=== PATIENT | male | born 1970 | race Caucasian/White ===

== ENCOUNTER 2019-03-06 08:00 | Emergency (ER) | payer SELFPAY ==
[2019-03-06 08:01] VITALS: BP 171/77; PULSE 78; RESP 16; TEMP 36.1; O2SAT 98; BMI 47.1
--- NOTE | 2019-03-06 08:33 | EKG12_ITS ---
Test Reason : SOB Blood Pressure : / mmHG Vent. Rate : 071 BPM Atrial Rate : 071 BPM P-R Int : 156 ms QRS Dur : 094 ms QT Int : 378 ms P-R-T Axes : 074 061 042 degrees QTc Int : 410 ms Normal sinus rhythm Normal ECG Confirmed by EMILY TOLLIVER, JADON ([id number]), deputy editor in chief MIKAYLA HEWITT ([id number]) on 03/07/2019 11:41:43 AM Referred By: KAITLYNN Confirmed By:JADON DIAZ MD
--- NOTE | 2019-03-06 08:33 | RAD_ITS ---
STUDY: X-RAY CHEST REASON FOR EXAM: Male, 48 years old. States that last night he felt like he stopped breathing while trying to fall asleep. TECHNIQUE: PA and lateral views of the chest. COMPARISON: None. FINDINGS: Thickening of the minor fissure. The lungs are clear and expanded. There is no demonstrated pleural abnormality. Normal size heart. Normal mediastinum and tyra. Normal visualized pulmonary arteries. Normal visualized aortic arch and descending thoracic aorta. Normal visualized thoracic spine. Normal visualized ribs, clavicles, and shoulders. There is no demonstrated abnormality of the visualized soft tissue structures of the upper abdomen. RAD/Chest PA and Lateral IMPRESSION: No pulmonary edema, congestive heart failure or confluent pneumonia. Electronically Signed: Arely Moya MD at 9:06 EDT , Service support ,
--- NOTE | 2019-03-06 08:35 | ED.DCSUM_ITS ---
- ER Visit Summary Date of Service: 03/06/19 Chief Complaint: Trouble breathing last night when he was trying to go to sleep. History of Present Illness: The patient is a 48 M no significant past medical or surgical history. No cardiac or pulmonary history. Patient states last night when he was going to sleep he would doze off and felt like he was having trouble breathing. Like the air was being sucked out of him. He denies any chest pain. No fever or cough. No hemoptysis. No history of DVT or PE or any risk factors. Patient has never been diagnosed or worked up for sleep apnea but believes he has it. He is not short of breath at this time. Physical Examination: Middle-aged male. Vital signs stable and afebrile. His pulse ox is 98%. H EENT exam unremarkable. Neck nontender no JVD. No lymphadenopathy. Lungs clear to auscultation bilaterally. Heart regular rhythm no murmur. Rate about 80. Chest were nontender. Abdomen soft nontender. Extremities moves all 4. Calves are nontender without edema or cords. Equal symmetrical radial pulses. Back nontender. Neurologically he is awake and alert with no focal motor deficits. Test Results: EKG shows normal sinus rhythm rate of 71 with no signs of ischemia nor abnormal rhythm. Chest x-ray 2 views AP and lateral read by myself shows no acute abnormality. Normal cardiac silhouette. Normal mediastinum. No fluid nor infiltrate. Emergency Department Course and Treatment: Patient's exam is completely normal. His body habitus would suggest that he most likely has obstructive sleep apnea. He understands I cannot diagnose that to the emergency department. He will need outpatient follow-up. Repeat exam doing well at 9:10 AM discharge for outpatient follow-up Treatment Plan: Referred to primary care physician. Consider having a sleep study done. Disposition: Discharge Impression: Obstructive sleep apnea This note was generated with [employer] dictation software. It may contain incorrect words, spelling, and punctuation that were not noted in review of the chart prior to signing ED Disposition - Plan for ED Patient: Referrals: NOT,DEFINED [NON-STAFF] -
--- NOTE | 2019-03-06 09:10 | ED.DEP ---
ED Disposition - Plan for ED Patient: Disposition: Home or Assisted Living Instructions: ED Dyspnea, SLEEP APNEA, Obstructive (Adult) Referrals: Lance Santiago MD [STAFF PHYSICIAN] - As soon as possible Additional Instructions: Follow-up with a local primary care physician. You may need to be set up for a sleep study. Your chest x-ray and EKG today were normal. Follow-up to the ER if you are feeling
[2019-03-06 10:08] VITALS: BP 169/83; PULSE 87; RESP 16; O2SAT 97
== END 2019-03-06 10:09 | disposition home or self-care (01) ==
PROVIDERS: Emergency Provider Emergency Medicine
DX: G47.33 Obstructive sleep apnea (adult) (pediatric) (principal); Z72.0 Tobacco use
CPT/HCPCS: 71046; 93005; 99282

== ENCOUNTER 2019-05-08 14:58 | Emergency (ER) | payer SELFPAY ==
[2019-05-08 14:59] VITALS: BP 126/79; PULSE 71; PULSE 74; RESP 18; TEMP 36.7; O2SAT 100; BMI 47.9
--- NOTE | 2019-05-08 15:29 | RAD_ITS ---
STUDY: X-RAY - RIGHT KNEE REASON FOR EXAM: Male, 48 years old. Pain status post fall off ladder. TECHNIQUE: 3 view(s) of the knee. COMPARISON: None. FINDINGS: Moderate lipohemarthrosis. Visualized femur and patella are intact. Acute comminuted fracture of the proximal tibia involving the lateral tibial plateau and lateral aspect of the medial tibial plateau. There is approximately 9 mm depression of the lateral tibial plateau. There is lateral displacement of a dominant lateral tibial plateau fragment. There is narrowing of the lateral compartment due to trauma. There is widening of the medial compartment due to trauma. Medial tibial fragment extends into the proximal tibial shaft and is displaced approximately 1.5 cm dorsomedially. There is a comminuted fracture of the fibular head and neck. RAD/Knee 3 Views IMPRESSION: 1. Comminuted fracture of the proximal tibia including depression of the lateral tibial plateau. 2. Comminuted fracture of the fibular head and neck. 3. Lipohemarthrosis of the knee. Electronically Signed: Cindy Pollock MD at 16:41 EST Tel , Service support ,
--- NOTE | 2019-05-08 15:29 | RAD_ITS ---
STUDY: X-RAY - RIGHT TIBIA AND FIBULA REASON FOR EXAM: Male, 48 years old. Pain status post fall. TECHNIQUE: 3 view(s) of the tibia and fibula were obtained. COMPARISON: None. FINDINGS: Acute comminuted fracture of the proximal tibia is prominent displaced lateral tibial fragment. Acute comminuted fracture of the fibular head and neck. Mid to distal shafts of the tibia and fibula are intact. RAD/Tibia & Fibula 2 Views IMPRESSION: 1. Acute fractures of the proximal tibia and fibula. Please refer to the x-ray knee report. Electronically Signed: Cindy Pollock MD at 16:44 EST Tel , Service support ,
--- NOTE | 2019-05-08 15:53 | ED.VISSUMM ---
- ER Visit Summary Date of Service: 05/08/19 Chief Complaint: Fall History of Present Illness: The patient is a 48 M who presents after a fall today. Patient states he fell off of a ladder approximately 4 to 5 feet. Patient states his pain is mainly in his right knee and leg. Patient states the pain is worse with any movement. Patient denies any head injury or loss of consciousness. Patient denies any paresthesias or weakness. Patient denies any neck or back pain. Patient describes his pain as dull. Patient denies any other injuries. Physical Examination: Vital signs are stable. Patient is afebrile. Patient is in no acute distress. Musculoskeletal exam reveals tenderness over the anteromedial aspect of the right knee and proximal tibia. There is a hematoma noted. There is no obvious deformity noted. Range of motion was limited in all motions of the right knee and leg secondary to pain. Sensation was intact to light touch in all dermatomes. Pedal pulses are equal bilaterally. There is no tenderness over the hip or pelvis. Test Results: X-rays of the right knee and tib-fib were obtained. There are fractures of the medial and lateral tibial plateaus as well as the proximal fibula. These were interpreted by the radiologist and reviewed by myself. Emergency Department Course and Treatment: Patient was given morphine here. Patient had some improvement with this. Patient was given a dose of Dilaudid. Case was discussed with Dr. Buckner. He recommended transferring the patient to [facility]. Case was discussed with [facility] transfer line. Patient will be transferred there. Patient was given a knee immobilizer for transfer. Patient understood and was agreeable with the plan. All questions were answered. Disposition: Transfer to [facility] Impression: 1. Tibial plateau fracture right knee 2. Proximal fibula fracture right leg This note was generated with [employer] dictation software. It may contain incorrect words, spelling, and punctuation that were not noted in review of the chart prior to signing ED Disposition - Plan for ED Patient: Disposition: [facility] Diagnosis: Tibial plateau fracture, right, Fracture, fibula, proximal Referrals: Care Physician,No Primary [Primary Care Provider] -
[2019-05-08] MEDS: Morphine 4 MG/ML Syringe IV (16:36)
[2019-05-08] MEDS: HYDROmorphone 1 MG/ML Syringe IV ×2 (17:54→19:27)
[2019-05-08 19:32] VITALS: BP 157/86; PULSE 78; RESP 19; O2SAT 97
[2019-05-08 21:23] VITALS: RESP 16
== END 2019-05-08 20:00 | disposition short-term general hospital (02) ==
LOC: ED 15:25
PROVIDERS: Emergency Provider Emergency Medicine
DX: S82.141A Displaced bicondylar fracture of right tibia, initial encounter for closed fracture (principal); S82.491A Other fracture of shaft of right fibula, initial encounter for closed fracture; W11.XXXA Fall on and from ladder, initial encounter; Y93.9 Activity, unspecified; Y92.9 Unspecified place or not applicable; Z72.0 Tobacco use
CPT/HCPCS: 73562; 73590; 96374; 96375; 96376; 99285; J7030

== ENCOUNTER 2019-06-29 11:43 | Emergency (ER) | payer SELFPAY ==
[2019-06-29 11:44] VITALS: BP 113/74; PULSE 97; RESP 16; TEMP 37.3; BMI 47.1
--- NOTE | 2019-06-29 11:56 | RAD_ITS ---
STUDY: X-RAY - RIGHT KNEE REASON FOR EXAM: Male, 48 years old. RIGHT LEG/KNEE PAIN. RECENT FX 05/2019 WITH SURGERY TECHNIQUE: 4 view(s) of the knee. COMPARISON: None. FINDINGS: Normal visualized distal femur. Comminuted fracture of the lateral tibial plateau is noted there is internal fixation was hardware in good position. There is a healing fracture of the proximal metaphysis of the fibula. There is mild degenerative arthrosis of the patellofemoral articulation. The soft tissue structures are unremarkable. RAD/Knee 4 or More Views IMPRESSION: Healing fractures of the lateral tibial plateau at the proximal metaphysis of the fibula. Electronically Signed: Lucero Majano, at 13:04 EST Tel , Service support ,
[2019-06-29] MEDS: HYDROcodone Bitartrate/Apap 5/325 Tablet PO (12:04)
[2019-06-29] MEDS: Naproxen 500 MG Tablet PO (12:04)
--- NOTE | 2019-06-29 13:35 | ED.VIS.GEN ---
History of Present Illness Chief Complaint: Lower Extremity Injury Informant: Patient Onset: Days Context: Gradual Onset Timing: Waxes and wanes Quality: Increased pain with spasm and goose egg right knee Location: Medial right knee and proximal leg Current Severity: Mild Maximum Severity: Severe Worsened by: Nothing Relieved by: Nothing Associated Symptoms: Spasms Narrative: Patient is a 48-year-old male who had a comminuted lateral tibial plateau fracture and fracture of the fibular head who underwent repair at [facility] by Dr. Reese. He presents because of increased pain that is wax and wane in nature. He also states there is goose egg that he can feel. He denies paresthesia, anesthesia motors. He states he is in physical therapy. He is doing only what he was instructed to do. Prior similar symptoms: Yes Recent Illness/Hospitalization: Yes Past Medical History - Allergies and Home Meds Allergies/Adverse Reactions: Allergies No Known Allergies Allergy (Verified 06/29/19 11:48) Primary Care Physician: Care Physician,No Primary [Primary Care Provider] - Surgical History: - - And reduction internal fixation comminuted lateral tibial plateau fracture with transverse fracture fibular head. Lives: With Family Smoking Status: Former smoker Alcohol: None Drugs: None Review of Systems General: Denies: Chills, Fever, Malaise, Sweats Cardiovascular: Denies: Chest pain, Palpitations Respiratory: Denies: Dyspnea, Cough, Dyspnea on exertion Gastrointestinal: Denies: Abdominal pain, Nausea, Vomiting Musculoskeletal: Reports: Swelling, Extremity Pain. Denies: Myalgias, Arthralgias, Neck pain, Back pain, -, - Skin: Denies: Rash, Wounds Neurological: Denies: Headache, Weakness, Parasthesia, Numbness Hematologic: Denies: Easy bruising, Easy bleeding Allergy: Denies: Uticaria, Swelling of the mouth Physical Exam Vital Signs/Narrative: Vital Signs Temp Pulse Resp BP 06/29/19 11:44 99.1 F 97 16 113/74 Inital Vital Signs reviewed: Yes General: Well nourished, Well developed, Obese, No Acute Distress Head: Normocephalic, Atraumatic Eyes: Perrl, EOMI. Negative for: Pale conjunctiva, Scleral icterus ENT: Moist mucous membranes, No rhinorrhea Neck: Supple, Nontender Cardiovascular: Regular rate, Regular rhythm, No murmurs, Normal S1, Normal S2 Respiratory: No distress, CTA bilaterally, Chest nontender Extremities: No edema, - - There is pain over the medial proximal incision. There is no erythema, warmth, fluctuance or lymphangitis. There is no palpable mass. Patella is not ballotable. There is a slight effusion. He is able to extend 270 degrees and hold against gravity. He is able to flex to 90 degrees. DP and PT pulses are palpable.. Negative for: Nontender Skin: Normal color, No rash Neurological: Alert, Oriented x3, Cranial nerves II-XII grossly intact, Normal Sensation. Negative for: Normal Strength, Normal Gait Psychological: Depressed Diagnostic/Tx/Re-eval Chest X-Ray - ED: Read by ED Physician, Read by Radiologist, - - 4 view x-ray of the knee was obtained. There is hardware noted. He has a healing tibial plateau fracture and fracture of the proximal fibula. This was compared to postop films that patient had for my review. There is interval improvement. Impressions Knee X-Ray 06/29/19 11:56 IMPRESSION: Healing fractures of the lateral tibial plateau at the proximal metaphysis of the fibula. Electronically Signed: Lucero Majano, at 13:04 EST Tel , Service support , 06/29/19 11:56 Knee 4 or More Views [RAD] Stat - Medical Decision Making Since patient is complaining of pain with weightbearing and has not had recent x-rays x-rays were obtained to determine if any new injury or nonhealing fracture. He was medicated with hydrocodone. He reports marked improvement. ED Disposition - Plan for ED Patient: Diagnosis: Comminuted lateral tibial plateau fractu Instructions: FRACTURE, Lower Extremity Prescriptions: Hydrocodone Bitart/Apap 5-325 [Nancy 5MG-325MG] 1 tab PO Q6H PRN PRN 3 Days #10 tab PRN Reason: Pain Prescription Printed Referrals: Care Physician,No Primary [Primary Care Provider] - Doctor,Your [STAFF PHYSICIAN] - 3-5 Days if not improving
[2019-06-29 13:47] VITALS: BP 127/63; PULSE 58; RESP 16; O2SAT 97
== END 2019-06-29 13:48 | disposition home or self-care (01) ==
PROVIDERS: Emergency Provider Emergency Medicine
DX: S82.144D Nondisplaced bicondylar fracture of right tibia, subsequent encounter for closed fracture with routine healing (principal); Z87.891 Personal history of nicotine dependence; E66.9 Obesity, unspecified; X58.XXXD Exposure to other specified factors, subsequent encounter
CPT/HCPCS: 73564; 99283

== ENCOUNTER → 2020-03-13 11:49 | Outpatient (CLI) | payer MEDICAID, SELFPAY ==
[2020-03-13 15:20] LABS: Absolute Lymphocyte Count 2.31 X10^3/uL (0.83-4.51); Absolute Neutrophil Count 3.1 X10^3/uL (2.0-7.7); Basophil# 0.03 X10^3/uL; Basophil% 0.5 % (0-1); Eosinophil# 0.14 X10^3/uL; Eosinophils% 2.2 % (0-5); Hematocrit 44.3 % (40-54); Lymphocyte # 2.31 X10^3/ul (4.0); Lymphocyte % 36.4 % (19-41); Mean Corp Hgb Conc 31.6 g/dL (32-36); Mean Corpuscular Hgb 28.8 pg (27.0-32.0); Mean Corpuscular Volume 91.2 fL (80-94); Mean Platelet Vol. 10.3 fl (6.2-12.0); Monocyte# 0.74 X10^3/uL; Monocyte% 11.7 % (0-10); NRBC Flagged by Analyzer 0 % (0-5); Neutrophil % 48.9 % (47-70); Platelet Count 222 K/mm3 (150-450); RBC Distribution Width CV 14.1 % (11.6-14.6); RBC Distribution Width SD 47.6 fl (35.1-43.9); Red Blood Count 4.86 M/mm3 (4.6-6.2); White Blood Count 6.3 K/mm3 (4.4-11.0)
[2020-03-13 15:38] LABS: Vitamin B12 269 pg/mL (211-911); Vitamin D,25 Hydroxy 30.2 ng/mL
[2020-03-13 15:47] LABS: ALB/GLOB Ratio 1.1 RATIO (0.9-2.4); AST(SGOT) 19 U/L (15-37); Alanine Aminotransfer ALT/SGPT 24 U/L (16-61); Albumin, Serum 3.5 g/dL (3.2-5.0); Alkaline Phosphatase 84 U/L (45-117); Anion Gap 6 (5-15); BUN 12 mg/dL (7-18); BUN/Creat Ratio 13.3 RATIO (10-20); Calcium,Total 8.4 mg/dL (8.5-10.1); Chloride 109 mmol/L (98-107); Cholesterol 108 mg/dL (200); EST Glomerular Filtration Rate 96 mL/min (>60); Est Glom Filt Rate - Afr Amer 116 mL/min (>60); Globulin 3.2 g/dL (2.2-4.2); Glucose 91 mg/dL (74-106); High Density Lipoprotein 35 mg/dL; Potassium 3.7 mmol/L (3.5-5.1); Protein, Total 6.7 g/dL (6.4-8.2); Sodium Level 141 mmol/L (136-145); Thyroid Stim Hormone (TSH) 1.91 uIU/mL (0.358-3.74); Triglycerides 114 mg/dL; Very Low Density Lipoprotein 23 mg/dL (5-40)
== END ==
PROVIDERS: PCP Family Medicine; Referring Provider Family Medicine; Visit Provider Family Medicine
DX: R53.83 Other fatigue (principal); Z13.220 Encounter for screening for lipoid disorders
CPT/HCPCS: 36415; 80053; 80061; 82306; 82607; 84443; 85025

== ENCOUNTER → 2020-03-14 16:49 | Outpatient (CLI) | payer MEDICAID, SELFPAY ==
--- NOTE | 2020-03-14 16:51 | RAD_ITS ---
STUDY: X-RAY - RIGHT KNEE REASON FOR EXAM: Male, 49 years old. 10 month postop. Patient feels screws breaking and loosening. TECHNIQUE: 4 view(s) of the knee. COMPARISON: Right tibia-fibula, 03/14/2020. Right knee, 06/23/2019. FINDINGS: Normal visualized distal femur. There is a healed tibial plateau fracture. This is nonunion of the anterior fragment which appears unchanged from the previous examination. The metallic plate and screws are intact and unchanged in this position from the previous examination. Healed fracture of the proximal fibula.. Normal proximal tibiofibular articulation. There is no demonstrated destructive osseous lesion. There is mild degenerative arthrosis of the medial femorotibial compartment. There is mild degenerative arthrosis of the lateral femorotibial compartment. Normal patellofemoral articulation. The soft tissue structures are unremarkable. RAD/Knee 4 or More Views IMPRESSION: 1. Stable hardware. There is no evidence of fracture or loosening. 2. Healed fracture of the proximal tibia. 3. Single small nonfused fragment in the anterior tibial plateau seen best on the lateral view. 4. Healed fracture of the proximal fibula. Electronically Signed: Mode Oden DO at 23:07 EDT Tel [phone], Service support ,
--- NOTE | 2020-03-14 16:52 | RAD_ITS ---
STUDY: X-RAY - RIGHT TIBIA AND FIBULA REASON FOR EXAM: Male, 49 years old. 10 postop. Patient feels as if screws are loosening and breaking. Continued knee pain. TECHNIQUE: 2 view(s) of the tibia and fibula were obtained. COMPARISON: Right knee, 03/14/2020. Right tibia and fibula, 05/08/2019. Right knee, 06/29/2019 FINDINGS: There is a now healed tibial plateau fracture. There is slight loosening of the lateral plate inferiorly with fractures of the screws. There is also slight displacement of the screw in the medial portion of the plate on the lateral view the upper portion of the plate is intact without fracture or loosening. Medial plate and screws appear unchanged. There is a single nonfused fragment along the anterior aspect of the tibial plateau which is thought to lie centrally. The distal shaft appears intact. The ankle is unremarkable. There is a healed fracture of the superior fibular shaft. The soft tissue structures are unremarkable. RAD/Tibia & Fibula 2 Views IMPRESSION: Healed fracture of the tibial plateau. There is slight displacement of the lower aspect of the lateral plate with screw fractures. The upper hardware is intact. Electronically Signed: Mode Oden DO at 23:12 EDT Tel [phone], Service support ,
== END ==
PROVIDERS: PCP Family Medicine; Referring Provider Family Medicine; Visit Provider Family Medicine
DX: R52 Pain, unspecified (principal)
CPT/HCPCS: 73564; 73590

== ENCOUNTER 2020-05-09 07:11 | Day surgery (SDC) | payer MEDICAID, SELFPAY ==
[2020-04-25 14:05] VITALS: BMI 49.4
[2020-05-09] VITALS (7 sets, daily range): BP systolic 109–140; BP diastolic 72–79; PULSE 76–88; RESP 16–18; TEMP 36.1–36.4; O2SAT 95–100; BMI 48.4
--- NOTE | 2020-05-09 05:48 | HP_ITS ---
Intake Vital Signs 04/25/20 Height 5 ft 8 in 04/25/20 Weight: 325 lb 6 oz 04/25/20 BMI 49.4 04/25/20 BP 115/80 04/25/20 Blood Pressure Location Rt brachial 04/25/20 Position Sitting 04/25/20 Respiration 22 H 04/25/20 Pulse 90 04/25/20 Pulse Source NIBP 04/25/20 Temp 98.0 F 04/25/20 Temp Source Temporal 04/25/20 Pulse Oximetry (%) 96 04/25/20 Oxygen Delivery Method room air Intake Visit Reasons: CSCOPE Chief Complaint: colonoscopy Fitness Assistant Required: No Is patient in pain?: No Allergies ketamine Adverse Reaction (Severe, Verified 04/25/20 14:06) mental status change--aggession Medications amitriptyline 25 mg tablet ea PO 04/25/20 [History Confirmed 04/25/20] PFSH Medical History (Updated 04/25/20 @ 14:08 by Rosaura Lofton) IBS (irritable bowel syndrome) (Acute) right leg fracture (Acute) Anxiety and depression (Acute) Psoriasis (Acute) SUSIE (obstructive sleep apnea) (Suspected) Surgical History (Updated 04/25/20 @ 14:08 by Rosaura Lofton) s/p right leg surgery (Resolved) Family History Father CVA (cerebral vascular accident) Congestive heart failure Social History (Updated 04/25/20 @ 14:[address] Remy Blair MD) Smoking Status: Heavy Smoker (>10/day) alcohol intake: never substance use type: does not use HPI HPI HPI: AVE ERIC, is a 49 M who presents to the office today for HPI HPI Surgical H&P: Yes HPI: AVE ERIC, is a 49 M who presents to the office today for colonoscopy. The patient reports that for years he has had intermittent bright red bleeding per rectum. He is not having any abdominal pain usually but occasionally does have some cramping. He is not having any nausea or vomiting and denies any epigastric pain. Patient has never had a colonoscopy in the past and denies any family history of colon cancer. ROS General General: Yes fatigue; no weight change, appetite, colon cancer, breast cancer or weakness HEENT HEENT: No difficulty swallowing, eye injury, eye surgery, swollen glands or hoarseness Endo Endocrine: No thyroid disease, diabetes mellitus, thyroid cancer, Hair loss, heat intolerance or cold intolerance Skin Skin: Yes rash; no changing moles Additional Details: psoriasis Cardio Cardiovascular: No murmur, pacemaker, heart disease, atrial fibrillation, high blood pressure, heart attack, heart stent, palpitations, shortness of breat with exertion or chest pain Psych Psychiatric: Yes depression and anxiety; no hearing voices Resp Respiratory: No shortness of breath, Yes sleep apnea, No cough, No COPD, No asthma, No emphysema, No wheezing Gastro Gastrointestinal: Yes abdominal pain, No nausea or vomiting, Yes diarrhea, No constipation, Yes blood in stool, No acid reflux, No hemorrhoids, No ulcers, No gallbladder problem, No black,tarry stools Rivear Hematologic: No blood thinners, No blood disorders, No bleeding, No anemia, No blood clots Neuro Neurologic: No weakness Exam Const General: cooperative Orientation: alert, oriented x3 Resp Effort & Inspection: normal respiratory effort Auscultation: clear to auscultation bilaterally Cardio Rate: regular rate Rhythm: regular rhythm Heart Sounds: no murmurs GI Inspection: non-distended Palpation: soft, nontender Assessment & Plan Problems 1. Rectal bleed K62.5 Plan Patient is having intermittent rectal bleeding. He reports is a painless and bright red. He says is been going on for years. He has never had a colonoscopy. He denies any family history of colon cancer. Plan for colonoscopy. I did offer the patient EGD but he deferred. I explained endoscopy in detail to the patient. I explained the risks including but not limited to stroke or heart attack with anesthesia, perforation of the GI tract, bleeding, infection. I explained that any of these could necessitate further emergency surgery. The patient understands and all questions were answered sufficiently. The patient wishes to proceed with procedure. Remy Blair MD Pager: [facility] [address] [place] [address], [address] [place] [address] Office: Orders Orders: Colonoscopy Today K62.5 Coding Level of Care Code Off vis,new,level 3 Diagnoses Rectal bleed K62.5 I have re-examined the patient. There are no clinical changes since date of exam.
[2020-05-09] MEDS: Lactated Ringers 1,000 ML 100 ML IV (07:31)
--- NOTE | 2020-05-09 08:55 | OP.CCLET_ITS ---
05/09/2020 Jorje Palmer Md Re : Colonoscopy procedure for Guillermo Siddiqi Dear [place] This procedure was performed on May. My impressions and recommendations are as follows: Impressions : - The entire examined colon is normal on direct and retroflexion views. - No specimens collected. Recommendations : - Discharge patient to home. - Resume previous diet. - Continue present medications. - Repeat colonoscopy in 10 years for screening purposes. My findings are described in the full procedure note, which is enclosed. If I can be of further assistance, please feel free to contact me at Doctor phone number(s): , Work: . Sincerely, Remy Blair MD 05/09/2020 8:54:22 AM This report has been signed electronically.
--- NOTE | 2020-05-09 08:55 | OP.COLON_ITS ---
Patient Name: Guillermo Siddiqi Procedure Date: 05/09/2020 8:30 AM Date of : 1970 Age: 49 Procedure: Colonoscopy Indications: Anal bleeding Providers: Remy Blair MD Referring MD: Jorje Palmer Md Medicines: Monitored Anesthesia Care Patient Profile: This is a 49 year old male. Refer to note in patient chart for documentation of history and physical. Last Colonoscopy: none. The patient's first colonoscopy is today. Complications: No immediate complications. Procedure: Pre-Anesthesia Assessment: - Prior to the procedure, a History and Physical was performed, and patient medications and allergies were reviewed. The patient's tolerance of previous anesthesia was also reviewed. The risks and benefits of the procedure and the sedation options and risks were discussed with the patient. All questions were answered, and informed consent was obtained. Prior Anticoagulants: The patient has taken no previous anticoagulant or antiplatelet agents. After reviewing the risks and benefits, the patient was deemed in satisfactory condition to undergo the procedure. After I obtained informed consent, the scope was passed under direct vision. Throughout the procedure, the patient's blood pressure, pulse, and oxygen saturations were monitored continuously. The colonoscope was introduced through the anus and advanced to the cecum, identified by appendiceal orifice and ileocecal valve. The colonoscopy was performed without difficulty. The patient tolerated the procedure well. The quality of the bowel preparation was good. Scope In: 8:40:07 AM Scope Withdrawal Time 0 hours 6 minutes 20 seconds Scope Out: 8:50:15 AM Total Procedure Duration Time 0 hours 10 minutes 8 seconds Findings: The entire examined colon appeared normal on direct and retroflexion views. Impression: - The entire examined colon is normal on direct and retroflexion views. - No specimens collected. Recommendation: - Discharge patient to home. - Resume previous diet. - Continue present medications. - Repeat colonoscopy in 10 years for screening purposes. Procedure Code(s): --- Professional --- 56479, Colonoscopy, flexible; diagnostic, including collection of specimen(s) by brushing or washing, when performed (separate procedure) Diagnosis Code(s): --- Professional --- K62.5, Hemorrhage of anus and rectum CPT copyright 2017 [employer]. All rights reserved. The codes documented in this report are preliminary and upon [employer] support review may be revised to meet current compliance requirements. Remy Blair MD 05/09/2020 8:54:22 AM This report has been signed electronically. Number of Addenda: 0 Note Initiated On: 05/09/2020 8:30 AM
== END 2020-05-09 10:11 | disposition home or self-care (01) ==
LOC: EN 07:11 → AC 07:11
PROVIDERS: Anesthesiology; PCP Family Medicine; Referring Provider Family Medicine; Visit Provider Surgery
PROC: 0DJD8ZZ Inspection of Lower Intestinal Tract, Via Natural or Artificial Opening Endoscopic (ICD-10-PCS; CPT 45378; principal; 2020-05-09 08:25)
DX: K62.5 Hemorrhage of anus and rectum (principal); Z20.828 Contact with and (suspected) exposure to other viral communicable diseases; G47.33 Obstructive sleep apnea (adult) (pediatric); K58.9 Irritable bowel syndrome, unspecified; L40.9 Psoriasis, unspecified; F17.200 Nicotine dependence, unspecified, uncomplicated; Z79.899 Other long term (current) drug therapy; F41.9 Anxiety disorder, unspecified; F32.9 Major depressive disorder, single episode, unspecified
CPT/HCPCS: 45378; 87635; C9803; J7120; U0003

== ENCOUNTER 2020-05-31 15:34 | Emergency (ER) | payer MEDICAID, SELFPAY ==
[2020-05-09 07:26] VITALS: BMI 48.4
[2020-05-31 15:35] VITALS: BP 119/74; PULSE 109; RESP 18; TEMP 37.2; O2SAT 99; BMI 49.1
--- NOTE | 2020-05-31 15:50 | VDLE_ITS ---
Reason For Study: pain RIGHT LEFT GSV is normal. GSV is normal. CFV is compressible, spontaneous, phasic, CFV is compressible, spontaneous, phasic, competent and demonstrates normal competent, and demonstrates normal augmentation. augmentation. FV is compressible, spontaneous, phasic, FV is compressible, spontaneous, phasic, competent and demonstrates normal competent and demonstrates normal augmentation. augmentation. POP V is compressible, spontaneous, phasic, POP V is compressible, spontaneous, phasic, competent and demonstrates normal competent and demonstrates normal augmentation. augmentation. T/P Trunk is compressible. T/P Trunk is compressible. PTV is compressible. PTV is compressible. RT PerV is compressible. LT PerV is compressible. Procedure This is a venous duplex using B-mode, color flow and spectral Doppler. Exam performed portable in ED. The exam was diagnostic. A preliminary report was called and/or faxed to Dr. Barrera. Interpretation Summary No evidence for acute deep venous thrombosis bilateral lower extremities with patent and compressible bilateral great saphenous veins. Ordering Physician: Bony Barrera Performed By: Angel Coronado RVHamilton
--- NOTE | 2020-05-31 15:58 | ED.VISSUMM ---
- ER Visit Summary Date of Service: 05/31/20 Chief Complaint: Right leg pain History of Present Illness: The patient is a [address] Palmer. He reports that he broke his right leg a year ago and required surgery. States that he has had pain ever since that time. However, pain increased yesterday. He denies any trauma. No fall, MVA, or change in activity. He describes the pain as an aching pain is 8 out of 10 at worst and 3-10 currently. It is worsened by walking. It is partially relieved by Advil and Aleve. Patient reports that he has left foot pain that began last night. Says sharp pain is 5-10 at worst and is pain-free currently. He denies any chest pain or shortness of breath. He denies personal family history of DVT. No recent travel. He has chronic ankle swelling that is unchanged. Physical Examination: Vitals: Stable. Afebrile. General: Well-nourished and well-developed. Head: Normocephalic atraumatic. Neck: Supple, no lymphadenopathy. No JVD. Nontender. Cardiovascular: Regular rate and rhythm. No murmurs. Respiratory: No respiratory distress. Clear to auscultation bilaterally. Abdominal: Soft, nontender, nondistended, normal bowel sounds. No guarding, rebound, or peritoneal signs. Back: Nontender. Extremities: Mild tenderness palpation over his right calf. He has no edema. He has a 2+ dorsalis pedis pulse bilaterally. His left foot is nontender. There is no erythema, warmth, or evidence of infection on either leg. Skin: Normal color, no rash. Neurologic: Alert and oriented ?3. Cranial nerves II through XII are intact. Normal strength and sensation. Psych: Normal affect. Test Results: Bilateral lower extremity Dopplers are negative. Emergency Department Course and Treatment: Patient is resting comfortably. He refused pain medications. Treatment Plan: Patient be discharged with prescription for 10 Stark for severe pain. Follow-up his primary care physician in 3 to 5 days if not improving. Return to the emergency department for any worsening symptoms. Disposition: To home in improved and stable condition. Impression: 1. Right leg pain, acute on chronic. 2. Left foot pain, resolved. This note was generated with Immediatelyation software. It may contain incorrect words, spelling, and punctuation that were not noted in review of the chart prior to signing ED Disposition - Plan for ED Patient: Instructions: ED Muscle Pain Leg Cramps Prescriptions: Hydrocodone Bitart/Apap 5-325 [Stark 5MG-325MG] 1 tab PO Q4H PRN PRN 2 Days #10 tab PRN Reason: Pain Referrals: Jorje Palmer MD [Primary Care Provider] - 3-5 Days if not improving
== END 2020-05-31 16:21 | disposition home or self-care (01) ==
LOC: ED 15:53
PROVIDERS: Emergency Provider Emergency Medicine; PCP Family Medicine
DX: M79.604 Pain in right leg (principal); F17.200 Nicotine dependence, unspecified, uncomplicated
CPT/HCPCS: 93970; 99282

== ENCOUNTER → 2020-06-03 10:32 | Outpatient (CLI) | payer MEDICAID, SELFPAY ==
[2020-05-31 15:35] VITALS: BMI 49.1
--- NOTE | 2020-06-03 10:36 | RAD_ITS ---
STUDY: X-RAY - RIGHT KNEE REASON FOR EXAM: Right knee pain, ORIF one year ago. TECHNIQUE: 4 view(s) of the knee. COMPARISON: Radiographs 03/14/2020. FINDINGS: Normal visualized distal femur. There is chronic fracture deformity of the proximal tibia with a broken screw at the distal aspect of the lateral plate unchanged since the prior study. There is healed fracture deformity of the fibular neck. Normal proximal tibiofibular articulation. Normal medial femorotibial compartment. There is mild joint space narrowing of the lateral femorotibial compartment. Normal patellofemoral articulation. There is soft tissue swelling. RAD/Knee 4 or More Views IMPRESSION: No interval change of chronic fracture deformity of the proximal tibia with a broken distal screw as on the prior study. Healed fracture deformity of the fibular neck. Mild arthrosis of the lateral femorotibial compartment. Soft tissue swelling. Electronically Signed: Sridhar Sauer MD at 13:36 EST Tel , Service support ,
== END ==
PROVIDERS: PCP Family Medicine; Referring Provider Family Medicine; Visit Provider Family Medicine
DX: S89.91XA Unspecified injury of right lower leg, initial encounter (principal)
CPT/HCPCS: 73564

== ENCOUNTER → 2020-06-10 09:30 | Outpatient (CLI) | payer MEDICAID, SELFPAY ==
[2020-06-10 10:42] LABS: Erythrocyte Sedimentation Rate 64 mm/hr (0-15)
[2020-06-10 10:44] LABS: Absolute Lymphocyte Count 3.17 X10^3/uL (0.83-4.51); Absolute Neutrophil Count 9.2 X10^3/uL (2.0-7.7); Basophil# 0.04 X10^3/uL; Basophil% 0.3 % (0-1); Eosinophil# 0.06 X10^3/uL; Eosinophils% 0.4 % (0-5); Hematocrit 46.3 % (40-54); Hemoglobin 14.9 g/dL (13.0-16.5); Lymphocyte # 3.17 X10^3/ul (4.0); Lymphocyte % 22.5 % (19-41); Mean Corp Hgb Conc 32.2 g/dL (32-36); Mean Corpuscular Hgb 28.9 pg (27.0-32.0); Mean Corpuscular Volume 89.9 fL (80-94); Mean Platelet Vol. 9.5 fl (6.2-12.0); Monocyte# 1.46 X10^3/uL; Monocyte% 10.3 % (0-10); NRBC Flagged by Analyzer 0 % (0-5); Neutrophil # 9.24 X10^3/uL (2.7-7.7); Neutrophil % 65.5 % (47-70); Platelet Count 383 K/mm3 (150-450); RBC Distribution Width CV 13.9 % (11.6-14.6); RBC Distribution Width SD 45.7 fl (35.1-43.9); Red Blood Count 5.15 M/mm3 (4.6-6.2); White Blood Count 14.1 K/mm3 (4.4-11.0)
[2020-06-10 10:51] LABS: Lactic Acid 1.3 mmol/L (0.4-1.9)
[2020-06-10 11:49] LABS: Pathologist Comment/Body Fluid May follow
[2020-06-10 12:41] LABS: Body Fluid Mononuclear WBC # 7.296 10^3/uL; Body Fluid Mononuclear WBC % 4.3 %; Body Fluid Polynuclear WBC % 95.7 %; Red Cell Count/Body Fluid 0.151 10^6/ul
[2020-06-10 12:53] LABS: Auto B Fluid Analyzer BKGD Ct COUNTS W/IN LIMITS (W/IN LIMITS)
[2020-06-10 12:54] LABS: Appearance/Body Fluid TURBID; Color/Body Fluid RED; Source- Body Fluid OTHER
[2020-06-10 14:10] LABS: Lymphocytes 4 %; Monocytes 4 %; Neutrophil (Segs) 92 %; Source- Body Fluid SYNOVIAL
[2020-06-10 14:11] LABS: Body Fluid QC Type(s) BF1Q,BF2Q
[2020-06-11 12:15] LABS: Pathologist Review Reviewed
[2020-06-11 13:12] LABS: GLUCOSE, SYNOVIAL FLUID < 2 mg/dL (.)
[2020-06-11 13:16] LABS: PROTEIN, SYNOVIAL FLUID 4.6 g/dL (.)
== END ==
PROVIDERS: PCP Family Medicine; Referring Provider Orthopaedic Surgery; Visit Provider Orthopaedic Surgery
DX: M25.561 Pain in right knee (principal); M25.461 Effusion, right knee; M25.562 Pain in left knee; M25.462 Effusion, left knee
CPT/HCPCS: 36415; 82945; 83605; 84157; 85025; 85652; 86140; 87070; 87075; 87077; 87186; 87205; 89050; 89060

== ENCOUNTER → 2020-06-24 17:46 | Outpatient (CLI) | payer MEDICAID, SELFPAY ==
[2020-06-24 17:53] LABS: Absolute Lymphocyte Count 2.17 X10^3/uL (0.83-4.51); Absolute Neutrophil Count 3.1 X10^3/uL (2.0-7.7); Basophil# 0.02 X10^3/uL; Basophil% 0.3 % (0-1); Eosinophil# 0.11 X10^3/uL; Eosinophils% 1.8 % (0-5); Hematocrit 34.1 % (40-54); Hemoglobin 10.8 g/dL (13.0-16.5); Lymphocyte # 2.17 X10^3/ul (4.0); Lymphocyte % 35.9 % (19-41); Mean Corp Hgb Conc 31.7 g/dL (32-36); Mean Corpuscular Hgb 28.6 pg (27.0-32.0); Mean Corpuscular Volume 90.5 fL (80-94); Mean Platelet Vol. 9.2 fl (6.2-12.0); Monocyte# 0.64 X10^3/uL; Monocyte% 10.6 % (0-10); NRBC Flagged by Analyzer 0 % (0-5); Neutrophil % 51.2 % (47-70); Platelet Count 247 K/mm3 (150-450); RBC Distribution Width CV 13.9 % (11.6-14.6); RBC Distribution Width SD 45.9 fl (35.1-43.9); Red Blood Count 3.77 M/mm3 (4.6-6.2); White Blood Count 6.1 K/mm3 (4.4-11.0)
[2020-06-24 18:03] LABS: Erythrocyte Sedimentation Rate 39 mm/hr (0-15)
[2020-06-24 18:34] LABS: ALB/GLOB Ratio 0.8 RATIO (0.9-2.4); AST(SGOT) 17 U/L (15-37); Alanine Aminotransfer ALT/SGPT 32 U/L (16-61); Albumin, Serum 2.7 g/dL (3.2-5.0); Alkaline Phosphatase 78 U/L (45-117); Anion Gap 5 (5-15); BUN 11 mg/dL (7-18); BUN/Creat Ratio 10.9 RATIO (10-20); CRP 7.05 mg/L (0.0-3.0); Calcium,Total 8.3 mg/dL (8.5-10.1); Chloride 110 mmol/L (98-107); Creatinine, Serum 1.01 mg/dL (0.70-1.30); EST Glomerular Filtration Rate 84 mL/min (>60); Est Glom Filt Rate - Afr Amer 101 mL/min (>60); Globulin 3.2 g/dL (2.2-4.2); Glucose 88 mg/dL (74-106); Protein, Total 5.9 g/dL (6.4-8.2); Sodium Level 144 mmol/L (136-145)
== END ==
PROVIDERS: PCP Family Medicine
DX: T84.622A Infection and inflammatory reaction due to internal fixation device of right tibia, initial encounter (principal); T84.116D Breakdown (mechanical) of internal fixation device of bone of right lower leg, subsequent encounter
CPT/HCPCS: 80053; 85025; 85652; 86140

== ENCOUNTER → 2020-07-22 17:34 | Outpatient (CLI) | payer MEDICAID, SELFPAY ==
[2020-07-22 18:09] LABS: ALB/GLOB Ratio 1.1 RATIO (0.9-2.4); AST(SGOT) 25 U/L (15-37); Alanine Aminotransfer ALT/SGPT 43 U/L (16-61); Albumin, Serum 3.2 g/dL (3.2-5.0); Alkaline Phosphatase 84 U/L (45-117); Anion Gap 5 (5-15); BUN 9 mg/dL (7-18); BUN/Creat Ratio 9.7 RATIO (10-20); CRP 4.95 mg/L (0.0-3.0); Calcium,Total 8.5 mg/dL (8.5-10.1); Chloride 110 mmol/L (98-107); Creatinine, Serum 0.93 mg/dL (0.70-1.30); EST Glomerular Filtration Rate 92 mL/min (>60); Est Glom Filt Rate - Afr Amer 112 mL/min (>60); Glucose 82 mg/dL (74-106); Protein, Total 6.2 g/dL (6.4-8.2); Sodium Level 143 mmol/L (136-145)
[2020-07-22 18:10] LABS: Absolute Lymphocyte Count 2.35 X10^3/uL (0.83-4.51); Absolute Neutrophil Count 4.2 X10^3/uL (2.0-7.7); Basophil# 0.02 X10^3/uL; Basophil% 0.3 % (0-1); Eosinophil# 0.14 X10^3/uL; Eosinophils% 1.9 % (0-5); Hematocrit 35.7 % (40-54); Hemoglobin 11.5 g/dL (13.0-16.5); Lymphocyte # 2.35 X10^3/ul (4.0); Lymphocyte % 31.2 % (19-41); Mean Corp Hgb Conc 32.2 g/dL (32-36); Mean Corpuscular Hgb 28.1 pg (27.0-32.0); Mean Corpuscular Volume 87.3 fL (80-94); Mean Platelet Vol. 9.8 fl (6.2-12.0); Monocyte# 0.84 X10^3/uL; Monocyte% 11.1 % (0-10); NRBC Flagged by Analyzer 0 % (0-5); Neutrophil # 4.16 X10^3/uL (2.7-7.7); Neutrophil % 55.1 % (47-70); Platelet Count 242 K/mm3 (150-450); RBC Distribution Width CV 13.8 % (11.6-14.6); RBC Distribution Width SD 43.8 fl (35.1-43.9); Red Blood Count 4.09 M/mm3 (4.6-6.2); White Blood Count 7.5 K/mm3 (4.4-11.0)
[2020-07-22 18:28] LABS: Erythrocyte Sedimentation Rate 16 mm/hr (0-20)
== END ==
PROVIDERS: PCP Family Medicine
DX: T84.622A Infection and inflammatory reaction due to internal fixation device of right tibia, initial encounter (principal); T84.116D Breakdown (mechanical) of internal fixation device of bone of right lower leg, subsequent encounter
CPT/HCPCS: 80053; 85025; 85652; 86140

== ENCOUNTER → 2020-07-25 10:01 | Outpatient (CLI) | payer MEDICAID, SELFPAY ==
--- NOTE | 2020-07-25 10:05 | RAD_ITS ---
STUDY: X-RAY - RIGHT KNEE REASON FOR EXAM: Male, 50 years old. RIGHT KNEE PAIN AFTER RECENT FALL. HARDWARE REMOVAL IN JUNE. TECHNIQUE: 3 view(s) of the knee. COMPARISON: Comparison is made with prior examination dated 06/03/2020. FINDINGS: Normal visualized distal femur. The previously seen metallic hardware has been removed. There is evidence of a dense sclerosis of the tibial metaphysis as well as the proximal tibial diaphysis. There is marked heterogeneity of the proximal tibia suggestive of a healing fracture and possible chronic osteomyelitis. Healed fracture of the proximal fibula. Normal proximal tibiofibular articulation. Normal medial femorotibial compartment. Normal lateral femorotibial compartment. Normal patellofemoral articulation. The soft tissue structures are unremarkable. RAD/Knee 3 Views IMPRESSION: Sclerosis of the proximal tibia suggestive of a healed old fracture with possible chronic osteomyelitis. Electronically Signed: Reid Stewart MD at 12:45 EST , Service support ,
== END ==
PROVIDERS: PCP Family Medicine; Referring Provider Family Medicine; Visit Provider Family Medicine
DX: S89.91XA Unspecified injury of right lower leg, initial encounter (principal)
CPT/HCPCS: 73562

== ENCOUNTER 2020-09-21 17:04 | Inpatient (IN) | payer MEDICAID, SELFPAY ==
[2020-09-21 17:06] VITALS: BP 142/96; PULSE 108; RESP 24; TEMP 36.5; O2SAT 97; BMI 52.2
--- NOTE | 2020-09-21 17:30 | ED.VISSUMM ---
- ER Visit Summary Date of Service: 09/21/20 Chief Complaint: Right lower extremity redness History of Present Illness: The patient is a 50 M presenting with right lower extremity redness. Patient states this started today. He has pain and redness to the right lower extremity. Patient had a fall May 2019 and fractured his tibia and fibula. He underwent surgical repair at that time. In late 2019 this became infected and the hardware was removed. He has been doing well and noticed redness of his leg again today. No history of DVT. He denies chest pain or shortness of breath. Denies fever. Denies other complaints. Physical Examination: Vitals are stable. Patient is afebrile. Alert no acute distress. HEENT exam is unremarkable. Neck is supple. Lungs are clear and equal bilaterally. Heart is regular rate and rhythm. Abdomen is soft nontender nondistended. Extremities right below knee erythema and warmth. Normal distal pulses. Active full range of motion of knee. Skin is warm and dry. Remainder of exam is unremarkable. Emergency Department Course and Treatment: Patient given morphine, Zofran IV. CBC, chemistries unremarkable. Lactic acid is normal. ESR 19, CRP 26.8. Blood cultures were sent. Patient was given vancomycin IV. Right tib-fib x-ray shows heterogeneous sclerosis and lysis of the proximal mid tibia suspicious for osteomyelitis. Interval removal of surgical hardware. Diffuse soft tissue swelling/edema. Chronic osteomyelitis seen on knee x-ray July 2020. Discussed with the hospitalist for admission. Disposition: Admission Impression: Right lower extremity cellulitis This note was generated with KarmaKey dictation software. It may contain incorrect words, spelling, and punctuation that were not noted in review of the chart prior to signing ED Disposition - Plan for ED Patient: Referrals: Jorje Palmer MD [Primary Care Provider] -
--- NOTE | 2020-09-21 17:34 | RAD_ITS ---
STUDY: X-RAY - RIGHT TIBIA AND FIBULA REASON FOR EXAM: Male, 50 years old. redness TECHNIQUE: 2 view(s) of the tibia and fibula were obtained. COMPARISON: 03/14/2020 FINDINGS: Heterogeneous sclerosis of the proximal and mid tibia with localized lucencies of the proximal anterior tibia just below the level of the tibial plateau, likely lateral. There is periosteal thickening of the lateral and medial tibia metadiaphysis. Normal visualized fibula. There is non-specific soft tissue swelling. RAD/Tibia & Fibula 2 Views IMPRESSION: 1. Heterogeneous sclerosis and lysis of the proximal mid tibia suspicious for osteomyelitis. 2. Interval removal of surgical hardware. 3. Diffuse soft tissue swelling/edema. Electronically Signed: Stephen Lewis MD (Brooks) at 18:03 EDT , Service support ,
[2020-09-21 17:47] LABS: Absolute Lymphocyte Count 2.22 X10^3/uL (0.83-4.51); Absolute Neutrophil Count 7.2 X10^3/uL (2.0-7.7); Basophil# 0.02 X10^3/uL; Basophil% 0.2 % (0-1); Eosinophil# 0.09 X10^3/uL; Eosinophils% 0.9 % (0-5); Hematocrit 42.3 % (40-54); Hemoglobin 13.6 g/dL (13.0-16.5); Lymphocyte # 2.22 X10^3/ul (4.0); Mean Corp Hgb Conc 32.2 g/dL (32-36); Mean Corpuscular Hgb 28.2 pg (27.0-32.0); Mean Corpuscular Volume 87.8 fL (80-94); Mean Platelet Vol. 9.4 fl (6.2-12.0); Monocyte# 0.99 X10^3/uL; Monocyte% 9.4 % (0-10); NRBC Flagged by Analyzer 0 % (0-5); Neutrophil # 7.21 X10^3/uL (2.7-7.7); Neutrophil % 68.1 % (47-70); Platelet Count 243 K/mm3 (150-450); RBC Distribution Width CV 13.8 % (11.6-14.6); Red Blood Count 4.82 M/mm3 (4.6-6.2); White Blood Count 10.6 K/mm3 (4.4-11.0)
[2020-09-21] MEDS: Morphine 4 MG/ML Syringe IV (17:51)
[2020-09-21] MEDS: Ondansetron 4 MG/2 ML Vial IV (17:52)
[2020-09-21 17:57] LABS: Erythrocyte Sedimentation Rate 19 mm/hr (0-20)
[2020-09-21 18:13] LABS: Lactic Acid 1.9 mmol/L (0.4-1.9)
[2020-09-21 18:18] LABS: Anion Gap 5 (5-15); BUN 13 mg/dL (7-18); BUN/Creat Ratio 11.2 RATIO (10-20); Calcium,Total 8.8 mg/dL (8.5-10.1); Chloride 107 mmol/L (98-107); Creatinine, Serum 1.16 mg/dL (0.70-1.30); EST Glomerular Filtration Rate 71 mL/min (>60); Est Glom Filt Rate - Afr Amer 86 mL/min (>60); Estimated Creatinine Clearance 75.34 ml/min; Glucose 115 mg/dL (74-106); Sodium Level 139 mmol/L (136-145)
[2020-09-21 18:58] VITALS: BP 129/90; PULSE 85; RESP 16; O2SAT 100
--- NOTE | 2020-09-21 19:26 | PCM.HP.STD ---
Problem List (1) Osteomyelitis Status: Acute (2) IBS (irritable bowel syndrome) Status: Chronic (3) right leg fracture Status: Chronic (4) s/p right leg surgery Status: Chronic Comment: due to fracture (5) Anxiety and depression Status: Chronic (6) Psoriasis Status: Chronic (7) SUSIE (obstructive sleep apnea) Status: Chronic (8) Cellulitis Status: Acute History of Present Illness Date of Admission: 09/21/20 Chief Complaint: Swelling of right leg The patient is a 50 year old M with a significant for anxiety and depression; a right leg fracture status post hardware replacement and removal of hardware; and obstructive sleep apnea who presents to the emergency department with increased swelling of his right leg that started on the same day of presentation. Patient's right leg broke on May 08 2019 and subsequently had hardware placed in his right leg. The hardware subsequently got removed because of infection. Reportedly he has had a right leg surgically cleaned 2 times. He follows up with Dr. Jayjay Reese, orthopedic surgeon at [facility]. Reportedly he was on home IV antibiotics for extended period of time. On the day of this presentation ( 09/21/2020) although his right leg is usually swollen at baseline he noticed about a 10% increase in the swelling. Associated with his symptoms is redness and pain of the right leg. Typically he has pain in his right leg but on the day of presentation the pain was excruciating leading him to a point where he was about to cry. Past Medical History Past Medical History (Chronic Problems): Chronic Problems (Last Reviewed 09/21/20 @ 19:[address] Onofre Bustamante MD) IBS (irritable bowel syndrome) (Chronic) right leg fracture (Chronic) s/p right leg surgery (Chronic) due to fracture Anxiety and depression (Chronic) Psoriasis (Chronic) SUSIE (obstructive sleep apnea) (Chronic) Medical History: Medical History (Last Reviewed 09/22/20 @ 01:[address] Onofre Bustamante MD) IBS (irritable bowel syndrome) (Chronic) K58.9 right leg fracture (Chronic) Anxiety and depression (Chronic) F41.9, F32.9 Psoriasis (Chronic) L40.9 SUSIE (obstructive sleep apnea) (Chronic) G47.33 Allergies ketamine Adverse Reaction (Severe, Verified 09/21/20 17:08) mental status change--aggession Home Medications: Ambulatory Orders Medication Instructions Recorded Gabapentin [Neurontin] 100 mg PO QHS 09/21/20 Surgical History: Surgical History (Last Reviewed 09/22/20 @ 01:[address] Onofre Bustamante MD) s/p right leg surgery (Chronic) due to fracture Surgical History: - - Open reduction and internal fixation comminuted lateral tibial plateau fracture with transverse fracture fibular head. Removal of surgical hardware Smoking Status: Current every day smoker Tobacco Use: Cigarettes - *Family History Maternal Family History: Family History (Last Reviewed 09/22/20 @ 01:[address] Onofre Bustamante MD) Father CVA (cerebral vascular accident) Congestive heart failure Review of Systems Constitutional: Denies: Chills, Fever, Weight Change HEENT: Denies: Head Aches, Sinus Congestion, Sinus Drainage Cardiovascular: Denies: Chest Pain, Palpitations Respiratory: Denies: Cough, Shortness of breath at rest, Sputum production Gastrointestinal: Denies: Abdominal Pain, Nausea, Vomiting Genitourinary: Denies: Dysuria Musculoskeletal: Reports: Leg Pain. Denies: Back Pain Skin: Reports: Skin Changes. Denies: Rash, Wounds Neurological: Denies: Numbness, Tingling, Focal weakness Psychiatric: Denies: Anxiety, Depression, Homicidal Ideations, Suicidal Ideations Hematologic/ Lymphatic: Denies: Easy Bruising, Easy Bleeding VTE Information - Inpt Only VTE Present on Admission: No VTE Pharm Prophylaxis ordered?: Yes Patient Problems: Active and Suspected Problems (Last Reviewed 09/21/20 @ 19:[address] Onofre Bustamante MD) Osteomyelitis (Acute) Cellulitis (Acute) - Physical Exam Vitals/I&O's: Vital Signs Temp Pulse Resp BP Pulse Ox 97.7 F L 85 16 129/90 H 100 09/21/20 17:06 09/21/20 18:58 09/21/20 18:58 09/21/20 18:58 09/21/20 18:58 Oxygen Delivery Method Room Air Weight: 156 kg Body Mass Index (BMI) 52.2 General: Alert, Oriented x3, Cooperative HEENT: Atraumatic, PERRLA, EOMI, Normocephalic Neck: Supple, No JVD, Negative Carotid Bruits Lungs: Clear to auscultation, Normal air movement Cardiovascular: Regular rate, No murmurs Abdomen: Bowel Sounds Present, Soft, Non Tender Extremities: Capillary Refill Less than 3 Seconds, Edema - Right leg, Tenderness - Right leg Skin: - - Erythema of right leg Musculoskeletal: Tenderness - Right leg Neurological: Cranial nerves II-XII grossly intact Psych/Mental Status: Normal Affect, Appropriate Laboratory Results 09/21/20 16:32: WBC 10.6, RBC 4.82, Hgb 13.6, Hct 42.3, MCV 87.8, MCH 28.2, MCHC 32.2, RDW Std Deviation 44.0 H, RDW Coeff of Ayse 13.8, Plt Count 243, MPV 9.4, Immature Gran % (Auto) 0.400, Neut % (Auto) 68.1, Lymph % (Auto) 21.0, [place] % (Auto) 9.4, Eos % (Auto) 0.9, Baso % (Auto) 0.2, Absolute Neuts (auto) 7.2, Absolute Lymphs (auto) 2.22, Nucleated RBC % 0, ESR 19 09/21/20 16:32: Sodium 139, Potassium 4.0, Chloride 107, Carbon Dioxide 27.0, Anion Gap 5, BUN 13, Creatinine 1.16, Estim Creat Clear Calc 75.34, Est GFR (MDRD) Af Amer 86, Est GFR (MDRD) Non-Af 71, BUN/Creatinine Ratio 11.2, Glucose 115 H, Calcium 8.8, C-React Prot Ext Range 26.80 H 09/21/20 16:32: Lactic Acid 1.9 Current Medications Vancomycin HCl 2,000 mg/ (Sodium Chloride) 540 mls @ 250 mls/hr IV X1 ONE Stop: 09/21/20 21:39 Assessment/Plan All Active Problems (Last Reviewed 09/21/20 @ 19:[address] Onofre Bustamante MD) Osteomyelitis (Acute) Cellulitis (Acute) The patient is a 50 year old M with a significant for anxiety and depression; a right leg fracture status post hardware replacement and removal of hardware; and obstructive sleep apnea who presents emergency department with increased in of his right leg; and pain and erythema of the right leg; and who meets SIRS criteria; with elevated CRP; and with radiographic impression of heterogenous sclerosis and lysis of proximal mid tibia suspicious for osteomyelitis; interval removal of surgical hardness and diffuse soft tissue swelling/edema. Sepsis secondary to acute osteomyelitis with cellulitis. Patient meets SIRS criteria with heart rate of more than 90; respiratory rate of more than 20. Impression of tibia/fibula x-ray by radiologist: Heterogeneous sclerosis and lysis of the proximal mid tibia suspicious for osteomyelitis. Interval removal of surgical hardware. Diffuse soft tissue swelling/edema. Current tibia/fibula x-ray and previous tibia/fibula x-ray was independently interpreted. I agree with radiologist interpretation. Lactic acid is normal. CRP elevated at 26.8. Blood culture x2 was obtained at emergency department; follow. Vancomycin was ordered at emergency department. Will order vancomycin and Zosyn inpatient. We will get MRI and ultrasound of right leg. Oxycodone as needed ordered. Bowel protocol and IV antiemetics ordered. Tobacco abuse Counseled Nicotine patch prescribed Morbid Obesity BMI: 52.3. Complicates care. Lifestyle modification recommended. DVT Prophylaxis Subcutaneous Lovenox Inpatient E&M: 60549 Init Hosp L3
[2020-09-21 19:40] VITALS: BP 119/95; PULSE 81; RESP 16; TEMP 36.9; O2SAT 98
[2020-09-21 20:15] VITALS: BP 127/52; PULSE 93; RESP 18; TEMP 36.5; O2SAT 100; BMI 50.1
[2020-09-21 20:21] VITALS: BMI 50.1
--- NOTE | 2020-09-21 20:42 | VDLE_ITS ---
Reason For Study: Pain RIGHT GSV is normal. CFV is compressible, spontaneous, phasic, competent and demonstrates normal augmentation. FV is compressible, spontaneous, phasic, competent and demonstrates normal augmentation. POP V is compressible, spontaneous, phasic, competent and demonstrates normal augmentation. T/P Trunk is compressible. PTV is compressible. RT PerV is compressible. Procedure This is a venous duplex using B-mode, color flow and spectral Doppler. Exam performed portable in patient room. A preliminary report was called and/or faxed to [facility]. Interpretation Summary There is no evidence of right lower extremity deep vein thrombosis. Right great saphenous vein appears patent and compressible segmentally. Ordering Physician: Onofre Bustamante Referring Physician: Jorje Palmer Performed By: Cecille Bhakta RVT
--- NOTE | 2020-09-21 21:45 | PCM.RX.CS ---
Consult Pharmacy has been consulted to manage selected antiobiotic: Vancomycin Type of Consult: New start Suspected Infection: Osteomyelitis Prior Doses of Antibiotics Received/Current Regimen: Medications Vancomycin HCl 1,750 mg/ (Sodium Chloride) 535 mls @ 250 mls/hr IV Q12H ALEJANDRA Discontinued Medications Vancomycin HCl 2,000 mg/ (Sodium Chloride) 540 mls @ 250 mls/hr IV X1 ONE Stop: 09/21/20 21:39 Last Admin: 09/21/20 19:46 Dose: 250 mls/hr Labs: Sodium 139 mmol/L (136-145) 09/21/20 16:32 Potassium 4.0 mmol/L (3.5-5.1) 09/21/20 16:32 Chloride 107 mmol/L (98-107) 09/21/20 16:32 Carbon Dioxide 27.0 mmol/L (21.0-32.0) 09/21/20 16:32 Anion Gap 5 (5-15) 09/21/20 16:32 BUN 13 mg/dL (7-18) 09/21/20 16:32 Creatinine 1.16 mg/dL (0.70-1.30) 09/21/20 16:32 Est GFR (MDRD) Af Amer 86 mL/min (>60) 09/21/20 16:32 Est GFR (MDRD) Non-Af 71 mL/min (>60) 09/21/20 16:32 BUN/Creatinine Ratio 11.2 RATIO (10-20) 09/21/20 16:32 Glucose 115 mg/dL (74-106) H 09/21/20 16:32 Weight used for dosin.6 kg Estimated Creatinine Clearance: 75 Goal Trough: 15-20 mcg/mL Pharmacy Plan for Drug Dosing: Pharmacy Service will continue to monitor and adjust dosing as required. Follow-Up Labs: Trough Vancomycin Labs to be done on [date and time ordered]: 09/23/20 @[id number]
[2020-09-21] MEDS: Gabapentin 100 MG Capsule PO (21:54)
[2020-09-22] VITALS (7 sets, daily range): BP systolic 99–126; BP diastolic 47–86; PULSE 82–95; RESP 18–20; TEMP 36.6–37.5; O2SAT 95–100
[2020-09-22] MEDS: Acetaminophen 325 MG Tablet 650 MG PO (02:02)
[2020-09-22] MEDS: oxyCODONE 5 MG Tablet 10 MG PO ×2 (02:03→23:19)
[2020-09-22 05:14] LABS: Absolute Lymphocyte Count 2.03 X10^3/uL (0.83-4.51); Absolute Neutrophil Count 4.8 X10^3/uL (2.0-7.7); Basophil# 0.01 X10^3/uL; Basophil% 0.1 % (0-1); Eosinophil# 0.18 X10^3/uL; Eosinophils% 2.3 % (0-5); Hematocrit 39.4 % (40-54); Hemoglobin 12.5 g/dL (13.0-16.5); Lymphocyte # 2.03 X10^3/ul (4.0); Lymphocyte % 25.5 % (19-41); Mean Corp Hgb Conc 31.7 g/dL (32-36); Mean Corpuscular Hgb 27.5 pg (27.0-32.0); Mean Corpuscular Volume 86.8 fL (80-94); Mean Platelet Vol. 9.6 fl (6.2-12.0); Monocyte# 0.95 X10^3/uL; Monocyte% 11.9 % (0-10); NRBC Flagged by Analyzer 0 % (0-5); Neutrophil # 4.77 X10^3/uL (2.7-7.7); Neutrophil % 59.9 % (47-70); Platelet Count 221 K/mm3 (150-450); RBC Distribution Width SD 44.7 fl (35.1-43.9); Red Blood Count 4.54 M/mm3 (4.6-6.2)
[2020-09-22] MEDS: DiphenhydrAMINE 25 MG Capsule PO (05:41)
[2020-09-22 06:23] LABS: Anion Gap 6 (5-15); BUN 9 mg/dL (7-18); BUN/Creat Ratio 9.1 RATIO (10-20); Calcium,Total 8.1 mg/dL (8.5-10.1); Chloride 108 mmol/L (98-107); Creatinine, Serum 0.99 mg/dL (0.70-1.30); EST Glomerular Filtration Rate 86 mL/min (>60); Est Glom Filt Rate - Afr Amer 104 mL/min (>60); Estimated Creatinine Clearance 88.28 ml/min; Glucose 104 mg/dL (74-106); Potassium 3.6 mmol/L (3.5-5.1); Sodium Level 139 mmol/L (136-145)
--- NOTE | 2020-09-22 09:44 | PN_ITS ---
<Jorje Muñiz - Last Filed: 09/22/20 10:34> Patient Problems: Active and Suspected Problems (Last Reviewed 09/22/20 @ 01:[address] Onofre Bustamante MD) Osteomyelitis (Acute) Cellulitis (Acute) Subjective: Patient is an obese 50-year-old male who is resting comfortably in bed, alert and oriented x3. Patient reports a decrease in swelling and pain of the right leg, but still feels like her right leg is considerably swollen. Denies fever, chills, N/V/D, chest pain, shortness of breath, palpitations. Objective: Clinical Impression(s) from Imaging Studies Tibia/Fibula X-Ray 09/21/20 17:34 IMPRESSION: 1. Heterogeneous sclerosis and lysis of the proximal mid tibia suspicious for osteomyelitis. 2. Interval removal of surgical hardware. 3. Diffuse soft tissue swelling/edema. Electronically Signed: Stephen Lewis MD (Brooks) at 18:03 EDT , Service support , Vitals/I&O's: Vital Signs Temp Pulse Resp BP Pulse Ox 98 F 87 20 H 99/60 95 09/22/20 07:58 09/22/20 07:58 09/22/20 07:58 09/22/20 07:58 09/22/20 07:58 Oxygen Delivery Method Room Air Weight: 329 lb 12.984 oz Body Mass Index (BMI) 50.1 Intake and Output for Last 24 Hours 09/20/20 09/21/20 09/22/20 23:59 23:59 23:59 Intake Total 540 / 540 141.25 / 141.25 Balance 540 / 540 141.25 / 141.25 General: Alert, Oriented x3, Cooperative HEENT: Atraumatic, PERRLA, EOMI, Normocephalic Neck: Supple, No JVD, Negative Carotid Bruits Lungs: Clear to auscultation, Normal air movement Cardiovascular: Regular rate, No murmurs Abdomen: Bowel Sounds Present, Obese Extremities: - - Right leg considerably larger than the left. Right leg also warmer than the left decreased redness observed. Scar from surgery also apparent around right leg. Skin: No rashes, No breakdown Musculoskeletal: No Tenderness to Palpation of Joints or Extremities Neurological: Cranial nerves II-XII grossly intact Psych/Mental Status: Normal Affect, Appropriate Laboratory Results 09/21/20 16:32: WBC 10.6, RBC 4.82, Hgb 13.6, Hct 42.3, MCV 87.8, MCH 28.2, MCHC 32.2, RDW Std Deviation 44.0 H, RDW Coeff of Ayse 13.8, Plt Count 243, MPV 9.4, Immature Gran % (Auto) 0.400, Neut % (Auto) 68.1, Lymph % (Auto) 21.0, Edmonson % (Auto) 9.4, Eos % (Auto) 0.9, Baso % (Auto) 0.2, Absolute Neuts (auto) 7.2, Absolute Lymphs (auto) 2.22, Nucleated RBC % 0, ESR 19 09/21/20 16:32: Sodium 139, Potassium 4.0, Chloride 107, Carbon Dioxide 27.0, Anion Gap 5, BUN 13, Creatinine 1.16, Estim Creat Clear Calc 75.34, Est GFR (MDRD) Af Amer 86, Est GFR (MDRD) Non-Af 71, BUN/Creatinine Ratio 11.2, Glucose 115 H, Calcium 8.8, C-React Prot Ext Range 26.80 H 09/21/20 16:32: Lactic Acid 1.9 09/22/20 04:25: WBC 8.0, RBC 4.54 L, Hgb 12.5 L, Hct 39.4 L, MCV 86.8, MCH 27.5, MCHC 31.7 L, RDW Std Deviation 44.7 H, RDW Coeff of Ayse 14.0, Plt Count 221, MPV 9.6, Immature Gran % (Auto) 0.300, Neut % (Auto) 59.9, Lymph % (Auto) 25.5, Edmonson % (Auto) 11.9 H, Eos % (Auto) 2.3, Baso % (Auto) 0.1, Absolute Neuts (auto) 4.8, Absolute Lymphs (auto) 2.03, Nucleated RBC % 0 09/22/20 04:25: Sodium 139, Potassium 3.6, Chloride 108 H, Carbon Dioxide 25.0, Anion Gap 6, BUN 9, Creatinine 0.99, Estim Creat Clear Calc 88.28, Est GFR (MDRD) Af Amer 104, Est GFR (MDRD) Non-Af 86, BUN/Creatinine Ratio 9.1 L, Glucose 104, Calcium 8.1 L Current Medications Acetaminophen (Acetaminophen 325 Mg Tablet) 650 mg PO Q6H PRN PRN PRN Reason: Pain Score 1-10/Temp > 100.7 F Last Admin: 09/22/20 02:02 Dose: 650 mg Documented by: Diphenhydramine HCl (Diphenhydramine 25 Mg Capsule) 25 mg PO Q6H PRN PRN PRN Reason: ITCHING Last Admin: 09/22/20 05:41 Dose: 25 mg Documented by: Enoxaparin Sodium (Enoxaparin 40 Mg/0.4 Ml Syringe) 40 mg SC DAILY [facility] Gabapentin (Gabapentin 100 Mg Capsule) 100 mg PO DAILY@2200 [facility] Last Admin: 09/21/20 21:54 Dose: 100 mg Documented by: Sodium Chloride () 250 mls @ 15 mls/hr IV .[id number] PRN PRN Reason: Saline Flush Last Infusion: 09/22/20 05:10 Dose: 0 mls/hr Documented by: Sodium Chloride () 250 mls @ 15 mls/hr IV .[id number] PRN PRN Reason: Additional IVPB Infusion Vancomycin IV Pharmacy to Dose (1 ea/ Sodium Chloride) 500 mls @ 250 mls/hr IV PRN PRN; Protocol PRN Reason: Rx to Dose Piperacillin Sod/Tazobactam (Sod 3.375 gm/ Sodium Chloride) 50 mls @ 12.5 mls/hr IV Q8 [facility] Last Infusion: 09/22/20 09:15 Dose: Infused Documented by: Vancomycin HCl 1,750 mg/ (Sodium Chloride) 535 mls @ 250 mls/hr IV Q12H [facility] Last Admin: 09/22/20 09:36 Dose: 250 mls/hr Documented by: Nicotine (Nicotine 21 Mg Patch) 21 mg TD DAILY [facility] Last Admin: 09/21/20 21:53 Dose: 21 mg Documented by: Ondansetron HCl (Ondansetron 4 Mg/2 Ml Vial) 4 mg IV Q8H PRN PRN PRN Reason: NAUSEA/VOMITING Oxycodone HCl (Oxycodone 5 Mg Tablet) 5 mg PO Q4H PRN PRN PRN Reason: Pain Score 4-5 Oxycodone HCl (Oxycodone 5 Mg Tablet) 10 mg PO Q4H PRN PRN PRN Reason: pain 6-10/10 Last Admin: 09/22/20 02:03 Dose: 10 mg Documented by: Sodium Chloride (0.9% Saline Lock 10 Ml Syringe) 10 - 40 ml IV UD PRN PRN Reason: SALINE FLUSH STROKE Vital Signs/Narrative: Vital Signs Temp Pulse Resp BP Pulse Ox 09/22/20 07:58 98 F 87 20 H 99/60 95 Medical Necessity - Tobacco Use Smoking Status: Current every day smoker Tobacco Use: Cigarettes Assessment/Plan All Active Problems (Last Reviewed 09/22/20 @ 01:[address] Onofre Bustamante MD) Osteomyelitis (Acute) Cellulitis (Acute) Patient is a 50-year-old male who presented to the emergency department on 09/21/2020 with a chief complaint of right leg swelling and pain. On admission patient met SIRS criteria with a heart rate of greater than 98 and respiratory rate greater than 20. Patient's right leg pain was intractable and was rated at a 10 at admission. Of note patient's CRP was elevated and x-rays were suspicious for osteomyelitis. On my exam today patient was resting comfortably in bed, patient feels that his swelling has decreased and admits to only mild pain now in the right leg. Denies fever, chills, N/V/D, chest pain, shortness of breath, palpitations. Physical exam demonstrated only mild redness of the right leg, right leg is still considerably larger than the left. Patient is being treated empirically on Vancomycin and Zosyn, blood cultures are pending, MRI and Doppler ultrasound ordered. Past medical history significant for irritable bowel syndrome, right leg fracture, status post right leg surgery, anxiety and depression, psoriasis, obstructive sleep apnea. Patient denies medical history of diabetes. Patient claims that his primary care provider checks him regularly and his last appointment 2 weeks ago his lab work was not suspicious for diabetes. POC glucose today 104. Sepsis secondary to acute osteomyelitis with cellulitis Assessment - CRP 26 at admission - X-ray of the right leg suspicious for osteomyelitis - HR 87 - RR 20 - Right leg swollen and warm, mild redness observed - Left leg unremarkable - Low suspicion for diabetes considering outpatient follow-up and current POC glucose - No leukocytosis on CBC - BMP unremarkable Plan - MRI and Doppler ultrasound ordered - Blood cultures pending - Continue empiric management Obesity Assessment - BMI 52.3 - Low suspicion for concomitant diabetes considering outpatient follow-up and current POC glucose Plan - Lifestyle modifications were recommended DVT prophylaxis-SC Lovenox Patient seen by Jorje Muñiz PA-C, under the supervision of Dr. Cuellar <Tom Cuellar E - Last Filed: 09/22/20 11:03> Vitals/I&O's: Vital Signs Temp Pulse Resp BP Pulse Ox 98 F 87 20 H 99/60 95 09/22/20 07:58 09/22/20 09:00 09/22/20 09:00 09/22/20 07:58 09/22/20 09:00 Oxygen Delivery Method Room Air Weight: 329 lb 12.984 oz Body Mass Index (BMI) 50.1 Intake and Output for Last 24 Hours 09/20/20 09/21/20 09/22/20 23:59 23:59 23:59 Intake Total 540 / 540 141.25 / 141.25 Balance 540 / 540 141.25 / 141.25 Laboratory Results 09/21/20 16:32: WBC 10.6, RBC 4.82, Hgb 13.6, Hct 42.3, MCV 87.8, MCH 28.2, MCHC 32.2, RDW Std Deviation 44.0 H, RDW Coeff of Ayse 13.8, Plt Count 243, MPV 9.4, Immature Gran % (Auto) 0.400, Neut % (Auto) 68.1, Lymph % (Auto) 21.0, Edmonson % (Auto) 9.4, Eos % (Auto) 0.9, Baso % (Auto) 0.2, Absolute Neuts (auto) 7.2, Absolute Lymphs (auto) 2.22, Nucleated RBC % 0, ESR 19 09/21/20 16:32: Sodium 139, Potassium 4.0, Chloride 107, Carbon Dioxide 27.0, Anion Gap 5, BUN 13, Creatinine 1.16, Estim Creat Clear Calc 75.34, Est GFR (MDRD) Af Amer 86, Est GFR (MDRD) Non-Af 71, BUN/Creatinine Ratio 11.2, Glucose 115 H, Calcium 8.8, C-React Prot Ext Range 26.80 H 09/21/20 16:32: Lactic Acid 1.9 09/22/20 04:25: WBC 8.0, RBC 4.54 L, Hgb 12.5 L, Hct 39.4 L, MCV 86.8, MCH 27.5, MCHC 31.7 L, RDW Std Deviation 44.7 H, RDW Coeff of Ayse 14.0, Plt Count 221, MPV 9.6, Immature Gran % (Auto) 0.300, Neut % (Auto) 59.9, Lymph % (Auto) 25.5, Edmonson % (Auto) 11.9 H, Eos % (Auto) 2.3, Baso % (Auto) 0.1, Absolute Neuts (auto) 4.8, Absolute Lymphs (auto) 2.03, Nucleated RBC % 0 09/22/20 04:25: Sodium 139, Potassium 3.6, Chloride 108 H, Carbon Dioxide 25.0, Anion Gap 6, BUN 9, Creatinine 0.99, Estim Creat Clear Calc 88.28, Est GFR (MDRD) Af Amer 104, Est GFR (MDRD) Non-Af 86, BUN/Creatinine Ratio 9.1 L, Glucose 104, Calcium 8.1 L Current Medications Acetaminophen (Acetaminophen 325 Mg Tablet) 650 mg PO Q6H PRN PRN PRN Reason: Pain Score 1-10/Temp > 100.7 F Last Admin: 09/22/20 02:02 Dose: 650 mg Documented by: Diphenhydramine HCl (Diphenhydramine 25 Mg Capsule) 25 mg PO Q6H PRN PRN PRN Reason: ITCHING Last Admin: 09/22/20 05:41 Dose: 25 mg Documented by: Enoxaparin Sodium (Enoxaparin 40 Mg/0.4 Ml Syringe) 40 mg SC DAILY [facility] Last Admin: 09/22/20 10:09 Dose: 40 mg Documented by: Gabapentin (Gabapentin 100 Mg Capsule) 100 mg PO DAILY@2200 [facility] Last Admin: 09/21/20 21:54 Dose: 100 mg Documented by: Sodium Chloride () 250 mls @ 15 mls/hr IV .[id number] PRN PRN Reason: Saline Flush Last Infusion: 09/22/20 05:10 Dose: 0 mls/hr Documented by: Sodium Chloride () 250 mls @ 15 mls/hr IV .[id number] PRN PRN Reason: Additional IVPB Infusion Vancomycin IV Pharmacy to Dose (1 ea/ Sodium Chloride) 500 mls @ 250 mls/hr IV PRN PRN; Protocol PRN Reason: Rx to Dose Piperacillin Sod/Tazobactam (Sod 3.375 gm/ Sodium Chloride) 50 mls @ 12.5 mls/hr IV Q8 [facility] [place] Last Infusion: 09/22/20 09:15 Dose: Infused Documented by: Vancomycin HCl 1,750 mg/ (Sodium Chloride) 535 mls @ 250 mls/hr IV Q12H [facility] [place] Last Admin: 09/22/20 09:36 Dose: 250 mls/hr Documented by: Nicotine (Nicotine 21 Mg Patch) 21 mg TD DAILY [facility] [place] Last Admin: 09/22/20 10:09 Dose: 21 mg Documented by: Ondansetron HCl (Ondansetron 4 Mg/2 Ml Vial) 4 mg IV Q8H PRN PRN PRN Reason: NAUSEA/VOMITING Oxycodone HCl (Oxycodone 5 Mg Tablet) 5 mg PO Q4H PRN PRN PRN Reason: Pain Score 4-5 Oxycodone HCl (Oxycodone 5 Mg Tablet) 10 mg PO Q4H PRN PRN PRN Reason: pain 6-10/10 Last Admin: 09/22/20 02:03 Dose: 10 mg Documented by: Sodium Chloride (0.9% Saline Lock 10 Ml Syringe) 10 - 40 ml IV UD PRN PRN Reason: SALINE FLUSH STROKE Vital Signs/Narrative: Vital Signs Temp Pulse Resp BP Pulse Ox 09/22/20 09:00 87 20 H 95 09/22/20 07:58 98 F 87 20 H 99/60 95 Assessment/Plan Hospitalist note: I am seeing this patient in conjunction with Jorje Muñiz. I independently seen and examined the patient. Progress note above, laboratory data and imaging studies reviewed and I concur with the above treatment plan and additions are below. Patient still complaining of right leg swelling, pain is getting better. Denies fever or chills. He had left tibia and fibular fracture back in 2019, went under surgical repair which was complicated by infection. Hardware of the right leg was removed and patient was on IV antibiotics until July 25, 2020. He was on IV antibiotics for 1 month. He was informed that the fracture was healed but he had a bad infection. His vital signs are stable, afebrile. - Physical Exam General: Alert, Oriented x3, Cooperative, No apparent distress. HEENT: Atraumatic, PERRLA, EOMI. Neck: Supple, No JVD, Negative Carotid Bruits, Trachea Midline, Thyroid Normal. Lungs: Clear to auscultation, Normal air movement, No rhonchi, No wheeze, No rales. Cardiovascular: Regular rate, Regular Rhythm, Normal S1, Normal S2, PMI Normal. Abdomen: Bowel Sounds Present, Soft, Non Tender, Non-Distended, No Hepato- splenomegaly. Extremities: No clubbing, No cyanosis. No edema on the left leg. Right leg: Swollen, nonpitting edema, minimal erythema, getting better, multiple surgical scars. Skin: He does have skin rash because of psoriasis, No breakdown. Neurological: Cranial nerves are intact. Neuro grossly intact Vital Signs stable. Assessment and plan: #1 acute right leg cellulitis with suspected osteomyelitis: In the setting of right tibia and tibia fracture status post internal fixation, complicated by infection and osteomyelitis, status post removal of infected hardware, completed IV antibiotics on July 25, 2020. Patient is on IV vancomycin and Zosyn. Today, he is afebrile, no leukocytosis, not tachycardic, blood pressure stable. Lactic acid was normal. ESR was normal, CRP was elevated. X-ray of the right tibia and fibula revealed heterogenous sclerosis and lysis of the proximal mid tibia suspicious for osteomyelitis. MRI right leg ordered. Blood cultures pending. Plan to continue same treatment, MRI of right leg as ordered. Also, venous Doppler of the right leg ordered to rule out DVT. Plan to continue same treatment. #2 DVT prophylaxis: Subcu Lovenox. This note was generated with [employer] dictation software. It may contain incorrect words, spelling, and punctuation that were not noted in checking the note before signing. Inpatient E&M: 02182 Subs Hosp L2
[2020-09-22] MEDS: Enoxaparin 40 MG/0.4 ML Syringe SC (10:09)
[2020-09-22] MEDS: Lactulose 20 GM/30 ML UDC 10 GM PO (16:26)
[2020-09-22] MEDS: oxyCODONE 5 MG Tablet PO (18:29)
[2020-09-22] MEDS: Gabapentin 100 MG Capsule PO (22:14)
[2020-09-23 03:59] VITALS: BP 104/66; PULSE 87; RESP 18; TEMP 36.6; O2SAT 97
[2020-09-23 07:20] VITALS: O2SAT 97
[2020-09-23 07:49] LABS: Vancomycin, Trough Level 15.4 ug/mL (5.0-15.0)
--- NOTE | 2020-09-23 08:00 | MRI_ITS ---
STUDY: MRI LOWER EXTREMITY RIGHT TIBIA AND FIBULA WITHOUT CONTRAST REASON FOR EXAM: Male, 50 years old. Increased swelling and redness. Prior infection. Hardware removal, osteomyelitis TECHNIQUE: Standardized fat and water weighted pulse sequences were obtained in all 3 orthogonal planes. COMPARISON: X-ray September 21, 2020 FINDINGS: There postoperative changes in the anterior proximal soft tissues. There are tracts from prior intervention in the medial and lateral aspect. There is 5.8 x 2.5 cm fluid signal intensity region at the medial aspect. Normal visualized muscles and fascia. Normal visualized neurovascular bundles. There is incompletely united fracture of the lateral tibial plateau and proximal shaft of the tibia with T2 signal hyperintensity, series 6 images through . There are tracks from prior hardware that has been removed from the proximal tibia. Normal fibula. There is moderate joint effusion at the knee. MRI/Lower Ext/No Jt/w/o IMPRESSION: Nonunited fracture of the proximal tibia with edema suspicious for osteomyelitis. Joint effusion at the knee with possible septic joint. Postoperative changes in the soft tissues. Fluid collection in the medial aspect with abscess versus hematoma. Electronically Signed: Reece Dukes MD at 11:45 EDT , Service support ,
--- NOTE | 2020-09-23 08:56 | PCM.RX.CS ---
Consult Pharmacy has been consulted to manage selected antiobiotic: Vancomycin Type of Consult: Follow-up Suspected Infection: Osteomyelitis Prior Doses of Antibiotics Received/Current Regimen: Currently on 1750mg iv q12h. Labs: Sodium 139 mmol/L (136-145) 09/22/20 04:25 Potassium 3.6 mmol/L (3.5-5.1) 09/22/20 04:25 Chloride 108 mmol/L (98-107) H 09/22/20 04:25 Carbon Dioxide 25.0 mmol/L (21.0-32.0) 09/22/20 04:25 Anion Gap 6 (5-15) 09/22/20 04:25 BUN 9 mg/dL (7-18) 09/22/20 04:25 Creatinine 0.99 mg/dL (0.70-1.30) 09/22/20 04:25 Est GFR (MDRD) Af Amer 104 mL/min (>60) 09/22/20 04:25 Est GFR (MDRD) Non-Af 86 mL/min (>60) 09/22/20 04:25 BUN/Creatinine Ratio 9.1 RATIO (10-20) L 09/22/20 04:25 Glucose 104 mg/dL (74-106) 09/22/20 04:25 Vancomycin Trough 15.4 ug/mL (5.0-15.0) H 09/23/20 06:56 Weight used for dosin kg Estimated Creatinine Clearance: 88 ml/min Goal Trough: 15-20 mcg/mL Pharmacy Plan for Drug Dosing: Trough today reported as 15.4 and was ~11 hrs post last dose. Renal reviewed. Trough goal is 15-20 mcg/ml. Will continue same dose and get another trough before 4th dose on 09.24.20. Pharmacy Service will continue to monitor and adjust dosing as required. Follow-Up Labs: Trough Vancomycin - 09.24.20 @1930 before 2000 dose
--- NOTE | 2020-09-23 10:41 | NURSING ---
Pt went down to MRI Approximately 0955 this morning. Zosyn was done infusing but did not want to start Vancomycin with pt going to MRI. Waiting for pt to come back from MRI.
[2020-09-23 11:30] VITALS: BP 122/66; PULSE 88; RESP 20; TEMP 36.7; O2SAT 99
[2020-09-23] MEDS: Enoxaparin 40 MG/0.4 ML Syringe SC (11:30)
[2020-09-23] MEDS: 0.9% Saline Lock 10 ML Syringe IV ×2 (11:31→20:25)
[2020-09-23] MEDS: oxyCODONE 5 MG Tablet 10 MG PO (11:43)
--- NOTE | 2020-09-23 11:55 | CASEMGMT ---
MARY LOU BRADY Assessment: Face to Face with patient for initial transition planning/care coordination assessment. RN JOSE ANTONIO introduced self and role at [facility], pt voices understanding and consents to assessment. Pt is lying in bed in no distress. Pt is A/Ox4 and answers all questions appropriately at this time. Care providers, pharmacy, and demographics verified/updated. Admitting Dx: sepsis secondary to acute osteomyelitis PCP: Specialists: Denies seeing any specialists. Preferred [facility]acy: [facility] Insurance: [facility] Prescription Benefit:yes Living Will/DPOA: Pt denies having a LW and DPOA and denies AD info at this time. LNOK: father, Jaison Siddiqi Living Arrangements: Pt lives with his father in a one story house. Denies any concerns at home. Pt is I in ADL's. Transportation: Pt drives self. States no concerns regarding transportation. DME/HHC/SNF: Pt does not have DME in the home. Denies need for any DME. Pt states he previously has had [facility] HHC in the past. He has not had any SNF stays. Pt states no concerns with going home at time of dc. 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 Pt states no further concerns/needs. CM to follow for any dc planning/needs. Advised pt to ask for CM if any further questions/concerns/needs arise, voices understanding. Pt goal: Home Plan: Home with family support.
--- NOTE | 2020-09-23 14:03 | PN_ITS ---
<Jorje Muñiz - Last Filed: 09/23/20 14:03> Patient Problems: Active and Suspected Problems (Last Reviewed 09/22/20 @ 01:[address] Onofre Bustamante MD) Osteomyelitis (Acute) Cellulitis (Acute) Subjective: Patient is a 50-year-old male who is comfortably resting in bed, alert and oriented x3. Patient reports further improvement from symptoms at admission to include decreased leg swelling, decreased leg redness, decreased leg pain. Patient denies fevers, chills, N/V/D, chest pain, shortness of breath, palpi tations. Objective: Clinical Impression(s) from Imaging Studies Tibia/Fibula X-Ray 09/21/20 17:34 IMPRESSION: 1. Heterogeneous sclerosis and lysis of the proximal mid tibia suspicious for osteomyelitis. 2. Interval removal of surgical hardware. 3. Diffuse soft tissue swelling/edema. Electronically Signed: Stephen Lewis MD (Brooks) at 18:03 EDT , Service support , Lower Extremity MRI 09/23/20 08:00 IMPRESSION: Nonunited fracture of the proximal tibia with edema suspicious for osteomyelitis. Joint effusion at the knee with possible septic joint. Postoperative changes in the soft tissues. Fluid collection in the medial aspect with abscess versus hematoma. Electronically Signed: Reece Dukes MD at 11:45 EDT , Service support , Vitals/I&O's: Vital Signs Temp Pulse Resp BP Pulse Ox 98.1 F 88 20 H 122/66 H 99 09/23/20 11:30 09/23/20 11:30 09/23/20 11:30 09/23/20 11:30 09/23/20 11:30 Oxygen Delivery Method Room Air Weight: 329 lb 12.984 oz Body Mass Index (BMI) 50.1 Intake and Output for Last 24 Hours 09/21/20 09/22/20 09/23/20 23:59 23:59 23:59 Intake Total 540 / 540 2874.25 / 2874.25 408.75 / 408.75 Balance 540 / 540 2874.25 / 2874.25 408.75 / 408.75 General: Alert, Oriented x3, Cooperative HEENT: Atraumatic, PERRLA, EOMI, Normocephalic Neck: Supple Lungs: Clear to auscultation, Normal air movement Cardiovascular: Regular rate, No murmurs Abdomen: Bowel Sounds Present, Soft, Non Tender Extremities: No edema, Capillary Refill Less than 3 Seconds, - - Decreased leg swelling from yesterday about the right leg. No redness observed. Skin: No rashes, No breakdown Musculoskeletal: No Tenderness to Palpation of Joints or Extremities Neurological: Cranial nerves II-XII grossly intact Psych/Mental Status: Normal Affect, Appropriate Laboratory Results 09/23/20 06:56: Vancomycin Trough 15.4 H Current Medications Acetaminophen (Acetaminophen 325 Mg Tablet) 650 mg PO Q6H PRN PRN PRN Reason: Pain Score 1-10/Temp > 100.7 F Last Admin: 09/22/20 02:02 Dose: 650 mg Documented by: Diphenhydramine HCl (Diphenhydramine 25 Mg Capsule) 25 mg PO Q6H PRN PRN PRN Reason: ITCHING Last Admin: 09/22/20 05:41 Dose: 25 mg Documented by: Enoxaparin Sodium (Enoxaparin 40 Mg/0.4 Ml Syringe) 40 mg SC DAILY [facility] Last Admin: 09/23/20 11:30 Dose: 40 mg Documented by: Gabapentin (Gabapentin 100 Mg Capsule) 100 mg PO DAILY@2200 [facility] Last Admin: 09/22/20 22:14 Dose: 100 mg Documented by: Sodium Chloride () 250 mls @ 15 mls/hr IV .[id number] PRN PRN Reason: Saline Flush Last Infusion: 09/23/20 05:06 Dose: 0 mls/hr Documented by: Sodium Chloride () 250 mls @ 15 mls/hr IV .[id number] PRN PRN Reason: Additional IVPB Infusion Vancomycin IV Pharmacy to Dose (1 ea/ Sodium Chloride) 500 mls @ 250 mls/hr IV PRN PRN; Protocol PRN Reason: Rx to Dose Piperacillin Sod/Tazobactam (Sod 3.375 gm/ Sodium Chloride) 50 mls @ 12.5 mls/hr IV Q8 [facility] Last Infusion: 09/23/20 09:55 Dose: Infused Documented by: Vancomycin HCl 1,750 mg/ (Sodium Chloride) 535 mls @ 250 mls/hr IV Q12H [facility] Last Admin: 09/23/20 11:26 Dose: 250 mls/hr Documented by: Nicotine (Nicotine 21 Mg Patch) 21 mg TD DAILY [facility] Last Admin: 09/23/20 11:30 Dose: 21 mg Documented by: Ondansetron HCl (Ondansetron 4 Mg/2 Ml Vial) 4 mg IV Q8H PRN PRN PRN Reason: NAUSEA/VOMITING Oxycodone HCl (Oxycodone 5 Mg Tablet) 5 mg PO Q4H PRN PRN PRN Reason: Pain Score 4-5 Last Admin: 09/22/20 18:29 Dose: 5 mg Documented by: Oxycodone HCl (Oxycodone 5 Mg Tablet) 10 mg PO Q4H PRN PRN PRN Reason: pain 6-10/10 Last Admin: 09/23/20 11:43 Dose: 10 mg Documented by: Sodium Chloride (0.9% Saline Lock 10 Ml Syringe) 10 - 40 ml IV UD PRN PRN Reason: SALINE FLUSH Last Admin: 09/23/20 11:31 Dose: 10 ml Documented by: STROKE Vital Signs/Narrative: Vital Signs Temp Pulse Resp BP Pulse Ox 09/23/20 11:30 98.1 F 88 20 H 122/66 H 99 Medical Necessity - Tobacco Use Smoking Status: Current every day smoker Tobacco Use: Cigarettes Assessment/Plan All Active Problems (Last Reviewed 09/22/20 @ 01:[address] Onofre Bustamante MD) Osteomyelitis (Acute) Cellulitis (Acute) Patient is a 50-year-old male who presented to the emergency department on 09/21/2020 with a chief complaint of right leg swelling and pain. On my exam today patient was resting comfortably in bed, patient feels that his swelling has decreased further and now admits to no pain about the right leg. Denies fever, chills, N/V/D, chest pain, shortness of breath, palpitations. Physical exam demonstrated further decrease swelling from my exam yesterday, right leg is only slightly larger than the left now. Patient is being treated empirically on Vancomycin and Zosyn. Venous duplex ultrasound of the right leg demonstrated no DVT, great saphenous vein appeared patent. MRI demonstrated nonunion fracture of the proximal tibia with edema suspicious for osteomyelitis as well as joint effusion about the knee suspicious for a septic joint. Blood culture still pending. Past medical history significant for irritable bowel syndrome, right leg fracture, status post right leg surgery, anxiety and depression, psoriasis, obstructive sleep apnea. Sepsis secondary to possible acute osteomyelitis with cellulitis Assessment - No DVT per venous duplex ultrasound - MRI significant for joint effusion and possible osteomyelitis about the right knee - Further decrease in swelling from my exam yesterday, no redness observed - No leukocytosis on CBC - BMP unremarkable Plan - Remain admitted - Blood cultures still pending - Continue empiric management Obesity Assessment - BMI 52.3 - Low suspicion for concomitant diabetes considering outpatient follow-up and current POC glucose Plan - Lifestyle modifications were recommended DVT prophylaxis[place] Patient seen by Jorje Muñiz PA-C, under the supervision of Dr. Kaba <Julianna Kaba - Last Filed: 09/23/20 14:34> Subjective: I agree with above and the following is representation of my independent history and physical examination. There are patient reports that his right leg is feeling much better states that the redness has improved. He expresses frustration with the initial surgery and lack of intervention with repeated infections. He is hoping that the MRI shows no bone infection or abscess. States he is tired of all the surgical int ervention he has had to endure since his fracture. Vitals/I&O's: Vital Signs Temp Pulse Resp BP Pulse Ox 98.1 F 88 20 H 122/66 H 99 09/23/20 11:30 09/23/20 11:30 09/23/20 11:30 09/23/20 11:30 09/23/20 11:30 Oxygen Delivery Method Room Air Weight: 149.6 kg Body Mass Index (BMI) 50.1 Intake and Output for Last 24 Hours 09/21/20 09/22/20 09/23/20 23:59 23:59 23:59 Intake Total 540 / 540 2874.25 / 2874.25 408.75 / 408.75 Balance 540 / 540 2874.25 / 2874.25 408.75 / 408.75 General: Alert, Oriented x3, Cooperative, No apparent distress, Well developed, Well nourished, - - Obese white male lying in bed, appears comfortable HEENT: Atraumatic, PERRLA, EOMI, Normocephalic, EAC Clear Oral: Moist Mucosa, No Gingival or Mucosal Lesions/ Ulcerations, - - Mallampati 3-4 Neck: No JVD, Trachea Midline, Thyroid Normal Size and Texture Lungs: Clear to auscultation, Normal air movement, No rhonchi, No wheeze, No rales, - - Distant secondary to body habitus Cardiovascular: Regular rate, Regular Rhythm, Normal S1, Normal S2, No murmurs, No Ectopic Activity, No rub noted, No Gallop Abdomen: Bowel Sounds Present, Soft, Non Tender, Non-Distended, Obese, No hernias noted Extremities: No clubbing, No cyanosis, Capillary Refill Less than 3 Seconds, Edema - Right lower extremity edema, Peripheral Pulses Normal, - Skin: No rashes, No breakdown, - - Mild discoloration/erythema within outlined area of right lower extremity Musculoskeletal: No Muscle Wasting Lymphatic: No Cervical, Supraclavicular, or Inguinal Adenopathy Neurological: Cranial nerves II-XII grossly intact, Deep Tendon Reflexes 2+/4 and Symmetrical, Neuro grossly intact, Motor Exam 5/5 strength throughout - Right lower extremity not examined, Muscle tone normal, Sensory exam intact to light touch and pain, Coordination normal Psych/Mental Status: Normal Affect, Appropriate, - - Very polite but expresses frustration Laboratory Results 09/23/20 06:56: Vancomycin Trough 15.4 H Current Medications Acetaminophen (Acetaminophen 325 Mg Tablet) 650 mg PO Q6H PRN PRN PRN Reason: Pain Score 1-10/Temp > 100.7 F Last Admin: 09/22/20 02:02 Dose: 650 mg Documented by: Diphenhydramine HCl (Diphenhydramine 25 Mg Capsule) 25 mg PO Q6H PRN PRN PRN Reason: ITCHING Last Admin: 09/22/20 05:41 Dose: 25 mg Documented by: Enoxaparin Sodium (Enoxaparin 40 Mg/0.4 Ml Syringe) 40 mg SC DAILY [facility] Last Admin: 09/23/20 11:30 Dose: 40 mg Documented by: Gabapentin (Gabapentin 100 Mg Capsule) 100 mg PO DAILY@2200 [facility] Last Admin: 09/22/20 22:14 Dose: 100 mg Documented by: Sodium Chloride () 250 mls @ 15 mls/hr IV .[id number] PRN PRN Reason: Saline Flush Last Infusion: 09/23/20 05:06 Dose: 0 mls/hr Documented by: Sodium Chloride () 250 mls @ 15 mls/hr IV .[id number] PRN PRN Reason: Additional IVPB Infusion Vancomycin IV Pharmacy to Dose (1 ea/ Sodium Chloride) 500 mls @ 250 mls/hr IV PRN PRN; Protocol PRN Reason: Rx to Dose Piperacillin Sod/Tazobactam (Sod 3.375 gm/ Sodium Chloride) 50 mls @ 12.5 mls /hr IV Q8 [facility] Last Infusion: 09/23/20 09:55 Dose: Infused Documented by: Vancomycin HCl 1,750 mg/ (Sodium Chloride) 535 mls @ 250 mls/hr IV Q12H [facility] Last Admin: 09/23/20 11:26 Dose: 250 mls/hr Documented by: Nicotine (Nicotine 21 Mg Patch) 21 mg TD DAILY [facility] Last Admin: 09/23/20 11:30 Dose: 21 mg Documented by: Ondansetron HCl (Ondansetron 4 Mg/2 Ml Vial) 4 mg IV Q8H PRN PRN PRN Reason: NAUSEA/VOMITING Oxycodone HCl (Oxycodone 5 Mg Tablet) 5 mg PO Q4H PRN PRN PRN Reason: Pain Score 4-5 Last Admin: 09/22/20 18:29 Dose: 5 mg Documented by: Oxycodone HCl (Oxycodone 5 Mg Tablet) 10 mg PO Q4H PRN PRN PRN Reason: pain 6-10/10 Last Admin: 09/23/20 11:43 Dose: 10 mg Documented by: Sodium Chloride (0.9% Saline Lock 10 Ml Syringe) 10 - 40 ml IV UD PRN PRN Reason: SALINE FLUSH Last Admin: 09/23/20 11:31 Dose: 10 ml Documented by: STROKE Vital Signs/Narrative: Vital Signs Temp Pulse Resp BP Pulse Ox 09/23/20 11:30 98.1 F 88 20 H 122/66 H 99 Assessment/Plan ASSESSMENT Sepsis secondary to right lower extremity cellulitis/OM/possible abscess/right knee septic joint History of right leg fracture status post fall History of psoriasis Right leg neuropathic pain Obesity-BMI 50.1 PLAN -MRI was done today of right lower extremity and showed nonunion fracture of the proximal tibia with edema that is suspicious for osteomyelitis and right knee effusion that is questionable for septic joint, there was also a fluid collection in the medial aspect that was concerning for abscess versus hematoma -Consult Dr. Bhagat for evaluation of abscess in the need of I&D -Consult orthopedics for right knee joint aspiration (she has seen Dr. Conner in the past) -This joint was aspirated in June 2020 and there was staph epi growth at that time that was oxacillin resistant -Consult infectious disease -Continue Vanco and Zosyn -Blood cultures are pending -Continue pain medication -Recommend weight loss -Patient is not on any medications currently for his psoriasis -Benefit from outpatient follow-up with dermatology to address this further as I suspect these are nidus is for his infections -Discussed plan with patient Inpatient E&M: [id number] Subs Hosp L3
--- NOTE | 2020-09-23 15:04 | PCM.HP.ID ---
Problem List (1) Osteomyelitis Status: Acute Reason for Consult: osteo Consulted by: Dr. Kaba History of Present Illness: The patient is a 50 year old M with complicated RLE fracture 05/2019 after falling off of a ladder. Had ORIF, complicated by infection. Followed with Dr. Reese with ortho at [facility]. In fall 2019, progressive pain, swelling, redness. Aspiration done here 06/2020, (+) for PRIYA. Admitted to [facility], taken to OR for hardware removal, seen by ID, discharged on iv abx for one month course. Picc removed 07/25/20. No abx since then, reports several weeks now of progressive R lower leg pain, redness, swelling. No fever or chills, no drainage. Came to ED, admitted on vanc/zosyn. Leg much improved today. Full ROS performed and neg except as noted above. - Medical History Past Medical History (Chronic Problems): Chronic Problems (Last Reviewed 09/22/20 @ 01:[address] Onofre Bustamante MD) IBS (irritable bowel syndrome) (Chronic) right leg fracture (Chronic) s/p right leg surgery (Chronic) due to fracture Anxiety and depression (Chronic) Psoriasis (Chronic) SUSIE (obstructive sleep apnea) (Chronic) Allergies/Adverse Reactions: Allergies ketamine Adverse Reaction (Severe, Verified 09/21/20 17:08) mental status change--aggession Home Medications: Ambulatory Orders Medication Instructions Recorded Gabapentin [Neurontin] 100 mg PO QHS 09/21/20 - Social History SMOKING STATUS:: Current every day smoker Vital Signs Temp Pulse Resp BP Pulse Ox 98.1 F 88 20 H 122/66 H 99 09/23/20 11:30 09/23/20 11:30 09/23/20 11:30 09/23/20 11:30 09/23/20 11:30 Oxygen Delivery Method Room Air Weight: 149.6 kg Body Mass Index (BMI) 50.1 Laboratory Tests Past 24 Hrs 09/23/20 06:56 Vancomycin Trough 15.4 H - Other Studies Radiology: [] reviewed Other Studies: [] Route of nutrition/ use of supplements: [] Nutritional Intake: [] IV Site: [] Connell Catheter: [] - Physical Exam General: Alert, Oriented x3, Cooperative, No apparent distress HEENT: Atraumatic, PERRLA, EOMI Neck: Supple, No Nodes Lungs: Clear to auscultation, Normal air movement Cardiovascular: Regular rate, Regular Rhythm Abdomen: Soft, Non Tender, Non-Distended Extremities: Edema Skin: Rash Present - fading redness on RLE, Incision - well healed IV Site: Peripheral, without redness Musculoskeletal: No Tenderness to Palpation of Joints or Extremities Neurological: Cranial nerves II-XII grossly intact - Assessment/Plan Antibiotics: [] Assessment/Plan: [] Active and Suspected Problems (Last Reviewed 09/22/20 @ 01:[address] Onofre Bustamante MD) Osteomyelitis (Acute) Cellulitis (Acute) Recurrent RLE osteo now s/p hardware removal by Dr. Reese at [facility] 06/2020. Knee aspiration here at that time (+) for MRSE. Sx much improved on vanc/zosyn. MRI showed osteo, no abscess. Will request records from [facility] for most recent discharge summary, micro, op note, and ID notes. May be candidate for long course of po abx. Pt interested in leaving hospital tomorrow AM so he can get to work by 2pm. No fever, normal wbc, normal ESR. Will follow, thank you
[2020-09-23 15:11] VITALS: BP 125/63; PULSE 88; RESP 20; TEMP 36.9; O2SAT 100
--- NOTE | 2020-09-23 18:22 | NURSING ---
this nurse called Dr. Blevins to inform him of consult. Dr. Blevins states that he does not think he is appropriate for patient. Not sure why he is consulted. Explained reasoning. Dr. Blevins said he would be happy to talk to Dr. Kaba if she has quesitons. This nurse Cortexted Dr. Enedina Kaba to inform her that Dr. Blevins does not think he is an appropriate consult. Dr. Kaba said lets see what Ortho says. This nurse is waiting for Dr. Reese who is information services consultant to call back.
[2020-09-23 19:59] VITALS: BP 131/72; PULSE 85; RESP 18; TEMP 36.8; O2SAT 99
--- NOTE | 2020-09-23 20:04 | NURSING ---
This nurse tried to consult Dr. Shields. Per [employer] Loan Collections Supervisor, Dr. Scales, is portable irrigation operator seng Shields. This nurse called Dr. Scales to inform him of consult. Yordy was unsure if Alyson wanted to be consulted so he did not accept the consult. Dr. Kaba aware. Dr. Kaba said to try to consult Dr. Shields in the morning.
[2020-09-23] MEDS: Gabapentin 100 MG Capsule PO (21:37)
[2020-09-24 01:54] VITALS: BP 109/62; PULSE 85; RESP 18; TEMP 36.9; O2SAT 94
[2020-09-24] MEDS: oxyCODONE 5 MG Tablet PO ×2 (02:01→08:03)
[2020-09-24 06:34] LABS: Absolute Lymphocyte Count 2.27 X10^3/uL (0.83-4.51); Absolute Neutrophil Count 3.9 X10^3/uL (2.0-7.7); Basophil# 0.02 X10^3/uL; Basophil% 0.3 % (0-1); Eosinophil# 0.19 X10^3/uL; Eosinophils% 2.7 % (0-5); Hematocrit 42.8 % (40-54); Hemoglobin 13.3 g/dL (13.0-16.5); Lymphocyte # 2.27 X10^3/ul (4.0); Lymphocyte % 31.7 % (19-41); Mean Corp Hgb Conc 31.1 g/dL (32-36); Mean Corpuscular Hgb 27.3 pg (27.0-32.0); Mean Corpuscular Volume 87.9 fL (80-94); Mean Platelet Vol. 9.7 fl (6.2-12.0); Monocyte# 0.75 X10^3/uL; Monocyte% 10.5 % (0-10); NRBC Flagged by Analyzer 0 % (0-5); Neutrophil % 54.5 % (47-70); Platelet Count 251 K/mm3 (150-450); RBC Distribution Width CV 13.7 % (11.6-14.6); RBC Distribution Width SD 44.1 fl (35.1-43.9); Red Blood Count 4.87 M/mm3 (4.6-6.2); White Blood Count 7.2 K/mm3 (4.4-11.0)
[2020-09-24 06:54] LABS: Anion Gap 6 (5-15); BUN 8 mg/dL (7-18); BUN/Creat Ratio 8.1 RATIO (10-20); Calcium,Total 8.5 mg/dL (8.5-10.1); Chloride 108 mmol/L (98-107); Creatinine, Serum 0.99 mg/dL (0.70-1.30); EST Glomerular Filtration Rate 86 mL/min (>60); Est Glom Filt Rate - Afr Amer 104 mL/min (>60); Estimated Creatinine Clearance 88.28 ml/min; Glucose 93 mg/dL (74-106); Potassium 4.1 mmol/L (3.5-5.1); Sodium Level 140 mmol/L (136-145)
[2020-09-24 07:32] VITALS: O2SAT 95
--- NOTE | 2020-09-24 07:40 | NURSING ---
Dr. Conner notified of consult. He states consult needs to go to Dr. Soto or the ED ortho nutrition helper
[2020-09-24 08:00] VITALS: BP 119/66; PULSE 78; PULSE 80; RESP 18; TEMP 36.6; O2SAT 97
[2020-09-24] MEDS: Enoxaparin 40 MG/0.4 ML Syringe SC (09:40)
--- NOTE | 2020-09-24 09:54 | PCM.PN.ID ---
Patient Problems: Active and Suspected Problems (Last Reviewed 09/22/20 @ 01:[address] Onofre Bustamante MD) Osteomyelitis (Acute) Cellulitis (Acute) Subjective: Feeling better, no knee pain, no fever, leg less swollen, no n/v/d. - Physical Exam Vitals/I&O's: Vital Signs Temp Pulse Resp BP Pulse Ox 97.8 F 78 18 119/66 97 09/24/20 08:00 09/24/20 08:00 09/24/20 08:00 09/24/20 08:00 09/24/20 08:00 Oxygen Delivery Method Room Air Weight: 149.6 kg Body Mass Index (BMI) 50.1 Intake and Output for Last 24 Hours 09/22/20 09/23/20 09/24/20 23:59 23:59 23:59 Intake Total 2874.25 / 2874.25 2655.50 / 2655.50 447.00 / 447.00 Balance 2874.25 / 2874.25 2655.50 / 2655.50 447.00 / 447.00 General: Alert, Cooperative, No apparent distress Lungs: Clear to auscultation, Normal air movement Cardiovascular: Regular rate, Regular Rhythm Abdomen: Soft, Non Tender, Non-Distended Extremities: Edema Skin: No rashes Musculoskeletal: No Tenderness to Palpation of Joints or Extremities Microbiology Past 72 Hours 09/21/20 17:55 Blood Culture (Wb) - Right Forearm Blood Culture - Preliminary No growth in 48 hours. 09/21/20 16:32 Blood Culture (Wb) - Anticubital Right Blood Culture - Preliminary No growth in 48 hours. Laboratory Results 09/24/20 05:53: WBC 7.2, RBC 4.87, Hgb 13.3, Hct 42.8, MCV 87.9, MCH 27.3, MCHC 31.1 L, RDW Std Deviation 44.1 H, RDW Coeff of Ayse 13.7, Plt Count 251, MPV 9.7, Immature Gran % (Auto) 0.300, Neut % (Auto) 54.5, Lymph % (Auto) 31.7, Wilkes % (Auto) 10.5 H, Eos % (Auto) 2.7, Baso % (Auto) 0.3, Absolute Neuts (auto) 3.9, Absolute Lymphs (auto) 2.27, Nucleated RBC % 0 09/24/20 05:53: Sodium 140, Potassium 4.1, Chloride 108 H, Carbon Dioxide 26.0, Anion Gap 6, BUN 8, Creatinine 0.99, Estim Creat Clear Calc 88.28, Est GFR (MDRD) Af Amer 104, Est GFR (MDRD) Non-Af 86, BUN/Creatinine Ratio 8.1 L, Glucose 93, Calcium 8.5 Current Medications Acetaminophen (Acetaminophen 325 Mg Tablet) 650 mg PO Q6H PRN PRN PRN Reason: Pain Score 1-10/Temp > 100.7 F Last Admin: 09/22/20 02:02 Dose: 650 mg Documented by: Diphenhydramine HCl (Diphenhydramine 25 Mg Capsule) 25 mg PO Q6H PRN PRN PRN Reason: ITCHING Last Admin: 09/22/20 05:41 Dose: 25 mg Documented by: Enoxaparin Sodium (Enoxaparin 40 Mg/0.4 Ml Syringe) 40 mg SC DAILY [facility] Last Admin: 09/24/20 09:40 Dose: 40 mg Documented by: Gabapentin (Gabapentin 100 Mg Capsule) 100 mg PO DAILY@2200 [facility] Last Admin: 09/23/20 21:37 Dose: 100 mg Documented by: Sodium Chloride () 250 mls @ 15 mls/hr IV .[id number] PRN PRN Reason: Saline Flush Last Infusion: 09/24/20 09:39 Dose: 0 mls/hr Documented by: Sodium Chloride () 250 mls @ 15 mls/hr IV .[id number] PRN PRN Reason: Additional IVPB Infusion Vancomycin IV Pharmacy to Dose (1 ea/ Sodium Chloride) 500 mls @ 250 mls/hr IV PRN PRN; Protocol PRN Reason: Rx to Dose Piperacillin Sod/Tazobactam (Sod 3.375 gm/ Sodium Chloride) 50 mls @ 100 mls/hr IV Q8 [facility] Last Infusion: 09/24/20 09:09 Dose: Infused Documented by: Vancomycin HCl 1,750 mg/ (Sodium Chloride) 535 mls @ 250 mls/hr IV Q12H [facility] Last Admin: 09/24/20 09:39 Dose: 250 mls/hr Documented by: Nicotine (Nicotine 21 Mg Patch) 21 mg TD DAILY [facility] Last Admin: 09/24/20 09:40 Dose: 21 mg Documented by: Ondansetron HCl (Ondansetron 4 Mg/2 Ml Vial) 4 mg IV Q8H PRN PRN PRN Reason: NAUSEA/VOMITING Oxycodone HCl (Oxycodone 5 Mg Tablet) 5 mg PO Q4H PRN PRN PRN Reason: Pain Score 4-5 Last Admin: 09/24/20 08:03 Dose: 5 mg Documented by: Oxycodone HCl (Oxycodone 5 Mg Tablet) 10 mg PO Q4H PRN PRN PRN Reason: pain 6-10/10 Last Admin: 09/23/20 11:43 Dose: 10 mg Documented by: Sodium Chloride (0.9% Saline Lock 10 Ml Syringe) 10 - 40 ml IV UD PRN PRN Reason: SALINE FLUSH Last Admin: 09/23/20 20:25 Dose: 10 ml Documented by: Medical Necessity - Tobacco Use Smoking Status: Current every day smoker Tobacco Use: Cigarettes Route of nutrition/ use of supplements: [] Nutritional Intake: [] IV Site: [] Connell Catheter: [] - Assessment/Plan Antibiotics: [] Assessment/Plan: [] Active and Suspected Problems (Last Reviewed 09/22/20 @ 01:[address] Onofre Bustamante MD) Osteomyelitis (Acute) Cellulitis (Acute) Recurrent RLE osteo now s/p hardware removal by Dr. Reese at [facility] 06/2020. Knee aspiration here at that time (+) for pooja rare MRSE. Sx much improved on vanc/zosyn. MRI showed osteo, joint effusion, small fluid collection. Spoke with [facility] micro lab, wound cx 06/11 and abscess culture 06/12 were both neg. Unable to see any surgeon here, IR is unable to aspirate. Given clinical stability, I think best option would be discharge on 6 weeks po doxy and omnicef, outpt referral to [facility] as pt does not want to go back to Dr. Reese. ID followup with me in 2 weeks. Will follow,d/w Dr. Kaba
--- NOTE | 2020-09-24 10:47 | DCINST_ITS ---
- Discharge Diagnoses Current Active Problems: Current Active and Chronic Problems (Last Reviewed 09/22/20 @ 01:[address] Onofre Bustamante MD) Osteomyelitis (Acute) Cellulitis (Acute) IBS (irritable bowel syndrome) (Chronic) right leg fracture (Chronic) s/p right leg surgery (Chronic) due to fracture Anxiety and depression (Chronic) Psoriasis (Chronic) SUSIE (obstructive sleep apnea) (Chronic) You will use the following diet at home:: No restrictions Your food should be the consistency of: Regular Your liquids should be the consistency of: Regular/Thin Discharge Activity: Return to Normal Activity Weight Bearing Status: Weight bearing as tolerated Allergies/Adverse Reactions: Allergies ketamine Adverse Reaction (Severe, Verified 09/21/20 17:08) mental status change--aggession Medications to take at Discharge Gabapentin [Neurontin] 100 mg PO QHS 09/21/20 Cefdinir [Omnicef [equiv]] 300 mg PO Q12H #80 capsule 09/24/20 Doxycycline 100 mg PO BID #80 capsule 09/24/20 The following prescriptions were given: Doxycycline 100 mg PO BID #80 capsule Transmission Status: Received by [facility] Cefdinir [Omnicef [equiv]] 300 mg PO Q12H #80 capsule Transmission Status: Received by [facility] Primary Care Physician: Jorje Palmer MD [Primary Care Provider] - Please follow up with your Primary Care Physician in: Within the next two weeks Test Results: Test results from this visit will be discussed in further detail at your follow- up appointment, if applicable. Please Follow Up With: [facility]opa[facility] - [phone] When: Within the next two weeks Proposed Discharge Date: 09/24/20
--- NOTE | 2020-09-24 12:45 | PCM.DC.SUM ---
<Jorje Muñiz - Last Filed: 09/24/20 12:45> Discharge Date and Diagnosis - Problem List Patient Problems: Active and Suspected Problems (Last Reviewed 09/22/20 @ 01:[address] Onofre Bustamante MD) Osteomyelitis (Acute) Cellulitis (Acute) Date of Admission: 09/21/20 Date of Discharge: 09/24/20 - Primary Discharge Diagnosis Acute Problems: Active Problems (Last Reviewed 09/22/20 @ 01:[address] Onofre Bustamante MD) Osteomyelitis (Acute) Cellulitis (Acute) - Secondary Discharge Diagnosis Chronic Problems: Chronic Problems (Last Reviewed 09/22/20 @ 01:[address] Onofre Bustamante MD) IBS (irritable bowel syndrome) (Chronic) right leg fracture (Chronic) s/p right leg surgery (Chronic) due to fracture Anxiety and depression (Chronic) Psoriasis (Chronic) SUSEI (obstructive sleep apnea) (Chronic) Hospital Course and Treatment Imaging Results: Clinical Impression(s) from Imaging Studies Tibia/Fibula X-Ray 09/21/20 17:34 IMPRESSION: 1. Heterogeneous sclerosis and lysis of the proximal mid tibia suspicious for osteomyelitis. 2. Interval removal of surgical hardware. 3. Diffuse soft tissue swelling/edema. Electronically Signed: Stephen Lewis MD (Brooks) at 18:03 EDT , Service support , Lower Extremity MRI 09/23/20 08:00 IMPRESSION: Nonunited fracture of the proximal tibia with edema suspicious for osteomyelitis. Joint effusion at the knee with possible septic joint. Postoperative changes in the soft tissues. Fluid collection in the medial aspect with abscess versus hematoma. Electronically Signed: Reece Dukes MD at 11:45 EDT , Service support , Microbiology 09/21/20 17:55 Blood Culture (Wb) - Right Forearm Blood Culture - Preliminary No growth in 48 hours. 09/21/20 16:32 Blood Culture (Wb) - Anticubital Right Blood Culture - Preliminary No growth in 48 hours. Operations: None Procedures: None Summary of Care Provided: Patient is a 50-year-old male who presented to the emergency department on 09/21/2020 with a chief complaint of right leg swelling and pain. MRI demonstrated nonunion fracture of the proximal tibia with edema suspicious for osteomyelitis as well as joint effusion about the knee suspicious for a septic joint. On my exam today patient was resting comfortably in bed, patient feels that his swelling has decreased further and now admits to no pain about the right leg. Denies fever, chills, N/V/D, chest pain, shortness of breath, palpitations. Physical exam demonstrated further decrease swelling from my exam yesterday, right leg is only slightly larger than the left now. Hospital medicine, Orthopedics and ID are all in agreement that the patient is stable for outpatient management. Contacted interventional radiology to drain effusion about the right knee, IR denied. Orthopaedic esther agreed to see patient on an outpatient basis. ID contacted and recommended outpatient ABX management on Cefdinir and Doxycycline both x 6 weeks. Blood culture still pending upon discharge. Sepsis secondary to possible acute osteomyelitis with cellulitis Assessment - Not a candidate for drainage of effusion about right knee per IR - MRI significant for joint effusion and possible osteomyelitis about the right knee - Further decrease in swelling from my exam yesterday, no redness observed - No leukocytosis on CBC - BMP unremarkable Plan - Initiated Doxycycline 100mg PO BID x 6 weeks at discharge per ID - Initiated Defdinir 300mg PO BID x 6 weeks at discharge per ID - Follow up with [facility] in [place], [place]. Obesity Assessment - BMI 52.3 - Low suspicion for concomitant diabetes considering outpatient follow-up and current POC glucose Plan - Lifestyle modifications were recommended DVT prophylaxis-SC Lovenox Patient seen by Jorje Muñiz PA-C, under the supervision of Dr. Kaba Patient Problems: Active and Suspected Problems (Last Reviewed 09/22/20 @ 01:[address] Onofre Bustamante MD) Osteomyelitis (Acute) Cellulitis (Acute) Subjective: Patient is a 50-year-old male who is comfortably resting in bed, alert and oriented x3. Patient reports further improvement from symptoms at admission to include decreased leg swelling, decreased leg redness, decreased leg pain. Patient denies fevers, chills, N/V/D, chest pain, shortness of breath, palpitations. Objective: Clinical Impression(s) from Imaging Studies Tibia/Fibula X-Ray 09/21/20 17:34 IMPRESSION: 1. Heterogeneous sclerosis and lysis of the proximal mid tibia suspicious for osteomyelitis. 2. Interval removal of surgical hardware. 3. Diffuse soft tissue swelling/edema. Electronically Signed: Stephen Lewis MD (Brooks) at 18:03 EDT , Service support , Lower Extremity MRI 09/23/20 08:00 IMPRESSION: Nonunited fracture of the proximal tibia with edema suspicious for osteomyelitis. Joint effusion at the knee with possible septic joint. Postoperative changes in the soft tissues. Fluid collection in the medial aspect with abscess versus hematoma. Electronically Signed: Reece Dukes MD at 11:45 EDT , Service support , Microbiology 09/21/20 17:55 Blood Culture (Wb) - Right Forearm Blood Culture - Preliminary No growth in 48 hours. 09/21/20 16:32 Blood Culture (Wb) - Anticubital Right Blood Culture - Preliminary No growth in 48 hours. - Physical Exam Vitals/I&O's: Vital Signs Temp Pulse Resp BP Pulse Ox 97.8 F 80 18 119/66 97 09/24/20 08:00 09/24/20 08:00 09/24/20 08:00 09/24/20 08:00 09/24/20 08:00 Oxygen Delivery Method Room Air Weight: 329 lb 12.984 oz Body Mass Index (BMI) 50.1 Intake and Output for Last 24 Hours 09/22/20 09/23/20 09/24/20 23:59 23:59 23:59 Intake Total 2874.25 / 2874.25 2655.50 / 2655.50 982.00 / 982.00 Balance 2874.25 / 2874.25 2655.50 / 2655.50 982.00 / 982.00 General: Alert, Oriented x3, Cooperative HEENT: Atraumatic, PERRLA, EOMI, Normocephalic Neck: Supple, No JVD, Negative Carotid Bruits Lungs: Clear to auscultation, Normal air movement Cardiovascular: Regular rate, No murmurs Abdomen: Bowel Sounds Present, Soft, Non Tender Extremities: - - Minor swelling about the right LE. Not erythematous, tender, or indurated to palpation. Skin: No rashes, No breakdown Musculoskeletal: No Tenderness to Palpation of Joints or Extremities Neurological: Cranial nerves II-XII grossly intact Psych/Mental Status: Normal Affect, Appropriate Microbiology Past 72 Hours 09/21/20 17:55 Blood Culture (Wb) - Right Forearm Blood Culture - Preliminary No growth in 48 hours. 09/21/20 16:32 Blood Culture (Wb) - Anticubital Right Blood Culture - Preliminary No growth in 48 hours. Laboratory Results 09/24/20 05:53: WBC 7.2, RBC 4.87, Hgb 13.3, Hct 42.8, MCV 87.9, MCH 27.3, MCHC 31.1 L, RDW Std Deviation 44.1 H, RDW Coeff of Ayse 13.7, Plt Count 251, MPV 9.7, Immature Gran % (Auto) 0.300, Neut % (Auto) 54.5, Lymph % (Auto) 31.7, Colbert % (Auto) 10.5 H, Eos % (Auto) 2.7, Baso % (Auto) 0.3, Absolute Neuts (auto) 3.9, Absolute Lymphs (auto) 2.27, Nucleated RBC % 0 09/24/20 05:53: Sodium 140, Potassium 4.1, Chloride 108 H, Carbon Dioxide 26.0, Anion Gap 6, BUN 8, Creatinine 0.99, Estim Creat Clear Calc 88.28, Est GFR (MDRD) Af Amer 104, Est GFR (MDRD) Non-Af 86, BUN/Creatinine Ratio 8.1 L, Glucose 93, Calcium 8.5 Current Medications Acetaminophen (Acetaminophen 325 Mg Tablet) 650 mg PO Q6H PRN PRN PRN Reason: Pain Score 1-10/Temp > 100.7 F Last Admin: 09/22/20 02:02 Dose: 650 mg Documented by: Diphenhydramine HCl (Diphenhydramine 25 Mg Capsule) 25 mg PO Q6H PRN PRN PRN Reason: ITCHING Last Admin: 09/22/20 05:41 Dose: 25 mg Documented by: Enoxaparin Sodium (Enoxaparin 40 Mg/0.4 Ml Syringe) 40 mg SC DAILY [facility] Last Admin: 09/24/20 09:40 Dose: 40 mg Documented by: Gabapentin (Gabapentin 100 Mg Capsule) 100 mg PO DAILY@2200 [facility] Last Admin: 09/23/20 21:37 Dose: 100 mg Documented by: Sodium Chloride () 250 mls @ 15 mls/hr IV .[id number] PRN PRN Reason: Saline Flush Last Infusion: 09/24/20 11:48 Dose: 15 mls/hr Documented by: Sodium Chloride () 250 mls @ 15 mls/hr IV .[id number] PRN PRN Reason: Additional IVPB Infusion Vancomycin IV Pharmacy to Dose (1 ea/ Sodium Chloride) 500 mls @ 250 mls/hr IV PRN PRN; Protocol PRN Reason: Rx to Dose Piperacillin Sod/Tazobactam (Sod 3.375 gm/ Sodium Chloride) 50 mls @ 100 mls/hr IV Q8 [facility] Last Infusion: 09/24/20 09:09 Dose: Infused Documented by: Vancomycin HCl 1,750 mg/ (Sodium Chloride) 535 mls @ 250 mls/hr IV Q12H [facility] Last Infusion: 09/24/20 11:48 Dose: Infused Documented by: Nicotine (Nicotine 21 Mg Patch) 21 mg TD DAILY [facility] Last Admin: 09/24/20 09:40 Dose: 21 mg Documented by: Ondansetron HCl (Ondansetron 4 Mg/2 Ml Vial) 4 mg IV Q8H PRN PRN PRN Reason: NAUSEA/VOMITING Oxycodone HCl (Oxycodone 5 Mg Tablet) 5 mg PO Q4H PRN PRN PRN Reason: Pain Score 4-5 Last Admin: 09/24/20 08:03 Dose: 5 mg Documented by: Oxycodone HCl (Oxycodone 5 Mg Tablet) 10 mg PO Q4H PRN PRN PRN Reason: pain 6-10/10 Last Admin: 09/23/20 11:43 Dose: 10 mg Documented by: Sodium Chloride (0.9% Saline Lock 10 Ml Syringe) 10 - 40 ml IV UD PRN PRN Reason: SALINE FLUSH Last Admin: 09/23/20 20:25 Dose: 10 ml Documented by: Discharge Activity: Return to Normal Activity Weight Bearing Status: Weight bearing as tolerated Home Medications: Medications to take at Discharge Gabapentin [Neurontin] 100 mg PO QHS 09/21/20 Cefdinir [Omnicef [equiv]] 300 mg PO Q12H #80 capsule 09/24/20 Doxycycline 100 mg PO BID #80 capsule 09/24/20 Following Prescriptions Were Given to Patient: Doxycycline 100 mg PO BID #80 capsule Transmission Status: Received by [facility] Cefdinir [Omnicef [equiv]] 300 mg PO Q12H #80 capsule Transmission Status: Received by [facility] Primary Care Physician: Jorje Palmer MD [Primary Care Provider] - Please follow up with your Primary Care Physician in: Within the next two weeks Please Follow Up With: [facility] - [phone] When: Within the next two weeks Disposition: Home Minutes spent on discharge:: 35 Patient Condition:: Stable Medical Necessity - Tobacco Use Smoking Status: Current every day smoker Tobacco Use: Cigarettes Meaningful Use Info Meaningful Use Diagnoses (Choose all that apply): None applicable <SesarJulianna - Last Filed: 09/24/20 16:02> Discharge Date and Diagnosis - Primary Discharge Diagnosis Acute Problems: Active Problems (Last Reviewed 09/22/20 @ 01:[address] Onofre Bustamante MD) Osteomyelitis (Acute) Cellulitis (Acute) - Secondary Discharge Diagnosis Chronic Problems: Chronic Problems (Last Reviewed 09/22/20 @ 01:[address] Onofre Bustamante MD) IBS (irritable bowel syndrome) (Chronic) right leg fracture (Chronic) s/p right leg surgery (Chronic) due to fracture Anxiety and depression (Chronic) Psoriasis (Chronic) SUSIE (obstructive sleep apnea) (Chronic) Hospital Course and Treatment Summary of Care Provided: I agree with the above and the following is representation of my independent history and physical examination Mr. Siddiqi is a 50 year old WM who scented to [facility] on 09/21/2020 complaining of right lower extremity pain and erythema. Unfortunately he suffered from a tibia and fibula fracture in May 2019 that required surgical repair at that time. This later became infected in 2019 and the hardware was required to be removed. Upon admission he reported intermittent infections and on the day of admission he noted right lower extremity redness that had progressively been getting worse. In the emergency department a right tib-fib x-ray was performed and showed heterogeneous process and lysis of the proximal mid tibia that was suspicious for osteomyelitis and diffuse soft tissue swelling and edema. He was started on IV antibiotics and admitted to the medical floor. An MRI was performed on 09/23/2020 and showed a nonunion fracture of the proximal tibia with edema that was suspicious for osteomyelitis, a joint effusion that was concerning for septic joint and a fluid collection at the medial aspect of the lateral tibial plateau that was 5.8 x 2.5 cm and was concerning for either abscess or hematoma. Consults were placed to general surgery and to orthopedic surgery for joint aspiration and I&D of the abscess respectively. Both consultations felt that the patient should be transferred and did not evaluate the patient. I discussed the case with Dr. Ramos who was following the patient from infectious disease and he felt that we have 3 options. 1) transfer the patient to a tertiary center, 2) refer the patient to interventional radiology for aspiration of the potential abscess and follow the knee given he had no knee pain with palpation or range of motion and 3) treat him for the osteomyelitis with antibiotics and follow him closely clinically with imaging as follow-up. The 3 options were laid out to the patient and he wanted to try and see if radiology could aspirate the potential abscess. An order was placed for this but interventional radiology felt that it was too close to the joint orthopedics should address this issue. The options were again discussed with the patient and he opted for outpatient follow-up with long-term oral antibiotics and repeat imaging. At the time of discharge he was aware that there would be potential need for follow-up with orthopedics and indicated he did not want to go back to see his primary orthopedic surgeon who took care of his initial fracture and would follow-up at [facility]. A referral was made at the time of discharge for outpatient orthopedic follow-up. He was discharged on doxycycline 100 mg p.o. twice daily for 6 weeks and cefdinir 300 mg p.o. twice daily for 6 weeks with instructions to follow-up with infectious disease in 2 weeks. He is aware that he may need further intervention in that right leg and states he accepts the risks he is taking by trying outpatient therapy at this time. I also recommend he follow-up with dermatology for his psoriasis given that open sores may be a nidus for infection. Discharge diagnoses Osteomyelitis right tibia Possible septic right knee Possible right leg abscess Traumatic fracture right tibia and fibula Recurrent right lower extremity infections Morbid obesity Psoriasis Anxiety Depression SUSIE Discharge time greater than 35 minutes - Physical Exam Vitals/I&O's: Vital Signs Temp Pulse Resp BP Pulse Ox 97.5 F L 94 18 144/90 H 98 09/24/20 12:54 09/24/20 12:54 09/24/20 12:54 09/24/20 12:54 09/24/20 12:54 Oxygen Delivery Method Room Air Weight: 149.6 kg Body Mass Index (BMI) 50.1 Intake and Output for Last 24 Hours 09/22/20 09/23/20 09/24/20 23:59 23:59 23:59 Intake Total 2874.25 / 2874.25 2655.50 / 2655.50 997.50 / 997.50 Balance 2874.25 / 2874.25 2655.50 / 2655.50 997.50 / 997.50 General: Alert, Oriented x3, Cooperative, No apparent distress, Well developed, Well nourished, - - Obese white male lying in bed, appears comfortable HEENT: Atraumatic, PERRLA, EOMI, Normocephalic, EAC Clear Oral: Moist Mucosa, No Gingival or Mucosal Lesions/ Ulcerations, - - Mallampati 4 Neck: Supple, No JVD, Trachea Midline, Thyroid Normal Size and Texture Lungs: Clear to auscultation, Normal air movement, No rhonchi, No wheeze, No rales, - - Distant breath sounds secondary to body habitus Cardiovascular: Regular rate, Regular Rhythm, Normal S1, Normal S2, No murmurs, No Ectopic Activity, No rub noted, No Gallop, - - Heart tones secondary to body habitus Abdomen: Bowel Sounds Present, Soft, Non Tender, Non-Distended, Obese, No hernias noted Extremities: No clubbing, No cyanosis, Capillary Refill Less than 3 Seconds, Edema - Mild right lower extremity, Tenderness - Mild right lower extremity tenderness, - - Minor swelling about the right LE. Not erythematous, tender, or indurated to palpation. Definitely improved erythema, no induration with palpation, no tenderness at right knee with palpation or range of motion Skin: No breakdown, Rash Present - Psoriatic rash Musculoskeletal: No Tenderness to Palpation of Joints or Extremities Lymphatic: No Cervical, Supraclavicular, or Inguinal Adenopathy Neurological: Cranial nerves II-XII grossly intact, Neuro grossly intact, Muscle tone normal, Coordination normal Psych/Mental Status: Normal Affect, Appropriate Microbiology Past 72 Hours 09/21/20 17:55 Blood Culture (Wb) - Right Forearm Blood Culture - Preliminary No growth in 48 hours. 09/21/20 16:32 Blood Culture (Wb) - Anticubital Right Blood Culture - Preliminary No growth in 48 hours. Laboratory Results 09/24/20 05:53: WBC 7.2, RBC 4.87, Hgb 13.3, Hct 42.8, MCV 87.9, MCH 27.3, MCHC 31.1 L, RDW Std Deviation 44.1 H, RDW Coeff of Ayse 13.7, Plt Count 251, MPV 9.7, Immature Gran % (Auto) 0.300, Neut % (Auto) 54.5, Lymph % (Auto) 31.7, Colbert % (Auto) 10.5 H, Eos % (Auto) 2.7, Baso % (Auto) 0.3, Absolute Neuts (auto) 3.9, Absolute Lymphs (auto) 2.27, Nucleated RBC % 0 09/24/20 05:53: Sodium 140, Potassium 4.1, Chloride 108 H, Carbon Dioxide 26.0, Anion Gap 6, BUN 8, Creatinine 0.99, Estim Creat Clear Calc 88.28, Est GFR (MDRD) Af Amer 104, Est GFR (MDRD) Non-Af 86, BUN/Creatinine Ratio 8.1 L, Glucose 93, Calcium 8.5 Inpatient E&M: [id number] Disch Hosp
[2020-09-24 12:54] VITALS: BP 144/90; PULSE 94; RESP 18; TEMP 36.4; O2SAT 98
--- NOTE | 2020-09-24 14:33 | PHA.DC.MR ---
Pharmacy Service has performed discharge medication reconciliation for this patient. The patient's discharge medication list was reviewed for discrepancies and discrepancies were resolved. Home Medications Gabapentin [Neurontin] 100 mg PO QHS 09/21/20 Cefdinir [Omnicef [equiv]] 300 mg PO Q12H #80 capsule 09/24/20 Doxycycline 100 mg PO BID #80 capsule 09/24/20
== END 2020-09-24 13:30 | disposition home or self-care (01) | DRG 344 ==
LOC: ED 18:31 → MS3 19:40
PROVIDERS: Admitting Provider Hospitalist; Emergency Provider Emergency Medicine; PCP Family Medicine; Visit Provider Internal Medicine
DX: M86.161 Other acute osteomyelitis, right tibia and fibula (principal); L03.115 Cellulitis of right lower limb; S82.101K Unspecified fracture of upper end of right tibia, subsequent encounter for closed fracture with nonunion; W11.XXXD Fall on and from ladder, subsequent encounter; L40.9 Psoriasis, unspecified; G47.33 Obstructive sleep apnea (adult) (pediatric); K58.9 Irritable bowel syndrome, unspecified; Z68.43 Body mass index [BMI] 50.0-59.9, adult; E66.01 Morbid (severe) obesity due to excess calories; F17.210 Nicotine dependence, cigarettes, uncomplicated; Z79.899 Other long term (current) drug therapy
CPT/HCPCS: 36415; 73590; 73718; 80048; 80202; 83605; 85025; 85652; 86140; 87040; 93971; 97802; 99284; J7040; J7050; A4216; J2405

== ENCOUNTER → 2020-10-16 20:19 | Outpatient (CLI) | payer MEDICAID, SELFPAY ==
[2020-09-26 10:06] VITALS: BMI 50.6
[2020-10-16] MEDS: Zolpidem Tartrate 5 MG Tablet PO (21:30)
== END ==
PROVIDERS: PCP Family Medicine; Referring Provider Family Medicine; Visit Provider Family Medicine
DX: G47.33 Obstructive sleep apnea (adult) (pediatric) (principal)
CPT/HCPCS: 95811

== ENCOUNTER → 2020-10-17 05:49 | Outpatient (CLI) | payer MEDICAID, SELFPAY ==
[2020-09-26 10:06] VITALS: BMI 50.6
--- NOTE | 2020-10-17 06:51 | NM_ITS ---
CLINICAL: 50-year-old male with suspected right proximal tibia osteomyelitis. LIMITED 99m Tc HMPAO LABELED LEUKOCYTE EXAMINATION COMPARISON: MRI of the right tibia and fibula report 09/23/2020 FINDINGS: Following the intravenous administration of 19.7 mCi of 99m Tc HMPAO labeled leukocytes, image acquisitions of the knee articulations at approximately 2.0 hours post radiopharmaceutical administration reveal: 1. There is relatively symmetric radiopharmaceutical concentration identified in the visualized bilateral distal femoral and proximal tibial metaphyses. 2. No other increase in tracer concentration is readily apparent. NM/Inflammatory Process Limited IMPRESSION: 1. The increase in tracer concentration observed in the right proximal tibial metaphysis may represent the presence of reactive marrow correlating with the similar uptake defined in the left proximal tibia. Correlation with Tc sulfur colloid imaging is recommended if infection remains a diagnostic consideration. Electronically Signed: Pito Foss DO at 21:47 EDT Tel , Service support ,
== END ==
PROVIDERS: PCP Family Medicine
DX: R41.82 Altered mental status, unspecified (principal)
CPT/HCPCS: 78801; A9521

== ENCOUNTER → 2020-10-22 14:57 | Outpatient (CLI) | payer MEDICAID, SELFPAY ==
[2020-09-26 10:06] VITALS: BMI 50.6
[2020-10-22 18:11] LABS: Absolute Lymphocyte Count 2.26 X10^3/uL (0.83-4.51); Absolute Neutrophil Count 5.9 X10^3/uL (2.0-7.7); Basophil# 0.02 X10^3/uL; Basophil% 0.2 % (0-1); Eosinophil# 0.08 X10^3/uL; Eosinophils% 0.9 % (0-5); Hematocrit 45.5 % (40-54); Hemoglobin 14.4 g/dL (13.0-16.5); Lymphocyte # 2.26 X10^3/ul (0.83-4.51); Lymphocyte % 24.9 % (19-41); Mean Corp Hgb Conc 31.6 g/dL (32-36); Mean Corpuscular Hgb 27.3 pg (27.0-32.0); Mean Corpuscular Volume 86.3 fL (80-94); Mean Platelet Vol. 10.3 fl (6.2-12.0); Monocyte# 0.77 X10^3/uL; Monocyte% 8.5 % (0-10); NRBC Flagged by Analyzer 0 % (0-5); Neutrophil # 5.91 X10^3/uL (2.7-7.7); Neutrophil % 65.3 % (47-70); Platelet Count 229 K/mm3 (150-450); RBC Distribution Width CV 14.6 % (11.6-14.6); RBC Distribution Width SD 46.1 fl (35.1-43.9); Red Blood Count 5.27 M/mm3 (4.6-6.2); White Blood Count 9.1 K/mm3 (4.4-11.0)
[2020-10-22 18:50] LABS: AST(SGOT) 18 U/L (15-37); Alanine Aminotransfer ALT/SGPT 33 U/L (16-61); Albumin, Serum 3.7 g/dL (3.2-5.0); Alkaline Phosphatase 84 U/L (45-117); Anion Gap 8 (5-15); BUN 15 mg/dL (7-18); BUN/Creat Ratio 12.4 RATIO (10-20); Chloride 107 mmol/L (98-107); Creatinine, Serum 1.21 mg/dL (0.70-1.30); EST Glomerular Filtration Rate 68 mL/min (>60); Est Glom Filt Rate - Afr Amer 82 mL/min (>60); Globulin 3.8 g/dL (2.2-4.2); Glucose 110 mg/dL (74-106); Potassium 3.7 mmol/L (3.5-5.1); Protein, Total 7.5 g/dL (6.4-8.2); Sodium Level 139 mmol/L (136-145)
[2020-10-29 05:07] LABS: HEPATITIS B SURFACE AG Negative (Negative); Hepatitis A AB, Total Negative (Negative); Hepatitis A IgM Antibody Negative (Negative); Hepatitis B Core AB IgM Negative (Negative); Hepatitis B Core Ab Total Negative (Negative); Hepatitis C Ab <0.1 s/co ratio (0.0-0.9); QNTFERON TB Mitogen Value > 10.00 IU/mL (.); QNTFERON TB Nil Value 0.04 IU/mL (.); QNTFERON TB1+ Ag Value 0 IU/mL (.); QNTFERON TB2+ Ag Value 0.01 IU/mL (.)
[2020-10-29 11:52] LABS: Hep B Surface Antibodies Non Reactive (.); QNTIFERON TB Positive Criteria Negative (Negative)
== END ==
PROVIDERS: PCP Family Medicine; Referring Provider Physician Assistant Medical; Visit Provider Physician Assistant Medical
DX: L40.0 Psoriasis vulgaris (principal); L71.8 Other rosacea; Z79.899 Other long term (current) drug therapy
CPT/HCPCS: 36415; 80053; 85025; 86480; 86704; 86705; 86706; 86708; 86709; 86803; 87340

== ENCOUNTER 2020-11-25 09:30 | Emergency (ER) | payer MEDICAID, SELFPAY ==
[2020-09-26 10:06] VITALS: BMI 50.6
[2020-11-25 09:31] VITALS: BP 133/83; PULSE 108; RESP 20; TEMP 37.7; O2SAT 98; BMI 49.4
[2020-11-25 09:33] VITALS: BP 133/83; PULSE 108; RESP 20; TEMP 37.7; O2SAT 98
--- NOTE | 2020-11-25 09:56 | VDLE_ITS ---
Reason For Study: Pain RIGHT GSV is normal. CFV is compressible, spontaneous, phasic, competent and demonstrates normal augmentation. FV is compressible, spontaneous, phasic, competent and demonstrates normal augmentation. POP V is compressible, spontaneous, phasic, competent and demonstrates normal augmentation. T/P Trunk is compressible. PTV is compressible. RT PerV is compressible. Procedure This is a venous duplex using B-mode, color flow and spectral Doppler. Exam performed portable in ED. A preliminary report was called and/or faxed to ED. VL/Venous Duplex US, Unilateral Interpretation Summary There is no evidence of right lower extremity deep vein thrombosis. Right great saphenous vein appears patent and compressible segmentally. Ordering Physician: Jayjay Wong Referring Physician: Jorje Palmer Performed By: Cecille Bhakta RVT
[2020-11-25 10:41] LABS: Absolute Lymphocyte Count 1.97 X10^3/uL (0.83-4.51); Absolute Neutrophil Count 7.1 X10^3/uL (2.0-7.7); Basophil# 0.02 X10^3/uL; Basophil% 0.2 % (0-1); Eosinophil# 0.08 X10^3/uL; Eosinophils% 0.8 % (0-5); Hematocrit 43.5 % (40-54); Hemoglobin 14.1 g/dL (13.0-16.5); Lymphocyte # 1.97 X10^3/ul (0.83-4.51); Lymphocyte % 19.2 % (19-41); Mean Corp Hgb Conc 32.4 g/dL (32-36); Mean Corpuscular Hgb 27.9 pg (27.0-32.0); Mean Platelet Vol. 9.5 fl (6.2-12.0); Monocyte# 1.07 X10^3/uL; Monocyte% 10.4 % (0-10); NRBC Flagged by Analyzer 0 % (0-5); Neutrophil # 7.07 X10^3/uL (2.7-7.7); Neutrophil % 69.1 % (47-70); Platelet Count 231 K/mm3 (150-450); RBC Distribution Width CV 14.9 % (11.6-14.6); RBC Distribution Width SD 47.1 fl (35.1-43.9); Red Blood Count 5.06 M/mm3 (4.6-6.2); White Blood Count 10.2 K/mm3 (4.4-11.0)
[2020-11-25] MEDS: Cefazolin 1 GM/50 ML BAG IV (10:52)
[2020-11-25 10:56] LABS: Partial Thromboplast Time 30.4 Seconds (24.1-36.2)
[2020-11-25 10:58] LABS: AST(SGOT) 11 U/L (15-37); Alanine Aminotransfer ALT/SGPT 26 U/L (16-61); Albumin, Serum 3.5 g/dL (3.2-5.0); Alkaline Phosphatase 78 U/L (45-117); Anion Gap 7 (5-15); BUN 11 mg/dL (7-18); BUN/Creat Ratio 9.4 RATIO (10-20); Calcium,Total 8.9 mg/dL (8.5-10.1); Chloride 106 mmol/L (98-107); Creatinine, Serum 1.17 mg/dL (0.70-1.30); EST Glomerular Filtration Rate 71 mL/min (>60); Est Glom Filt Rate - Afr Amer 85 mL/min (>60); Globulin 3.5 g/dL (2.2-4.2); Glucose 126 mg/dL (74-106); Potassium 3.6 mmol/L (3.5-5.1); Sodium Level 139 mmol/L (136-145)
[2020-11-25 11:08] LABS: Lactic Acid 1.6 mmol/L (0.4-1.9)
--- NOTE | 2020-11-25 11:11 | EX.ED.DYSGE1 ---
HPI History of Present Illness Chief Complaint: Cellulitis Informant: patient Onset/Context/Timing Onset: Weeks (2) Context: Gradual Onset Timing: Waxes and wanes Quality: Sharp and aching Location: Right lower leg Worsened by: Ambulation and weightbearing Relieved by: Nothing Narrative Narrative: Patient presents with pain and swelling to his right lower leg that has been waxing and waning for the past 2 weeks. Patient denies any trauma or injury. Patient states he has had a history of chronic infections in his right lower leg. Patient states he is scheduled for surgery to have an intramedullary estelle placed in his right tibia that is coated with antibiotics to help with his chronic infection. Patient denies any fevers or chills. Patient noted increased redness to his right lower leg recently. Patient states he finished a course of antibiotics recently. [facility] Medical History (Updated 11/25/20 @ 14:[address] Jayjay Wong DO) Anxiety and depression IBS (irritable bowel syndrome) SUSIE (obstructive sleep apnea) Psoriasis right leg fracture Home Medications gabapentin 100 mg PO QHS 09/21/20 [History Last Taken Unknown] cephalexin 500 mg PO Q6 #40 capsule 11/25/20 [Rx Last Taken Unknown] hydrocodone-acetaminophen 1 tab PO Q6H PRN PRN 3 Days #10 tablet 11/25/20 [Rx Last Taken Unknown] meloxicam 7.5 mg PO DAILY 11/25/20 [History Last Taken Unknown] sulfamethoxazole-trimethoprim 1 tab PO BID #20 tablet 11/25/20 [Rx Last Taken Unknown] Allergy/AdvReac Type Severity Reaction Status Date / Time ketamine AdvReac Severe mental Verified 11/25/20 09:34 status change--aggession Family History (Reviewed 09/26/20 @ 10:13 by Charla Zepeda BILINGUAL STUDENT TUTOR, BILINGUAL STUDENT TUTOR-C) Father CVA (cerebral vascular accident) Congestive heart failure Surgical History s/p right leg surgery Social History Smoking Status: Current every day smoker alcohol intake: never substance use type: does not use ROS ROS ED Constitutional Constitutional ED: Denies chills or fever(s) Eyes Eyes: Denies blurry vision or change in vision ENT ENT ED: Denies rhinorrhea or sore throat Cardiovascular Cardiovascular: Denies chest pain or palpitations Respiratory/Chest Respiratory/Chest: Denies cough or dyspnea Gastrointestinal Gastrointestinal: Denies nausea or vomiting Genitourinary Genitourinary ED: Denies dysuria or hematuria Musculoskeletal Musculoskeletal: Reports neck pain; Denies back pain Integumentary Reports rash; Denies abscess Neurologic Neurologic: Denies headache(s) or weakness Allergic/Immunologic Allergic/Immunologic ED: Denies mouth swelling or urticaria EXAM Physical Exam Const Vital Signs: 11/25/20 09:31 11/25/20 09:33 11/25/20 12:00 Temperature 99.8 F H 99.8 F H 99.1 F Temperature Source Temporal Temporal Oral Pulse Rate 108 H 108 H 91 Respiratory Rate 20 H 20 H 18 Blood Pressure 133/83 H 133/83 H 119/74 Blood Pressure Mean 99 99 89 Pulse Ox 98 98 98 Oxygen Delivery Method Room Air Room Air Room Air Positive well nourished, well developed and obese General Appearance ED: well developed Nutritional Appearance: obese HEENT Reports moist mucous membranes Neck supple and no JVD Resp normal respiratory effort and clear to auscultation bilaterally Cardio regular rate and regular rhythm GI normal to inspection, nondistended, normoactive bowel sounds and non-tender Palpation: soft Extremity General Extremety ED: Yes tenderness Neuro oriented x3, CN's II-XII intact bilaterally and no sensory deficits noted Sensorium / Orientation: alert Motor Exam: strength 5/5 throughout Psych mental status grossly normal Skin Skin Narrative: There is erythema and warmth over the right lower leg. There is also some tenderness over the right calf. There is no discharge or drainage. There is no evidence of any abscess. MDM MDM MDM Narrative Medical decision making narrative: Patient was given a dose of Ancef here. CBC was within normal limits. PT with INR and PTT were normal. Comprehensive metabolic profile was within normal limits. Lactate was normal. Venous duplex of the right lower extremity was obtained. There is no evidence of DVT. Patient was given prescriptions for Bactrim and Keflex. Patient was given a prescription for a short course of [place]. Patient was instructed to keep the leg elevated. Patient was instructed to follow-up with his primary care physician and orthopedic surgeon in 5 to 7 days. Patient understood and was agreeable with the plan. All questions were answered. Lab Data Attestation: I reviewed the patient's lab results. Labs: Laboratory Results - last 24 hr 11/25/20 11/25/20 11/25/20 10:28 10:28 10:28 WBC 10.2 RBC 5.06 Hgb 14.1 Hct 43.5 MCV 86.0 MCH 27.9 MCHC 32.4 RDW Std Deviation 47.1 H RDW Coeff of Ayse 14.9 H Plt Count 231 MPV 9.5 Immature Gran % (Auto) 0.300 Neut % (Auto) 69.1 Lymph % (Auto) 19.2 [place] % (Auto) 10.4 H Eos % (Auto) 0.8 Baso % (Auto) 0.2 Absolute Neuts (auto) 7.1 Absolute Lymphs (auto) 1.97 Nucleated RBC % 0 PT 13.0 INR 1.0 APTT 30.4 Sodium 139 Potassium 3.6 Chloride 106 Carbon Dioxide 26.0 Anion Gap 7 BUN 11 Creatinine 1.17 Estim Creat Clear Calc 74.70 Est GFR (MDRD) Af Amer 85 Est GFR (MDRD) Non-Af 71 BUN/Creatinine Ratio 9.4 L Glucose 126 H Lactic Acid Calcium 8.9 Total Bilirubin 0.50 AST 11 L ALT 26 Alkaline Phosphatase 78 Total Protein 7.0 Albumin 3.5 Globulin 3.5 Albumin/Globulin Ratio 1.0 11/25/20 10:28 WBC RBC Hgb Hct MCV MCH MCHC RDW Std Deviation RDW Coeff of Ayse Plt Count MPV Immature Gran % (Auto) Neut % (Auto) Lymph % (Auto) [place] % (Auto) Eos % (Auto) Baso % (Auto) Absolute Neuts (auto) Absolute Lymphs (auto) Nucleated RBC % PT INR APTT Sodium Potassium Chloride Carbon Dioxide Anion Gap BUN Creatinine Estim Creat Clear Calc Est GFR (MDRD) Af Amer Est GFR (MDRD) Non-Af BUN/Creatinine Ratio Glucose Lactic Acid 1.6 Calcium Total Bilirubin AST ALT Alkaline Phosphatase Total Protein Albumin Globulin Albumin/Globulin Ratio Discharge Plan Triage Chief Complaint: Cellulitis ED Provider: Jayjay Wong Dx/Rx/DC Orders Clinical Impression: Cellulitis of right lower leg Instructions: ED Cellulitis Prescriptions: New hydrocodone-acetaminophen [hydrocodone-acetaminophen] 1 TABLET tablet 1 tab PO Q6H PRN PRN (Reason: Pain) 3 Days Qty: 10 RF: 0 cephalexin [cephalexin] 500 MG capsule 500 mg PO Q6 Qty: 40 RF: 0 sulfamethoxazole-trimethoprim [sulfamethoxazole-trimethoprim] 1 TABLET tablet 1 tab PO BID Qty: 20 RF: 0 No Action gabapentin 100 MG capsule 100 mg PO QHS RF: 0 meloxicam 7.5 mg tablet 7.5 mg PO DAILY RF: 0 Primary Care Provider: Jorje Palmer Referrals: Jorje Palmer MD [Primary Care Provider] - 5-7 Days Disposition Disposition: Home, self care
[2020-11-25 12:00] VITALS: BP 119/74; PULSE 91; RESP 18; TEMP 37.3; O2SAT 98
[2020-11-25 14:53] VITALS: BP 122/78; PULSE 87; RESP 18; TEMP 37.1; O2SAT 97
== END 2020-11-25 14:54 | disposition home or self-care (01) ==
PROVIDERS: Emergency Provider Emergency Medicine; PCP Family Medicine
DX: L03.115 Cellulitis of right lower limb (principal); E66.9 Obesity, unspecified; F17.200 Nicotine dependence, unspecified, uncomplicated; Z79.899 Other long term (current) drug therapy
CPT/HCPCS: 80053; 83605; 85025; 85610; 85730; 87040; 93971; 96365; 99284; J7050; A4216

== ENCOUNTER 2021-01-21 13:33 | Outpatient (RCR) | payer MEDICAID, SELFPAY ==
[2021-01-16 16:29] VITALS: BMI 50.6
== END 2021-02-01 23:59 ==
LOC: NS 13:33
PROVIDERS: PCP Family Medicine; Visit Provider Orthopaedic Surgery Adult Reconstructive Orthopaedic Surgery
DX: E66.01 Morbid (severe) obesity due to excess calories (principal); Z68.43 Body mass index [BMI] 50.0-59.9, adult
CPT/HCPCS: 97802

== ENCOUNTER 2021-01-24 08:34 | Emergency (ER) | payer MEDICAID, SELFPAY ==
[2021-01-16 16:29] VITALS: BMI 50.6
[2021-01-24 08:34] VITALS: BP 136/96; PULSE 94; RESP 18; TEMP 36.3; O2SAT 99; BMI 50.3
--- NOTE | 2021-01-24 09:01 | RAD_ITS ---
STUDY: X-RAY CHEST REASON FOR EXAM: Male, 50 years old. Worsening shortness of breath. TECHNIQUE: Single AP portable view of the chest. COMPARISON: Comparison is made with prior study dated 03/06/2019. FINDINGS: Elevation of the right hemidiaphragm. Increased linear densities at the right lung base suggestive of a right basilar atelectasis. There is no demonstrated pleural abnormality. Normal size heart. Normal mediastinum and tyra. Normal visualized pulmonary arteries. Normal visualized aortic arch and descending thoracic aorta. Normal visualized thoracic spine. Normal visualized ribs, clavicles, and shoulders. There is no demonstrated abnormality of the visualized soft tissue structures of the upper abdomen. RAD/Chest 1 View (Portable) IMPRESSION: Elevation of the right hemidiaphragm with increased linear markings at the right lung base suggestive of right linear basilar atelectasis. Electronically Signed: Reid Stewart MD at 9:26 EDT , Service support ,
--- NOTE | 2021-01-24 09:26 | ED.VIS.DYS ---
HPI History of Present Illness Chief Complaint: Shortness of Breath Narrative Narrative: Patient presents for problems sleeping mainly. He states he has been diagnosed with sleep apnea, and has been prescribed CPAP, and just started using it this week for the past 3 nights. He states he is used to waking up apneic and taking a big gasping breath afterwards, but with the CPAP it was happening more frequently and he was not able to sleep. He states 2 nights ago he slept for 4 or 5 hours, but last night he was not able to sleep at all. Last night he tried to sleep without his CPAP, and he continued to wake up with periods of apnea whenever he would try to doze off and he thinks he got no sleep. He states he feels a little dyspneic. He states it is noticeable with conversation and with lying down. With further questioning, he states he has pretty much felt like this his entire life now that he thinks about it, and does not think it is necessarily worse now. He is obese and has been working with a dietitian to try to lose weight, and has lost around 20 or 25 pounds so far. He first saw pulmonary here about his sleep apnea back in April this past year, and then again in September, but just started CPAP 3 days ago because he had recurrent surgeries on his right knee due to orthopedic issues. His last surgery was about a month ago, he denies any changes in his breathing since his surgery. No history of blood clots, no swelling in his legs recently. [facility] Medical History (Updated 01/24/21 @ 09:[address] Reece Chavez MD) Anxiety and depression IBS (irritable bowel syndrome) SUSIE (obstructive sleep apnea) Psoriasis right leg fracture Home Medications tizanidine 2 mg PO QHS 01/24/21 [History Last Taken Unknown] Allergy/AdvReac Type Severity Reaction Status Date / Time ketamine AdvReac Severe mental Verified 01/24/21 08:36 status change--aggession Family History (Reviewed 09/26/20 @ 10:13 by Charla Zepeda ORTHOPHOTOGRAPHY TECHNICIAN, ORTHOPHOTOGRAPHY TECHNICIAN-C) Father CVA (cerebral vascular accident) Congestive heart failure Surgical History s/p right leg surgery Social History Smoking Status: Current every day smoker tobacco type: cigarettes alcohol intake: never substance use type: does not use ROS ROS ED Constitutional Constitutional ED: Denies chills or fever(s) Eyes Eyes: Denies change in vision or diplopia ENT ENT ED: Denies rhinorrhea or sore throat Cardiovascular Cardiovascular: Denies chest pain or palpitations Respiratory/Chest Respiratory/Chest: Denies cough or dyspnea Gastrointestinal Gastrointestinal: Denies abdominal pain, diarrhea, nausea or vomiting Genitourinary Genitourinary ED: Denies dysuria or hematuria Musculoskeletal Musculoskeletal: Denies back pain or neck pain Integumentary Denies abscess or rash Neurologic Neurologic: Denies headache(s), paresthesias or weakness Psychiatric Psychiatric: Denies anxiety or suicidal thoughts EXAM Physical Exam Const Vital Signs: 01/24/21 08:34 01/24/21 09:32 Temperature 97.4 F L Temperature Source Temporal Pulse Rate 94 Respiratory Rate 18 Respiratory Effort Normal Non-Labored Respiratory Depth Normal Respiratory Pattern Normal Blood Pressure 136/96 H Blood Pressure Mean 109 Pulse Ox 99 Oxygen Delivery Method Room Air Room Air Positive well nourished, well developed and obese Constitutional Narrative: Conversive in full sentences. Not objectively dyspneic. General Appearance ED: well developed and NAD Nutritional Appearance: obese HEENT Reports moist mucous membranes normocephalic and atraumatic Eyes PERRL and EOMs intact bilaterally Neck full ROM, supple and no JVD Resp normal respiratory effort and clear to auscultation bilaterally Cardio regular rate, regular rhythm and no murmurs GI non-tender and non-distended Auscultation: normoactive bowel sounds Palpation: soft Back/Spine no CVA tenderness General Back: other FROM Extremity normal to inspection and full ROM Extremity Narrative: Well-healed several surgical wounds right knee area General Extremety ED: Negative for edema, pulses abnormal or tenderness General Extremity: Negative for edema or pulses abnormal Neuro oriented x3, CN's II-XII intact bilaterally, no sensory deficits noted and gait normal Sensorium / Orientation: awake and alert Motor Exam: strength 5/5 throughout Skin no rashes or lesions noted and no wounds MDM MDM MDM Narrative Medical decision making narrative: Patient's vital signs are normal with an O2 sat of 99% on room air. He is having no retractions or objective trouble breathing, I obtained a chest x-ray that is normal, and although he states he is a little short of breath he admits that this is baseline for him and my suspicion is that it is related to his significant abdominal obesity. As I discussed with him I do not think he has any emergency, however I would like to help him get to sleep. He did already try to sleep without his CPAP last night, and he hinted that the pulmonary nurse practitioner that he saw in September was going to try to get him on BiPAP at some point, he does not have an appointment with pulmonary until 2 or 3 months from now. Given his symptoms, exam, and vital signs I do not think he is in heart failure or has pulmonary embolus or needs further emergent work-up at this time. Discussed with Dr. [place] with pulmonology. He states that the patient will probably need BiPAP and since he is not tolerating CPAP, he can discontinue it, and he is advised to call the office to have an appointment with Charla sooner than April so that they can set this up. Radiography Chest X-Ray - ED: 1 View, Read by ED Physician and No Acute Disease Diagnostic Testing: Radiology Impression Chest X-Ray 01/24/21 09:01 IMPRESSION: Elevation of the right hemidiaphragm with increased linear markings at the right lung base suggestive of right linear basilar atelectasis. Electronically Signed: Reid Stewart MD at 9:26 EDT , Service support , Discharge Plan Triage Chief Complaint: Shortness of Breath ED Provider: Reece Chavez Dx/Rx/DC Orders Clinical Impression: SUSIE (obstructive sleep apnea), Insomnia Instructions: ED Insomnia, ED Sleep Apnea, Obstructive Prescriptions: No Action tizanidine 2 mg tablet 2 mg PO QHS RF: 0 Primary Care Provider: Jorje Palmer Referrals: Peter Conte DO [STAFF PHYSICIAN] - 1 Week if not improving Jorje Palmer MD [Primary Care Provider] - Disposition Disposition: Home, Self Care
== END 2021-01-24 11:15 | disposition home or self-care (01) ==
PROVIDERS: Emergency Provider Emergency Medicine; PCP Family Medicine
DX: G47.33 Obstructive sleep apnea (adult) (pediatric) (principal); G47.00 Insomnia, unspecified; F17.210 Nicotine dependence, cigarettes, uncomplicated; E66.9 Obesity, unspecified; Z79.899 Other long term (current) drug therapy
CPT/HCPCS: 71045; 99282

== ENCOUNTER → 2021-02-10 11:48 | Outpatient (CLI) | payer MEDICAID, SELFPAY ==
[2021-02-04 12:46] VITALS: BMI 50.1
[2021-02-10 15:44] LABS: Erythrocyte Sedimentation Rate 19 mm/hr (0-20)
[2021-02-10 15:56] LABS: CRP 5.71 mg/L (0.0-3.0); Rheumatoid Factor < 10.0 IU/mL (<15)
[2021-02-13 07:49] LABS: CCP IgG Antibodies 8 units (0-19)
[2021-02-13 13:36] LABS: ANTINUCLEAR ANTIBODIES DIRECT Negative (Negative)
== END ==
PROVIDERS: PCP Family Medicine; Referring Provider Family Medicine; Visit Provider Family Medicine
DX: M13.0 Polyarthritis, unspecified (principal)
CPT/HCPCS: 36415; 85652; 86038; 86140; 86200; 86431

== ENCOUNTER 2021-03-06 13:30 | Outpatient (RCR) | payer MEDICAID, SELFPAY ==
[2021-01-16 16:29] VITALS: BMI 50.6
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
--- NOTE | 2021-03-06 14:20 | HP.PTDCSUM_ITS ---
It has been my pleasure to treat AVE ERIC referred by Dr. Jorje Palmer MD, with the diagnosis of R KNEE OA for a total of 9 visit(s). Discharge Date: Please see the following information for a summary of their discharge status. Subjective: PATIENT REPORTS HIS KNEE IS GETTING BETTER. STATES HE IS HAVING A LOT LESS DIFFICULTY GETTING AROUND BECAUSE HIS KNEE IS A LOT LESS STIFF. 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 STATES HIS IMPROVEMENT IS STARTING TO PLATEAU. PATIENT REPORTS HE SAW DR. RAMOS YESTERDAY AND INJECTIONS ARE RECOMMENDED AND AWAITING INSURANCE APPROVAL AND ORTHO ORDER. PATIENT IS HOPING THAT INJECTIONS WILL HELP HIM BE ABLE TO PROGRESS WITH EX. RLE Pain Intensity (Out of 10): 3 LLE Pain Intensity (Out of 10): 1 % Improvement: 60 Objective/Function: PATIENT WAS SEEN TODAY FOR RE-ASSESSMENT OF PROGRESS TOWARD THE SET PT GOALS AND THE NEED FOR FURTHER PHYSICAL THERAPY VS READINESS FOR DISCHARGE. 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 HE HAS OTHER PROCEEDURES WITH PAIN MGMT PENDING. UPON EXAM TODAY: GAIT: THIS PATIENT AMBULATES INDEP'LY INTO PT TODAY WITHOUT ANY ASSISTVE DEVICES LIMPING ON THE RIGHT LE. DECREASED CADANCE. AMBULATED AT LEAST 2X300 FEET IN CLINIC TODAY. PATIENT C/O RIGHT KNEE PAIN AMBULATING IN. NO LOB. CAN LE EXTERNAL ROTATION WITH GAIT BUT MUCH MORE EXTEME ON THE RIGHt. TU.43 SEC. Girth R Patella 53 cm. Girth 6 inch suprapatella 63 cm. R knee flexion AROM: 126 degress. R knee ext AROM: -14. R knee flex MMT; 5/5. R knee ext MMT 3-/5. R hip MMT 4/5. L MMT: hip flex 5/5, knee flex 5/5, knee ext 5/5. CORE STRENGTH: POOR. Sensory deficit: R LE LIGHT TOUCH SENSATION APPEARS DECREASED COMPARED TO LEFT WITH PATIENT REPORTING TINGLING AND SLIGHT NUMBNESS. Palpation: R LE INCISIONS LOOK GOOD WITHOUT ANY SIGNS OF INFECTION PATIENT IS STILL HYPERSENSATIVE WITH PALPATION OF THE RIGHT LE ESPECIALLY THE RIGHT LATERAL LOWER LEG. Goal 1:: INDEP AND SAFE GAIT ON LEVEL SURFACES AND UP AND DOWN STEPS WITH DECREASED DEVIATION AND PAIN. Goal Progress: Progressing Goal 2:: IMPROVE FUNCTIONAL ROM OF RIGHT LE TO EASE ADLs Goal Progress: Goal Met Goal 3:: IMPROVE FUNCTIONAL STRENGTH OF RIGHT LE TO EASE ADLS. Goal Progress: Goal Met Goal 4:: PATIENT WILL BE INDEP WITH POOL AND/OR LAND EX PROGRAMS FOR CONTINUED IMPROVEMENT ONCE FORMAL PHYSICAL THERAPY CONCLUDES. Goal Progress: Progressing Plan: D/C TO INDEP POOL PROGRAM. PATIENT AGREEABLE. If there are questions or concerns regarding this patient's physical therapy, please feel free to call me at [phone]. Thank you for the referral of this patient. Sincerely, Maddy Carmona, PT, Cert MDT Balance/Gait/Functional tests - Balance/Special Test Scores Lower Extremity Functional Score: 47
== END 2021-03-06 19:00 | disposition home or self-care (01) ==
LOC: PT 13:30
PROVIDERS: PCP Family Medicine; Referring Provider Family Medicine; Visit Provider Family Medicine
DX: M17.11 Unilateral primary osteoarthritis, right knee (principal)
CPT/HCPCS: 97113; 97162; 97164

== ENCOUNTER 2021-03-19 14:37 | Emergency (ER) | payer MEDICAID, SELFPAY ==
[2021-03-19 14:38] VITALS: BP 116/84; PULSE 92; RESP 15; TEMP 36.2; O2SAT 97; BMI 48.6
== END 2021-03-19 14:55 | disposition left against medical advice (07) ==
LOC: ED 15:05
PROVIDERS: PCP Family Medicine
DX: Z53.21 Procedure and treatment not carried out due to patient leaving prior to being seen by health care provider (principal)

== ENCOUNTER → 2021-03-20 13:50 | Outpatient (CLI) | payer MEDICAID, SELFPAY ==
[2021-03-20 15:12] LABS: Absolute Lymphocyte Count 2.21 X10^3/uL (0.83-4.51); Absolute Neutrophil Count 3.5 X10^3/uL (2.0-7.7); Basophil# 0.02 X10^3/uL; Basophil% 0.3 % (0-1); Eosinophil# 0.13 X10^3/uL; Hematocrit 45.5 % (40-54); Hemoglobin 14.7 g/dL (13.0-16.5); Lymphocyte # 2.21 X10^3/ul (0.83-4.51); Lymphocyte % 34.2 % (19-41); Mean Corp Hgb Conc 32.3 g/dL (32-36); Mean Corpuscular Hgb 28.3 pg (27.0-32.0); Mean Corpuscular Volume 87.7 fL (80-94); Mean Platelet Vol. 9.9 fl (6.2-12.0); Monocyte# 0.63 X10^3/uL; Monocyte% 9.8 % (0-10); NRBC Flagged by Analyzer 0 % (0-5); Neutrophil # 3.46 X10^3/uL (2.7-7.7); Neutrophil % 53.5 % (47-70); Platelet Count 203 K/mm3 (150-450); RBC Distribution Width CV 14.6 % (11.6-14.6); RBC Distribution Width SD 47.4 fl (35.1-43.9); Red Blood Count 5.19 M/mm3 (4.6-6.2); White Blood Count 6.5 K/mm3 (4.4-11.0)
[2021-03-20 15:23] LABS: Erythrocyte Sedimentation Rate 12 mm/hr (0-20)
[2021-03-20 15:42] LABS: CRP 4.97 mg/L (0.0-3.0)
== END ==
PROVIDERS: PCP Family Medicine; Referring Provider Family Medicine; Visit Provider Family Medicine
DX: M25.561 Pain in right knee (principal)
CPT/HCPCS: 36415; 85025; 85652; 86140

== ENCOUNTER → 2021-04-14 16:04 | Outpatient (CLI) | payer MEDICAID, SELFPAY ==
--- NOTE | 2021-04-14 16:06 | VDLE_ITS ---
Reason For Study: Infection of prosthetic joint RIGHT GSV is normal. CFV is compressible, spontaneous, phasic, competent and demonstrates normal augmentation. FV is compressible, spontaneous, phasic, competent and demonstrates normal augmentation. POP V is compressible, spontaneous, phasic, competent and demonstrates normal augmentation. T/P Trunk is compressible. PTV is compressible. RT PerV is compressible. Procedure This is a venous duplex using B-mode, color flow and spectral Doppler. Exam performed in department. A preliminary report was called and/or faxed to Lisa. VL/Venous Duplex US, Unilateral Interpretation Summary Deep veins of the right lower extremity are patent and compressible segmentally . There is no evidence of right lower extremity deep vein thrombosis. Valvular competence parmjit ears intact within the proximal deep venous system on the right . The right great saphenous vein a ppears patent and compressible segmentally. Ordering Physician: ENZO MELENDEZ Referring Physician: Jorje Palmer Performed By: Cecille Bhakta RVT
--- NOTE | 2021-04-14 16:35 | RAD_ITS ---
STUDY: X-RAY - RIGHT KNEE REASON FOR EXAM: Male, 50 years old. Pain since fracture in the leg 2 years ago after falling off her. Portable infections. TECHNIQUE: 4 view(s) of the knee. COMPARISON: 07/25/2020. FINDINGS: Normal visualized distal femur. There is sclerosis and irregularity of the proximal tibia unchanged from prior study. There is no new fracture or destructive osseous pathology. Normal proximal fibula. Normal proximal tibiofibular articulation. Normal medial femorotibial compartment. Normal lateral femorotibial compartment. Normal patellofemoral articulation. The soft tissue structures are unremarkable. RAD/Knee 4 or More Views IMPRESSION: No major interval change when compared to prior study. The possibility of chronic osteomyelitis cannot be ruled out and plain film. Electronically Signed: Mode Oden DO at 23:20 EDT Tel [phone], Service support ,
[2021-04-14 17:27] LABS: Absolute Lymphocyte Count 2.19 X10^3/uL (0.83-4.51); Absolute Neutrophil Count 4.7 X10^3/uL (2.0-7.7); Basophil# 0.03 X10^3/uL; Basophil% 0.4 % (0-1); Eosinophil# 0.12 X10^3/uL; Eosinophils% 1.6 % (0-5); Hematocrit 46.3 % (40-54); Lymphocyte # 2.19 X10^3/ul (0.83-4.51); Lymphocyte % 28.5 % (19-41); Mean Corp Hgb Conc 32.4 g/dL (32-36); Mean Corpuscular Hgb 28.2 pg (27.0-32.0); Mean Platelet Vol. 10.1 fl (6.2-12.0); Monocyte# 0.67 X10^3/uL; Monocyte% 8.7 % (0-10); NRBC Flagged by Analyzer 0 % (0-5); Neutrophil # 4.65 X10^3/uL (2.7-7.7); Neutrophil % 60.5 % (47-70); Platelet Count 205 K/mm3 (150-450); RBC Distribution Width CV 14.6 % (11.6-14.6); RBC Distribution Width SD 46.3 fl (35.1-43.9); Red Blood Count 5.32 M/mm3 (4.6-6.2); White Blood Count 7.7 K/mm3 (4.4-11.0)
[2021-04-14 17:44] LABS: D-Dimer Quantitative (DVT/PE) 0.31 FEU/ug/m (0.27-0.49)
[2021-04-14 17:54] LABS: Erythrocyte Sedimentation Rate 16 mm/hr (0-20)
[2021-04-14 18:12] LABS: CRP 7.11 mg/L (0.0-3.0)
== END ==
PROVIDERS: PCP Family Medicine
DX: T84.50XD Infection and inflammatory reaction due to unspecified internal joint prosthesis, subsequent encounter (principal)
CPT/HCPCS: 73564; 85025; 85379; 85652; 86140; 93971

== ENCOUNTER 2021-08-08 13:42 | Outpatient (CLI) | payer MEDICAID, SELFPAY ==
--- NOTE | 2021-08-08 13:46 | ECHOD_ITS ---
Reason For Study: PRE-OP Procedure This was a 2D Doppler, Color Flow transthoracic echocardiogram. Exam performed in department. Left Ventricle Normal LV size. Left ventricular systolic function is normal. The estimated ejection fraction is 56 %. Normal diastology for age. No regional wall motion abnormalities noted. Right Ventricle Normal RV size. Normal systolic function. Atria Normal left atrium. Normal right atrium. Mitral Valve Normal mitral valve. Trivial mitral valve insufficiency. Tricuspid Valve Normal tricuspid valve. Mild (1+) tricuspid valve insufficiency. Pulmonary artery systolic pressure is 32 mmHg. Aortic Valve Normal aortic valve. Pulmonic Valve Normal pulmonic valve. Great Vessels Normal aortic root. The pulmonary artery is normal size. Normal inferior vena cava. Pericardium/Pleural No pericardial effusion. MMode/2D Measurements & Calculations LVIDd: 4.8 cm IVSd: 0.94 cm Ao root diam: 3.6 cm LVIDs: 3.4 cm LVPWd: 0.94 cm RVDd: 3.6 cm FS: 30.0 % LAV(MOD-bp): 44.6 ml LA A4 area: 19.2 cm2 LA dimension(2D): 3.8 cm LAV(MOD-bp) Indexed: 18.7 ml/m2 LAV(MOD-sp2): 45.9 ml LAV(MOD-sp4): 43.6 ml RA A4 area: 14.7 cm2 Doppler Measurements & Calculations MV E max francesco: 78.6 cm/sec Med Peak E' Francesco: 6.6 cm/sec Ao V2 max: 154.6 cm/sec MV A max francesco: 66.1 cm/sec E/E' med: 11.9 Ao max P.6 mmHg MV E/A: 1.2 LV V1 max: 86.5 cm/sec PA V2 max: 95.2 cm/sec TR max francesco: 259.8 cm/sec LV V1 max P.8 mmHg TR max P.0 mmHg ECHO/Echo Complete Interpretation Summary Normal LV size. Left ventricular systolic function is normal. The estimated ejection fraction is 56 %. Normal diastology for age. Pulmonary artery systolic pressure is 32 mmHg. Ordering Physician: Osmar Ge Referring Physician: DONALDO FRIEND Performed By: Julieta Dixon, RDCS, RVT
== END 2021-08-08 23:59 | disposition short-term general hospital (02) ==
LOC: CVS 13:44
PROVIDERS: PCP Family Medicine; Referring Provider Internal Medicine Cardiovascular Disease; Visit Provider Internal Medicine Cardiovascular Disease
DX: Z01.810 Encounter for preprocedural cardiovascular examination (principal); E66.01 Morbid (severe) obesity due to excess calories
CPT/HCPCS: 93306

== ENCOUNTER 2021-08-11 11:47 | Outpatient (CLI) | payer MEDICAID, SELFPAY ==
--- NOTE | 2021-08-11 17:47 | STRESSREP ---
Stress Test Report Pharmacologic myocardial perfusion stress test. 51-year-old male with a history of coronary artery risk factors for preoperative evaluation. Resting EKG demonstrates normal sinus rhythm with a rate of 66 bpm normal intervals are noted resting blood pressure is 122/80 mmHg. 0.4 mg of regadenoson was infused, per usual protocol. Continuous EKG monitoring was performed. The maximum heart rate attained was 93 bpm which was 54% of max impact at heart rate the maximum workload was 1 metabolic equivalent. At rest there were no ST or T wave changes noted to suggest abnormal flow reserve and at peak infusion nonspecific ST changes were noted. No clinical angina was noted. Myocardial perfusion protocol. 14.8 mCi of technetium 99m sestamibi was injected at rest. 0.4 mg of regadenoson was infused per usual protocol. At peak infusion 45.0 mCi of technetium 99m sestamibi was injected stress images were obtained stress and rest images were reconstructed and compared in the short axis vertical long and horizontal long axis. Gated images were also obtained. Perfusion SPECT analysis: Review of the stress images demonstrate normal cardiac silhouette size. There is uniform perfusion noted in all areas of the myocardium except for the distal apex with mildly reduced perfusion on the stress images. A similar finding is on the resting images. The above is likely suggestive of anterior breast wall attenuation but no obvious ischemia is noted. Gated SPECT analysis: The gated ejection fraction is 54%. Conclusion: Normal pharmacologic myocardial perfusion stress test. Anterior breast wall attenuation artifact present. Preserved ejection fraction.
== END 2021-08-11 23:59 | disposition home or self-care (01) ==
PROVIDERS: PCP Family Medicine; Referring Provider Internal Medicine Cardiovascular Disease; Visit Provider Internal Medicine Cardiovascular Disease
DX: Z01.810 Encounter for preprocedural cardiovascular examination (principal); E66.01 Morbid (severe) obesity due to excess calories; R06.00 Dyspnea, unspecified; R06.02 Shortness of breath; R60.9 Edema, unspecified
CPT/HCPCS: 78452; 93017; A9500; A4216; J2785

== ENCOUNTER → 2021-11-21 | Outpatient (CLI) | payer MEDICAID, SELFPAY ==
--- NOTE | 2021-11-21 10:30 | VDLE_ITS ---
RIGHT LEFT GSV is normal. CFV is compressible, spontaneous, phasic, CFV is compressible, spontaneous, phasic, competent, and demonstrates normal competent and demonstrates normal augmentation. augmentation. FV is compressible, spontaneous, phasic, competent and demonstrates normal augmentation. POP V is compressible, spontaneous, phasic, competent and demonstrates normal augmentation. T/P Trunk is compressible. PTV is compressible. RT PerV is compressible. Procedure Exam performed in department. The exam was diagnostic. A preliminary report was called and/or faxed to Selene Thorne. VL/Venous Duplex US, Unilateral Interpretation Summary Deep veins of the right lower extremity are patent and compressible segmentally . There is no evidence of right lower extremity deep vein thrombosis. Valvular competence parmjit ears intact within the proximal deep venous system on the right . The right great saphenous vein a ppears patent and compressible segmentally. Ordering Physician: SELENE THORNE Referring Physician: SELENE THORNE Performed By:
--- NOTE | 2021-11-21 10:34 | RAD_ITS ---
STUDY: XR Knees Bilateral 1 or 2 Views Ea - [id number] 11/21/2021 4:41 PM REASON FOR EXAM: Male, 51 years old. REVISION TOTAL KNEE TECHNIQUE: XR Knees Bilateral 1 or 2 Views Ea - [id number] BILATERAL COMPARISON: None FINDINGS: Right: Total right knee arthroplasty. Bone glue of the visualized proximal tibia. Normal proximal tibiofibular articulation. Left: Normal visualized distal femur. Normal visualized proximal tibia and fibula. Normal proximal tibiofibular articulation. Normal medial femorotibial compartment. Normal lateral femorotibial compartment. Normal patellofemoral articulation. The soft tissue structures are unremarkable. RAD/Knees Standing AP Bilateral IMPRESSION: There are no acute findings. Electronically Signed: Atif Gaitan MD at 16:43 EDT ,
--- NOTE | 2021-11-21 11:05 | RAD_ITS ---
STUDY: XR Knee Complete 4 Views or More 11/21/2021 4:40 PM REASON FOR EXAM: Male, 51 years old. S/P KNEE REVISION TECHNIQUE: XR Knee Complete 4 Views or More RIGHT COMPARISON: None FINDINGS: Total right knee arthroplasty. Bone glue of the visualized proximal tibia. Normal proximal tibiofibular articulation. Normal medial femorotibial compartment. Normal lateral femorotibial compartment. Normal patellofemoral articulation. There is a soft tissue prominence in the suprapatellar region suggesting a small volume joint effusion. The soft tissue structures are unremarkable. RAD/Knee 4 or More Views IMPRESSION: Effusion, as described above. Electronically Signed: Atif Gaitan MD at 16:42 EDT ,
== END | disposition home or self-care (01) ==
LOC: CVS 10:28
PROVIDERS: PCP Family Medicine
DX: R60.0 Localized edema (principal)
CPT/HCPCS: 73564; 73565; 93971

== ENCOUNTER 2021-12-04 15:00 | Outpatient (RCR) | payer MEDICAID, SELFPAY ==
--- NOTE | 2021-10-28 15:39 | HP.PTEVAL_ITS ---
Patient's Visit Information AVE ERIC is a 51 year old M referred to Physical Therapy by Dr. Cristian Phillips, with a diagnosis of RIGHT TKA. Date of Evaluation: 10/28/21 Physical Therapist: Rolly Oropeza, PT, Cert MDT, OCS - Visit Plan Frequency: 2x /Week Duration: 8WEEKS Plan: PT INTERVETIONS ROM ( focus on extension) ,FLEXABLITY HAMSTRINGS/CALF ,PROGRESS WITH STRENGTHENING QUADS/HAMS/HIP,GAIT TRAINING,FUNCTIONAL STRENGTHNEING ,VASO FOR EDEMA,CP AND NUSTEP/BIKE - Subjective This 51 y/o male presents to physical therapy with right TKA on 10/22/21 at [facility] by Dr Phillips. Patient d/c next day with fww WBAT . Patient has h/o trauma fracture fell off roof lower leg multiple fracture with s/p ORIF . Developed infection thus had to remove hardware and had debridement for infection then had antibiotic spacer in knee for 8 weeks . Eventually had to loose 65# ,at 284#. Plan to RTD November 05. .MEDS oxycodone. Patient lives in [address] home no steps. Walking in shower does have shower chair. Denies paresthesia/tingling. Patient is I with ADLS dressing ,bathing with assist with cleaning and cooking. Patient knee replacement affect ADL's and functional activities and return to prior level of function. SOCIAL: single. VOCATION: unemployed - Pain Right Knee Pain Intensity (Out of 10): 5 Pain Intensity Range: 10 - Objective POSTURE: mild forward posture. NEURO: denies paresthesia/tingling. SKIN: incision well approximate ,sliverdone dressing intact ,bruising upper thigh. TENDER: QUADS,I TBAND. GAIT: ambulates with fww with WBAT with knee flexed decrease stance time,. BALANCE: FAIR+. AROM: supine knee flexion 38 degrees extension 100 degrees supine flexion. MMT ( peak force) : quads 47.5,hamstrings 25.4.hip flexion 20.2. STAIRS: one step at time - Balance/Special Test Scores Lower Extremity Functional Score: 22 TUG Test Time Seconds: 15.6 WOMAC Total Score: 62 WOMAC Percentatge: 35.4200 - Goals Goal 1:: I with HEP for TKR Goal Time Frame: 4-6 Weeks Goal 2:: Patient to normalize gait pattern with improved TUG by 7 seconds Goal Time Frame: 4-6 Weeks Goal 3:: Patient to demonstrate 75% improvement with improve function and decrease pain Goal Time Frame: 4-6 Weeks Goal 4:: Patient to improve supine knee flexion 10-120 degrees supine flexion to improve stairs Goal Time Frame: 4-6 Weeks Goal 5:: Patient to improve MMT peak force by 10 to improve function and gait. Goal Time Frame: 4-6 Weeks Goal 6:: Patient to improve LFES score by 15 points to improve QOL and function Goal Time Frame: 4-6 Weeks - Rehabilitation Potential Physical Therapy Diagnosis: This patient underwent s/p right TKA with decrease ROM ,strength ,gait stairs ,pain and edema thus will benefit from skilled PT to address these impiarments Rehabilitation Potential: Good - Anticipated Interventions Patient/Client Instruction: Educate patient on: Condition, Plan of Care For the Purpose of:: To decrease pain, To increase ROM, To improve muscle performance and motor function, To improve ability to perform ADL's, To increase tolerance to activity/condition/position, To improve performance and independence with ADL's, To decrease level of supervision to perform tasks, To improve ability of physical actions for home/community/work/leisure, To improve health of tissue, To decrease soft tissue restriction, To increase flexibility/ROM, To improve endurance, To improve balance Therapeutic Exercise to Include: Strength training, Endurance training, Balance training, Passive ROM, Active ROM Comment: QUADS/HAMS/HIP For the Purpose of:: To decrease pain, To increase ROM, To improve muscle performance and motor function, To improve ability to perform ADL's, To increase tolerance to activity/condition/position, To improve ability of physical actions for home/community/work/leisure, To improve gait and locomotor functions, To improve health of tissue, To decrease soft tissue restriction, To increase flexibility/ROM, To improve endurance, To improve balance Cryotherapy (ice pack, ice massage): Yes Vasopneumatic device: Yes For the Purpose of:: To decrease pain, To decrease swelling/inflammation, To increase ROM Thank you for the opportunity to evaluate your patient. For Medicare and Medicare HMO plans, please review the plan of care and approve it. It will need to be FAXED BACK to us at [phone] for Medicare purposes. For Medicare only, by signing this I certify the plan of care. Please let me know if there are questions or concerns regarding this plan of care. Physician Signature: Date:
--- NOTE | 2022-04-08 09:25 | HP.PTDCSUM ---
It has been my pleasure to treat AVE ERIC referred by Dr. Cristian Phillips DO, with the diagnosis of RIGHT TKA for a total of 8 visit(s). Discharge Date: 12/04/21 Please see the following information for a summary of their discharge status. Subjective: Seen happy with progress ,did x-rays looked good. Taking a new muscle relaxers. Otherwise doing well Right Knee Pain Intensity (Out of 10): 4 % Improvement: 80 Objective/Function: AROM 10 -120 DEGREES SUPINE FLEXION. GAIT: ambulated with reciprocal pattern mild decrease stance. MMT: 58 ,44.8 PEAK FORCE Goal 1:: I with HEP for TKR Goal Progress: Goal Met Goal 2:: Patient to normalize gait pattern with improved TUG by 7 seconds Goal Progress: Goal Met Goal 3:: Patient to demonstrate 75% improvement with improve function and decrease pain Goal Progress: Goal Met Goal 4:: Patient to improve supine knee flexion 10-120 degrees supine flexion to improve stairs Goal Progress: Goal Met Goal 5:: Patient to improve MMT peak force by 10 to improve function and gait. Goal Progress: Goal Met Goal 6:: Patient to improve LFES score by 15 points to improve QOL and function Goal Progress: Goal Met Plan: D/C TO [facility] Discharge Comments: [facility] If there are questions or concerns regarding this patient's physical therapy, please feel free to call me at [phone]. Thank you for the referral of this patient. Sincerely, Rolly Oropeza, PT, Cert MDT, OCS Balance/Gait/Functional tests - Balance/Special Test Scores Lower Extremity Functional Score: 61 TUG Test Time Seconds: 6.5 Tug Test: <10 sec.=free mobile WOMAC Total Score: 62 WOMAC Percentage: 35.4200
== END 2021-12-04 19:00 | disposition home or self-care (01) ==
LOC: PT 15:00
PROVIDERS: PCP Family Medicine; Referring Provider Orthopaedic Surgery Adult Reconstructive Orthopaedic Surgery; Visit Provider Orthopaedic Surgery Adult Reconstructive Orthopaedic Surgery
DX: Z96.651 Presence of right artificial knee joint (principal)
CPT/HCPCS: 97016; 97110; 97162

== ENCOUNTER → 2022-01-09 | Outpatient (CLI) | payer MEDICAID, SELFPAY ==
[2022-01-09 17:32] LABS: Absolute Lymphocyte Count 2.23 X10^3/uL (0.83-4.51); Basophil# 0.02 X10^3/uL; Basophil% 0.3 % (0-1); Eosinophils% 1.4 % (0-5); Hematocrit 43.4 % (40-54); Hemoglobin 14.3 g/dL (13.0-16.5); Lymphocyte # 2.23 X10^3/ul (0.83-4.51); Lymphocyte % 31.9 % (19-41); Mean Corp Hgb Conc 32.9 g/dL (32-36); Mean Corpuscular Hgb 29.2 pg (27.0-32.0); Mean Corpuscular Volume 88.8 fL (80-94); Mean Platelet Vol. 10.1 fl (6.2-12.0); Monocyte# 0.59 X10^3/uL; Monocyte% 8.4 % (0-10); NRBC Flagged by Analyzer 0 % (0-5); Neutrophil # 4.04 X10^3/uL (2.7-7.7); Neutrophil % 57.9 % (47-70); Platelet Count 214 K/mm3 (150-450); RBC Distribution Width CV 13.2 % (11.6-14.6); RBC Distribution Width SD 43.3 fl (35.1-43.9); Red Blood Count 4.89 M/mm3 (4.6-6.2)
[2022-01-09 17:51] LABS: AST(SGOT) 19 U/L (15-37); Alanine Aminotransfer ALT/SGPT 23 U/L (16-61); Albumin, Serum 3.6 g/dL (3.2-5.0); Alkaline Phosphatase 83 U/L (45-117); Anion Gap 4 (5-15); BUN 17 mg/dL (7-18); BUN/Creat Ratio 16.3 RATIO (10-20); Bilirubin, Direct 0.09 mg/dL (0.00-0.30); Calcium,Total 8.9 mg/dL (8.5-10.1); Chloride 109 mmol/L (98-107); Creatinine, Serum 1.04 mg/dL (0.70-1.30); EST Glomerular Filtration Rate 81 mL/min (>60); Est Glom Filt Rate - Afr Amer 97 mL/min (>60); Globulin 3.2 g/dL (2.2-4.2); Glucose 91 mg/dL (74-106); Potassium 3.9 mmol/L (3.5-5.1); Protein, Total 6.8 g/dL (6.4-8.2); Sodium Level 143 mmol/L (136-145)
[2022-01-10 09:39] LABS: Hepatitis B Surface Antibody Non-Reactive; Hepatitis B Surface Antigen Non-Reactive (Nonreactive); Hepatitis C Antibody Non-Reactive (Nonreactive)
[2022-01-13 13:08] LABS: QNTFERON TB Mitogen Value > 10.00 IU/mL (.); QNTFERON TB Nil Value 0.11 IU/mL (.); QNTFERON TB1+ Ag Value 0.11 IU/mL (.)
[2022-01-13 16:30] LABS: Hepatitis B Core Ab Total Negative (Negative); QNTIFERON TB Positive Criteria Negative (Negative)
== END | disposition home or self-care (01) ==
LOC: MTLAB 14:36
PROVIDERS: PCP Family Medicine; Referring Provider Physician Assistant Medical; Visit Provider Physician Assistant Medical
DX: L40.0 Psoriasis vulgaris (principal); Z79.899 Other long term (current) drug therapy
CPT/HCPCS: 36415; 80048; 80076; 85025; 86480; 86704; 86706; 86803; 87340

== ENCOUNTER → 2022-04-06 | Outpatient (CLI) | payer MEDICAID, SELFPAY ==
[2022-04-06 18:15] LABS: Absolute Lymphocyte Count 2.98 X10^3/uL (0.83-4.51); Absolute Neutrophil Count 4.1 X10^3/uL (2.0-7.7); Basophil# 0.03 X10^3/uL; Basophil% 0.4 % (0-1); Eosinophil# 0.12 X10^3/uL; Eosinophils% 1.5 % (0-5); Hematocrit 46.3 % (40-54); Hemoglobin 14.8 g/dL (13.0-16.5); Lymphocyte # 2.98 X10^3/ul (0.83-4.51); Lymphocyte % 37.1 % (19-41); Mean Corpuscular Hgb 28.7 pg (27.0-32.0); Mean Corpuscular Volume 89.9 fL (80-94); Mean Platelet Vol. 10.2 fl (6.2-12.0); Monocyte# 0.82 X10^3/uL; Monocyte% 10.2 % (0-10); NRBC Flagged by Analyzer 0 % (0-5); Neutrophil # 4.07 X10^3/uL (2.7-7.7); Neutrophil % 50.7 % (47-70); Platelet Count 205 K/mm3 (150-450); RBC Distribution Width CV 13.7 % (11.6-14.6); RBC Distribution Width SD 45.5 fl (35.1-43.9); Red Blood Count 5.15 M/mm3 (4.6-6.2)
[2022-04-06 18:32] LABS: AST(SGOT) 22 U/L (15-37); Alanine Aminotransfer ALT/SGPT 26 U/L (16-61); Albumin, Serum 3.6 g/dL (3.2-5.0); Alkaline Phosphatase 79 U/L (45-117); Anion Gap 8 (5-15); BUN 15 mg/dL (7-18); BUN/Creat Ratio 15.3 RATIO (10-20); Calcium,Total 8.9 mg/dL (8.5-10.1); Chloride 108 mmol/L (98-107); Creatinine, Serum 0.98 mg/dL (0.70-1.30); EST Glomerular Filtration Rate 86 mL/min (>60); Est Glom Filt Rate - Afr Amer 104 mL/min (>60); Globulin 3.6 g/dL (2.2-4.2); Glucose 79 mg/dL (74-106); Protein, Total 7.2 g/dL (6.4-8.2); Sodium Level 139 mmol/L (136-145); Thyroid Stim Hormone (TSH) 2.16 uIU/mL (0.358-3.74)
== END | disposition home or self-care (01) ==
PROVIDERS: PCP Family Medicine; Referring Provider Family Medicine; Visit Provider Family Medicine
DX: R63.2 Polyphagia (principal)
CPT/HCPCS: 36415; 80053; 84443; 85025

== ENCOUNTER 2023-03-22 16:47 | Emergency (ER) | payer MEDICAID, SELFPAY ==
[2023-03-22 16:48] VITALS: BP 137/84; PULSE 86; RESP 18; TEMP 35.8; O2SAT 97; BMI 45.4
--- NOTE | 2023-03-22 17:25 | RAD_ITS ---
INDICATION: SOB EXAMINATION/TECHNIQUE: X-RAY - XR Chest 2 Views COMPARISON: None. FINDINGS: The lungs are clear. The cardiomediastinal silhouette is unremarkable. No pleural effusion or pneumothorax. Degenerative changes of the thoracic spine. RAD/Chest PA and Lateral IMPRESSION: No acute radiographic abnormalities. Electronically Signed: Sukhi Theodore MD at 18:01 EDT ,
[2023-03-22] MEDS: dexAMETHasone 4 MG Tablet PO (17:34)
--- NOTE | 2023-03-22 18:15 | ED.VIS.DYS ---
HPI <MARIN Pro - Last Filed: 03/22/23 19:04> History of Present Illness Chief Complaint: Shortness of Breath Narrative Narrative: Patient presenting today with a sore throat, headache, body aches, and mild shortness of breath on exertion after testing positive for COVID 2 days ago. He reports that his symptoms started 3 days ago. He reports that he does have a history of sleep apnea but does not use a CPAP because he does not tolerate it well but because of his sore throat he has periodic feelings like his throat is closed, this resolves within seconds. His PCP prescribed him Paxlovid which she is starting today. He has been trying [id number] remedies for sore throat such as cough drops, throat spray, and cold and flu medications without any relief. He is able to eat and drink. He denies any fever, chills, chest pain, abdominal pain, nausea, vomiting. PFSH <MARIN Pro - Last Filed: 03/22/23 19:04> PFS Medical History Anxiety and depression Cellulitis of right lower leg IBS (irritable bowel syndrome) Insomnia Leg fracture, right Marijuana use Nasal septal deviation SUSIE (obstructive sleep apnea) Osteomyelitis Psoriasis Tobacco abuse Home Medications medical marijuana PO QHS PRN 07/28/21 [History Last Taken Unknown] codeine 10 mg-guaifenesin 100 mg/5 mL oral liquid (Guaifenesin AC) 5 ml PO Q6H PRN cough #120 mL 03/22/23 [Rx Last Taken Unknown] Allergy/AdvReac Type Severity Reaction Status Date / Time ketamine AdvReac Severe mental Verified 03/22/23 16:50 status change--aggession Family History Father CVA (cerebral vascular accident) Congestive heart failure Surgical History History of colonoscopy History of open reduction and internal fixation (ORIF) procedure (2019) Social History Smoking Status: Former smoker quit date: 09/02/21 how long ago did patient quit smoking: yr and half ago. second hand exposure: No alcohol intake: current alcohol intake frequency: a few times a month substance use type: marijuana ROS <MARIN Pro - Last Filed: 03/22/23 19:04> ROS ED Constitutional Constitutional ED: Denies chills or fever(s) ENT ENT ED: Reports sore throat Cardiovascular Cardiovascular: Denies chest pain or palpitations Respiratory/Chest Respiratory/Chest: Reports dyspnea on exertion; Denies cough Gastrointestinal Gastrointestinal: Denies abdominal pain, nausea or vomiting Musculoskeletal Musculoskeletal: Reports myalgias; Denies arthralgias Integumentary Denies rash Neurologic Neurologic: Denies paresthesias or weakness EXAM <MARIN Pro - Last Filed: 03/22/23 19:04> Physical Exam Const Vital Signs: 03/22/23 16:48 03/22/23 19:25 Temperature 96.5 F L Temperature Source Temporal Pulse Rate 86 Respiratory Rate 18 Respiratory Effort Short of Breath Respiratory Depth Normal Respiratory Pattern Normal Blood Pressure 137/84 H Blood Pressure Mean 101 Pulse Ox 97 Oxygen Delivery Method Room Air Positive well nourished, well developed and no apparent distress General Appearance ED: well developed HEENT Reports normocephalic and head/scalp atraumatic HEENT Narrative: Uvula midline, erythema to the posterior pharynx, no tonsillar exudate, no trismus, no stridor, tolerating secretions Mouth ED: Yes moist mucous membranes normal Eyes PERRL and EOMs intact bilaterally Neck full ROM and supple Chest Wall inspection of chest normal Resp normal respiratory effort and clear to auscultation bilaterally Cardio regular rate and regular rhythm GI soft to palpation, non-tender, non-distended and no masses Back/Spine normal ROM and normal to inspection Extremity normal to inspection and full ROM Neuro oriented x3, CN's II-XII intact bilaterally, moves all extremities, no focal motor deficits and no sensory deficits noted Sensorium / Orientation: awake and alert Psych mental status grossly normal and thought process normal Skin no rashes or lesions noted and no wounds <Dr. Rubina Lucas DO - Last Filed: 03/25/23 15:12> Physical Exam Const Vital Signs: 03/22/23 16:48 03/22/23 19:25 Temperature 96.5 F L Temperature Source Temporal Pulse Rate 86 Respiratory Rate 18 Respiratory Effort Short of Breath Respiratory Depth Normal Respiratory Pattern Normal Blood Pressure 137/84 H Blood Pressure Mean 101 Pulse Ox 97 Oxygen Delivery Method Room Air [facility] <MARIN Pro - Last Filed: 03/22/23 19:04> [facility] Narrative Medical decision making narrative: Patient presenting today with COVID after becoming symptomatic 3 days ago. He reports headache, sore throat, muscle aches, and mild shortness of breath on exertion. He reports that his worst symptom is his sore throat. He has a history of sleep apnea and at times has a sensation that his throat is closing due to it being so sore. He was given Decadron here for his pain and on reexamination reports some improvement of his symptoms. He has Paxlovid from his PCP that he is starting today. He is well-appearing and in no acute distress, vitals are unremarkable, he is 97% on room air. He was ambulated to make sure that he did not become hypoxic and he remained above 94% and did not become symptomatic. Chest x-ray was obtained to rule out filtrate and is negative for any acute findings. He will be given a prescription for Robitussin with codeine and will be discharged home in stable condition. He is comfortable with plan and has been given return instructions. Radiography X-Ray: Read by ED Physician and Read by Radiologist Diagnostic Testing: Clinical Impression(s) from Imaging Studies Chest X-Ray 03/22/23 17:25 IMPRESSION: No acute radiographic abnormalities. Electronically Signed: Sukhi Theodore MD at 18:01 EDT Reading Location ID and State: [facility] / [place] Tel , Service support , <Dr. Rubina Lucas, - Last Filed: 03/25/23 15:12> [facility] Narrative Medical decision making narrative: Patient presenting today with COVID after becoming symptomatic 3 days ago. He reports headache, sore throat, muscle aches, and mild shortness of breath on exertion. He reports that his worst symptom is his sore throat. He has a history of sleep apnea and at times has a sensation that his throat is closing due to it being so sore. He was given Decadron here for his pain and on reexamination reports some improvement of his symptoms. He has Paxlovid from his PCP that he is starting today. He is well-appearing and in no acute distress, vitals are unremarkable, he is 97% on room air. He was ambulated to make sure that he did not become hypoxic and he remained above 94% and did not become symptomatic. Chest x-ray was obtained to rule out filtrate and is negative for any acute findings. He will be given a prescription for Robitussin with codeine and will be discharged home in stable condition. He is comfortable with plan and has been given return instructions. I have personally performed a face to face assessment of the patient and have reviewed the NAEL Note. I performed a substantive portion of the visit including all aspects of the following. My salmon findings include: History is patient is a 52-year-old male presenting with COVID symptoms after diagnosis of COVID. He started having symptoms 3 days ago. He was previously prescribed Paxlovid and started that today. He complained of some mild chest tightness and shortness of breath with exertion, headache, sore throat and muscle aches. He also complained of generalized malaise. Patient appears nontoxic. His breath sounds are clear. He is 97% on room air. He is not hypoxic or tachycardic with ambulation. Given he is only had symptoms for 3 days have a low suspicion for secondary pulmonary emboli. Chest x-ray does not show any acute infiltrate. Patient look-alike he does not feel good he has stable vital signs and is nontoxic-appearing. At this time I do not think he requires further lab work. Will be given a prescription for Robitussin-AC for further symptom control. Is given a dose of Decadron for his sore throat. Do not think he requires a longer course of Decadron for his respiratory symptoms as he does not have any hypoxia. Patient encouraged to continue to follow-up with his primary care doctor. Given return precautions to the emergency room. Discharged home in stable condition. Other additions or changes: [None] Radiography Diagnostic Testing: Clinical Impression(s) from Imaging Studies Chest X-Ray 03/22/23 17:25 IMPRESSION: No acute radiographic abnormalities. Electronically Signed: Sukhi Theodore MD at 18:01 EDT , Discharge Plan Triage Chief Complaint: Shortness of Breath ED Midlevel Provider: Vivienne Hurt ED Provider: Rubina Lucas Dx/Rx/DC Orders Clinical Impression: COVID-19, SOB (shortness of breath) on exertion, Acute sore throat Instructions: Coronavirus Disease 2019 (COVID-19): Caring for Yourself or Others, Self-Care for Sore Throats Prescriptions: New codeine-guaifenesin [Guaifenesin AC] 10-100 mg/5 mL liquid 5 ml PO Q6H PRN (Reason: cough) Qty: 120 0RF No Action medical marijuana PO QHS PRN Primary Care Provider: Marissa Camacho Referrals: NOT,DEFINED [Non-Staff] - Activity Restrictions/Additional Instructions: Follow-up with your PCP and return for any worsening of your symptoms. Disposition Disposition: Home, Self Care Discharge Date/Time: 03/22/23 19:25
[2023-03-22 18:22] VITALS: O2SAT 95
[2023-03-22] MEDS: dexAMETHasone 4 MG Tablet 6 MG PO (18:56)
== END 2023-03-22 19:25 | disposition home or self-care (01) ==
LOC: ED 18:50
PROVIDERS: Emergency Provider Emergency Medicine; PCP Family Medicine; Visit Provider Emergency Medicine
DX: U07.1 COVID-19 (principal); R06.02 Shortness of breath; J02.9 Acute pharyngitis, unspecified; F12.90 Cannabis use, unspecified, uncomplicated; G47.33 Obstructive sleep apnea (adult) (pediatric); Z87.891 Personal history of nicotine dependence
CPT/HCPCS: 71046; 99282

== ENCOUNTER 2023-04-08 15:26 | Outpatient (CLI) | payer MEDICAID, SELFPAY ==
--- NOTE | 2023-04-08 15:28 | RAD_ITS ---
INDICATION: Right knee pain EXAMINATION/TECHNIQUE: X-RAY - RIGHT XR Knee Complete 4 Views or More 4 VIEWS COMPARISON: Nov 21 2021, April 14, 2021 FINDINGS: SOFT TISSUES: No soft tissue swelling or gas. No radiopaque foreign body. BONES/JOINTS: Total knee arthroplasty with patellar resurfacing. No joint effusion. No new perihardware lucency or evidence of hardware failure. Chronic unchanged sclerosis and osseous remodeling of the proximal tibia and fibular head neck junction. No acute fracture RAD/Knee 4 or More Views IMPRESSION: Total knee arthroplasty without significant change from November 21, 2021. Electronically Signed: Darrin Rojas MD at 9:38 EDT ,
--- NOTE | 2023-04-08 15:28 | RAD_ITS ---
INDICATION: right shoulder pain EXAMINATION/TECHNIQUE: X-RAY - RIGHT XR Shoulder Min 2 Views 4 VIEWS COMPARISON: Chest radiograph March 22, 2023 FINDINGS: SOFT TISSUES: No soft tissue swelling or gas. No radiopaque foreign body. BONES/JOINTS: No acute fracture. No Hill-Sachs or Bankart lesion... Normal glenohumeral and acromioclavicular alignment. Preservation of the joint space with mild predominantly superior acromioclavicular osteophyte formation and minimal inferior glenohumeral osteophyte formation.. No sclerotic or destructive changes observed. RAD/Shoulder min 2 Views IMPRESSION: No acute osseous finding. 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 Electronically Signed: Darrin Rojas MD at 9:33 EDT ,
--- NOTE | 2023-04-08 15:30 | RAD_ITS ---
INDICATION: left shoulder pain EXAMINATION/TECHNIQUE: X-RAY - LEFT XR Shoulder Min 2 Views 4 VIEWS COMPARISON: Right shoulder radiograph on same day. Chest radiograph March 22, 2023 FINDINGS: SOFT TISSUES: No soft tissue swelling or gas. No radiopaque foreign body. BONES/JOINTS: No acute fracture. No Hill-Sachs or Bankart lesion.. Normal glenohumeral and acromioclavicular alignment. Preservation of the joint space with mild superior acromioclavicular osteophyte formation.. No sclerotic or destructive changes observed. RAD/Shoulder min 2 Views IMPRESSION: No acute osseous finding. Mild acromioclavicular osteoarthritic change.. Electronically Signed: Darrin Rojas MD at 9:34 EDT ,
== END 2023-04-08 23:59 | disposition home or self-care (01) ==
LOC: MTRAD 15:26
PROVIDERS: PCP Family Medicine; Referring Provider Family Medicine; Visit Provider Family Medicine
DX: M25.561 Pain in right knee (principal); S00-T88 Injury, poisoning and certain other consequences of external causes
CPT/HCPCS: 73030; 73564

== ENCOUNTER 2023-04-14 12:43 | Outpatient (RCR) | payer MEDICAID, SELFPAY ==
--- NOTE | 2023-04-14 14:24 | HP.PTEVAL ---
Patient's Visit Information Visit Information Visit Information: AVE ERIC is a 52 year old M referred to Physical Therapy by Emelyn Mercer MD with a diagnosis of LEFT SHOULDER PAIN. Date of Evaluation: 04/14/23 Physical Therapist: Rolly Oropeza PT, Cert MDT, OCS Visit Plan Frequency: 2x /Week Duration: 4 Weeks Plan: PT INTERVETIONS POSTURAL EX'S ,RTC /SCAPULAR STRENGTHENING ,AND MODALITIES Subjective Subjective: This 52 y/o male presents to shoulder pain for left shoulder pain. Patient developed shoulder pain for ~ 1 month. Patient pain increased ~ 2weeks . Patient bench press and loss balance with weight and attempting to load in back on clips felt strain. Pain persisted global in shoulder thus seen Dr recommended PT and did x-rays showed OA. Patient tried muscle relaxers . Aggravating factors lifting ,pushing things such as cart. Alleviating factors rest. Patient sleeping okay night . Patient has difficulty sleeping. Patient pain affects QOL and function housework/housework . Patient goal is to decrease pain. SOCIAL: single VOCATION: unemployed Pain Left Shoulder: Pain Intensity (Out of 10): 6 Pain Intensity Range: 10 Objective Objective: POSTURE: mild forward posture ,rounded shoulders NEURO: denies paresthesia/tingling PALPATION: tender long head bicep AROM: shoulder flexion 160 degrees ,abduction 150 degrees ,IR L1 ,ER 90 degrees MMT:( peak force) infraspinatus 18.1 ,subscapularis 24.3 ,supraspinatus 20.2 deltoid 21.2 Special Tests L Shoulder Lift Off Test - Subscapular Tear: Negative L Shoulder Empty Can - SS: Positive L Shoulder Belly Press - SupScap: Negative L Shoulder Neer - Impingement: Positive L Shoulder Parker Cristian - Impingement: Positive L Shoulder Biceps Load Test - Labrum: Negative L Shoulder Apprehension Test - Anterior Instability: Negative L Shoulder Speeds Test - Labrum/Biceps: Negative L Shoulder O'Briens - SLAP/A-C: Positive L Shoulder Shrug Sign - OA/Adhesive Capsulitis: Negative Balance/Special Test Scores Quick DASH Score: 45.0000 Goals Goal 1:: Patient to be Mod I with HEP Goal Time Frame: 4-6 Weeks Goal 2:: Patient to demonstrate 50% improvement with less pain and improve ADLS and housework tasks Goal 3:: Patient to increase strength RTC and deltoid by 5-10# PEAK FORCE to improve function Goal Time Frame: 4-6 Weeks Goal 4:: Patient to improve quick dash by 5 points to improve function and QOL. Goal Time Frame: 4-6 Weeks Goal 5:: Patient to improve ability to return to workout and housework tasks Goal Time Frame: 4-6 Weeks Rehabilitation Potential Physical Therapy Diagnosis: This patient strain shoulder RTC and long head biceps tender with weakness RTC and pain with OH activities affects ADLS and housework thus benefit from skilled PT Rehabilitation Potential: Good Anticipated Interventions Patient/Client Instruction: Educate patient on: Condition and Plan of Care For the Purpose of:: To decrease pain, To increase ROM, To improve muscle performance and motor function, To improve ability to perform ADL's, To increase tolerance to activity/condition/position, To improve ability of physical actions for home/community/work/leisure, To improve health of tissue, To decrease soft tissue restriction, To increase flexibility/ROM and To prevent re-injury Therapeutic Exercise to Include: Strength training, Postural training, Flexibilty training, Active ROM and Dynamic Lumbar Stabilization Comment: RTC For the Purpose of:: To decrease pain, To increase ROM, To improve muscle performance and motor function, To improve ability to perform ADL's, To improve health of tissue, To decrease soft tissue restriction and To increase flexibility/ROM TENS: Yes IF ES: Yes Cryotherapy (ice pack, ice massage): Yes Thermo therapy (hot pack): Yes For the Purpose of:: To decrease pain, To decrease swelling/inflammation, To improve nutrient delivery to tissue, To increase oxygenation perfusion, To decrease soft tissue restriction and To increase flexibility/ROM Text: Thank you for the opportunity to evaluate your patient. For Medicare and Medicare HMO plans, please review the plan of care and approve it. It will need to be FAXED BACK to us at [phone] for Medicare purposes. For Medicare only, by signing this I certify the plan of care. Please let me know if there are questions or concerns regarding this plan of care. Physician Signature: Date:
--- NOTE | 2023-10-15 12:19 | HP.PT.NRP ---
Patient Information Patient Information: AVE ERIC was seen in my office for initial evaluation on 04/14/23. The following Plan of Care was established for this patient: POC Established Initial Frequency: 2x /Week Initial Duration: 4 Weeks Anticipated Interventions Patient/Client Instruction: Educate patient on: Condition and Plan of Care For the Purpose of:: To decrease pain, To increase ROM, To improve muscle performance and motor function, To improve ability to perform ADL's, To increase tolerance to activity/condition/position, To improve ability of physical actions for home/community/work/leisure, To improve health of tissue, To decrease soft tissue restriction, To increase flexibility/ROM and To prevent re-injury Therapeutic Exercise to Include: Strength training, Postural training, Flexibilty training, Active ROM and Dynamic Lumbar Stabilization For the Purpose of:: To decrease pain, To increase ROM, To improve muscle performance and motor function, To improve ability to perform ADL's, To improve health of tissue, To decrease soft tissue restriction and To increase flexibility/ROM TENS: Yes IF ES: Yes Cryotherapy (ice pack, ice massage): Yes Thermo therapy (hot pack): Yes For the Purpose of:: To decrease pain, To decrease swelling/inflammation, To improve nutrient delivery to tissue, To increase oxygenation perfusion, To decrease soft tissue restriction and To increase flexibility/ROM Last Seen Last Seen: This patient was last seen in our office . Pertinent comments regarding their Physical therapy will appear below: Patient was seen for PT for Evaluation for shoulder pain and HEP At this point I will be discontinuing this patient from physical therapy. I would be happy to see this patient again in the future if found appropriate by the physician. Thank you! Rolly Oropeza, PT, Cert MDT, OCS Balance/Gait/Functional tests Balance/Special Test Scores Quick DASH Score: 45.0000
== END 2023-04-14 19:00 | disposition home or self-care (01) ==
LOC: PT 12:43
PROVIDERS: PCP Family Medicine; Referring Provider Family Medicine; Visit Provider Family Medicine
DX: S49.92XD Unspecified injury of left shoulder and upper arm, subsequent encounter (principal)
CPT/HCPCS: 97162

== ENCOUNTER 2023-05-25 05:20 | Emergency (ER) | payer MEDICAID, SELFPAY ==
[2023-05-25 05:22] VITALS: BP 109/89; PULSE 81; RESP 18; TEMP 36.6; O2SAT 96; BMI 45.5
--- NOTE | 2023-05-25 05:39 | RAD_ITS ---
INDICATION: dyspnea EXAMINATION/TECHNIQUE: X-RAY - XR Chest 2 Views COMPARISON: Two-view chest x-ray from 03/22/2023 FINDINGS: LINES/DEVICES: None. LUNGS: No pulmonary edema or focal airspace consolidation. No sizable pleural effusion. No pneumothorax detected. Stable mildly elevated right hemidiaphragm. MEDIASTINUM AND CARDIOVASCULAR STRUCTURES: Heart size within normal limits. Mediastinal contours unremarkable. BONES AND SOFT TISSUES: No acute findings. RAD/Chest PA and Lateral IMPRESSION: No radiographic evidence of acute cardiopulmonary disease. Electronically Signed: Jovon Em MD at 6:23 EST ,
--- NOTE | 2023-05-25 05:39 | RAD_ITS ---
INDICATION: dyspnea, sleep apnea symptoms EXAMINATION/TECHNIQUE: X-RAY - XR Neck Soft Tissue: Frontal and lateral views COMPARISON: Concurrent chest x-ray FINDINGS: SOFT TISSUES: No significant soft tissue thickening. Benign posterior neck soft tissue calcification. EPIGLOTTIS: No pathologic thickening or enlargement. PROXIMAL AIRWAY: Grossly patent. OSSEOUS STRUCTURES; Intact and adequately aligned. RAD/Neck for Soft Tissue IMPRESSION: Negative neck radiographs. Electronically Signed: Jovon Em MD at 6:26 EST ,
--- NOTE | 2023-05-25 05:48 | EDS_ITS ---
HPI History of Present Illness Chief Complaint: Shortness of Breath Informant: patient Narrative Narrative: Patient is a 52-year-old male with past medical history of obstructive sleep apnea psoriasis and morbid obesity. He states that he has been evaluated for h is SUSIE and has tried different BiPAP and CPAP machines without any success. He states has been under a great deal of stress recently and tonight when he tries to fall asleep he states that as soon as he starts to fall asleep he feels like he cannot breathe. He states this wakes him up and then he feels normal. He reports has been wearing a smart watch and it is not alerted him to any type of abnormal heart rate or rhythm and states each time he checks his oxygen level it is normal. However with the symptoms occurring he had concerned this could be secondary to lung pathology and therefore comes in for evaluation [facility] Medical History Anxiety and depression Cellulitis of right lower leg IBS (irritable bowel syndrome) Insomnia Leg fracture, right Marijuana use Nasal septal deviation SUSIE (obstructive sleep apnea) Osteomyelitis Psoriasis Tobacco abuse Home Medications medical marijuana PO QHS PRN pain 07/28/21 [History Last Taken Unknown] meloxicam 15 mg tablet 15 mg PO DAILY 05/25/23 [History Last Taken Unknown] tizanidine 4 mg tablet 4 mg PO QHS PRN MUSCLE RELAXER 05/25/23 [History Last Taken Unknown] trazodone 100 mg tablet 100 mg PO QHS PRN insomnia #14 tabs 05/25/23 [Rx Last Taken Unknown] Allergy/AdvReac Type Severity Reaction Status Date / Time ketamine AdvReac Severe mental Verified 05/25/23 05:26 status change--aggession Family History Father CVA (cerebral vascular accident) Congestive heart failure Surgical History History of colonoscopy History of open reduction and internal fixation (ORIF) procedure (2019) Social History Smoking Status: Former smoker quit date: 09/02/21 how long ago did patient quit smoking: yr and half ago. second hand exposure: No alcohol intake: current alcohol intake frequency: a few times a month substance use type: marijuana ROS ROS ED Constitutional Constitutional ED: Denies chills or fever(s) Eyes Eyes: Denies change in vision ENT ENT ED: Denies rhinorrhea or sore throat Cardiovascular Cardiovascular: Reports paroxysmal nocturnal dyspnea; Denies chest pain Respiratory/Chest Respiratory/Chest: Reports dyspnea and paroxysmal nocturnal dyspnea; Denies cough or sputum Gastrointestinal Gastrointestinal: Denies abdominal pain, diarrhea, nausea or vomiting Genitourinary Genitourinary ED: Denies dysuria Musculoskeletal Musculoskeletal: Denies myalgias Integumentary Reports rash and other Details: Patient states his rash is chronic in nature secondary to his history of psoriasis Neurologic Neurologic: Denies headache(s) Psychiatric Psychiatric: Reports anxiety Hematologic/Lymphatic Hematologic/Lymphatic: Denies easy bleeding or easy bruising EXAM Physical Exam Const Vital Signs: 05/25/23 05:22 05/25/23 05:24 Temperature 97.9 F Temperature Source Temporal Pulse Rate 81 Respiratory Rate 18 Respiratory Effort Normal Blood Pressure 109/89 H Blood Pressure Mean 95 Pulse Ox 96 Oxygen Delivery Method Room Air Room Air Positive well nourished, well developed and obese General Appearance ED: well developed Nutritional Appearance: obese HEENT Reports moist mucous membranes HEENT Narrative: No tongue or lip swelling No oral lesions; no airway edema or compromise No signs of infection in the posterior pharynx Eyes PERRL and EOMs intact bilaterally General Eye ED: Negative for pale conjunctiva or scleral icterus Neck supple and no JVD Neck Narrative: No crepitance palpated Chest Wall palpation of chest normal Resp normal respiratory effort and clear to auscultation bilaterally Resp Narrative: No nasal flaring retractions tachypnea or accessory muscle use Cardio regular rate and regular rhythm Rate: other Other Details: Radial and carotid pulses are equal and symmetric Extremity normal to inspection Extremity Narrative: No asymmetric edema no pitting edema negative Homans' sign bilaterally Neuro oriented x3, CN's II-XII intact bilaterally and no sensory deficits noted Sensorium / Orientation: alert Motor Exam: strength 5/5 throughout Psych mental status grossly normal Skin Skin Narrative: Patient has systemic rash consistent with psoriasis without secondary changes to suggest infection MDM MDM MDM Narrative Medical decision making narrative: Patient presented to the ER and in no signs of acute distress. He reported that as he started to fall asleep/drift off he would suddenly feel like he could not breathe and that his throat was closed and this would wake him up. Differential diagnosis is for obstructive sleep apnea/pickwickian syndrome versus mucous plugging versus congestive heart failure versus pneumonia versus pneumothorax/pneumomediastinum versus anxiety. At this time he does not have any abnormal vital signs and exam is benign and therefore do not feel there is need for lab work. A chest x-ray will be obtained to look for lung pathology such as pneumonia or pneumomediastinum or pleural effusion and a soft tissue neck x-ray will be added as well to check for free air or potential epiglottis inflammation/swelling. The patient's x-rays revealed no acute findings and on reevaluation he is resting comfortably. Therefore this time I feel he needs to be evaluated by ENT or a sleep physician to further assess the cause of his symptoms but as this could be related to anxiety we will do a short trial of Ativan to see if this helps with his symptoms otherwise as he is not in any acute distress or having signs of infection or potential cardiac event he is safe for discharge. History & Record Review Discussion w/independent historian: Patient Radiography Diagnostic Testing: Clinical Impression(s) from Imaging Studies Chest X-Ray 05/25/23 05:39 IMPRESSION: No radiographic evidence of acute cardiopulmonary disease. Electronically Signed: Jovon Em MD at 6:23 EST , Soft Tissue Neck X-Ray 05/25/23 05:39 IMPRESSION: Negative neck radiographs. Electronically Signed: Jovon Em MD at 6:26 EST , 2 view chest x-rays interpreted by the emergency medicine physician reveals no acute infiltrate pneumothorax pleural effusion or widening of the mediastinum Soft tissue neck x-ray as interpreted by the emergency medicine physician reveals a normal epiglottis without free air. Discharge Plan Triage Chief Complaint: Shortness of Breath ED Provider: Rudy Malik Dx/Rx/DC Orders Clinical Impression: Insomnia, SUSIE (obstructive sleep apnea), Shortness of breath Instructions: ED Insomnia Prescriptions: New trazodone 100 mg tablet 100 mg PO QHS PRN (Reason: insomnia) Qty: 14 0RF No Action medical marijuana PO QHS PRN (Reason: pain) meloxicam 15 mg tablet 15 mg PO DAILY tizanidine 4 mg tablet 4 mg PO QHS PRN Primary Care Provider: Marissa Camacho Referrals: Marissa Camacho, DO [Primary Care Provider] - Activity Restrictions/Additional Instructions: Please try taking the trazodone for insomnia and if symptoms persist you may need to follow-up with the sleep physician or ENT to discuss further testing as a cause of your symptoms. If you have any further concerns please return for repeat evaluation Disposition Disposition: Home, Self Care
[2023-05-25 06:54] VITALS: PULSE 75; RESP 18; O2SAT 98
== END 2023-05-25 06:55 | disposition home or self-care (01) ==
PROVIDERS: Emergency Provider Emergency Medicine; PCP Family Medicine; Visit Provider Emergency Medicine
DX: G47.00 Insomnia, unspecified (principal); E66.01 Morbid (severe) obesity due to excess calories; G47.33 Obstructive sleep apnea (adult) (pediatric); R06.02 Shortness of breath; F12.90 Cannabis use, unspecified, uncomplicated; Z87.891 Personal history of nicotine dependence
CPT/HCPCS: 70360; 71046; 99282

== ENCOUNTER → 2023-06-08 | Outpatient (CLI) | payer MEDICAID, SELFPAY ==
[2023-06-08 11:39] LABS: Hemoglobin A1c 5.4 % (3.8-5.6)
[2023-06-14 12:08] LABS: Testosterone, % Free 2.54 % (1.50-4.20); Testosterone, Free 5.92 ng/dL (5.00-21.00); Testosterone, Total 233 ng/dL (264-916)
== END | disposition home or self-care (01) ==
LOC: MTLAB 08:49
PROVIDERS: PCP Family Medicine; Referring Provider Family Medicine; Visit Provider Family Medicine
DX: N52.9 Male erectile dysfunction, unspecified (principal); G57.91 Unspecified mononeuropathy of right lower limb
CPT/HCPCS: 36415; 83036; 84402; 84403

== ENCOUNTER → 2023-06-18 | Outpatient (CLI) | payer MEDICAID, SELFPAY ==
[2023-06-18 12:30] LABS: Absolute Lymphocyte Count 3.03 X10^3/uL (0.83-4.51); Absolute Neutrophil Count 4.4 X10^3/uL (2.0-7.7); Basophil# 0.03 X10^3/uL; Basophil% 0.4 % (0-1); Eosinophil# 0.13 X10^3/uL; Eosinophils% 1.5 % (0-5); Hematocrit 46.6 % (40-54); Hemoglobin 15.3 g/dL (13.0-16.5); Lymphocyte # 3.03 X10^3/ul (0.83-4.51); Lymphocyte % 36.1 % (19-41); Mean Corp Hgb Conc 32.8 g/dL (32-36); Mean Corpuscular Hgb 30.1 pg (27.0-32.0); Mean Corpuscular Volume 91.7 fL (80-94); Mean Platelet Vol. 9.8 fl (6.2-12.0); Monocyte% 9.5 % (0-10); NRBC Flagged by Analyzer 0 % (0-5); Neutrophil # 4.39 X10^3/uL (2.7-7.7); Neutrophil % 52.4 % (47-70); Platelet Count 208 K/mm3 (150-450); RBC Distribution Width SD 44.1 fl (35.1-43.9); Red Blood Count 5.08 M/mm3 (4.6-6.2); White Blood Count 8.4 K/mm3 (4.4-11.0)
[2023-06-18 12:33] LABS: PSA,Total - Annual Screen 0.97 ng/mL (0.00-4.00)
== END | disposition home or self-care (01) ==
LOC: MFPLAB 10:12
PROVIDERS: PCP Family Medicine; Visit Provider Family Medicine
DX: R79.89 Other specified abnormal findings of blood chemistry (principal)
CPT/HCPCS: 84153; 36415; 84403; 85025; G0103

== ENCOUNTER → 2023-07-01 | Outpatient (CLI) | payer MEDICAID, SELFPAY ==
--- OUTSIDE RECORDS SUMMARY | 2023-07-01 15:19 | XMS RPT_ITS | CCD ---
Author Name Unknown Address [address] [place] [address] Organization [facility] Care Team Providers Care Retail And 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 Name Role Phone Unavailable Primary Care Provider Unavailabl e Cecilio Palmer MD Primary Care Provider Unavailable Primary Care Provider Unavailabl e Unavailable Primary Care Provider Unavailabl e Unavailable Primary Care Provider Unavailabl e ELIANA, FRANKIE Attending Unavailable JAIME PICKERINGITRI Referring Unavailable FRANKIE PICKERING Attending Unavailable BRITTNY SO Attending Unavailable BRITTNY SO Referring Unavailable SELF, SELF Referring Unavailable BRITTNY SO Attending Unavailable CHARLA IVERSON Attending Unavailable CHARLA IVERSON Referring Unavailable KISHORCHARLA Referring Unavailable GRISSOM, LOLIS E Attending Unavailable GRISSOM, LOLIS E Referring Unavailable GRISSOM, LOLIS E Attending Unavailable GRISSOM, LOLIS E Referring Unavailable GRISSOM, LOLIS E Attending Unavailable GRISSOM, LOLIS E Attending Unavailable GRISSOM, LOLIS E Referring Unavailable GRISSOM, LOLIS E Attending Unavailable GRISSOM, LOLIS E Referring Unavailable GRISSOM, LOLIS E Attending Unavailable GRISSOM, LOLIS E Referring Unavailable CECILLE CUEVAS Attending Unavailable SELF, SELF Referring Unavailable ESDRAS MELENDEZ Attending Unavailable SELF, SELF Referring Unavailable SELF, SELF Referring Unavailable BRITTNY SO Attending Unavailable CHARLA IVERSON Attending Unavailable BRITTNY SO Referring Unavailable Unavailable Primary Care Provider Unavailabl NIRMALA Tilley III Attending UnavailAlejandro Cherry Unavailable [phone] RAMPRASAD, AIDEN Referring Unavailable LILI STEWARD Attending Unavailable RAMPRASAD, AIDEN Attending Unavailable VICKEY CARBAJAL Attending Unavailable Allergies Allergy Classification Reported Allergen(s) Allergy Type Date of Onset Reaction(s) Facility (20 sources) Ketamine; Translations: [KETAMINE] Drug Allergy 04-25-2020 Hallucination, Mental Status Change [facility] [place] [place] [place] Medications Current Medications Medication Drug Class(es) Dates Sig (Normalized) Sig (Original) acetaminophen 325 mg / oxyCODONE hydrochloride 5 mg oral tablet (1 source) Opioid Agonist Start: 05-16-2019 End: 05-26-2019 take 1 tablet by mouth every six hours as needed for pain oxyCODONE-acetamin ophen (PERCOCET) 5-325 MG per tablet Indications: Tibia/fibula fracture, shaft, right, closed, initial encounter Take 1 tablet by mouth every 6 hours as needed for Pain for up to 10 days. 20 tablet 0 05/16/2019 05/26/2019 Active ALPRAZolam 1 mg oral tablet (1 source) Benzodiazepine Start: 10-25-2022 ALPRAZolam 1 MG tablet Indications: Chronic pain of right knee Take 1 tablet by mouth As directed for 1 day. Take 60 minutes prior to procedure. Please have charter coach driver on day of procedure. Thanks 1 tablet 0 10/25/2022 Active baclofen 10 mg oral tablet (2 sources) gamma-Aminobutyric Acid-ergic Agonist Start: 04-02-2021 baclofen (LIORESAL) 10 MG tablet Take 10 mg by mouth as needed 0 04/02/2021 Active bisacodyl 5 mg delayed release oral tablet (1 source) Stimulant Laxative Start: 06-11-2020 bisacodyl (DULCOLAX) EC tablet 5 mg ertapenem (INVANZ) 1 g IVPB minibag (1 source) Start: 06-14-2020 ertapenem (INVANZ) 1 g IVPB minibag 3 ml heparin sodium, porcine 100 unt/ml prefilled syringe (4 sources) Unfractionated Heparin, Anti-coagulant Start: 06-14-2020 heparin flush 100 UNIT/ML injection 250 Units HYDROmorphone (DILAUDID) injection 0.25 mg (1 source) Start: 06-11-2020 HYDROmorphone (DILAUDID) injection 0.25 mg ibuprofen 600 mg oral tablet (1 source) Nonsteroidal Anti-inflammatory Drug Start: 06-14-2020 End: 07-14-2020 take 1 tablet by mouth three times daily as needed for pain ibuprofen (ADVIL;MOTRIN) 600 MG tablet Take 1 tablet by mouth 3 times daily as needed for Pain 90 tablet 0 06/14/2020 07/14/2020 Active 1 ml ixekizumab 80 mg/ml auto-injector (7 sources) Interleukin-17A Antagonist Start: 03-05-2022 Taltz 80 MG/ML Solution Auto-injector lidocaine 0.04 mg/mg medicated patch (1 source) Antiarrhythmic, Amide Local Anesthetic Start: 06-11-2020 lidocaine 4 % external patch 2 patch medical marijuana (2 sources) medical marijuan a Take by mouth daily. More in late evening 0 Active medicinal cannabis (MEDICINAL MARIJUANA) (12 sources) melatonin 3 mg oral tablet (1 source) Start: 06-12-2020 melatonin tablet 3 mg meloxicam 15 mg oral tablet (16 sources) Nonsteroidal Anti-inflammatory Drug Start: 11-24-2021 End: 01-29-2022 take 1 tablet by mouth once daily meloxicam 15 MG tablet Take 1 tablet by mouth daily. 30 tablet 3 01/29/2022 Active Completed/Discontinued Medications Medication Drug Class(es) Dates Sig (Normalized) Sig (Original) acetaminophen 325 mg oral tablet (3 sources) Start: 10-23-2021 End: 12-03-2021 take 2 tablets by mouth every six hours as needed acetaminophen 325 MG tablet Take 2 tablets by mouth every 6 hours as needed for Mild Pain. 0 10/23/2021 12/03/2021 Discontinued Problems Active Problems Problem Classification Problem Date Documented Date Episodic/Chronic Anxiety disorders (1 source) Anxiety neurosis ; Translations: [Generalized anxiety disorder] 05-04-2023 Chronic Coma; stupor; and brain damage (2 sources) Daytime somnolence; Translations: [Somnolence] 05-21-2021 Episodic Fracture of lower limb (6 sources) Closed fracture of tibia and fibula, shaft; Translations: [Unspecified fracture of shaft of right tibia, initial encounter for closed fracture] Onset: 05-08-2019 05-08-2019 Episodic Infective arthritis and osteomyelitis (except that caused by tuberculosis or sexually transmitted disease) (12 sources) Osteomyelitis; Translations: [Osteomyelitis, unspecified] Onset: 12-20-2020 12-20-2020 Chronic Infective arthritis and osteomyelitis (except that caused by tuberculosis or sexually transmitted disease) (4 sources) Knee pyogenic arthritis; Translations: [Pyogenic arthritis, unspecified] 06-14-2020 Episodic Joint disorders and dislocations; trauma-related (2 sources) Acute tear of lateral meniscus of right knee; Translations: [Other tear of lateral meniscus, current injury, right knee, initial encounter] 05-12-2019 Episodic Osteoarthritis (13 sources) Osteoarthritis of right knee joint; Translations: [Unilateral primary osteoarthritis, right knee] Onset: 08-28-2021 Chronic Other connective tissue disease (1 source) History of revision of right total knee arthroplasty; Translations: [Presence of right artificial knee joint] Chronic Other connective tissue disease (6 sources) History of total knee arthroplasty; Translations: [Presence of right artificial knee joint] Chronic Other connective tissue disease (3 sources) Presence of right artificial knee joint; Translations: [Presence of right artificial knee joint] Onset: 12-24-2022 Chronic Other connective tissue disease (1 source) History of right total knee replacement; Translations: [Presence of right artificial knee joint] 01-18-2023 Chronic Other connective tissue disease (4 sources) Peripheral neuropathic pain; Translations: [Neuralgia and neuritis, unspecified] Episodic Other connective tissue disease (2 sources) Neuralgia and neuritis, unspecified; Translations: [Neuralgia and neuritis, unspecified] Onset: 10-01-2022 Episodic Other nervous system disorders (3 sources) Other chronic pain; Translations: [Other chronic pain] Onset: 05-22-2022 Chronic Other nervous system disorders (1 source) Postoperative pain ; Translations: [Other acute postprocedural pain] Episodic Other non-traumatic joint disorders (2 sources) Pain in right knee; Translations: [Pain in joint, lower leg] Onset: 01-18-2023 01-18-2023 Episodic Other nutritional; endocrine; and metabolic disorders (14 sources) Morbid obesity; Translations: [Morbid (severe) obesity due to excess calories] Onset: 10-30-2020 05-19-2021 Chronic Other nutritional; endocrine; and metabolic disorders (1 source) Severe obesity; Translations: [Morbid (severe) obesity due to excess calories] 05-04-2023 Chronic Residual codes; unclassified (1 source) Obstructive sleep apnea syndrome; Translations: [Obstructive sleep apnea (adult) (pediatric)] 05-04-2023 Chronic Residual codes; unclassified (1 source) Obstructive sleep apnea (adult) (pediatric); Translations: [SUSIE (obstructive sleep apnea)] Onset: 05-04-2023 Chronic Skin and subcutaneous tissue infections (4 sources) Cutaneous abscess of right lower limb; Translations: [Abscess of right thigh] 06-14-2020 Episodic Unclassified (2 sources) Closed bicondylar fracture of plateau of right tibia; Translations: [Closed bicondylar fracture of right tibial plateau] 05-12-2019 Unclassified (2 sources) Acute tear of lateral meniscus of right knee; Translations: [Acute lateral meniscus tear of right knee] 05-12-2019 Past or Other Problems Problem Classification Problem Date Documented Date Episodic/Chronic Complication of device; implant or graft (20 sources) Bone fixation device infection; Translations: [Infection and inflammatory reaction due to other internal orthopedic prosthetic devices, implants and grafts, initial encounter] Onset: 06-11-2020 06-11-2020 Episodic Other connective tissue disease (2 sources) Pain in right leg; Translations: [Pain in right leg] Onset: 07-06-2022 Episodic Other nervous system disorders (2 sources) Other acute postprocedural pain; Translations: [Other acute postprocedural pain] Onset: 01-08-2022 Episodic Other non-traumatic joint disorders (4 sources) Pain in unspecified knee; Translations: [Pain in joint, lower leg] Onset: 05-22-2022 05-21-2021 Episodic Residual codes; unclassified (11 sources) Patient encounter status; Translations: [Encounter for procedure for purposes other than remedying health state, unspecified] Onset: 10-22-2021 10-22-2021 Episodic Residual codes; unclassified (2 sources) Other specified postprocedural states; Translations: [Other specified postprocedural states] Onset: 05-07-2022 Episodic Results Test Name Value Interpretation Reference Range Facil ity Vital Signs Date Time Vital Sign Value Performing Clinician Facility 01-18-2023 14:10-0400 Body height 172.7 cm Nirmala Monterroso III, MD Work Phone: [facility] 01-18-2023 14:10-0400 Body weight 136.99 kg Nirmala Monterroso III, MD Work Phone: [facility] 01-18-2023 14:10-0400 Diastolic blood pressure 76 mm[Hg] Nirmala Monterroso III, MD Work Phone: [facility] 01-18-2023 14:10-0400 Heart rate 83 /min Nirmala Monterroso III, MD Work Phone: [facility] 01-18-2023 14:10-0400 Respiratory rate 18 /min Nirmala Monterroso III, MD Work Phone: [facility] 01-18-2023 14:10-0400 Systolic blood pressure 127 mm[Hg] Nirmala Monterroso III, MD Work Phone: [facility] 10-01-2022 15:01-0400 Diastolic blood pressure 79 mm[Hg] Lolis Grissom MD Work Phone: [facility] 10-01-2022 15:01-0400 Heart rate 90 /min Lolis Grissom MD Work Phone: [facility] 10-01-2022 15:01-0400 Systolic blood pressure 191 mm[Hg] Lolis Grissom MD Work Phone: [facility] 10-01-2022 14:45-0400 Body height 172.7 cm Lolis Grissom MD Work Phone: [facility] 10-01-2022 14:45-0400 Body mass index (BMI) [Ratio] 43.49 kg/m2 Lolis Grissom MD Work Phone: [facility] 10-01-2022 14:45-0400 Body temperature 97.2 [degF] Lolis Grissom MD Work Phone: [facility] 10-01-2022 14:45-0400 Body weight 129.73 kg Lolis Grissom MD Work Phone: [facility] 07-23-2022 14:19-0500 Diastolic blood pressure 96 mm[Hg] Lolis Grissom MD Work Phone: [facility] 07-23-2022 14:19-0500 Heart rate 90 /min Lolis Grissom MD Work Phone: [facility] 07-23-2022 14:19-0500 Systolic blood pressure 121 mm[Hg] Lolis Grissom MD Work Phone: [facility] 07-23-2022 14:08-0500 Body height 172.7 cm Lolis Grissom MD Work Phone: [facility] 07-23-2022 14:08-0500 Body mass index (BMI) [Ratio] 43.49 kg/m2 Lolis Grissom MD Work Phone: [facility] 07-23-2022 14:08-0500 Body temperature 97 [degF] Loils Grissom MD Work Phone: [facility] 07-23-2022 14:08-0500 Body weight 129.73 kg Lolis Grissom MD Work Phone: [facility] 04-08-2022 13:28-0400 Body height 172.7 cm Charla Iverson CUPOLA LINER-MACHINE PROGRAMMER Work Phone: [facility] 04-08-2022 13:28-0400 Body mass index (BMI) [Ratio] 43.49 kg/m2 Charla Iverson CUPOLA LINER-MACHINE PROGRAMMER Work Phone: [facility] 04-08-2022 13:28-0400 Body temperature 97.11 [degF] Charla Iverson CUPOLA LINER-MACHINE PROGRAMMER Work Phone: [facility] 04-08-2022 13:28-0400 Body weight 129.73 kg Charla Iverson CUPOLA LINER-MACHINE PROGRAMMER Work Phone: [facility] 04-08-2022 13:28-0400 Heart rate 74 /min Charla Iverson CUPOLA LINER-MACHINE PROGRAMMER Work Phone: [facility] 04-08-2022 13:28-0400 SaO2% (BldA) [Mass fraction] 98 % Charla Iverson APRN-MACHINE PROGRAMMER Work Phone: [facility] 10-16-2021 13:56-0400 Body height 174 cm Esdras Melendez PA-C Work Phone: [facility] 10-16-2021 13:56-0400 Body mass index (BMI) [Ratio] 42.25 kg/m2 Esdras Melendez PA-C Work Phone: [facility] 10-16-2021 13:56-0400 Body weight 127.91 kg Esdras Melendez PA-C Work Phone: [facility] 06-18-2020 04:17-0500 Body Temperature 98.8 [degF] [facility] [place] 06-18-[place] 04:17-0500 BP Diastolic 62 mm[Hg] [facility] [place] [place] 06-18-2020 04:17-0500 BP Systolic 102 mm[Hg] [facility] [place] 06-18-2020 04:17-0500 Pulse (Heart Rate) 85 /min [facility] [place] 06-18-2020 04:17-0500 Pulse Oximetry 93 % [place], [place] 06-18-2020 04:17-0500 Respiratory Rate 14 /min [facility] [place] 06-11-2020 12:52-0500 BMI (Body Mass Index) 49.42 kg/m2 [facility] [place] 06-11-2020 12:52-0500 Body weight 147.42 kg [facility] [place] 06-11-2020 12:52-0500 Height 172.7 cm [facility] [place] Encounters Encounter Date Encounter Type Care Provider Facility Start: 05-05-2023 ambulatory Lili Steward APRN.MACHINE PROGRAMMER Work Phone: Neurology Procedures Date Procedure Procedure Detail Performing Clinician Start: 10-01-2022 Injection aa&/strd genicular nrv branches w/img Lolis Grissom MD Work Phone: Start: 07-23-2022 Injection aa&/strd genicular nrv branches w/img Lolis Grissom MD Work Phone: Start: 05-07-2022 Radiologic exam knee complete 4/more views Brittny So DO Work Phone: Start: 12-03-2021 Radiologic exam knee complete 4/more views Cecille Knight Mason LOTT Work Phone: Start: 06-17-2020 Basic metabolic pane l calcium total Sav Shanthi Work Phone: Start: 06-17-2020 Blood count complete automated Sav Shanthi Work Phone: Start: 06-16-2020 Basic metabolic pane l calcium total Sav Shanthi Work Phone: Start: 06-16-2020 Blood count complete automated Sav Shanthi Work Phone: Start: 06-15-2020 Basic metabolic pane l calcium total Sav Shanthi Work Phone: Start: 06-15-2020 Blood count complete automated Asv Shanthi Work Phone: Start: 06-14-2020 Radiologic exam ches t single view Juana Cha Work Phone: Start: 06-14-2020 OPERATIVE REPORT 3m Sca nning Start: 06-14-2020 Basic metabolic pane l calcium total Sav Shanthi Work Phone: Start: 06-14-2020 Blood count complete automated Sav Shanthi Work Phone: Start: 06-13-2020 Basic metabolic pane l calcium total Sav Shanthi Work Phone: Start: 06-13-2020 Blood count complete automated Sav Shanthi Work Phone: Start: 06-12-2020 ADD ON LAB TEST Gin Neri Work Phone: Start: 06-12-2020 Cul prsmptv pthgnc o rganism scrn w/colony estimj Sathish Pisano Work Phone: Start: 06-12-2020 ADD ON LAB TEST Gin Neri Work Phone: Start: 06-12-2020 Antibody hiv-1&hiv-2 single result Alf Stein Work Phone: Start: 06-12-2020 Basic metabolic pane l calcium total Sav Shanthi Work Phone: Start: 06-12-2020 Blood count complete automated Sav Shanthi Work Phone: Start: 06-12-2020 Hemoglobin glycosylated a1c Alf Stein Work Phone: Start: 06-12-2020 Lipid panel Alf Stein Work Phone: Start: 06-12-2020 Culture bacterial bl ood aerobic w/id isolates Marcelina Jorge Work Phone: Start: 06-12-2020 CULTURE, BLOOD 1 Boris Jorge Work Phone: Start: 06-11-2020 Ct lower extremity w /o contrast material Marcelina Jorge Work Phone: Start: 06-11-2020 Radiologic examinati on knee 1/2 views Marcelina Jorge Work Phone: Start: 06-11-2020 Cul prsmptv pthgnc o rganism scrn w/colony estimj Diogo Gaines Work Phone: Start: 06-11-2020 DIFFERENTIAL, BODY FLUID Diogo Gaines Work Phone: Start: 06-11-2020 Smr prim src gram/gi emsa stain bct fungi/cell Diogo Gaines Work Phone: Start: 06-11-2020 Cell count misc body fluids w/differential count Diogo Gaines Work Phone: Start: 06-11-2020 Crystal id light sasha roscopy wiley tiss/any fluid Diogo Gaines Work Phone: Start: 06-11-2020 Chest x-ray 1 view frontal Tadeo Bean Work Phone: Start: 06-11-2020 Blood typing serologic abo Tadeo Bean Work Phone: Start: 06-11-2020 Prothrombin time Tadeo Bean Work Phone: Start: 06-11-2020 Ecg routine ecg w/le ast 12 lds w/i&r Tadeo Bean Work Phone: Start: 06-11-2020 Basic metabolic pane l calcium total Lance Garcia Work Phone: Start: 06-11-2020 Blood count complete auto&auto difrntl wbc Lance Garcia Work Phone: Start: 06-11-2020 C-reactive protein Aust in Sofya Garcia Work Phone: Start: 06-11-2020 Sedimentation rate r bc automated Lance Garcia Work Phone: Start: 06-11-2020 Radiologic examinati on knee 1/2 views Lance Garcia Work Phone: Start: 05-25-2019 Dup-scan xtr veins unilateral/limited study Sav Maki Work Phone: History of operative procedure on knee S/P knee surgery Brittny So DO Work Phone: Plan of Treatment Date Care Activity Detail Author Start: 05-09-2030 Screening for malign ant neoplasm of colon Colon cancer screen colonoscopy [facility] Start: 06-12-2025 [facility] Start: 07-16-2023 DIABETES SCREEN DIABETES SCREEN [facility] Start: 07-16-2023 Diabetes Screening Diabetes Screenin g [facility] Start: 03-05-2023 Covid-19 Vaccine () Covid-19 Vaccine () [facility] Start: 03-05-2023 Influenza vaccination [facility] Start: 10-01-2022 End: 10-01-2023 [facility] Immunizations Immunization Date Immunization Notes Care Provider Daija du 03-20-2022 influenza virus vaccine, unspecified formulation Lili Steward APRN.CNP Work Phone: [facility] 05-07-2021 influenza virus vaccine, unspecified formulation Cecille Cuevas PA-C Work Phone: [facility] 06-13-2020 influenza, injectabl e, quadrivalent, preservative free [facility] 06-12-2020 influenza quadrivale nt split vaccine (FLUZONE;FLUARIX;FLULAV AL;AFLURIA) injection 0.5 mL [place], [place] Payers Date Payer Category Payer Medicaid [id number] 2022 Medicaid [id number] 2020 Unknown [id number] 2020 Unknown [employer] AGE [employer]AGE [id number] 2020-Present [address] [place] [address] [id number] 2020 Unknown [employer]ATH[employer] [id number] 2020-Present [phone] [address] [place] [address] [id number] 1972 Unknown [id number] 1972 Unknown [id number] 1972 Unknown [id number] 1972 Unknown [id number] 1972 Unknown [id number] 1972 Unknown [id number] 1972 Unknown [id number] 1972 Unknown [id number] 1972 Unknown [id number] 1972 Unknown [id number] 1972 Unknown [id number] 1972 Unknown [id number] 1972 Unknown [id number] Social History Date Type Detail Facility Start: 07-05-2005 End: 06-15-2020 Tobacco smoking status ORIS Current every day smoker [facility] Start: 07-05-2005 End: 12-12-2020 History of tobacco use Cigarette Smoker [place], [place] Start: 06-15-2020 End: 01-11-2023 Cigarettes smoked current (pack per day) - Reported [facility] Start: 06-15-2020 End: 10-08-2021 Tobacco use and exposure Never used [place], [place] Start: 06-15-2020 End: 10-01-2022 Alcohol intake Current drinker of alcohol (finding) [place], [place] Start: 05-09-2019 Alcohol Comment every couple weeks [place], [place] Start: 1970 [facility] Start: 09-28-2021 End: 07-23-2022 Exposure to SARS-CoV-2 (event) Not sure [place] Start: 10-08-2021 End: 01-18-2023 Tobacco smoking status NHIS Ex-smoker [facility] Start: 12-09-2020 History SDOH Alcohol Comment sparingly [facility] End: 12-12-2020 History of tobacco use Current smoker [facility] Start: 10-01-2022 End: 01-11-2023 Tobacco use panel [facility] Start: 01-19-2021 Gender identity Identifies as male gender (finding) [facility] Start: 01-19-2021 Sexual orientation Bisexual (finding ) [facility] Start: 12-13-2022 End: 12-23-2022 Exposure to SARS-CoV-2 (event) Unable to assess [facility] History of tobacco use Passive smoker [facility] Start: 01-18-2023 Alcohol intake Lifetime non-d alejandro (finding) [facility] National Score (1-10 0), lower number is lower risk 60 [facility] Medical Equipment Procedure Code Equipment Code Equipment Origin al Text Equipment Identifier Dates Filler Bone Void 10cc 20cc Calcium Sulfate Stimulan Rapid - [id number] Start: 12-20-2020 Stem Extension 4 0mm 24mm Vanguard 360 Knee Revision Spline - [id number] Start: 10-22-2021 Clinical Notes 06-18-2020 to 05-05-2023 Telephone Encounter - Sherlyn Sherwood RN - 05/05/2023 12:17 PM EDTPatient Lili Machado APRN.CNP - 05/04/2023 1:00 PM Nirmala Wells III, MD - 01/18/2023 2:05 PM EDT Note Date & Type Note Facility 05-05-2023 Miscellaneous Notes MyChart message sent documented in this encounter [facility] 05-04-2023 Note HNO ID: [id number] Author: Lili Steward APRN.TOMÁS Service: ? Author Type: Nurse Practitioner Type: Progress Notes Filed: 05/04/2023 1:42 PM Note Text: [facility] New Patient Evaluation PATIENT NAME: Guillermo Siddiqi DATE OF SERVICE: May 04, 2023 I have communicated my name and active licensure. The patient's identity and physical location were verified at the time of this visit. Either the patient or their legal bank representative has been informed of the risks and benefits of -- and alternatives to -- treatment through a remote evaluation and consents to proceed with the evaluation remotely. CONSULTING PROVIDER: Aiden Schmitz [facility] [address] REASON FOR CONSULT: Aiden Schmitz sends the patient for an opinion about SUSIE. My findings and recommendations will be transmitted electronically via shared medical record to the consulting provider. HPI: Guillermo Siddiqi is a 52 year old male. Sleep-related history: SUSIE diagnosed approx 2-3 years and tried PAP therapy for a few months. He could not tolerate PAP therapy due to claustrophobia. He also was transitioned to BiPAP and still could not tolerate. SLEEP-WAKE SCHEDULE Bedtime: 12-1 AM. He does not have a hard time falling asleep. Wake time: 7 AM, without an alarm clock. After falling asleep: he wakes up 1-2 time(s) per night, and does not know the reason for waking up. On weekends, he maintains the same sleep schedule. Average total sleep time (in a 24 hour period): ~5-6 hours. SLEEP-RELATED DETAILS Preferred sleep position: side Breathing disturbances and other behaviors during sleep: unknown . GERD or aspiration: No Waking up with heart pounding or racing: No Anxiety or rumination: Yes He does not report having an urge to move the legs in the evening (when resting) that is accompanied or caused by uncomfortable and/or unpleasant sensations in the legs. He has not been told that he has leg kicking during sleep. He denies any history of parasomnias. Excessive daytime sleepiness / fatigue is a problem. Excessive Daytime sleepiness/fatigue has been a problem for 3-4 years. There is no history of a viral illness or significant head injury prior to the start of daytime sleepiness. He does not report sleep paralysis or sleep-related hallucinations or cataplexy . WAKE-RELATED DETAILS He does not work. He does not have difficulty with memory or concentration. He denies falling asleep or dozing off when driving. He does not take naps, however he does note dozing off during day. He does not drink caffeinated beverages. He has lost 50 pounds since last sleep study. Patient Questionnaires Sleep Scores Sleep Questions 05/04/2023 Reason for visit: Sleep apnea, Difficulty falling or staying asleep or poor sleep quality Average hours slept in 24 hours: 5 Accidents or near accidents due to drowsy drivin Rector Sleepiness Scale 05/04/2023 Score 14 (present daytime sleepiness) PROMIS CAT Sleep Disturbance 05/04/2023 PROMIS Sleep Disturbance T-Score 58 (mild) PROMIS Sleep Disturbance Percentile 21 % Insomnia Severity Index 05/04/2023 Score 15 PHQ-9 05/04/2023 Score 17 PROMIS Global Health - (T-Scores - the mean of general population = 50. Five points is a clinically meaningful difference.) 05/04/2023 Physical T-Score 34.9 Mental T-Score 25.1 PAST TREATMENTS: CPAP, BiPAP PRIOR SLEEP STUDIES: Does not have access to prior sleep study OTHER RELEVANT LABS AND STUDIES: No past medical history on file. No past surgical history on file. There is no problem list on file for this patient. Allergies As of Date: 05/04/2023 Allergen Noted Reaction KETAMINE 01/18/2023 Mental Status Change Fully Assessed 03/31/2023 CURRENT MEDICATIONS: No prescriptions on file. Review of Systems Constitutional: Positive for fatigue. Respiratory: Negative. Cardiovascular: Negative. Musculoskeletal: Negative for uncomfortable leg sensations. Psychiatric: Positive for depressed mood. SOCIAL HISTORY: Social History Tobacco Use Smoking status: Former Types: Cigarettes Quit date: 12/12/2020 Years since quittin.3 Passive exposure: Past Substance Use Topics Alcohol use: Never Drug use: Yes Frequency: 4.0 times per week Types: Marijuana FAMILY HISTORY: No family history on file. There is no family history of sleep disorders. PHYSICAL EXAMINATION: Neurological exam: Patient approapriately answering questions. Language function normal. Memory normal. Speech fluent. IMPRESSION/PLAN: G47.33 SUSIE (obstructive sleep apnea) (primary encounter diagnosis) F41.1 Anxiety neurosis E66.01, Z68.42 Class 3 severe obesity without serious comorbidity with body mass index (BMI) of 45.0 to 49.9 in adult, unspecified obesity type (HCC) This is a pleasant 52-year-old male with a past medical history of SUSIE previously intolerant to PA (more content not included)... [facility] 05-04-2023 Instructions Lili Steward APRN.TOMÁS - 05/04/2023 1:27 PM EDT Your most recent body mass index (BMI) that we have on record is 45.92 kg/m2. Obstructive sleep apnea (SUSIE) worsens with an increase in weight; reduction in weight may improve or resolve your SUSIE. If you are not already seeking treatment, there are resources available at the [facility] such as a nutrition consultation or referral to weight management programs at our [facility] [place]. Please let us know if we can assist with a referral. - Polysomnogram (PSG) to evaluate for obstructive sleep apnea. - Discussed with the patient the possible diagnosis, causes, and conditions associated with obstructive sleep apnea. - Avoid driving when drowsy. Recommend that if you are dozing off while driving, that you do not drive until your sleepiness is appropriately treated. -Encouraged healthy lifestyle with adequate sleep ( 7-9 hours per night), diet and exercise. - Results are usually available within 7-10 business days. - Follow up visit 2-3 weeks after your sleep study. The patient was given the telephone number [phone] Extension #[phone] in order to reach me or my nurse with any questions that may arise. The patient was also given the option to message us thru the mPATH system. Finally, the patient was given the telephone number [phone] to call in order to schedule a follow up appointment with me virtually or in person. documented in this encounter [facility] 05-04-2023 History of Presen t illness Narrative Images from the original note were not included. [facility] New Patient Evaluation PATIENT NAME: Guillermo Siddiqi DATE OF SERVICE: May 04, 2023 I have communicated my name and active licensure. The patient's identity and physical location were verified at the time of this visit. Either the patient or their legal bank representative has been informed of the risks and benefits of -- and alternatives to -- treatment through a remote evaluation and consents to proceed with the evaluation remotely. CONSULTING PROVIDER: Aiden Schmitz [address] [facility] [address] REASON FOR CONSULT: Aiden Schmitz sends the patient for an opinion about SUSIE. My findings and recommendations will be transmitted electronically via shared medical record to the consulting provider. HPI: Guillermo Siddiqi is a 52 year old male. Sleep-related history: SUSIE diagnosed approx 2-3 years and tried PAP therapy for a few months. He could not tolerate PAP therapy due to claustrophobia. He also was transitioned to BiPAP and still could not tolerate. SLEEP-WAKE SCHEDULE Bedtime: 12-1 AM. He does not have a hard time falling asleep. Wake time: 7 AM, without an alarm clock. After falling asleep: he wakes up 1-2 time(s) per night, and does not know the reason for waking up. On weekends, he maintains the same sleep schedule. Average total sleep time (in a 24 hour period): ~5-6 hours. SLEEP-RELATED DETAILS Preferred sleep position: side Breathing disturbances and other behaviors during sleep: unknown . GERD or aspiration: No Waking up with heart pounding or racing: No Anxiety or rumination: Yes He does not report having an urge to move the legs in the evening (when resting) that is accompanied or caused by uncomfortable and/or unpleasant sensations in the legs. He has not been told that he has leg kicking during sleep. He denies any history of parasomnias. Excessive daytime sleepiness / fatigue is a problem. Excessive Daytime sleepiness/fatigue has been a problem for 3-4 years. There is no history of a viral illness or significant head injury prior to the start of daytime sleepiness. He does not report sleep paralysis or sleep-related hallucinations or cataplexy . WAKE-RELATED DETAILS He does not work. He does not have difficulty with memory or concentration. He denies falling asleep or dozing off when driving. He does not take naps, however he does note dozing off during day. He does not drink caffeinated beverages. He has lost 50 pounds since last sleep study. Patient Questionnaires Sleep Scores Sleep Questions 05/04/2023 Reason for visit: Sleep apnea, Difficulty falling or staying asleep or poor sleep quality Average hours slept in 24 hours: 5 Accidents or near accidents due to drowsy drivin Rector Sleepiness Scale 05/04/2023 Score 14 (present daytime sleepiness) PROMIS CAT Sleep Disturbance 05/04/2023 PROMIS Sleep Disturbance T-Score 58 (mild) PROMIS Sleep Disturbance Percentile 21 % Insomnia Severity Index 05/04/2023 Score 15 PHQ-9 05/04/2023 Score 17 PROMIS Global Health - (T-Scores - the mean of general population = 50. Five points is a clinically meaningful difference.) 05/04/2023 Physical T-Score 34.9 Mental T-Score 25.1 PAST TREATMENTS: CPAP, BiPAP PRIOR SLEEP STUDIES: Does not have access to prior sleep study OTHER RELEVANT LABS AND STUDIES: No past medical history on file. No past surgical history on file. There is no problem list on file for this patient. Allergies As of Date: 05/04/2023 Allergen Noted Reaction KETAMINE 01/18/2023 Mental Status Change Fully Assessed 03/31/2023 CURRENT MEDICATIONS: No prescriptions on file. Review of Systems Constitutional: Positive for fatigue. Respiratory: Negative. Cardiovascular: Negative. Musculoskeletal: Negative for uncomfortable leg sensations. Psychiatric: Positive for depressed mood. SOCIAL HISTORY: Social History Tobacco Use Smoking status: Former Types: Cigarettes Quit date: 12/12/2020 Years since quittin.3 Passive exposure: Past Substance Use Topics Alcohol use: Never Drug use: Yes Frequency: 4.0 times per week Types: Marijuana FAMILY HISTORY: No family history on file. There is no family history of sleep disorders. PHYSICAL EXAMINATION: Neurological exam: Patient approapriately answering questions. Language function normal. Memory normal. Speech fluent. IMPRESSION/PLAN: G47.33 SUSIE (obstructive sleep apnea) (primary encounter diagnosis) F41.1 Anxiety neurosis E66.01, Z68.42 Class 3 severe obesity without serious comorbidity with body mass index (BMI) of 45.0 to 49.9 in adult, unspecified obesity type (HCC) This is a pleasant 52-year-old male with a past medical history of SUSIE previously intolerant to PAP therapy, anxiety, and obesity who presents via virtual visit to establish care with a sleep medicine center. He reports he was previously diagnosed with SUSIE approximately 2 to 3 years ago and was started on PAP therapy. After trying several masks and remaining unable to tolerate, he was transitioned to BiPAP and still could not tolerate. Since that time he has lost approximately 50 pounds, and also notes that part of the difficulty tolerating PAP therapy the time was due to being uncomfortable with a fractured leg. Pathophysiology, risks, and complications of untreated sleep apnea were discussed, including the potential long-term metabolic, neurocognitive, and cardiovascular implications. Treatment options discussed. As his prior sleep study is unavailable and several years old, and additionally has lost a significant amount of weight we will repeat a sleep study. I would prefer to do a split night with titration study. all questions were answered. - Polysomnogram (PSG) to evaluate for obstructive sleep apnea. - Discussed with the patient the possible diagnosis, causes, and conditions associated with obstructive sleep apnea. - Avoid driving when drowsy. Recommend that if you are dozing off while driving, that you do not drive until your sleepiness is appropriately treated. -Encouraged healthy lifestyle with adequate sleep ( 7-9 hours per night), diet and exercise. - Results are usually available within 7-10 business days. - Follow up visit 2-3 weeks after your sleep study. Lili Steward APRN.TOMÁS I spent a total of 35 minutes on the date of the service which included preparing to see the patient, [id number] patient care, completing clinical documentation, counseling and educating the patient/family/caregiver, and ordering medications, tests, or procedures. documented in this encounter [facility] 03-31-2023 Note HNO ID: [id number] Author: Aiden Schmitz MD Service: ? Author Type: Physician Type: Progress Notes Filed: 03/31/2023 5:32 PM Note Text: Otolaryngology - Head and Neck Surgery [facility] [place] NOTE Chief Complaint: Patient presents with: Sleep Apnea: SUSIE ASSESSMENT/PLAN: 1. SUSIE (obstructive sleep apnea) - ICD9: 327.23, ICD10: G47.33 (primary diagnosis) 2. BMI 45.0-49.9, adult (HCC) - ICD9: V85.42, ICD10: Z68.42 -Long-standing history of moderate-severe SUSIE with CPAP intolerance due to claustrophobia and psoriasis. He is very interested in PAP alternatives, particularly surgery. I discussed with him the indications for surgery. Specifically, we discussed the poor surgical outcomes associated with BMI >35. He is currently not a candidate for neurostimulation. I do not think he would significantly benefit from surgery at this time. -We also discussed mandibular advancement device, unfortunately he is edentulous and would not be an appropriate candidate. -I counseled him on the importance of weight loss in managing SUSIE. -He is interested in re-initiating PAP therapy. He would potentially need a repeat sleep study as he reports significant weight loss over the last year. I will refer him to my sleep medicine colleagues as he will likely require close follow up and have DME needs that I may not be able to fulfil within the limitations of ENT clinic. -I asked him to reach out with any questions/concerns. He can follow up in my clinic as needed. Aiden Schmitz MD [facility] [place] HPI: Guillermo Siddiqi is a 52 year old male who presents for evaluation of obstructive sleep apnea (Moderate-Severe SUSIE AHI 18.1 on sleep study from 10/16/20). He underwent sleep testing on 10/16/2020 - split night study. He has trialed CPAP for a few months with different mask interfaces but unable to tolerate due to pressure and claustrophobia. He also has history of psoriasis and this would exacerbate psoriasis with use. Has not tried any further intervention. He has history of choking/gasping arousal but not sure if he snores or has witnessed apneas as he sleeps alone. Has lost up to 40-50 lbs last 2-3 years. Snoring Unsure - but likely Witnessed Apnea Unsure - but likely Choking/gasping arousal Y Nasal breathing: Y Sleep Habits - Bedtime: Midnight or 1-2 AM - takes minutes lately Wake time: 6 AM Does it vary on weekends? N Take naps? N Wake up in the middle of the night? Y Sleeping positions: Side preferred Feel refreshed in the AM? Variable Do you wake in the morning with: - Headaches? yes - dry mouth? no - sweating? no - nasal blockage? yes - alternating - chest pain? no - heartburn? no Other sleep comorbidities RLS symptoms? no Cataplexy? no Sleep paralysis? no Vivid dreams? no Insomnia? yes Family history of sleep disorders? no CPAP history at home: N Tried an oral appliance? N ALLERGIES ALLERGIES Allergen Reactions Ketamine Mental Status Change MEDICATIONS No current outpatient medications on file. No current facility-administered medications for this visit. Past Medical History No past medical history on file. SURGICAL HISTORY No past surgical history on file. SOCIAL HISTORY Social History Tobacco Use Smoking status: Former Types: Cigarettes Quit date: 12/12/2020 Years since quittin.2 Passive exposure: Past Substance Use Topics Alcohol use: Never Drug use: Yes Frequency: 4.0 times per week Types: Marijuana FAMILY HISTORY No family history on file. PHYSICAL EXAM: There were no vitals taken for this visit. GENERAL: no acute distress, alert VOICE: clear, no stridor/stertor HEAD AND FACE: Physical examination of the head, neck, external nose, external ears, mouth and face fails to demonstrate any significant abnormality or asymmetry to critical face to face observation. Skin and scalp are normal. EYES: PERRL, gross vision intact, EOMI EARS: AD: Normal external ear. Normal EAC. Intact TM with well aerated middle ear space. : Normal external ear. Normal EAC. Intact TM with well aerated middle ear space. NOSE: Examination of the nasal cavity revealed a septum which is Midline. The mucosa is pink, and the visible turbinates are non-hypertrophied on anterior rhinoscopy. External nose is unremarkable ORAL CAVITY AND OROPHARYNX: The oral mucosa, hard and soft palates, tongue, tonsil area, and posterior pharyngeal wall are without lesions. Edentulous. Mallampati 2. Tonsil 1+, endophytic. NECK: The neck appears symmetric without scars. On palpation, there are no masses or lymphadenopathy. The thyroid is not palpable and was free of masses. No salivary gland masses or hypertrophy is noted. REVIEW OF RADIOLOGICAL FILMS AND RECORDS: REVIEW OF LABS/TESTING/AUDIOLOGY RECORDS Date 10/16/20 Type Split TST 122.5 diag SE 78.7 diag SL 7.9 diag (more content not included)... [facility] 01-18-2023 Note HNO ID: [id number] Author: Nirmala Monterroso III, MD Service: ? Author Type: Physician Type: Progress Notes Filed: 01/18/2023 2:49 PM Note Text: [facility] Pain Management Department Consultation Date: January 18, 2023 - 2:05 PM Referring physician: No referring provider defined for this encounter. Guillermo Siddiqi is self referred. Chief Complaint: Patient presents with: Pain: Right Knee pain The patient is accompanied by self. SUBJECTIVE: Guillermo Siddiqi, is a 52 year old with a history of right TKA (10/2021) as well as right knee infection, who presents with focal right knee pain. The patient reports that his pain has been present for approximately 15 months. He describes focal right knee pain. He states that his pain is sharp, aching, and deep. The pain intensity is rated 2/10. The pain is exacerbated by sitting, standing, positional and relieved by Medication (Medical Marijuana). Symptoms interfere with physical activity and walking. Prior pain treatment has included: Lolis Grissom MD 10/01/2022 right knee genicular nerve blocks. 07/23/2022 right knee genicular nerve blocks. ALLERGIES Not on File Current Medications: No prescriptions on file. No past medical history on file. No past surgical history on file. No family history on file. Social History: Alcohol Use: Not on file Tobacco Use: Not on file Drug Use: Not on file Employer And Job Title: None on file Years Of Education Completed: Not specified Marital Status: Unknown Review of Systems Constitutional: Negative. HENT: Negative. Eyes: Negative. Respiratory: Positive for apnea. Cardiovascular: Negative. Gastrointestinal: Negative. Endocrine: Negative. Genitourinary: Negative. Musculoskeletal: Negative. Skin: Negative for rash. Allergic/Immunologic: Negative. Neurological: Negative for numbness. Hematological: Negative. Psychiatric/Behavioral: The patient is nervous/anxious. OBJECTIVE: PHYSICAL EXAMINATION: BP 127/76 Pulse 83 Resp 18 Ht 5' 8 (1.73m) Wt 302 lb (137.0kg) BMI 45.93 kg/(m2). Of note, I was accompanied by the NAIF [place] for the entirety of today's visit and exam. GENERAL DESCRIPTORS: The patient is an overweight individual, sitting comfortably on room entry. Hips are square in chair. No apparent distress. MENTAL STATUS: Oriented to person, place, and time. HEENT: Head is normocephalic, atraumatic. Extraocular muscles are intact. Hearing is grossly intact. GAIT/GROSS MOTOR STATIONS: Prior to today's exam, I observed the patient walking down the l[place]. His gait was symmetric and did not appear to be antalgic. No overt antalgia when getting out of the chair in the examination room.. LUNGS: Normal respiratory effort. CARDIOVASCULAR: Regular rate and rhythm. PERIPHERAL VASCULAR: Lower extremity pulses are intact and symmetric. No overt temperature changes over the affected knee. INTEGUMENT: Well-healed surgical scars. Appearance of exposed skin is there was unremarkable. NEUROLOGIC: Sensation is intact in lower extremity distributions to light touch in a symmetric fashion. Negative for allodynia or hyperesthesia. MUSCULOSKELETAL: Lower extremity strength is normal, full, and symmetric in all major muscle groups. There are no focal areas of atrophy or tone abnormality noted. No pain with palpation over the affected knee. Medical record and diagnostic tests reviewed for today's visit: The [facility] EMR was reviewed during the visit Imaging reviewed: [facility] images and results are documented in the electronic medical record and were reviewed and Outside imaging was reviewed OARRS: PDMP website checked and validated and is consistent with medication report. ASSESSMENT: The primary encounter diagnosis was Chronic pain of right knee. A diagnosis of History of total right knee replacement (TKR) was also pertinent to this visit. RECOMMENDATIONS: The patient is a 52-year-old who reports experiencing chronic pain in his right knee subsequent to a knee replacement surgery and infection in October of 2021. He underwent 2 genicular nerve blocks performed by Dr. Grissom earlier this year. He was scheduled on 12/24/2022 for a right knee genicular RFA. Prior to the procedure there was an apparent conflict (please see note from 12/24/2022 by Wen Rush). Documentation in the EMR reports the patient having stated if I flinch one time and get injured, I hope you own your own homes . I asked if the patient was threatening us. Pt stated it is my right if something happens...Pt stated he threatened litigation because that is his right and he was upset. . Please see EMR/Care Everywhere for full details. At this time, it does not appear the patient has followed with orthopedics since May 2022. Given the significant prior infection I have recommended that he follow with orthopedics to make sure that there are no ongoing concerns of infection. S (more content not included)... [facility] 01-18-2023 History of Presen t illness Narrative [facility] Pain Management Department Consultation Date: January 18, 2023 - 2:05 PM Referring physician: No referring provider defined for this encounter. Guillermo Siddiqi is self referred. Chief Complaint: Patient presents with: Pain: Right Knee pain The patient is accompanied by self. SUBJECTIVE: Guillermo Siddiqi, is a 52 year old with a history of right TKA (10/2021) as well as right knee infection, who presents with focal right knee pain. The patient reports that his pain has been present for approximately 15 months. He describes focal right knee pain. He states that his pain is sharp, aching, and deep. The pain intensity is rated 2/10. The pain is exacerbated by sitting, standing, positional and relieved by Medication (Medical Marijuana). Symptoms interfere with physical activity and walking. Prior pain treatment has included: Lolis Grissom MD 10/01/2022 right knee genicular nerve blocks. 07/23/2022 right knee genicular nerve blocks. ALLERGIES Not on File Current Medications: No prescriptions on file. No past medical history on file. No past surgical history on file. No family history on file. Social History: Alcohol Use: Not on file Tobacco Use: Not on file Drug Use: Not on file Employer And Job Title: None on file Years Of Education Completed: Not specified Marital Status: Unknown Review of Systems Constitutional: Negative. HENT: Negative. Eyes: Negative. Respiratory: Positive for apnea. Cardiovascular: Negative. Gastrointestinal: Negative. Endocrine: Negative. Genitourinary: Negative. Musculoskeletal: Negative. Skin: Negative for rash. Allergic/Immunologic: Negative. Neurological: Negative for numbness. Hematological: Negative. Psychiatric/Behavioral: The patient is nervous/anxious. OBJECTIVE: PHYSICAL EXAMINATION: BP 127/76 Pulse 83 Resp 18 Ht 5' 8 (1.73m) Wt 302 lb (137.0kg) BMI 45.93 kg/(m^2). Of note, I was accompanied by the NAIF [place] for the entirety of today's visit and exam. GENERAL DESCRIPTORS: The patient is an overweight individual, sitting comfortably on room entry. Hips are square in chair. No apparent distress. MENTAL STATUS: Oriented to person, place, and time. HEENT: Head is normocephalic, atraumatic. Extraocular muscles are intact. Hearing is grossly intact. GAIT/GROSS MOTOR STATIONS: Prior to today's exam, I observed the patient walking down the [place]. His gait was symmetric and did not appear to be antalgic. No overt antalgia when getting out of the chair in the examination room.. LUNGS: Normal respiratory effort. CARDIOVASCULAR: Regular rate and rhythm. PERIPHERAL VASCULAR: Lower extremity pulses are intact and symmetric. No overt temperature changes over the affected knee. INTEGUMENT: Well-healed surgical scars. Appearance of exposed skin is there was unremarkable. NEUROLOGIC: Sensation is intact in lower extremity distributions to light touch in a symmetric fashion. Negative for allodynia or hyperesthesia. MUSCULOSKELETAL: Lower extremity strength is normal, full, and symmetric in all major muscle groups. There are no focal areas of atrophy or tone abnormality noted. No pain with palpation over the affected knee. Medical record and diagnostic tests reviewed for today's visit: The [facility] EMR was reviewed during the visit Imaging reviewed: [facility] images and results are documented in the electronic medical record and were reviewed and Outside imaging was reviewed OARRS: PDMP website checked and validated and is consistent with medication report. ASSESSMENT: The primary encounter diagnosis was Chronic pain of right knee. A diagnosis of History of total right knee replacement (TKR) was also pertinent to this visit. RECOMMENDATIONS: The patient is a 52-year-old who reports experiencing chronic pain in his right knee subsequent to a knee replacement surgery and infection in October of 2021. He underwent 2 genicular nerve blocks performed by Dr. Grissom earlier this year. He was scheduled on 12/24/2022 for a right knee genicular RFA. Prior to the procedure there was an apparent conflict (please see note from 12/24/2022 by Wen Rush). Documentation in the EMR reports the patient having stated if I flinch one time and get injured, I hope you own your own homes . I asked if the patient was threatening us. Pt stated it is my right if something happens...Pt stated he threatened litigation because that is his right and he was upset. . Please see EMR/Care Everywhere for full details. At this time, it does not appear the patient has followed with orthopedics since May 2022. Given the significant prior infection I have recommended that he follow with orthopedics to make sure that there are no ongoing concerns of infection. Subsequent to this, I would recommend physical therapy (the patient reports that he has had no formal therapy since his surgery) as well as possible strain chronic pain rehabilitation. The patient was not happy with these recommendations and stood up and indicated that he wanted me to open the door for him. I did so and he left the office. Nirmala Monterroso III, MD Electronic signature CC No primary care provider on file. through [employer] documented in this encounter [facility] 12-24-2022 Note Attempted to contact patient, phone line was silent. Upon returned call please advise patient that; yes, our providers do perform this procedure in a outpatient hospital setting. Pt will need a referral before scheduling as a new patient. [facility] 12-24-2022 History and physical note Procedure not completed today. [facility] 12-24-2022 History and physical note Procedure not completed today. documented in this encounter [facility] 12-24-2022 Instructions Ana Best RN - 12/24/2022 9:30 AM EDT documented in this encounter [facility] 10-01-2022 History and physical note Associated Order(s): RIGHT KNEE GENICULAR NERVES BLOCKS Subjective: Patient presents for RIGHT Knee geniculate nerves blocks ROS: ROS (relevant): Constitutional: no fevers, night sweats, unintentional wt loss Cardiovascular: noedema, noSOB, noChest pain GI: no bowel dysfunction : no bladder dysfunction MSK: +knee pain Neuro: no weakness, no saddle anesthesia Objective: Smoking Status Former GEN: NAD, AOX3, Cooperative CV: RRR, non-cyonotic RESP: normal resp effort, no wheezing LABS: Lab Results Component Value Date CREATSERUM 1.07 10/23/2021 BUN 18 10/23/2021 SODIUM 135 10/23/2021 POTASSIUM 4.8 10/23/2021 CHLORIDE 105 10/23/2021 CO2 20 (L) 10/23/2021 No results found for: ALT, TRANSFERASEA, AST, GGT, GAMMAGT, ALKPHOS, BILITOTAL, BILIDIRECT Lab Results Component Value Date WBC 7.97 01/08/2022 HGB 15.4 01/08/2022 HCT 47.6 01/08/2022 PLATELET 243 01/08/2022 MCV 90.8 01/08/2022 Lab Results Component Value Date INR 1.0 10/08/2021 INR 1.0 12/16/2020 PT 13.2 10/08/2021 PT 12.9 12/16/2020 Lab Results Component Value Date SEDRATE 13 01/08/2022 C-reactive protein Assessment: ICD-10-CM 1. S/P total knee arthroplasty, right Z96.651 2. Intractable neuropathic pain of right knee M79.2 [facility] Plan: RIGHT knee geniculate nerves blocks Date/Time: 10/01/2022 2:15 PM Performed by: Lolis Grissmo MD Authorized by: Lolis Grissom MD RIGHT KNEE GENICULAR NERVES BLOCKS Indications: diagnostic evaluation and pain Guidance: fluoroscopy Anteroposterior and lateral views were utilized to confirm final needle placement. Images were saved electronically. Needle size: 25 G Needle Length: 3.5 inch Approach: ventral Body area: lower extremity Nerve: genicular Laterality: right A solution of medications described below was divided equally among the genicular nerve branches: 1. The needle was advanced to a bony endpoint on the superiolateral portion of the femoral condyle (for the lateral superior genicular branch from sciatic nerve nerve). 2. A needle was then placed over the inferiomedial portion of the tibial condyle until a bony endpoint was met (for the medial inferior genicular branch from tibial nerve). 3. A needle was advanced to a bony endpoint on the superiomedial portion of the femoral condyle (for the medial superior genicular branch from the femoral nerve). Lower Extremity Region Injected: knee Patient position: supine Medication Verification: I have personally verified and performed the final check of the medication(s) used in this procedure prior to administration. The following items were included during the verification process for medication(s) administered: drug name, strength, volume, expiration, physical integrity and appearance of the medication(s). Local Anesthetic: lidocaine 1% Total Local Anesthetic: 2 mLs Medications administered: 3 mL bupivacaine (PF) 0.5 % Patient tolerance: Patient tolerated the procedure well with no immediate complications Pre-Procedure Details The attending physician was present for the entire procedure. Consent: Consent was obtained prior to the procedure after discussion of the risks, benefits and alternatives, and expected outcomes were discussed with the patient. The possibilities of reaction to medication, bleeding, infection, the need for additional procedures, failure to diagnosis a condition, nerve injury, and creating a complication requiring operation were discussed with the patient. The patient concurred with the proposed plan, giving consent. Preparation: Patient was prepped in the usual sterile fashion. The patient was prepped with Chloraprep. [facility] 10-01-2022 History and physical note Associated Order(s): RIGHT KNEE GENICULAR NERVES BLOCKS Subjective: Patient presents for RIGHT Knee geniculate nerves blocks ROS: ROS (relevant): Constitutional: no fevers, night sweats, unintentional wt loss Cardiovascular: noedema, noSOB, noChest pain GI: no bowel dysfunction : no bladder dysfunction MSK: +knee pain Neuro: no weakness, no saddle anesthesia Objective: Smoking Status Former GEN: NAD, AOX3, Cooperative CV: RRR, non-cyonotic RESP: normal resp effort, no wheezing LABS: Lab Results Component Value Date CREATSERUM 1.07 10/23/2021 BUN 18 10/23/2021 SODIUM 135 10/23/2021 POTASSIUM 4.8 10/23/2021 CHLORIDE 105 10/23/2021 CO2 20 (L) 10/23/2021 No results found for: ALT, TRANSFERASEA, AST, GGT, GAMMAGT, ALKPHOS, BILITOTAL, BILIDIRECT Lab Results Component Value Date WBC 7.97 01/08/2022 HGB 15.4 01/08/2022 HCT 47.6 01/08/2022 PLATELET 243 01/08/2022 MCV 90.8 01/08/2022 Lab Results Component Value Date INR 1.0 10/08/2021 INR 1.0 12/16/2020 PT 13.2 10/08/2021 PT 12.9 12/16/2020 Lab Results Component Value Date SEDRATE 13 01/08/2022 C-reactive protein Assessment: ICD-10-CM 1. S/P total knee arthroplasty, right Z96.651 2. Intractable neuropathic pain of right knee M79.2 [facility] Plan: RIGHT knee geniculate nerves blocks Date/Time: 10/01/2022 2:15 PM Performed by: Lolis Grissom MD Authorized by: Lolis Grissom MD RIGHT KNEE GENICULAR NERVES BLOCKS Indications: diagnostic evaluation and pain Guidance: fluoroscopy Anteroposterior and lateral views were utilized to confirm final needle placement. Images were saved electronically. Needle size: 25 G Needle Length: 3.5 inch Approach: ventral Body area: lower extremity Nerve: genicular Laterality: right A solution of medications described below was divided equally among the genicular nerve branches: 1. The needle was advanced to a bony endpoint on the superiolateral portion of the femoral condyle (for the lateral superior genicular branch from sciatic nerve nerve). 2. A needle was then placed over the inferiomedial portion of the tibial condyle until a bony endpoint was met (for the medial inferior genicular branch from tibial nerve). 3. A needle was advanced to a bony endpoint on the superiomedial portion of the femoral condyle (for the medial superior genicular branch from the femoral nerve). Lower Extremity Region Injected: knee Patient position: supine Medication Verification: I have personally verified and performed the final check of the medication(s) used in this procedure prior to administration. The following items were included during the verification process for medication(s) administered: drug name, strength, volume, expiration, physical integrity and appearance of the medication(s). Local Anesthetic: lidocaine 1% Total Local Anesthetic: 2 mLs Medications administered: 3 mL bupivacaine (PF) 0.5 % Patient tolerance: Patient tolerated the procedure well with no immediate complications Pre-Procedure Details The attending physician was present for the entire procedure. Consent: Consent was obtained prior to the procedure after discussion of the risks, benefits and alternatives, and expected outcomes were discussed with the patient. The possibilities of reaction to medication, bleeding, infection, the need for additional procedures, failure to diagnosis a condition, nerve injury, and creating a complication requiring operation were discussed with the patient. The patient concurred with the proposed plan, giving consent. Preparation: Patient was prepped in the usual sterile fashion. The patient was prepped with Chloraprep. documented in this encounter [facility] 10-01-2022 Instructions Janene Foy RN - 10/01/2022 2:15 PM EDT Images from the original note were not included. HOME CARE INSTRUCTIONS These instructions will help you care for yourself, or be cared for when you return home today. MEDICINES: You may take any NON-ASPRIN over the counter medicine for pain as it is directed. You may take all your usual medicines, including pain medicines. Re-Start your blood thinners tomorrow, and hold them as you were instructed before by your Physician. SITE CARE: Remove any band-aid from the injection site after six (6) hours. For Comfort you may apply ice packs to the site for the FIRST forty eight (48) hours, but for only ten (10) to fifteen (15) minutes at a time. After forty eight (48) hours, use a warm heating pad to the site, for only ten (10) to fifteen (15) minutes at a time. Be sure to NEVER place an Ice Pack or Heating Pad directly on the skin. Always wrap them in a light towel or cloth to protect the skin from freezing or burning ACTIVITY: Rest, and limit your activity for the remainder of the day. Tomorrow, you may return to work or school. If you have weakness or numbness anywhere caused by the injection, limit your activity until sensation returns to normal. You may Shower after 24 hours of your injection. Do Not soak in a bath tub, Hot tub, or go swimming for 5 days. DIET: Drink at least six (6) to eight (8) cups of Fluid and eat your normal diet today. WHAT TO EXPECT AFTER THE INJECTION: Some soreness and bruising at the injection sites. CALL THE [facility] AT [phone] FOR: Any severe headache that develops in the next forty eight (48) hours. Any unusual increase in your level of pain. Any unexpected swelling, weakness, skin rash, itching or fever. If it is after hours or on a weekend, call your family doctor or visit the nearest emergency room. FOLLOW UP At your next appointment, be sure to be ready to tell the doctor: When you felt relief from the pain. The level of relief you felt. If your pain got worse, and if so, how much worse. If you have any problems, or questions. Please call the [facility] nurse at [phone]. Talk to your doctor or others on your health care team, if you have questions. You may request more written information from the [employer] [facility] Information at or e-mail: [email or web address] Bupivacaine/Lidocaine (Injection) Bupivacaine (xti-OBK-a-glass), Lidocaine (MIP-ocm-hafp) Causes numbness! Brand Name(s): There may be other brand names for this medicine. When This Medicine Should Not Be Used: You should not receive this medicine if you have had an allergic reaction to bupivacaine, lidocaine, or certain other types of local anesthetic (numbing medicine). You should not receive this medicine if you have certain heart rhythm problems such as Aunqj-Cimlnexmm-Ojqrj syndrome, Santos-Barrientos syndrome, or severe heart block, unless you have a pacemaker. How to Use This Medicine: Drugs and Foods to Avoid: Ask your doctor or pharmacist before using any other medicine, including tfbu-ntp-yewlgfc medicines, vitamins, and herbal products. Make sure your doctor knows if you are taking heart or blood pressure medicine such as digoxin (Lanoxin ), atenolol (Tenormin ), propranolol (Inderal ), or metoprolol (Lopressor ). Make sure your doctor knows about any other medicine you have used recently. Warnings While Using This Medicine: Make sure your doctor knows if you are or breast feeding. You may need to stop breast feeding for a short time after receiving this medicine. Make sure your doctor knows if you have high blood pressure, low blood pressure, or other circulation problems. Tell your doctor if you have heart problems, such as congestive heart failure or heart rhythm problems. Make sure your doctor knows if you have liver disease, or any other health problems or drug allergies. Possible Side Effects While Using This Medicine: Call your doctor right away if you notice any of these side effects: Allergic reaction: Itching or hives, swelling in your face or hands, swelling or tingling in your mouth or throat, chest tightness, trouble breathing Dizziness, drowsiness, confusion (trouble thinking), seizures (convulsions), or fainting. Nausea or vomiting. Loss of feeling or movement to your eye that lasts longer than your doctor told you to expect. Loss of feeling or movement that happens somewhere else in your body other than the area that was numbed for treatment. Restlessness, anxiety. Ringing in the ears. Sudden or severe headache, or problems with vision, speech, or walking. Tremors, shaking, or chills. Trouble urinating, or new problems controlling when you urinate or have a bowel movement. Uneven, pounding, fast, or slow heartbeats. If you notice other side effects that you think are caused by this medicine, tell your doctor. Call your doctor for medical advice about side effects. You may report side effects to FDA at [phone] [facility] [address] [place] [address], [address] [place] [address] Patient:Guillermo Siddiqi Procedure: Medial Branch Nerve Blocks Provider: Lolis Grissom MD PAIN DIARY of right knee Please note your pain score (0-10) every HOUR for the next 6-8 hours. Bring this to your next appointment to review with your provider. TIME: Pain Score Pre: Post: 4pm / 5pm /10 6pm /10 7pm /10 8pm /10 9pm / / Common Questions about Radiofrequency Ablation Radiofrequency ablation (or RFA) is a procedure used to reduce pain. An electrical current produced by a radio wave is used to heat up a small area of nerve tissue, thereby decreasing pain signals from that specific area. Which Conditions Are Treated With Radiofrequency Ablation? RFA can be used to help patients with chronic (long-lasting) low-back and neck pain and pain related to the degeneration of joints from arthritis. How Long Does Pain Relief from Radiofrequency Ablation Last? The degree of pain relief varies, depending on the cause and location of the pain. Pain relief from RFA can last from six to 12 months and in some cases, relief can last for years. More than 70% of patients treated with RFA experience pain relief. Is Radiofrequency Ablation Safe? RFA has proven to be a safe and effective way to treat some forms of pain. It also is generally well-tolerated, with very few associated complications. There is a slight risk of infection and bleeding at the insertion site. Your doctor can advise you about your particular risk. Will the radiofrequency ablation hurt? Layers of muscle and soft tissues protect nerves. The procedure involves inserting an introducer needle or needles through skin and those layers of muscle and soft tissues, so there is some pain involved. However, we numb the skin and deeper tissues with a local anesthetic using a very thin needle before inserting the introducer needle or needles. Will I be put out for a radiofrequency ablation? No. This procedure is done under local anesthesia. How long will the effects of the radiofrequency ablation last? If successful, the effects of the radiofrequency ablation can last from 3-18 months, with a typical range of 6-9 months. How many radiofrequency ablations do I need to have? If the first procedure does not completely relieve your symptoms, you may be recommended to have a repeat or touch-up procedure after the first two to three weeks. Because these are not permanent procedures, they may need to be repeated when the effect wears off. Will the radiofrequency ablation help me? It is sometimes difficult to predict if the radiofrequency ablation will indeed help you or not. Generally speaking, the patients who have responded well to trial blocks will have better results than those who responded less well from diagnostic or trial injections. What are the risks and side effects of radiofrequency ablation? Generally speaking, this procedure is safe. However, with any procedure there are risks, side effects and the possibility of complications. The risks and complications are dependent upon the sites that are ablated. Since the introducer needles have to go through skin and soft tissues, there will usually be some soreness and occasionally bruising. The nerves to be ablated may be near blood vessels or other nerves that can be potentially damaged. Electricity is also used during the procedure raising the possibility of an electrical burn. Great care is taken when placing the radiofrequency needles and using the electrical current, but sometimes complications occur. Fortunately, serious complications or side effects are uncommon. Who should not have a radiofrequency ablation? Patients on a blood thinning medication, patients with an active infection going on, or patients with poorly controlled diabetes or heart disease should not have the procedure or at least consider postponing it if postponing would improve your overall medical condition. Of course, patients who have not responded to trial blocks or diagnostic injections would be unlikely to benefit from radiofrequency ablation. What Are the Side Effects of Radiofrequency Ablation? The main side effect of RFA is some discomfort, including swelling and bruising at the site of the treatment, but this generally goes away after a few days. How Do I Prepare for Radiofrequency Ablation? To prepare for radiofrequency ablation treatment, you should take a few precautions, Including: You may have clear liquids and light meal until two hours before the procedure. If you have diabetes and use insulin, you must adjust the dosage of insulin the day of the procedure. Your primary care doctor will help you with this adjustment. Bring your diabetes medication with you so you can take it after the procedure. Continue to take all other medications with a small sip of water. Bring all medication with you so you can take it after the procedure. Please note: Do not discontinue any medication without first consulting with your primary or referring doctor. What Happens Before Radiofrequency Ablation? You will meet with a doctor for an evaluation. If radiofrequency ablation is recommended, a doctor will explain the procedure in detail, including possible complications and side effects. The doctor will also answer any questions you may have. Ask your doctor about specifics beforehand. What Happens During Radiofrequency Ablation? After the local anesthesia (you will be awake but will not feel any pain) has been given, the doctor will insert a small needle into the general area where you are experiencing pain. Using X-ray, your doctor will guide the needle to the exact target area. A microelectrode is then inserted through the needle to begin the stimulation process. During the procedure, your doctor will ask if you are able to feel a tingling sensation. The object of the stimulation process is to help the doctor determine if the electrode is in the optimal area for treatment. Once the needle and electrode placement are verified, a small radiofrequency current is sent through the electrode into the surrounding tissue, causing the tissue to heat. You should not feel discomfort during the heating portion of the procedure. What should I expect after the radiofrequency ablation? Initially there will be muscle soreness for up to a week afterward. Ice packs will usually control this discomfort. After that first several days, your pain may be gone or quite less. Following radiofrequency ablation: A nurse will check your blood pressure and pulse. A bandage will be placed over the injection site. The nurse will review your discharge instructions with you. Someone must drive you home. We advise the patients to take it easy for a day or so after the procedure. You will be encouraged to apply ice to the affected area. Otherwise, you can perform any activities that you can reasonably tolerate. Can I Resume My Normal Activities After Radiofrequency Ablation? You will have these restrictions immediately following radiofrequency ablation: Do not drive or operate machinery for at least 24 hours after the procedure. You may resume your normal diet. Do not engage in any strenuous activity for the first 24 hours after the procedure. Do not take a bath, swim, or soak in water for 5 days after the procedure; and you may only shower after 24 hours. You may remove any bandages in the evening before going to bed. Can I go to work to work the next day? You should be able to return to work the next day. For some patients, soreness at the injection site or sites may cause you to be off work for several days. What Side Effects May I Have After Radiofrequency Ablation? You may experience the following effects after RFA: Leg numbness: If you have any leg numbness, walk only with assistance. This should only last a few hours and is due to the local anesthesia given during the procedure. Mild back discomfort: This may occur when the local anesthetic wears off and usually lasts two or three days. Apply ice to the area the day of the procedure and moist heat the day after the procedure if the discomfort persists. You may also use your usual pain medications. RFA Warning!!! If you feel severe pain at the injection site and notice swelling and redness, or increased leg weakness, have someone take you to the nearest emergency room or call 911. Tell the emergency room staff that you just had RFA. A doctor must evaluate you for bleeding and injection complications. Any Further Questions not explained please call [facility] at [phone], and ask for a Nurse to speak with. documented in this encounter [facility] 01-19-2023 History and physical note Associated Order(s): RIGHT KNEE GENICULATE NERVES BLOCKS Subjective: Patient presents for RIGHT knee geniculate nerve blocks ROS: ROS (relevant): Constitutional: no fevers, night sweats, unintentional wt loss Cardiovascular: noedema, noSOB, noChest pain GI: no bowel dysfunction : no bladder dysfunction MSK: +knee pain Neuro: no weakness, no saddle anesthesia Objective: Smoking Status Former GEN: NAD, AOX3, Cooperative CV: RRR, non-cyonotic RESP: normal resp effort, no wheezing LABS: Lab Results Component Value Date CREATSERUM 1.07 10/23/2021 BUN 18 10/23/2021 SODIUM 135 10/23/2021 POTASSIUM 4.8 10/23/2021 CHLORIDE 105 10/23/2021 CO2 20 (L) 10/23/2021 No results found for: ALT, TRANSFERASEA, AST, GGT, GAMMAGT, ALKPHOS, BILITOTAL, BILIDIRECT Lab Results Component Value Date WBC 7.97 01/08/2022 HGB 15.4 01/08/2022 HCT 47.6 01/08/2022 PLATELET 243 01/08/2022 MCV 90.8 01/08/2022 Lab Results Component Value Date INR 1.0 10/08/2021 INR 1.0 12/16/2020 PT 13.2 10/08/2021 PT 12.9 12/16/2020 Lab Results Component Value Date SEDRATE 13 01/08/2022 C-reactive protein Assessment: ICD-10-CM 1. Intractable neuropathic pain of right knee M79.2 [facility] Plan: RIGHT knee geniculate nerve blocks Date/Time: 07/23/2022 2:00 PM Performed by: Lolis Grissom MD Authorized by: Lolis Grissom MD RIGHT KNEE GENICULATE NERVES BLOCKS Indications: diagnostic evaluation and pain Guidance: fluoroscopy Anteroposterior and lateral views were utilized to confirm final needle placement. Images were saved electronically. Needle size: 25 G Needle Length: 3.5 inch Approach: ventral Body area: lower extremity Nerve: genicular Laterality: right A solution of medications described below was divided equally among the genicular nerve branches: 1. The needle was advanced to a bony endpoint on the superiolateral portion of the femoral condyle (for the lateral superior genicular branch from sciatic nerve nerve). 2. A needle was then placed over the inferiomedial portion of the tibial condyle until a bony endpoint was met (for the medial inferior genicular branch from tibial nerve). 3. A needle was advanced to a bony endpoint on the superiomedial portion of the femoral condyle (for the medial superior genicular branch from the femoral nerve). Lower Extremity Region Injected: knee Patient position: supine Medication Verification: I have personally verified and performed the final check of the medication(s) used in this procedure prior to administration. The following items were included during the verification process for medication(s) administered: drug name, strength, volume, expiration, physical integrity and appearance of the medication(s). Local Anesthetic: lidocaine 1% Total Local Anesthetic: 2 mLs Medications administered: 3 mL bupivacaine (PF) 0.5 % Patient tolerance: Patient tolerated the procedure well with no immediate complications Pre-Procedure Details The attending physician was present for the entire procedure. Consent: Consent was obtained prior to the procedure after discussion of the risks, benefits and alternatives, and expected outcomes were discussed with the patient. The possibilities of reaction to medication, bleeding, infection, the need for additional procedures, failure to diagnosis a condition, nerve injury, and creating a complication requiring operation were discussed with the patient. The patient concurred with the proposed plan, giving consent. Preparation: Patient was prepped in the usual sterile fashion. The patient was prepped with Chloraprep. [facility] 07-23-2022 History and physical note Associated Order(s): RIGHT KNEE GENICULATE NERVES BLOCKS Subjective: Patient presents for RIGHT knee geniculate nerve blocks ROS: ROS (relevant): Constitutional: no fevers, night sweats, unintentional wt loss Cardiovascular: noedema, noSOB, noChest pain GI: no bowel dysfunction : no bladder dysfunction MSK: +knee pain Neuro: no weakness, no saddle anesthesia Objective: Smoking Status Former GEN: NAD, AOX3, Cooperative CV: RRR, non-cyonotic RESP: normal resp effort, no wheezing LABS: Lab Results Component Value Date CREATSERUM 1.07 10/23/2021 BUN 18 10/23/2021 SODIUM 135 10/23/2021 POTASSIUM 4.8 10/23/2021 CHLORIDE 105 10/23/2021 CO2 20 (L) 10/23/2021 No results found for: ALT, TRANSFERASEA, AST, GGT, GAMMAGT, ALKPHOS, BILITOTAL, BILIDIRECT Lab Results Component Value Date WBC 7.97 01/08/2022 HGB 15.4 01/08/2022 HCT 47.6 01/08/2022 PLATELET 243 01/08/2022 MCV 90.8 01/08/2022 Lab Results Component Value Date INR 1.0 10/08/2021 INR 1.0 12/16/2020 PT 13.2 10/08/2021 PT 12.9 12/16/2020 Lab Results Component Value Date SEDRATE 13 01/08/2022 C-reactive protein Assessment: ICD-10-CM 1. Intractable neuropathic pain of right knee M79.2 [facility] Plan: RIGHT knee geniculate nerve blocks Date/Time: 07/23/2022 2:00 PM Performed by: Lolis Grissom MD Authorized by: Lolis Grissom MD RIGHT KNEE GENICULATE NERVES BLOCKS Indications: diagnostic evaluation and pain Guidance: fluoroscopy Anteroposterior and lateral views were utilized to confirm final needle placement. Images were saved electronically. Needle size: 25 G Needle Length: 3.5 inch Approach: ventral Body area: lower extremity Nerve: genicular Laterality: right A solution of medications described below was divided equally among the genicular nerve branches: 1. The needle was advanced to a bony endpoint on the superiolateral portion of the femoral condyle (for the lateral superior genicular branch from sciatic nerve nerve). 2. A needle was then placed over the inferiomedial portion of the tibial condyle until a bony endpoint was met (for the medial inferior genicular branch from tibial nerve). 3. A needle was advanced to a bony endpoint on the superiomedial portion of the femoral condyle (for the medial superior genicular branch from the femoral nerve). Lower Extremity Region Injected: knee Patient position: supine Medication Verification: I have personally verified and performed the final check of the medication(s) used in this procedure prior to administration. The following items were included during the verification process for medication(s) administered: drug name, strength, volume, expiration, physical integrity and appearance of the medication(s). Local Anesthetic: lidocaine 1% Total Local Anesthetic: 2 mLs Medications administered: 3 mL bupivacaine (PF) 0.5 % Patient tolerance: Patient tolerated the procedure well with no immediate complications Pre-Procedure Details The attending physician was present for the entire procedure. Consent: Consent was obtained prior to the procedure after discussion of the risks, benefits and alternatives, and expected outcomes were discussed with the patient. The possibilities of reaction to medication, bleeding, infection, the need for additional procedures, failure to diagnosis a condition, nerve injury, and creating a complication requiring operation were discussed with the patient. The patient concurred with the proposed plan, giving consent. Preparation: Patient was prepped in the usual sterile fashion. The patient was prepped with Chloraprep. documented in this encounter [facility] 07-23-2022 Instructions Janene Foy RN - 07/23/2022 2:00 PM EST Images from the original note were not included. HOME CARE INSTRUCTIONS These instructions will help you care for yourself, or be cared for when you return home today. MEDICINES: You may take any NON-ASPRIN over the counter medicine for pain as it is directed. You may take all your usual medicines, including pain medicines. Re-Start your blood thinners tomorrow, and hold them as you were instructed before by your Physician. SITE CARE: Remove any band-aid from the injection site after six (6) hours. For Comfort you may apply ice packs to the site for the FIRST forty eight (48) hours, but for only ten (10) to fifteen (15) minutes at a time. After forty eight (48) hours, use a warm heating pad to the site, for only ten (10) to fifteen (15) minutes at a time. Be sure to NEVER place an Ice Pack or Heating Pad directly on the skin. Always wrap them in a light towel or cloth to protect the skin from freezing or burning ACTIVITY: Rest, and limit your activity for the remainder of the day. Tomorrow, you may return to work or school. If you have weakness or numbness anywhere caused by the injection, limit your activity until sensation returns to normal. You may Shower after 24 hours of your injection. Do Not soak in a bath tub, Hot tub, or go swimming for 5 days. DIET: Drink at least six (6) to eight (8) cups of Fluid and eat your normal diet today. WHAT TO EXPECT AFTER THE INJECTION: Some soreness and bruising at the injection sites. CALL THE [facility] AT [phone] FOR: Any severe headache that develops in the next forty eight (48) hours. Any unusual increase in your level of pain. Any unexpected swelling, weakness, skin rash, itching or fever. If it is after hours or on a weekend, call your family doctor or visit the nearest emergency room. FOLLOW UP At your next appointment, be sure to be ready to tell the doctor: When you felt relief from the pain. The level of relief you felt. If your pain got worse, and if so, how much worse. If you have any problems, or questions. Please call the [facility] nurse at [phone]. Talk to your doctor or others on your health care team, if you have questions. You may request more written information from the [employer] [facility] [employer] at or e-mail: [email or web address] Bupivacaine/Lidocaine (Injection) Bupivacaine (xvi-WGH-k-glass), Lidocaine (SGJ-joh-oeve) Causes numbness! Brand Name(s): There may be other brand names for this medicine. When This Medicine Should Not Be Used: You should not receive this medicine if you have had an allergic reaction to bupivacaine, lidocaine, or certain other types of local anesthetic (numbing medicine). You should not receive this medicine if you have certain heart rhythm problems such as Uxtrs-Pwbiaqvxi-Irbmk syndrome, Santos-Barrientos syndrome, or severe heart block, unless you have a pacemaker. How to Use This Medicine: Drugs and Foods to Avoid: Ask your doctor or pharmacist before using any other medicine, including hytx-cqt-mkyuydu medicines, vitamins, and herbal products. Make sure your doctor knows if you are taking heart or blood pressure medicine such as digoxin (Lanoxin ), atenolol (Tenormin ), propranolol (Inderal ), or metoprolol (Lopressor ). Make sure your doctor knows about any other medicine you have used recently. Warnings While Using This Medicine: Make sure your doctor knows if you are or breast feeding. You may need to stop breast feeding for a short time after receiving this medicine. Make sure your doctor knows if you have high blood pressure, low blood pressure, or other circulation problems. Tell your doctor if you have heart problems, such as congestive heart failure or heart rhythm problems. Make sure your doctor knows if you have liver disease, or any other health problems or drug allergies. Possible Side Effects While Using This Medicine: Call your doctor right away if you notice any of these side effects: Allergic reaction: Itching or hives, swelling in your face or hands, swelling or tingling in your mouth or throat, chest tightness, trouble breathing Dizziness, drowsiness, confusion (trouble thinking), seizures (convulsions), or fainting. Nausea or vomiting. Loss of feeling or movement to your eye that lasts longer than your doctor told you to expect. Loss of feeling or movement that happens somewhere else in your body other than the area that was numbed for treatment. Restlessness, anxiety. Ringing in the ears. Sudden or severe headache, or problems with vision, speech, or walking. Tremors, shaking, or chills. Trouble urinating, or new problems controlling when you urinate or have a bowel movement. Uneven, pounding, fast, or slow heartbeats. If you notice other side effects that you think are caused by this medicine, tell your doctor. Call your doctor for medical advice about side effects. You may report side effects to FDA at 1-897-UTJ-8086 [facility] [address], [address] [place] [address] Patient:Guillermo Okeeferobert Procedure: Medial Branch Nerve Blocks Provider: Lolis Grissom MD PAIN DIARY of right knee Please note your pain score (0-10) every HOUR for the next 6-8 hours. Bring this to your next appointment to review with your provider. TIME: Pain Score Pre: 10 Post: 3pm /10 4pm /10 5pm /10 6pm /10 7pm /10 8pm / / / / Common Questions about Radiofrequency Ablation Radiofrequency ablation (or RFA) is a procedure used to reduce pain. An electrical current produced by a radio wave is used to heat up a small area of nerve tissue, thereby decreasing pain signals from that specific area. Which Conditions Are Treated With Radiofrequency Ablation? RFA can be used to help patients with chronic (long-lasting) low-back and neck pain and pain related to the degeneration of joints from arthritis. How Long Does Pain Relief from Radiofrequency Ablation Last? The degree of pain relief varies, depending on the cause and location of the pain. Pain relief from RFA can last from six to 12 months and in some cases, relief can last for years. More than 70% of patients treated with RFA experience pain relief. Is Radiofrequency Ablation Safe? RFA has proven to be a safe and effective way to treat some forms of pain. It also is generally well-tolerated, with very few associated complications. There is a slight risk of infection and bleeding at the insertion site. Your doctor can advise you about your particular risk. Will the radiofrequency ablation hurt? Layers of muscle and soft tissues protect nerves. The procedure involves inserting an introducer needle or needles through skin and those layers of muscle and soft tissues, so there is some pain involved. However, we numb the skin and deeper tissues with a local anesthetic using a very thin needle before inserting the introducer needle or needles. Will I be put out for a radiofrequency ablation? No. This procedure is done under local anesthesia. How long will the effects of the radiofrequency ablation last? If successful, the effects of the radiofrequency ablation can last from 3-18 months, with a typical range of 6-9 months. How many radiofrequency ablations do I need to have? If the first procedure does not completely relieve your symptoms, you may be recommended to have a repeat or touch-up procedure after the first two to three weeks. Because these are not permanent procedures, they may need to be repeated when the effect wears off. Will the radiofrequency ablation help me? It is sometimes difficult to predict if the radiofrequency ablation will indeed help you or not. Generally speaking, the patients who have responded well to trial blocks will have better results than those who responded less well from diagnostic or trial injections. What are the risks and side effects of radiofrequency ablation? Generally speaking, this procedure is safe. However, with any procedure there are risks, side effects and the possibility of complications. The risks and complications are dependent upon the sites that are ablated. Since the introducer needles have to go through skin and soft tissues, there will usually be some soreness and occasionally bruising. The nerves to be ablated may be near blood vessels or other nerves that can be potentially damaged. Electricity is also used during the procedure raising the possibility of an electrical burn. Great care is taken when placing the radiofrequency needles and using the electrical current, but sometimes complications occur. Fortunately, serious complications or side effects are uncommon. Who should not have a radiofrequency ablation? Patients on a blood thinning medication, patients with an active infection going on, or patients with poorly controlled diabetes or heart disease should not have the procedure or at least consider postponing it if postponing would improve your overall medical condition. Of course, patients who have not responded to trial blocks or diagnostic injections would be unlikely to benefit from radiofrequency ablation. What Are the Side Effects of Radiofrequency Ablation? The main side effect of RFA is some discomfort, including swelling and bruising at the site of the treatment, but this generally goes away after a few days. How Do I Prepare for Radiofrequency Ablation? To prepare for radiofrequency ablation treatment, you should take a few precautions, Including: You may have clear liquids and light meal until two hours before the procedure. If you have diabetes and use insulin, you must adjust the dosage of insulin the day of the procedure. Your primary care doctor will help you with this adjustment. Bring your diabetes medication with you so you can take it after the procedure. Continue to take all other medications with a small sip of water. Bring all medication with you so you can take it after the procedure. Please note: Do not discontinue any medication without first consulting with your primary or referring doctor. What Happens Before Radiofrequency Ablation? You will meet with a doctor for an evaluation. If radiofrequency ablation is recommended, a doctor will explain the procedure in detail, including possible complications and side effects. The doctor will also answer any questions you may have. Ask your doctor about specifics beforehand. What Happens During Radiofrequency Ablation? After the local anesthesia (you will be awake but will not feel any pain) has been given, the doctor will insert a small needle into the general area where you are experiencing pain. Using X-ray, your doctor will guide the needle to the exact target area. A microelectrode is then inserted through the needle to begin the stimulation process. During the procedure, your doctor will ask if you are able to feel a tingling sensation. The object of the stimulation process is to help the doctor determine if the electrode is in the optimal area for treatment. Once the needle and electrode placement are verified, a small radiofrequency current is sent through the electrode into the surrounding tissue, causing the tissue to heat. You should not feel discomfort during the heating portion of the procedure. What should I expect after the radiofrequency ablation? Initially there will be muscle soreness for up to a week afterward. Ice packs will usually control this discomfort. After that first several days, your pain may be gone or quite less. Following radiofrequency ablation: A nurse will check your blood pressure and pulse. A bandage will be placed over the injection site. The nurse will review your discharge instructions with you. Someone must drive you home. We advise the patients to take it easy for a day or so after the procedure. You will be encouraged to apply ice to the affected area. Otherwise, you can perform any activities that you can reasonably tolerate. Can I Resume My Normal Activities After Radiofrequency Ablation? You will have these restrictions immediately following radiofrequency ablation: Do not drive or operate machinery for at least 24 hours after the procedure. You may resume your normal diet. Do not engage in any strenuous activity for the first 24 hours after the procedure. Do not take a bath, swim, or soak in water for 5 days after the procedure; and you may only shower after 24 hours. You may remove any bandages in the evening before going to bed. Can I go to work to work the next day? You should be able to return to work the next day. For some patients, soreness at the injection site or sites may cause you to be off work for several days. What Side Effects May I Have After Radiofrequency Ablation? You may experience the following effects after RFA: Leg numbness: If you have any leg numbness, walk only with assistance. This should only last a few hours and is due to the local anesthesia given during the procedure. Mild back discomfort: This may occur when the local anesthetic wears off and usually lasts two or three days. Apply ice to the area the day of the procedure and moist heat the day after the procedure if the discomfort persists. You may also use your usual pain medications. RFA Warning!!! If you feel severe pain at the injection site and notice swelling and redness, or increased leg weakness, have someone take you to the nearest emergency room or call 911. Tell the emergency room staff that you just had RFA. A doctor must evaluate you for bleeding and injection complications. Any Further Questions not explained please call [facility] at [phone], and ask for a Nurse to speak with. documented in this encounter [facility] 07-06-2022 Note Name: Guillermo Siddiqi Date of : 1970 Attending physician: Frankie Pickering MD A report of nerve conduction studies and electromyography of the right lower extremity, with comparison studies of the left lower extremity Date of service: July 06, 2022 Findings: Sensory nerve conduction studies disclosed a reduced response amplitude in the right superficial peroneal nerve with a normal response latency. The right superficial peroneal nerve response amplitude was mildly decreased at the standard 14-cm distance compared to a response obtained at a shorter 10-cm distance, which fell within normal limits, and markedly decreased when compared with the response amplitude in the contralateral superficial peroneal nerve. Response amplitudes and latencies were normal in the right sural and left superficial peroneal nerves. Motor nerve conduction studies yielded a distal response amplitude in the right peroneal/fibular nerve to extensor digitorum brevis (EDB) that fell within normal limits; there was a significant drop in amplitude from proximal stimulation below the fibular head, but no change in response amplitude across the fibular head region. Response amplitudes from all levels of stimulation of the left peroneal/fibular nerve to EDB were markedly greater than those obtained on the right. The distal latency and conduction velocity were normal in the right peroneal/fibular nerve to EDB. Distal latencies, response amplitudes and conduction velocities were normal in the right peroneal/fibular nerve to tibialis anterior, the right tibial nerve and the left peroneal/fibular nerve to EDB. A right tibial nerve H-reflex was normal. Needle EMG examination disclosed a single complex repetitive discharge in the right extensor digitorum brevis, but no positive sharp waves or fibrillations. Spontaneous activity was normal in the right vastus medialis and lateralis, lateral gastrocnemius, tibialis anterior, peroneus longus, extensor hallucis longus and abductor hallucis. Motor unit potential recruitment was moderately decreased in the right extensor digitorum brevis and mildly decreased in the right extensor hallucis longus; in each of these muscles there were enlarged motor unit potentials. Motor unit potential recruitment and morphology were normal in all other muscles examined. 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 Data were mixed on the exact localization of the nerve injury. The sensory nerve conduction studies suggested involvement of the distal superficial peroneal/fibular nerve, while the needle EMG examination suggested a lesion of the deep peroneal/fibular nerve between the origins of the branches to tibialis anterior and extensor hallucis longus, and sparing the superficial peroneal/fibular nerve proximal to the origin of the branch to peroneus longus. There was no evidence of neuropathy in the region of the fibular head. Clinical correlation is advised. Cecilio Rice MD Test numbers [id number] and [id number] Location: Testing was conducted at [facility] as an outpatient. [facility] 05-07-2022 History of Presen t illness Narrative Subjective: Patient presents in follow-up to a right total knee. States that he has continued pain. Does not feel that he can return to work. Localizes the pain to the proximal tibia. Denies any recent injuries or trauma. Denies fevers or chills. Objective: Patient is alert and oriented. Patient ambulates independently without aids and a a minimal limp. The incision is well healed and there is no erythema or drainage. The right knee is ligamentously stable. There is tenderness to palpation along the medial lateral joint line. The patella is tracking midline and no visible subluxation. There is no inguinal pain with internal or external rotation of the hip. There is a negative straight leg raise. Babinski's is downgoing to both feet. There is no clonus to either ankle. Radiographic examination: Three views of the right knee including an AP weight-bearing view of both knees were reviewed in clinic today. Radiographs demonstrate a well-positioned total knee. There are no radiographic signs of loosening. Radiographs are identical to prior radiographs. Impression: 1. Painful right total knee arthroplasty 2. DJD right knee 3. History of osteomyelitis right tibia Plan: I am recommending continuation of a exercise program as well as weight loss. Discussed vocational rehab. Routine follow-up in 1 year. documented in this encounter [facility] 04-08-2022 History of Presen t illness Narrative This consultation was requested by: Dr. Brittny So DO [address] [place] [address] regarding right knee pain. As you know, he is a 51 y.o. man who presents with pain in the right knee after falling off a roof seral years ago. Since that time he has had multiple surgeries to correct the broken bones. He has also had hardware infections. Currently he had his last TKR about 6 months ago. He has pain in the knee, tightness in the calf, and numbness in the toes. He was going to have a genicular block/RFA with another practice but has decided to go to a different doctor's office. He wants to do the procedure under monitored anesthesia or twilight because of a fear of needles. Of note, genicular blocks are currently approved under this other physician. He did not respond to gabapentin. I reviewed the OARRS report. Medication History: Current Outpatient Medications Medication Sig medicinal cannabis (MEDICINAL MARIJUANA) by Unknown route daily. meloxicam 15 MG tablet Take 1 tablet by mouth daily. Taltz 80 MG/ML Solution Auto-injector pregabalin (Lyrica) 50 MG capsule Take 1 capsule by mouth 3 times daily. Allergies: Allergies Allergen Reactions Ketamine Hallucination Other reaction(s): mental status change--aggession Other reaction(s): mental status change--aggession Past Medical History: Past Medical History: Diagnosis Date Arthritis Depression Psoriasis Sleep apnea Past surgical History: Past Surgical History: Procedure Laterality Date ARTHROPLASTY KNEE TOTAL Right 10/22/2021 Laterality: Right; Surgeon: Brittny So DO; Location: [facility] PERIOP INSERTION IMPLANT NONBIODEGRADABLE DRUG DELIVERY Right 12/20/2020 Laterality: Right; Surgeon: Brittny So DO; Location: [facility] MAIN OR KNEE SURGERY Right Dr Jayjay Reese/Vamsi frank Social History: Social History Socioeconomic History Marital status: Single Tobacco Use Smoking status: Former Smoker Years: 15.00 Types: Cigarettes Smokeless tobacco: Never Used Vaping Use Vaping Use: Former Substance and Sexual Activity Alcohol use: Yes Comment: sparingly Drug use: Yes Types: Marijuana Comment: daily Family History: Family History Problem Relation Age of Onset Aneurysm Neg Hx Bleeding or Clotting Problems Neg Hx Diabetes Neg Hx Heart Failure Neg Hx Dysrhythmia Neg Hx Myocardial Infarction Neg Hx Stroke Neg Hx Heart Disease - Other Neg Hx Hypertension Neg Hx Review of Systems Constitutional: Negative. Cardiovascular: Positive for leg swelling. Musculoskeletal: Positive for back pain and gait problem. Neurological: Positive for numbness. Negative for weakness. Hematological: Does not bruise/bleed easily. Psychiatric/Behavioral: Negative. Physical Examination: Constitutional: Alert and oriented. Well developed, without distress. Vital signs: Pulse 74 Temp 97.1 F (36.2 C) Ht 1.727 m (5' 8 ) Wt 129.7 kg (286 lb) SpO2 98% BMI 43.49 kg/m Smoking Status Former Smoker Cardiovascular: No peripheral edema noted. Pulmonary/Chest: Respirations are full and non labored. Chest wall without deformity. Skin: Skin is warm, dry and intact. No rash noted. No cyanosis or jaundice. Musculoskeletal: antalgic gait Neurological - alert, oriented, normal speech, no focal findings or movement disorder noted, moving all limbs purposefully Psychiatric: Mood, memory, affect and judgment normal. Diagnostic Studies: EXAM: XR KNEE RIGHT WITH BILATERAL STANDING 1 VIEW 4 VIEWS, 12/03/2021 13:32 PM COMPARISON: October 22, 2021 CLINICAL INDICATIONS: knee pain RELEVANT CLINICAL HISTORY: Z96.651:S/P total knee arthroplasty, right Lateral/sunrise of RIGHT knee, lateral with 30 mm calibration ball, with bilateral standing AP and Bilateral standing PA flexion view both with 30 mm calibration ball.; FINDINGS: 4 images obtained. Effusion: There is no joint effusion. Soft Tissue: There is soft tissue swelling. Bone: Similar-appearing postoperative changes in the proximal right tibia. No acute osseous abnormality. Joint: Status post right knee total arthroplasty. Hardware appears intact and stable in alignment. TibFib syndesmosis: The proximal tibiofibular syndesmosis is anatomically aligned. IMPRESSION IMPRESSION: Status post right knee total arthroplasty. Hardware appears intact. No acute osseous abnormality. Anterior soft tissue swelling. Labs: Lab Results Component Value Date SODIUM 135 10/23/2021 POTASSIUM 4.8 10/23/2021 CHLORIDE 105 10/23/2021 CO2 20 (L) 10/23/2021 BUN 18 10/23/2021 CREATSERUM 1.07 10/23/2021 GLUCOSE 138 (H) 10/23/2021 Discussion and Plan: ICD-10-CM 1. Intractable neuropathic pain of right knee M79.2 2. S/P total knee arthroplasty, right Z96.651 Guillermo has knee pain. He may have some nerve injury as well. We discussed geniculars, he would have to do it not under monitored anesthesia and contact his insurance company to see how to go about transfering the approval to us. He will consider if this is a realistic option for him. We will try lyrica today given his nonresponsiveness to gabapentin. FU with me through telehealth in 4 weeks Orders: Requested Prescriptions Signed Prescriptions Disp Refills pregabalin (Lyrica) 50 MG capsule 90 capsule 0 Sig: Take 1 capsule by mouth 3 times daily. Thank you very much for the referral of this very pleasant patient to [facility]. I look forward to working with him in the near future. documented in this encounter [facility] 04-08-2022 Instructions CANDIE Lanier - 04/08/2022 1:20 PM EDT 43499 is the CPT code for a genicular block. Call your insurance company and tell them you have this procedure approved with a certain doctor. You do not want to have this procedure done with this doctor. Ask them how you go about having this procedure approved to do with a different doctor. Call us if you would like us to do the procedure. If you do, let us know what your insurance company said. documented in this encounter [facility] 01-29-2022 History of Presen t illness Narrative Orthopaedic Joints Surgery Follow Up Note Date of Surgery: 10/22/21 Side: Right total knee arthroplasty Subjective: Patient states he continues to have isolated medial knee pain. It does not worsen with range of motion or activity. He says if he pushes it too hard, it sometimes worsens. Feels like an ache, but occasionally feels like a sharp knife is being taken to it. He denies any interval trauma. He was seen a few weeks ago and was advised to lighten up his activity level as he was doing heavy weight training. He reports continuing his weight training and walking. He walked nearly 10 miles a few days ago. There is numbness in the area as well that radiates down to the tips of the toes. The pain is unchanged from his previous visit. He reports swelling after a lot of activity, that resolves with rest. Denies other concerns with his incision. Physical Exam: Bilateral upper extremities are grossly intact in motor and sensory function on observation and do not appear to preclude the use of assistive device. Gait: normal Right Knee Exam: Incision is well healed Point tenderness to palpation at the level of the pes and the medial femoral condyl Range of Motion: 5-100 degrees Mild amount of widening on valgus stress. Otherwise Normal active ankle and toe motion, normal sensation to light touch in the superficial peroneal, deep peroneal, sural, saphenous, and tibial nerve distributions. Foot is well perfused Radiographs: No additional imaging obtained at today's encounter Assessment/Plan: - Overall, the patient is doing well post op - Believe his post-operative pain is likely related to over-activity - Counseled on the importance of modifying his activity as he can tolerate for pain - Will see him back in 3 months for re-evaluation - All of the patient's questions were answered, and they were in agreement with the plan of care. They were advised to call the office if they have any further questions or concerns. Jayjay Loomis MD Orthopaedic Surgery PGY2 IBrittny DO, performed the history and physical examination as documented above and have made the above assessment and plan for the patient. documented in this encounter [facility] 01-08-2022 History of Presen t illness Narrative Chief Complaint Patient presents with Right Knee - Follow-up 11 weeks and 1 day s/p R TKA 10/22/21. C/o knee popping when he goes to sit down and with knee flexion beyond 90 degrees. States he is improving otherwise. HPI: Guillermo returns for follow up of his right knee. The patient is s/p R TKA revision after complex history with an infection by Dr. So almost 3 months ago. The patient reports overall is he is better functionally but still experiencing pain and numbness/tingling in his leg. The pain is mostly located medially. The pain comes and goes. He notes no history of trauma or falls since we saw him last. He is presently taking tramadol daily. He is not taking any NSAIDs or nerve medications. He notes the numbness/tingling was present previously with his multiple other surgeries on his knee. The numbness/tingling starts on the knee and radiates into his foot. Past Medical History: Diagnosis Date Arthritis Depression Psoriasis Sleep apnea Current Outpatient Medications: meloxicam 15 MG tablet, Take 1 tablet by mouth daily., Disp: 30 tablet, Rfl: 0 [START ON 01/14/2022] traMADol 50 MG tablet, Take 1 tablet by mouth every 6 hours as needed for up to 7 days., Disp: 28 tablet, Rfl: 0 cyclobenzaprine 5 MG tablet, Take 1 tablet by mouth 3 times daily as needed for Muscle spasms., Disp: 21 tablet, Rfl: 0 gabapentin 300 MG capsule, Take 1 capsule by mouth 3 times daily., Disp: 90 capsule, Rfl: 0 medicinal cannabis (MEDICINAL MARIJUANA), by Unknown route daily., Disp: , Rfl: Past Surgical History: Procedure Laterality Date ARTHROPLASTY KNEE TOTAL Right 10/22/2021 Laterality: Right; Surgeon: Brittny So DO; Location: [facility] PERIOP INSERTION IMPLANT NONBIODEGRADABLE DRUG DELIVERY Right 12/20/2020 Laterality: Right; Surgeon: Brittny So DO; Location: [facility] MAIN OR KNEE SURGERY Right Dr Jayjay Reese/Vamsi frank Social History Socioeconomic History Marital status: Single Spouse name: Not on file Number of children: Not on file Years of education: Not on file Highest education level: Not on file Occupational History Not on file Tobacco Use Smoking status: Former Smoker Years: 15.00 Types: Cigarettes Smokeless tobacco: Never Used Vaping Use Vaping Use: Former Substance and Sexual Activity Alcohol use: Yes Comment: sparingly Drug use: Not on file Comment: daily and last one was yesturday Sexual activity: Not on file Other Topics Concern Not on file Social History Narrative Not on file Social Determinants of Health Financial Resource Strain: Not on file Food Insecurity: Not on file Transportation Needs: Not on file Physical Activity: Not on file Stress: Not on file Social Connections: Not on file Intimate Partner Violence: Not on file Housing Stability: Not on file Physical Examination: A./O. x3 in no apparent distress. The patient's gait shows a mild limp with a decreased stance phase on the operative extremity. The incision is clean, dry, intact, and has no signs of any redness or skin breakdown. The patient's range of motion is from 0 degrees of extension to 115 degrees of flexion. The knee is stable to varus stress in ext and flexion with an intact posterior drawer. The patient's neurovascular exam shows 5/5 strength in the EHL/tibialis anterior/gastroc of the right lower extremity. he has a palpable pulse in both the dorsalis pedis and posterior tibial artery of the operative extremity. The overall alignment of the extremity is neutral. The patient has dullness to sensation to light touch over his right lower leg. Strength in lower leg is very good, 5/5. Trace joint effusion. Radiographs: Previous right knee xrays reviewed and show intact total knee replacement without hardware failure A/P: S/p R TKA by Dr. So functionally doing well, I believe just having pain due to post op healing and possibly overdoing it at the gym with strength training -I discussed with Guillermo about decreasing his weights at the gym for 2-3 weeks, I feel like he might be overdoing it and his soft tissue isn't ready yet for the strength training he is doing -Recommend NSAIDs for pain control and adding neurontin to help with the nerve pain, I wrote him neurontin 300mg TID but discussed slow titration up including 1 tab daily for 3 days then increasing to 2 and 3 times a day as long as tolerated -we will get lab work today to rule out a possible infection concern -recommend follow up as scheduled with Dr. So, all questions were answered. Cecille Cuevas PA-C Department of Orthopaedics [facility] documented in this encounter [facility] 12-03-2021 History of Presen t illness Narrative Chief Complaint Patient presents with Right Knee - Follow-up Pt presents 6 weeks s/p R TKA 10/22/21. Denies increase in pain and swelling. Compliant with PT. C/o medial knee pain and soreness after walking for extended periods of time. HPI: 51 y.o. male status post right revision total knee arthroplasty approximately 6 weeks ago. Overall the patient is doing well this time. his pain is well controlled with oral pain medications. he is ambulating well with the assistance of a walker/cane. There were no complaints of shortness of breath, chest pain, nausea, vomiting, wound drainage, erythema, or wound dehiscence. The patient is overall pleased with his reconstruction. he completed 5 weeks of anticoagulation. They are currently taking Oxycodone, Mobic and Flexeril for pain medication. Denies new injuries or falls. Denies fever, chills, or night sweats. Physical exam: A./O. x3 in no apparent distress. The patient's gait shows a mild limp with a decreased stance phase on the operative extremity. The incision is clean, dry, intact, and has no signs of any redness or skin breakdown. The patient's range of motion is from 0 degrees of extension to 115 degrees of flexion. The knee is stable to varus stress in ext and flexion with an intact posterior drawer. The patient's neurovascular exam shows 5/5 strength in the EHL/tibialis anterior/gastroc of the right lower extremity. he has a palpable pulse in both the dorsalis pedis and posterior tibial artery of the operative extremity. The overall alignment of the extremity is neutral. X-ray interpretation:X-rays three views were taken and reviewed of the Right knee. This revealed a cemented revision total knee arthroplasty in good position alignment. No periprosthetic fracture, dislocation, or lesion. Assessment and plan: This is a 51 y.o. male status post right revision total knee arthroplasty overall doing well. 1. Continue physical therapy and home exercise program. 2. Pain control- Oxycodone, Mobic and Flexeril 3. D/C anticoagulation for DVT prophylaxis. 4. Discussed activities to continue and avoid, recommend increasing as tolerated. Dental antibiotics discussed to take prior to cleanings/procedures. 5. Follow up at 3 month post op appointment. Darrin Dimas PA-C Department of Orthopaedics [facility] documented in this encounter [facility] 10-16-2021 History of Presen t illness Narrative Chief Complaint Patient presents with Right Knee - Pain Pt c/o swelling and pain in R knee. States he has lost ~65lbs which has helped alleviate knee pain. Pt takes THC for pain. HPI: 51 year old male with history of right tibia osteomyelitis. He underwent arthrotomy of the right knee with placement of antibiotic estelle in intramedullary canal of the tibia in December 2020. He has continued to lose weight and is down approximately 25 lbs since last visit. He reports he is continuing to have global right knee pain, although pain has lessened with weight loss. He denies any right knee wound issues. He denies fevers or chills. He denies any new injuries to his right knee. Past Medical History: Diagnosis Date Arthritis Depression Psoriasis Sleep apnea Past Surgical History: Procedure Laterality Date INSERTION IMPLANT NONBIODEGRADABLE DRUG DELIVERY Right 12/20/2020 Laterality: Right; Surgeon: Brittny So DO; Location: [facility] MAIN OR KNEE SURGERY Right Dr Jayjay Reese/Vamsi frank Social History Socioeconomic History Marital status: Single Spouse name: Not on file Number of children: Not on file Years of education: Not on file Highest education level: Not on file Occupational History Not on file Tobacco Use Smoking status: Former Smoker Years: 15.00 Types: Cigarettes Smokeless tobacco: Never Used Vaping Use Vaping Use: Former Substance and Sexual Activity Alcohol use: Yes Comment: sparingly Drug use: Never Sexual activity: Not on file Other Topics Concern Not on file Social History Narrative Not on file Social Determinants of Health Financial Resource Strain: Not on file Food Insecurity: Not on file Transportation Needs: Not on file Physical Activity: Not on file Stress: Not on file Social Connections: Not on file Intimate Partner Violence: Not on file Housing Stability: Not on file Outpatient Medications Prior to Visit Medication Sig Dispense Refill medicinal cannabis (MEDICINAL MARIJUANA) by Unknown route daily. mupirocin (Bactroban Nasal) 2 % Ointment Intranasal Approximately 0.5 gram applied into each nostril twice daily for 5 days ( Please dispense regular generic mupirocin ointment if nasal ointment is not available or not covered by insurance ) 20 g 0 No facility-administered medications prior to visit. Allergies Allergen Reactions Ketamine Hallucination Other reaction(s): mental status change--aggession Other reaction(s): mental status change--aggession Physical Exam: Patient is alert and oriented x 3. He ambulates independently with a slight limp. Bilateral upper extremities are grossly intact to motor and sensory function. Right knee reveals well healed surgical scars. There is no erythema or skin breakdown. There is no significant effusion. He is mildly tender along the medial and lateral joint lines. Right knee ROM is approximately 0 to 115 degrees. He is able to perform a straight leg raise. He is neurovascularly intact distally with a warm and well perfused right foot. Imaging: Previous right knee imaging was reviewed. There are posttraumatic changes of the right tibia with antibiotic estelle within IM canal. Osteoarthritic changes of the right knee. Assessment: 1. History of osteomyelitis right tibia 2. Right knee osteoarthritis Plan: We had a discussion about total knee replacement. All risks of surgery were discussed, including but not limited to: pain, infection, bleeding, scar, stiffness, neurovascular injury, blood loss, need for transfusion, instability/dislocation, leg length discrepancy, malalignment, loosening, implant failure, fracture, thromboembolic event, fat emboli syndrome, risks of anesthesia (cardiopulmonary events, ), and need for further surgery. Patient understands his increased risk for infection given his history. Recent ESR, CRP in his pre-operative work up indicate low likelihood of ongoing infection. An aspiration of the right knee was attempted in the office. Fluid was unable to be obtained utilizing multiple sites. Patient consented to a right total knee arthroplasty, removal of antibiotic estelle, possible antibiotic spacer. We will proceed with this as scheduled next week. All of the patient's questions were answered, and they were in agreement with the plan of care. They were advised to call the office if they have any further questions or concerns. Esdras Melendez PA-C Department of Orthopaedics [facility] documented in this encounter [facility] 06-18-2020 Note Orthopedic Discharge Summary Name: Guillermo Siddiqi ; 1970 Age: 49 y.o. Gender: male Weight: Weight: (!) 325 lb (147.4 kg) Attending Physician: Jayjay Reese MD Admit Date:06/11/2020 Discharge Diagnosis: Right Knee Infected Hardware, Right Knee Septic Arthritis, Large Posteromedial right thigh abscess Discharge Date: 06/18/2020 Brief history of injury/present illness: Guillermo is a 49 y.o. male with right knee/leg pain who presented for operative treatment. Risks, benefits, alternatives to surgery were discussed with the family who elected to proceed. Pertinent physical findings: -Tenderness to palpation about medial knee -Warmth and swelling about the medial knee -Pain with ROM of the knee -Diminished SP/DP nerve distribution Surgeries/Procedures: 06/12: -Removal of hardware right lateral tibia and right medial tibia -Arthrotomy right knee -I&D right deep medial thigh abscess -Insertion of Antibiotic cement beads 06/14: -Repeat I&D right leg wounds -Removal of antibiotic impregnated cement beads -Delayed closure Hospital Course: The patient was admitted for right knee pain. After undergoing the above procedure without complications, the patient recovered well in PACU. The patient progressed with physical therapy and met all goals prior to discharge. The patient was tolerating a diet and had their pain controlled prior to discharge. The patient was d/c in stable condition. Home going medications: Guillermo Siddiqi Home Medication Instructions RAJI:[id number] Printed on:06/30/20 1025 Medication Information acetaminophen (TYLENOL) 500 MG tablet Take 2 tablets by mouth 3 times daily as needed for Pain aspirin 325 MG EC tablet Take 1 tablet by mouth daily ERTAPENEM SODIUM IV Infuse 1 g intravenously every 24 hours ibuprofen (ADVIL;MOTRIN) 600 MG tablet Take 1 tablet by mouth 3 times daily as needed for Pain Discharged to: Home Condition at discharge: Stable Discharge Instructions: 1. Weight bearing status: NWB RLE in knee immobilizer 2. Pain control per above medications 3. Discharge instructions provided 4. Ice/elevate x 48hrs then PRN thereafter; never more than 20 min at a time 5. Follow-up instructions provided. Advised to follow-up with Dr. Reese Plan of care discussed w/ patient and family who understood and agreed with the plan. At this time they have no additional questions. We discussed that if the patient develops any increased pain, redness, swelling, fevers or any other symptoms that are concerning to the patient or family they should immediately return to the emergency department or contact the office of Dr. Reese. Tadeo Bean MD PGY-1 Orthopedic Surgery Pager [phone] [facility]P revision of total knee, right- [facility] S/P total knee arthroplasty, right [facility] S/P total knee arthroplasty, right- Primary Post-op pain Other acute postoperative pain documented in this [facility] [place] [facility] Diagnosis S/P total knee arthroplasty, right- Primary Infection and inflammatory reaction due to internal fixation device of right tibia, initial encounter [facility] Diagnosis Intractable neuropathic pain of right knee- Primary S/P total knee arthroplasty, right [facility] Diagnosis S/P knee surgery Other postprocedural status [facility] Diagnosis S/P knee surgery- Primary Other postprocedural status S/P knee surgery Other postprocedural status [facility] Diagnosis Intractable neuropathic pain of right knee [facility] Diagnosis Intractable neuropathic pain of right knee- Primary [facility] Diagnosis S/P total knee arthroplasty, right- Primary Intractable neuropathic pain of right knee [facility] Diagnosis S/P total knee arthroplasty, right- Primary [facility] Diagnosis Chronic pain of right knee- Primary History of total right knee replacement (TKR) [facility] SUSIE (obstructive sleep apnea)- Primary Obstructive sleep apnea (adult) (pediatric) Anxiety neurosis Anxiety state, unspecified Class 3 severe obesity without serious comorbidity with body mass index (BMI) of 45.0 to 49.9 in adult, unspecified obesity type (HCC) documented in this encounter [facility] for referral (narrative)* Consultation (Routine) - New Request Specialty Diagnoses / Procedures Referred By Contac t Referred To Contact Multispecialty Diagnoses S/P total knee arthroplasty, right Infection and inflammatory reaction due to internal fixation device of right tibia, initial encounter Brittny So DO [address] [place] [address] Referral ID Status Reason Start Date Expiration Date V isits Requested Visits Authorized [id number] New Request 01/29/2022 02/23/2023 1 1 [facility] Discharge Instructions * Discharge Instr - Lab* Izzy Serrato RN - 06/17/2020 10:58 AM EST Your physician has ordered skilled home care services for you. Your home care will be provided by: [facility] [phone] * Additional Instructions* Sav Maki PA-C - 06/14/2020 General Orthopedic Discharge Instructions The following instructions have been prepared to help you when you leave the hospital. These guidelines are for the post-surgery period. Activity: Ease into normal activity as tolerated. Medications: see medication instructions. Please be sure to read and understand the information provided by your pharmacy. Ask your Pharmacist if any questions. Wound Care and Hygiene: -Wash hands before touching or changing dressings -Do Not touch incision -Leave dressing until post-op day 2 and reapply dressing if wound is draining. If wound is dry, youmay leave dressing off -May shower starting post-op day 3 Call Your Doctor for: -Excessive bleeding/swelling of incision -Fever with temperature above 100 F Anesthesia Precautions: -Do Not operate any vehicle (automobile, bicycle, motorcycle) or power tools for 24 hours -Do Not drink alcoholic beverages for 24 hours -As precaution to prevent post-operative nausea and vomiting, start your diet with liquids, then progress to light foods. If tolerated, resume normal diet. Additional Instructions: -Weight bearing status: Non weightbearing with right leg. -Wear your knee immobilizer when transferring. It can be removed at rest -Ice/elevate extremity -Continue PT -Blood clot prevention: aspirin daily -Pain control: Alternate Tylenol and Ibuprofen every 4 hours. For example, take Tylenol at 7am and Ibuprofen at 11am. Then take Tylenol at 3pm and Ibuprofen at 7pm. Take Oxycodone for breakthrough pain only. Contact your surgeon's office (Dr. Reese), to set up an appointment in 2 weeks, or if you have anyproblems or questions. documented in this encounter History of Present Illness * Gali Escalante DTR - 06/18/2020 1:00 PM EST Nutrition update completed. Chart reviewed. Patient to be monitored and followed by the diet tattoo technician. * Kassandra Kelly RN - 06/18/2020 12:00 PM EST Patient received medications through meds to beds yesterday and has them at the bedside. Discharge paperwork gone over with patient included wound care instructions and any limitations. Patient verbally understood all teaching. * Esdras Campo MD - 06/18/2020 6:14 AM EST Department of Orthopedic Surgery Progress Note SUBJECTIVE: ready to DC today. Has a ride available OBJECTIVE: General: in no acute distress VITALS: BP 102/62 Pulse 85 Temp 98.8 F (37.1 C) (Temporal) Resp 14 Ht 5' 8 (1.727 m) Wt (!) 325 lb (147.4 kg) SpO2 93% BMI 49.42 kg/m MSK exam: +DF/EHL/PF SILT +pulses Knee immobilizer intact Dressings CDI Labs: CBC: Lab Results Component Value Date WBC 10.6 06/17/2020 RBC 3.68 06/17/2020 HGB 10.6 06/17/2020 HCT 32.6 06/17/2020 MCV 88.7 06/17/2020 MCH 28.8 06/17/2020 MCHC 32.5 06/17/2020 RDW 14.2 06/17/2020 PLT 348 06/17/2020 MPV 7.1 06/17/2020 ASSESSMENT AND PLAN: A/P: This is a 49 y.o. male s/p I&D+TALITA+vac on 06/12 and Rpt I&D with closure on 06/14: NWB RLE in Knee immobilizer Abx per ID PT/OT Ice/elevate DC today * Remy Parr DO - 06/17/2020 2:32 PM EST [facility] - Infectious Diseases Attending Progress Note Subjective: Following for R tibial fracture and abscess s/p hardware removal. Reviewed interim history and available chart/notes/labs and studies. Patient underwent 06-14-2020 repeat I&D and delayed complex closure. PICC placed and ready to go. Objective: Vitals: BP 98/61 Pulse 75 Temp 98.7 F (37.1 C) (Temporal) Resp 18 Ht 5' 8 (1.727 m) Wt (!) 325 lb (147.4 kg) SpO2 100% BMI 49.42 kg/m Intake/Output Summary (Last 24 hours) at 06/17/2020 1432 Last data filed at 06/17/2020 0519 Gross per 24 hour Intake Output 95 ml Net -95 ml Physical Exam Constitutional: General: He is not in acute distress. Appearance: Normal appearance. He is well-developed. He is obese. He is not ill- appearing or diaphoretic. HENT: Head: Normocephalic and atraumatic. Right Ear: Ear canal and external ear normal. Left Ear: Ear canal and external ear normal. Nose: Nose normal. Mouth/Throat: Mouth: Mucous membranes are moist. Pharynx: Oropharynx is clear. No oropharyngeal exudate. Eyes: General: No scleral icterus. Right eye: No discharge. Left eye: No discharge. Conjunctiva/sclera: Conjunctivae normal. Pupils: Pupils are equal, round, and reactive to light. Neck: Musculoskeletal: Normal range of motion and neck supple. No neck rigidity or muscular tenderness. Thyroid: No thyromegaly. Trachea: Trachea normal. No tracheal deviation. Cardiovascular: Rate and Rhythm: Normal rate and regular rhythm. Heart sounds: No murmur. Pulmonary: Effort: Pulmonary effort is normal. No respiratory distress. Breath sounds: Normal breath sounds. No wheezing or rales. Abdominal: General: Abdomen is flat and protuberant. Bowel sounds are normal. There is no distension. Palpations: Abdomen is soft. There is no hepatomegaly or splenomegaly. Tenderness: There is no abdominal tenderness. Hernia: No hernia is present. Musculoskeletal: General: Swelling and tenderness present. No deformity (R knee post-op). Right lower leg: Edema present. Left lower leg: Edema present. Skin: General: Skin is warm. Findings: No erythema or rash. Neurological: Mental Status: He is lethargic. Labs: Component Value Date/Time NA 137 06/17/2020 0023 K 4.2 06/17/2020 0023 CL 105 06/17/2020 0023 CO2 27 06/17/2020 0023 BUN 11 06/17/2020 0023 CREATININE 0.90 06/17/2020 0023 GLUCOSE 70 06/17/2020 0023 CALCIUM 8.2 (L) 06/17/2020 0023 PROCAL <0.10 05/10/2019 0204 Component Value Date/Time WBC 10.6 06/17/2020 0023 HGB 10.6 (L) 06/17/2020 0023 HCT 32.6 (L) 06/17/2020 0023 PLT 348 06/17/2020 0023 GRANULOCYTES 70.3 06/11/2020 1306 LYMPHOPCT 18.2 (L) 06/11/2020 1306 MONOPCT 1 06/11/2020 1703 LABEOS 0.3 (L) 06/11/2020 1306 BASOPCT 0.4 06/11/2020 1306 NEUTROABS 8.4 (H) 06/11/2020 1306 Micro: Blood cultures: Lab Results Component Value Date BC No growth at 5 days. 06/12/2020 BC No growth at 5 days. 06/12/2020 All cultures so far negative Reviewed all relevant labs and microbiology data. Lines: PICC 53 cm L basilic vein 06-14-2020 Radiography/Echo/Other: Reviewed Antimicrobials, Start/End Dates: Ertapenem Impression: 1. 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 S/P I&D and hardware removal 06-12-2020 3. Prior R tibial fracture 2019 required external fixator then ORIF Plan: 1. Planning a course of ertapenem through 07-26-2020 2. CoPAT in chart 3. OK to DC once all is set up 4. Follow-up with ct - Virtual Visit planned (lives in [place] transportation issue) Will sign-off please call with questions Pager: [phone] * Katherin Mejia, WIENER PACKER - 06/17/2020 11:23 AM EST Physical Therapy Facility/Department: [facility] TELE[facility] Daily Treatment Note NAME: Guillermo HAYWOOD: 1970 Date of Service: 06/17/2020 Discharge Recommendations: IP Rehab Assessment Body structures, Functions, Activity limitations: Decreased functional mobility ;Decreased strength;Decreased ADL status;Decreased safe awareness;Decreased ROM;Increased pain Assessment: Pt precert for updated PT note. Pt present with the above deficits and overall SBA. Educated pt on how KI should be donned, readjusted pt required mod assist. Pt impulsive, no LOB with gait. Rec rehab upon discharge for strengthening and endurance. REQUIRES PT FOLLOW UP: Yes Activity Tolerance Activity Tolerance: Patient Tolerated treatment well Patient Diagnosis(es): The encounter diagnosis was Infected hardware in right leg, initial encounter (HCC). has a past medical history of Headache disorder, Heartburn, and Tobacco use. has a past surgical history that includes Femur fracture surgery (Right, 05/09/2019); other surgical history (Right, 05/12/2019); other surgical history (Right, 06/12/2020); and Femur Debridement (Right, 06/14/2020). Restrictions Restrictions/Precautions Restrictions/Precautions: Weight Bearing, Fall Risk Required Braces or Orthoses?: Yes Lower Extremity Weight Bearing Restrictions Right Lower Extremity Weight Bearing: Non Weight Bearing Required Braces or Orthoses Right Lower Extremity Brace: Knee Immobilizer Position Activity Restriction Other position/activity restrictions: Per chart review HOLD knee ROM Subjective General Chart Reviewed: Yes Additional Pertinent Hx: Feel from roof with R LE fx and surgical repair 05/08. Developed infecion had multiple I & Ds with closure on 06/14. NWB R LE in immobilizer. Wound vac placement. Family / Caregiver Present: No Subjective Subjective: Pt in bed, HOB elevated and agreeable to PT. Pt states they just removed wound vac. General Comment Comments: Pt precert for updated PT n ote. *This WIENER PACKER wore N95, gloves and goggles throughout pt encounter. Pain Screening Patient Currently in Pain: Denies Objective Bed mobility Supine to Sit: Supervision Scooting: Modified independent Comment: HOB elevated. Uses UE to help assist RLE to EOB. Mildly impulsive Transfers Sit to Stand: Stand by assistance Stand to sit: Stand by assistance Comment: x2, cues for hand placement. EOB and chair. Pt impulsive, compliant with NWB RLE. Ambulation Ambulation?: Yes WB Status: NWB R LE in immobilizer Ambulation 1 Surface: level tile Device: Rolling Walker Assistance: Stand by assistance Gait Deviations: Slow Luci;Decreased step length;Decreased step height Distance: 25ft Comments: No LOB, mildly impulsive. Compliant with NWB RLE. Stairs/Curb Stairs?: Yes Stairs # Steps : 1 Stairs Height: 2 Rails: None Device: Rolling walker Assistance: Stand by assistance Comment: 1 step up/down Balance Comments: sitting at EOB, educated pt on how to adjust KI, mod assist for KI, supervision for balance. Exercises Quad Sets: x 10 reps Gluteal Sets: x 10 reps Ankle Pumps: x 10 reps each AM-PAC Score Goals Short term goals Time Frame for Short term goals: 2 wks Short term goal 1: Pt will complete bed mobility tasks supv.; progressing Short term goal 2: Transfer from all surfaces supv in prep for gait.; progressing Short term goal 3: Pt will amb 25' with AD supv NWB R LE without LOB.; progressing Short term goal 4: UP/down 2 steps with no rail min A for home entry.; progressing Patient Goals Patient goals : to be able to get on and off a toilet Plan Plan Times per week: 5-7x/wk Plan weeks: 2 wks Current Treatment Recommendations: Strengthening, Functional Mobility Training, Transfer Training, Balance Training, Stair training, Gait Training, Safety Education & Training, Patient/Caregiver Education & Training Safety Devices Type of devices: Call light within reach, Nurse notified, Patient at risk for falls, Gait belt, Left in chair Restraints Initially in place: No Therapy Time Individual Concurrent Group Co-treatment Time In 1058 Time Out 1123 Minutes 25 Timed Code Treatment Minutes: 25 Minutes(gait; fa) Katherin Mejia PTA * Diogo Gaines MD - 06/17/2020 6:53 AM EST Department of Orthopedic Surgery Progress Note SUBJECTIVE: doing well. No issues. States that he ideally wants to go home OBJECTIVE: General: in no acute distress VITALS: BP 98/61 Pulse 75 Temp 98.7 F (37.1 C) (Temporal) Resp 18 Ht 5' 8 (1.727 m) Wt (!) 325 lb (147.4 kg) SpO2 100% BMI 49.42 kg/m MSK exam: +DF/EHL/PF SILT +pulses Knee immobilizer intact Incisional vac intact - no output Drains removed today Dressings CDI Labs: CBC: Lab Results Component Value Date WBC 10.6 06/17/2020 RBC 3.68 06/17/2020 HGB 10.6 06/17/2020 HCT 32.6 06/17/2020 MCV 88.7 06/17/2020 MCH 28.8 06/17/2020 MCHC 32.5 06/17/2020 RDW 14.2 06/17/2020 PLT 348 06/17/2020 MPV 7.1 06/17/2020 ASSESSMENT AND PLAN: A/P: This is a 49 y.o. male s/p I&D+TALITA+vac on 06/12 and Rpt I&D with closure on 06/14: NWB RLE in Knee immobilizer Abx per ID PT/OT Incisional vac until discharge Ice/elevate dispo pending PT recommendations Qi Santos RCP - 06/16/2020 9:47 PM [facility] Respiratory Care Department Progress Note Patient was seen in attempts to fulfill CPAP/BiPAP/AutoPAP order. Patient refused PAP therapy/studyat this time. Patient was educated on medical need and reasoning for physician order to ensure patient was making an informed medical decision. All of the patient's questions were answered at this time and patient was informed that if the patient changes their mind regarding wearing PAP to hit their call light or inform their nurse to contact Respiratory. A second, consecutive night of refusing PAP therapy/study results in order completion in the EMR. If future CPAP/BiPAP/AutoPAP therapy or study is indicated please place another order in the EMR and the assigned Respiratory Therapist will reattempt to fulfill orders. Comment or reasoning for refusal: Pt stated he is waiting for formal sleep study, unable to tolerate hospital units. 2nd night refusal, order to be completed per protocol. Thank you for involving Respiratory in the care of this patient, * Aurora Mckeon, OT - 06/16/2020 10:36 AM EST Occupational Therapy Occupational Therapy Initial Assessment Date: 06/16/2020 Patient Name: Guillermo Siddiqi : 1970 Date of Service: 06/16/2020 Discharge Recommendations: IP Rehab OT Equipment Recommendations Equipment Needed: Yes Mobility Devices: ADL Assistive Devices ADL Assistive Devices: Transfer Tub Bench;Shower Chair with back Other: Continue to assess; pt with walk in and tub/shower combo. Pt w/ grab bars around tub/shower combo and not walk-in shower. Cont to assess tub bench vs shower chair w/ back Assessment Performance deficits / Impairments: Decreased functional mobility ;Decreased endurance;Decreased coordination;Decreased ADL status;Decreased sensation;Decreased posture;Decreased ROM;Decreased balance;Decreased strength;Decreased vision/visual deficit;Decreased high-level IADLs;Decreased safe awareness Assessment: OT eval complete. Pt with significant medical history, currently NWB RLE with knee immobilizer. Baseline pt lives with 92yo father in single story home with walk in and tub/shower. No ADLadaptive equipment at home. Pt requiring assist for basic ADLs today and fair safety awareness withFWW. Pt verbalizing if he went home, he would rest for a few weeks and just lay in bed . OT educated pt on importance of mobility for strength and participation. Pt agreeable to rehab, Recommend IP Rehab for functional strength, endurance, and adaptive strategies prior to d/c home Prognosis: Good Decision Making: Medium Complexity OT Education: OT Role;Plan of Care;Equipment;Precautions;Transfer Training;ADL Adaptive Strategies;IADL Safety REQUIRES OT FOLLOW UP: Yes Activity Tolerance Activity Tolerance: Patient limited by pain;Patient limited by fatigue Safety Devices Safety Devices in place: Yes Type of devices: Left in bed;Nurse notified;Call light within reach;Patient at risk for falls;Gait belt Patient Diagnosis(es): The encounter diagnosis was Infected hardware in right leg, initial encounter (HCC). has a past medical history of Headache disorder, Heartburn, and Tobacco use. has a past surgical history that includes Femur fracture surgery (Right, 05/09/2019); other surgical history (Right, 05/12/2019); other surgical history (Right, 06/12/2020); and Femur Debridement (Right, 06/14/2020). Restrictions Restrictions/Precautions Restrictions/Precautions: Weight Bearing, Fall Risk Required Braces or Orthoses?: Yes Lower Extremity Weight Bearing Restrictions Right Lower Extremity Weight Bearing: Non Weight Bearing Required Braces or Orthoses Right Lower Extremity Brace: Knee Immobilizer Position Activity Restriction Other position/activity restrictions: Per chart review HOLD knee ROM Subjective General Chart Reviewed: Yes Patient assessed for rehabilitation services?: Yes Subjective Subjective: pt in bed upon OT arrival. Anxious re: participating w/ woung vac, drains, and IV lines. Required aide to reassure pt Patient Currently in Pain: Yes Pain Assessment Pain Level: 7 Pain Type: Surgical pain Pain Location: Leg;Knee Pain Orientation: Right Pain Descriptors: Aching Non-Pharmaceutical Pain Intervention(s): Emotional support;Elevation;Rest Pre Treatment Pain Screening Intervention List: Patient able to continue with treatment;Nurse/Physician notified Vital Signs Patient Currently in Pain: Yes Social/Functional History Social/Functional History Lives With: Family(92 yo father) Type of Home: House Home Layout: One level Home Access: Stairs to enter without rails Entrance Stairs - Number of Steps: 2 Bathroom Shower/Tub: Walk-in shower, Tub/Shower unit Bathroom Toilet: Standard Bathroom Equipment: Grab bars in shower, Hand-held shower Bathroom Accessibility: Accessible Home Equipment: Rolling walker, Standard walker, Cane Receives Help From: Family ADL Assistance: Independent Homemaking Assistance: Independent Homemaking Responsibilities: Yes Ambulation Assistance: Independent Transfer Assistance: Independent Active Operations Agent: Yes Mode of Transportation: Car 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 Observation: Very figidity constant moving R toes/ankle and L LE. Body Mechanics: impulsive, fair safety awareness of lines/drains Balance Sitting Balance: Independent Standing Balance: Stand by assistance Standing Balance Time: 2 min Activity: wash hands at sink Comment: SBA - assist w/ lines Toilet Transfers Toilet - Technique: Ambulating Equipment Used: Standard toilet Toilet Transfer: Minimal assistance ADL Toileting: Stand by assistance Additional Comments: toileting routine on toilet with SBA. requested total assist for pericare. OT encouraged pt to attempt to complete independently to assess home-going success and ability. Pt required verbal cues for sequencing and initiation of task however able to complete. pt reports he oftendoes not complete this at home and was considering a bidet Bed mobility Supine to Sit: Supervision Sit to Supine: Supervision Scooting: Supervision Transfers Sit to stand: Stand by assistance Stand to sit: Stand by assistance Cognition Overall Cognitive Status: WFL Sensation Overall Sensation Status: WFL(WFL BUEs) LUE AROM (degrees) LUE AROM : WFL RUE AROM (degrees) RUE AROM : WFL LUE Strength L Hand General: 4/5 RUE Strength R Hand General: 4/5 Plan Plan Times per week: 3-5 Plan weeks: 2 Current Treatment Recommendations: Strengthening, Patient/Caregiver Education & Training, Home Management Training, Equipment Evaluation, Education, & procurement, Balance Training, Functional Mobility Training, Positioning, Endurance Training, Pain Management, Cognitive/Perceptual Training, Safety Education & Training, Self-Care / ADL Plan Comment: bring leg lift Goals and/or treatment plan was established in collaboration with patient/family/other representatives. Patient's Occupational Therapy Plan of Care supervision is transferred to [facility] Occupational Therapist. AM-PAC Score AM-PAC Inpatient Daily Activity Raw Score: 15 (06/16/20 1030) AM-PAC Inpatient ADL T-Scale Score : 34.69 (06/16/20 1030) ADL Inpatient CMS 0-100% Score: 56.46 (06/16/20 1030) ADL Inpatient CMS G-Code Modifier : CK (06/16/201029) Goals Short term goals Time Frame for Short term goals: 2 weeks Short term goal 1: LB dressing modified independence Short term goal 2: good safety with FWW through ADL completion Short term goal 3: dynamic standing balance w/ supervision to complete ADLs Patient Goals Patient goals : get stronger Therapy Time Individual Concurrent Group Co-treatment Time In 0840 Time Out 0925 Minutes 45 Timed Code Treatment Minutes: 25 Minutes(2 self care) Aurora Mckeon OT * Solitario Ewing MD - 06/16/2020 7:53 AM EST Department of Orthopedic Surgery Progress Note SUBJECTIVE: doing well. No issues. OBJECTIVE: General: in no acute distress VITALS: BP 118/68 Pulse 76 Temp 98.2 F (36.8 C) (Temporal) Resp 18 Ht 5' 8 (1.727 m) Wt (!) 325 lb (147.4 kg) SpO2 97% BMI 49.42 kg/m MSK exam: +DF/EHL/PF SILT +pulses Knee immobilizer intact Incisional vac intact Drains 90 and 70 cc output in both --> left intact. Dressings CDI Labs: CBC: Lab Results Component Value Date WBC 8.8 06/16/2020 RBC 3.38 06/16/2020 HGB 9.8 06/16/2020 HCT 29.8 06/16/2020 MCV 88.2 06/16/2020 MCH 29.1 06/16/2020 MCHC 33.0 06/16/2020 RDW 14.1 06/16/2020 PLT 313 06/16/2020 MPV 7.1 06/16/2020 ASSESSMENT AND PLAN: A/P: This is a 49 y.o. male s/p I&D+TALITA+vac on 06/12 and Rpt I&D with closure on 06/14: NWB RLE in Knee immobilizer Abx per ID PT/OT Incisional vac until discharge Ice/elevate dispo P * Brandon Thacker RCP - 06/15/2020 11:06 PM EST [facility] Respiratory Care Department Progress Note Patient was seen in attempts to fulfill CPAP/BiPAP/AutoPAP order. Patient refused PAP therapy/studyat this time. Patient was educated on medical need and reasoning for physician order to ensure patient was making an informed medical decision. All of the patient's questions were answered at this time and patient was informed that if the patient changes their mind regarding wearing PAP to hit their call light or inform their nurse to contact Respiratory. A second, consecutive night of refusing PAP therapy/study results in order completion in the EMR. If future CPAP/BiPAP/AutoPAP therapy or study is indicated please place another order in the EMR and the assigned Respiratory Therapist will reattempt to fulfill orders. Comment or reasoning for refusal: Pt stated he is not feeling any benefit from wearing autopap at this time. Said he is supposed to have an outpatient assessment/sleep study formally done and he willwait for that. Thank you for involving Respiratory in the care of this patient, * Saima Tomas, PT - 06/15/2020 10:58 AM EST Physical Therapy Facility/Department: [facility] TELEMETRY Initial Assessment NAME: Guillermo Siddiqi : 1970 Date of Service: 06/15/2020 Discharge Recommendations: IP Rehab PT Equipment Recommendations Other: TBD Assessment Body structures, Functions, Activity limitations: Decreased functional mobility ;Decreased strength;Decreased ADL status;Decreased safe awareness;Decreased sensation;Decreased ROM;Decreased balance;Increased pain Assessment: Pt presents with above deficits s/p multiple I and D on R LE. He is primarily limited by NWB R LE status with LE ROM restricted in knee immobilizer. He requires min A for mobility tasks and demonstrates with increased fall risk. Recommend facility based therapy as pt has multiple steps at home and is not amb functional distances at this time. Treatment Diagnosis: difficulty walking. Prognosis: Good Decision Making: Medium Complexity PT Education: Precautions;General Safety;PT Role;Home Exercise Program;Weight- bearing Education;Transfer Training REQUIRES PT FOLLOW UP: Yes Activity Tolerance Activity Tolerance: Patient Tolerated treatment well Patient Diagnosis(es): The encounter diagnosis was Infected hardware in right leg, initial encounter (HCC). has a past medical history of Headache disorder, Heartburn, and Tobacco use. has a past surgical history that includes Femur fracture surgery (Right, 05/09/2019); other surgical history (Right, 05/12/2019); other surgical history (Right, 06/12/2020); and Femur Debridement (Right, 06/14/2020). Restrictions Restrictions/Precautions Restrictions/Precautions: Weight Bearing, Fall Risk(amb with assist) Required Braces or Orthoses?: Yes Lower Extremity Weight Bearing Restrictions Right Lower Extremity Weight Bearing: Non Weight Bearing(in knee immobilizer) Required Braces or Orthoses Right Lower Extremity Brace: Knee Immobilizer Position Activity Restriction Other position/activity restrictions: Per chart review HOLD knee ROM Vision/Hearing Vision: Impaired Vision Exceptions: Wears glasses at all times Hearing: Within functional limits Subjective General Chart Reviewed: Yes Patient assessed for rehabilitation services?: Yes Additional Pertinent Hx: Feel from roof with R LE fx and surgical repair 05/08. Developed infecion had multiple I & Ds with closure on 06/14. NWB R LE in immobilizer. Wound vac placement. Response To Previous Treatment: Not applicable Family / Caregiver Present: No Follows Commands: Within Functional Limits General Comment Comments: RN approved pt for PT eval. Multiple drains, wound vac, IV. Subjective Subjective: Pt reclined in bed and agreeable to therapy. Reports hypersensitivity in R foot and states it feel more normal than it has in the past. Pain Screening Patient Currently in Pain: Yes Pain Assessment Pain Assessment: 0-10 Pain Level: 3 Pain Type: Surgical pain Pain Location: Leg Pain Orientation: Right Vital Signs Patient Currently in Pain: Yes Orientation Orientation Overall Orientation Status: Within Functional Limits Social/Functional History Social/Functional History Lives With: Family Type of Home: House Home Layout: One level Home Access: Stairs to enter without rails Entrance Stairs - Number of Steps: 2 Bathroom Shower/Tub: Walk-in shower Bathroom Toilet: Standard Bathroom Equipment: Grab bars in shower, Hand-held shower Bathroom Accessibility: Accessible Home Equipment: Rolling walker, Standard walker, Cane Receives Help From: Family ADL Assistance: Independent(Reports he just needs supv assist since surgery on 05/08) Homemaking Assistance: Independent(dad does cooking tasks.) Homemaking Responsibilities: Yes Ambulation Assistance: Independent(Was originally using FWW after 05/08 surgery but able to progressto no AD most recently.) Transfer Assistance: Independent Active Operations Agent: Yes Mode of Transportation: Car 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 Observation: Very figidity constant moving R toes/ankle and L LE. AROM RLE (degrees) RLE General AROM: R hip and knee NT, R ankle WFL AROM LLE (degrees) LLE AROM : WFL AROM RUE (degrees) RUE AROM : WFL AROM LUE (degrees) LUE AROM : WFL Strength RLE Comment: NT Strength LLE Strength LLE: WFL Strength RUE Strength RUE: WFL Strength LUE Strength LUE: WFL Tone RLE RLE Tone: Normotonic Tone LLE LLE Tone: Normotonic Motor Control Gross Motor?: WFL(Very abrupt with mobility tasks) Sensation Overall Sensation Status: Impaired Light Touch: Partial deficits in the RLE Bed mobility Supine to Sit: Minimal assistance Sit to Supine: Minimal assistance Scooting: Modified independent(supine with use of bed rail) Comment: Min A with R LE only during bed mobility tasks. Transfers Sit to Stand: Minimal Assistance Stand to sit: Contact guard assistance Comment: Maintains NWB will during transfer tasks. Very quick with mvmt relying on momentum to assist with transfer tasks. Ambulation Ambulation?: Yes WB Status: NWB R LE in immobilizer More Ambulation?: No Ambulation 1 Surface: level tile Device: Rolling Walker Assistance: Minimal assistance Quality of Gait: Consistently able to maintain NWB on R LE. Has difficulty with walker management due to wheels. Distance: 5' Comments: Consider trial of std walker as pt states he was using at home. Stairs/Curb Stairs?: No Balance Posture: Good Sitting - Static: Good Sitting - Dynamic: Fair;+ Standing - Static: Fair Standing - Dynamic: Fair;- Exercises Quad Sets: L only x15 Heelslides: L only x15 Gluteal Sets: 15x Hip Abduction: long sitting L only x10 Ankle Pumps: bilat x 10L , 15 R Plan Plan Times per week: 5-7x/wk Plan weeks: 2 wks Current Treatment Recommendations: Strengthening, Functional Mobility Training, Transfer Training, Balance Training, Stair training, Gait Training, Safety Education & Training, Patient/Caregiver Education & Training Safety Devices Type of devices: Call light within reach, Left in bed, Nurse notified, Patient at risk for falls, Gait belt Restraints Initially in place: No G-Code OutComes Score AM-PAC Score AM-PAC Inpatient Mobility Raw Score : 16 (06/15/20 1031) AM-PAC Inpatient T-Scale Score : 40.78 (06/15/20 1031) Mobility Inpatient CMS 0-100% Score: 54.16 (06/15/20 1031) Mobility Inpatient CMS G-Code Modifier : CK (06/15/201030) Goals Short term goals Time Frame for Short term goals: 2 wks Short term goal 1: Pt will complete bed mobility tasks supv. Short term goal 2: Transfer from all surfaces supv in prep for gait. Short term goal 3: Pt will amb 25' with AD supv NWB R LE without LOB. Short term goal 4: UP/down 2 steps with no rail min A for home entry. Patient Goals Patient goals : to be able to get on and off a toilet Therapy Time Individual Concurrent Group Co-treatment Time In 0950 Time Out 1027 Minutes 37 Timed Code Treatment Minutes: 10 Minutes(TP) Pt's physical therapy POC supervision is transferred to [facility] Re[facility] Dept Physical Therapist. PT wearing proper PPE and eye protection during eval/treat. Saima Tomas PT * Alden MelizaARMAAN - MACHINE PROGRAMMER - 06/15/2020 8:34 AM EST PAGING: The Acute Pain Service providers are available by pager. Please reference [facility] and/or [facility] Phonebook for Pain Management Provider RECREATIONAL AIDE and direct all questions to the provider listed. 06/15/2020 Referring Physician: Jayjay Reese MD Subjective: We have been asked to see this 49 y.o. male for postoperative pain management s/p Procedure 06/13: 1. HARDWARE REMOVAL FROM RIGHT LATERAL PROXIMAL TIBIA. 2. HARDWARE REMOVAL FROM THE LEFT MEDIAL PROXIMAL TIBIA. 3. ARTHROTOMY, RIGHT KNEE FOR DRAINAGE OF SEPTIC ARTHRITIS. 4. INCISION AND DRAINAGE OF RIGHT DEEP MEDIAL THIGH ABSCESS. 5. INSERTION OF ANTIBIOTIC CEMENT BEADS, RIGHT LEG. PMH reviewed below. ELVIS, teresa pages. On arrival, pt lying in bed, working with therapy, appears comfortable. Pt talkative and cooperative throughout exam, happy with current pain regimen. Encouraged use PO pain medications first before IV, pt agreeable to plan. Tolerating diet. Due to the current environment of [place] [id number], PPE was worn for the duration of the encounter including but not limited to a N95 in accordance with CDC and hospital guidelines. Pain Severity: mild Pain Frequency: intermittent Pain Location: RLE Pain Radiation: nonradiating Pain Quality: tender Adverse effect to opioids: none Sedation score: 1: Awake and alert Timing: Intermittent Onset: : Post surgical. Aggravating Factors: Moving Alleviating Factors: Rest Bowel status: No BM, + Flatus Social History Tobacco Use Smoking Status Current Every Day Smoker Packs/day: 1.00 Years: 20.00 Pack years: 20.00 Types: Cigarettes Smokeless Tobacco Never Used Social History Substance and Sexual Activity Alcohol Use Yes Alcohol/week: 3.0 standard drinks Types: 3 Cans of beer per week Comment: every couple weeks Social History Substance and Sexual Activity Drug Use Never Pain Management: n/a The patient's medical history and physical assessment, medications, allergies, patient's current medical condition, imaging, and labs were reviewed as part of this consultation. [x] Patient's Medications have been reviewed. [x] Patient's OARRS report (PDMP) have been reviewed. ORS 300 05/31/2020 2 05/31/2020 Hydrocodone-Acetamin 5-325 MG 10.00 2 Sa Lof 03/14/2020 1 03/14/2020 Gabapentin 100 MG Capsule 30.00 30 Lesley Pro 06/29/2019 1 06/29/2019 Diazepam 5 MG Tablet 14.00 7 Je Ogo 06/29/2019 1 06/29/2019 Hydrocodone-Acetamin 5-325 MG 10.00 3 Ug Gal 05/17/2019 3 05/17/2019 Oxycodone-Acetaminophen 5-325 20.00 5 Ve Gena 10/18/2018 1 10/18/2018 Hydrocodone-Acetamin 5-325 MG 20.00 4 Lesley Naw 10/12/2018 1 10/12/2018 Hydrocodone-Acetamin 5-325 MG 9.00 3 Objective Findings: Height: 5' 8 (172.7 cm) Weight: (!) 325 lb (147.4 kg) BMI (Calculated): 49.5 Vital signs: Blood pressure 105/67, pulse 71, temperature 97.3 F (36.3 C), temperature source Temporal, resp. rate 16, height 5' 8 (1.727 m), weight (!) 325 lb (147.4 kg), SpO2 93 %. Lab Results Component Value Date/Time HGB 10.0 (L) 06/15/2020 12:35 AM HCT 30.7 (L) 06/15/2020 12:35 AM PLT 326 06/15/2020 12:35 AM WBC 12.2 (H) 06/15/2020 12:35 AM PROTIME 11.4 06/11/2020 01:58 PM INR 1.1 06/11/2020 01:58 PM NA 135 06/15/2020 12:35 AM K 4.4 06/15/2020 12:35 AM BUN 13 06/15/2020 12:35 AM CREATININE 0.80 06/15/2020 12:35 AM GLUCOSE 107 (H) 06/15/2020 12:35 AM Allergies: Ketamine Past Medical History: Diagnosis Date Headache disorder Heartburn Tobacco use Past Surgical History: Procedure Laterality Date FEMUR DEBRIDEMENT Right 06/14/2020 dr reese- repeat irrigation and debridement RIGHT lover extremitiy, wound vac FEMUR FRACTURE SURGERY Right 05/09/2019 percutaneous skeletal fixator placed OTHER SURGICAL HISTORY Right 05/12/2019 ORIF R tibial fx- OTHER SURGICAL HISTORY Right 06/12/2020 I+D RLE, hardware removal, VAC placed History reviewed. No pertinent family history. Patient Active Problem List Diagnosis Tibia/fibula fracture, shaft, right, closed, initial encounter Closed bicondylar fracture of right tibial plateau Acute lateral meniscus tear of right knee Infected hardware in right leg, initial encounter ([facility]) Pyogenic arthritis of right knee joint ([facility]) Abscess of right thigh Review of Systems Constitutional: Negative for chills and fever. HENT: Negative for trouble swallowing. Eyes: Negative for visual disturbance. Respiratory: Negative for shortness of breath. Cardiovascular: Negative for chest pain. Gastrointestinal: Negative for abdominal pain, nausea and vomiting. Genitourinary: Negative for difficulty urinating. Musculoskeletal: Positive for arthralgias and myalgias. Skin: Negative for wound. Neurological: Negative for dizziness and light-headedness. Psychiatric/Behavioral: Negative for agitation, confusion and hallucinations. The patient is not nervous/anxious. Physical Exam Vitals signs and nursing note reviewed. HENT: Head: Normocephalic. Neck: Musculoskeletal: Normal range of motion. Cardiovascular: Rate and Rhythm: Normal rate. Pulmonary: Effort: Pulmonary effort is normal. Abdominal: Palpations: Abdomen is soft. Musculoskeletal: Normal range of motion. General: Tenderness present. Comments: RLE wound vac and surgical drains in place Skin: General: Skin is warm and dry. Neurological: Mental Status: He is alert and oriented to person, place, and time. Psychiatric: Attention and Perception: Attention normal. Mood and Affect: Mood normal. Speech: Speech normal. Behavior: Behavior normal. Behavior is cooperative. Pain Management Adjuvants: 0700 --> 0700 06/12/2020 06/13/2020 06/14/2020 Scheduled APAP 1300 mg 1950 mg 1300mg Lidocaine patches refused refused refused gabapentin 300mg 300mg 300mg PRN hydromorphone 1mg 0 0.5mg methocarbamol 0 0 0 oxycodone 10mg 5 mg 0 Assessment: 1. Acute RLE postsurgical pain Pain Management Plan: ? Acetaminophen 650 mg po q6h scheduled ATC. ? Gabapentin 300 mg po nightly. ? Lidocaine patches x 2. Cut and place as needed. ? Hydromorphone 0.25 mg - 0.5 mg IVP q4h prn moderate to severe breakthrough pain. Please utilize oral medications first. ? Oxycodone 5 - 10 mg po q4h prn moderate to severe breakthrough pain. ? Methocarbamol 1000 mg IV TID PRN. ? Patient currently receiving opioids for pain management necessitating a bowel regimen. Recommend initiating scheduled Sennakot-S 8.6/50mg, 1 tablet PO BID. Would also recommend Milk of Magnesia 400mg/5ml, administer 30mL by mouth daily PRN. ? Patient pain is well controlled at this time on current pain regimen. We will sign off at this time. Please re-consult our service if patient's pain becomes uncontrolled. Thank you for inviting us to participate in the care of this patient. Plan discussed with patient who appears to understand and agrees. PAGING: The Acute Pain Service providers are available by pager. Please reference [employer] and/or [facility] Phonebook for Pain Management Provider RECREATIONAL AIDE and direct all questions to the provider listed. * Solitario Ewing MD - 06/15/2020 6:36 AM EST Department of Orthopedic Surgery Progress Note SUBJECTIVE: doing well. No issues. OBJECTIVE: General: in no acute distress VITALS: BP 105/67 Pulse 71 Temp 97.3 F (36.3 C) (Temporal) Resp 16 Ht 5' 8 (1.727 m) Wt (!) 325 lb (147.4 kg) SpO2 93% BMI 49.42 kg/m MSK exam: +DF/EHL/PF SILT +pulses Knee immobilizer intact Incisional vac intact Drains 50cc output in both --> left intact. Dressings CDI Labs: CBC: Lab Results Component Value Date WBC 12.2 06/15/2020 RBC 3.50 06/15/2020 HGB 10.0 06/15/2020 HCT 30.7 06/15/2020 MCV 87.8 06/15/2020 MCH 28.7 06/15/2020 MCHC 32.7 06/15/2020 RDW 13.9 06/15/2020 PLT 326 06/15/2020 MPV 7.4 06/15/2020 ASSESSMENT AND PLAN: A/P: This is a 49 y.o. male s/p I&D+TALITA+vac on 06/12 and Rpt I&D with closure on 06/14: NWB RLE in Knee immobilizer Abx per ID PT/OT Incisional vac until discharge Ice/elevate dispo P * Maritza Watts RN - 06/14/2020 5:36 PM EST PICC team at bedside in PACU, PICC placed LEFT upper arm double lumen * Maritza Watts RN - 06/14/2020 4:36 PM EST Nerve block done in PACU * Remy Parr DO - 06/14/2020 4:12 PM EST [facility] - Infectious Diseases Attending Progress Note Subjective: Following for R tibial fracture and abscess s/p hardware removal. Reviewed interim history and available chart/notes/labs and studies. Cultures so far negative and in OR today when stopped by. Objective: Vitals: BP 105/73 Pulse 76 Temp 98.1 F (36.7 C) (Temporal) Resp 15 Ht 5' 8 (1.727 m) Wt (!) 325 lb (147.4 kg) SpO2 98% BMI 49.42 kg/m Intake/Output Summary (Last 24 hours) at 06/14/2020 1613 Last data filed at 06/14/2020 1536 Gross per 24 hour Intake 500 ml Output 350 ml Net 150 ml Physical Exam Patient not available Labs: Component Value Date/Time NA 136 06/14/2020 0058 K 4.4 06/14/2020 0058 CL 103 06/14/2020 0058 CO2 27 06/14/2020 0058 BUN 15 06/14/2020 0058 CREATININE 0.93 06/14/2020 0058 GLUCOSE 85 06/14/2020 0058 CALCIUM 8.4 06/14/2020 0058 PROCAL <0.10 05/10/2019 0204 Component Value Date/Time WBC 13.8 (H) 06/14/2020 0058 HGB 12.4 (L) 06/14/2020 0058 HCT 38.5 (L) 06/14/2020 0058 PLT 365 06/14/2020 0058 GRANULOCYTES 70.3 06/11/2020 1306 LYMPHOPCT 18.2 (L) 06/11/2020 1306 MONOPCT 1 06/11/2020 1703 LABEOS 0.3 (L) 06/11/2020 1306 BASOPCT 0.4 06/11/2020 1306 NEUTROABS 8.4 (H) 06/11/2020 1306 Micro: Blood cultures: Lab Results Component Value Date BC No growth at 1 day. No growth at 2 days. 06/12/2020 BC No growth at 1 day. No growth at 2 days. 06/12/2020 All cultures so far negative Reviewed all relevant labs and microbiology data. Lines: PIV Radiography/Echo/Other: Reviewed Antimicrobials, Start/End Dates: Linezolid Piperacillin-tazobactam Impression: 1. 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 S/P I&D and hardware removal 06-12-2020 3. Prior R tibial fracture 2019 required external fixator then ORIF Plan: 1. Change to ertapenem 2. Surgery today 3. Finalize ABX next week for home IV therapy Pager: [phone] * Maritza Watts RN - 06/14/2020 3:53 PM EST Block team paged to see if pt eligable for nerve block post op Block team at bedside * Maritza Watts RN - 06/14/2020 3:30 PM EST Pt's father listed as emergency contact called but did not answer for [employer] update, pt aware RN unable to update father at this time * Peter Tariq, PT - 06/14/2020 8:59 AM EST Physical Therapy Plan is for repeat I&D today. Will follow post-op * Meliza Ruano APRN - MACHINE PROGRAMMER - 06/14/2020 8:27 AM EST PAGING: The Acute Pain Service providers are available by pager. Please reference [employer] and/or [facility] Phonebook for Pain Management Provider RECREATIONAL AIDE and direct all questions to the provider listed. 06/14/2020 Referring Physician: Jayjay Reese MD Subjective: We have been asked to see this 49 y.o. male for postoperative pain management s/p Procedure 06/13: 1. HARDWARE REMOVAL FROM RIGHT LATERAL PROXIMAL TIBIA. 2. HARDWARE REMOVAL FROM THE LEFT MEDIAL PROXIMAL TIBIA. 3. ARTHROTOMY, RIGHT KNEE FOR DRAINAGE OF SEPTIC ARTHRITIS. 4. INCISION AND DRAINAGE OF RIGHT DEEP MEDIAL THIGH ABSCESS. 5. INSERTION OF ANTIBIOTIC CEMENT BEADS, RIGHT LEG. PMH reviewed below. NAEON, no pages. On arrival, pt lying in bed. Pt appears comfortable. Pt talkative and cooperative throughout exam, happy with current pain regimen. Plan for repeat I+D today 06/14. Pt currently NPO for surgery. Due to the current environment of [place] [id number], PPE was worn for the duration of the encounter including but not limited to a N95 in accordance with CDC and hospital guidelines. Pain Severity: mild Pain Frequency: intermittent Pain Location: RLE Pain Radiation: nonradiating Pain Quality: tender Adverse effect to opioids: none Sedation score: 1: Awake and alert Timing: Intermittent Onset: : Post surgical. Aggravating Factors: Moving Alleviating Factors: Rest Bowel status: No BM, + Flatus Social History Tobacco Use Smoking Status Current Every Day Smoker Packs/day: 1.00 Years: 20.00 Pack years: 20.00 Types: Cigarettes Smokeless Tobacco Never Used Social History Substance and Sexual Activity Alcohol Use Yes Alcohol/week: 3.0 standard drinks Types: 3 Cans of beer per week Comment: every couple weeks Social History Substance and Sexual Activity Drug Use Never Pain Management: n/a The patient's medical history and physical assessment, medications, allergies, patient's current medical condition, imaging, and labs were reviewed as part of this consultation. [x] Patient's Medications have been reviewed. [x] Patient's OARRS report (PDMP) have been reviewed. ORS 300 05/31/2020 2 05/31/2020 Hydrocodone-Acetamin 5-325 MG 10.00 2 Sa Lof 03/14/2020 1 03/14/2020 Gabapentin 100 MG Capsule 30.00 30 Lesley Pro 06/29/2019 1 06/29/2019 Diazepam 5 MG Tablet 14.00 7 Je Ogo 06/29/2019 1 06/29/2019 Hydrocodone-Acetamin 5-325 MG 10.00 3 Ug Gal 05/17/2019 3 05/17/2019 Oxycodone-Acetaminophen 5-325 20.00 5 Ve Gena 10/18/2018 1 10/18/2018 Hydrocodone-Acetamin 5-325 MG 20.00 4 Lesley Naw 10/12/2018 1 10/12/2018 Hydrocodone-Acetamin 5-325 MG 9.00 3 Objective Findings: Height: 5' 8 (172.7 cm) Weight: (!) 325 lb (147.4 kg) BMI (Calculated): 49.5 Vital signs: Blood pressure 99/61, pulse 98, temperature 98.8 F (37.1 C), temperature source Temporal, resp. rate 18, height 5' 8 (1.727 m), weight (!) 325 lb (147.4 kg), SpO2 95 %. Lab Results Component Value Date/Time HGB 12.4 (L) 06/14/2020 12:58 AM HCT 38.5 (L) 06/14/2020 12:58 AM PLT 365 06/14/2020 12:58 AM WBC 13.8 (H) 06/14/2020 12:58 AM PROTIME 11.4 06/11/2020 01:58 PM INR 1.1 06/11/2020 01:58 PM NA 136 06/14/2020 12:58 AM K 4.4 06/14/2020 12:58 AM BUN 15 06/14/2020 12:58 AM CREATININE 0.93 06/14/2020 12:58 AM GLUCOSE 85 06/14/2020 12:58 AM Allergies: Ketamine Past Medical History: Diagnosis Date Headache disorder Heartburn Tobacco use Past Surgical History: Procedure Laterality Date FEMUR FRACTURE SURGERY Right 05/09/2019 percutaneous skeletal fixator placed OTHER SURGICAL HISTORY Right 05/12/2019 ORIF R tibial fx- OTHER SURGICAL HISTORY Right 06/12/2020 I+D RLE, hardware removal, VAC placed History reviewed. No pertinent family history. Patient Active Problem List Diagnosis Tibia/fibula fracture, shaft, right, closed, initial encounter Closed bicondylar fracture of right tibial plateau Acute lateral meniscus tear of right knee Infected hardware in right leg, initial encounter ([facility]) Review of Systems Constitutional: Negative for chills and fever. HENT: Negative for trouble swallowing. Eyes: Negative for visual disturbance. Respiratory: Negative for shortness of breath. Cardiovascular: Negative for chest pain. Gastrointestinal: Negative for abdominal pain, nausea and vomiting. Genitourinary: Negative for difficulty urinating. Musculoskeletal: Positive for arthralgias and myalgias. Skin: Negative for wound. Neurological: Negative for dizziness and light-headedness. Psychiatric/Behavioral: Negative for agitation, confusion and hallucinations. The patient is not nervous/anxious. Physical Exam Vitals signs and nursing note reviewed. HENT: Head: Normocephalic. Neck: Musculoskeletal: Normal range of motion. Cardiovascular: Rate and Rhythm: Normal rate. Pulmonary: Effort: Pulmonary effort is normal. Abdominal: Palpations: Abdomen is soft. Musculoskeletal: Normal range of motion. General: Tenderness present. Comments: RLE wound vac in place Skin: General: Skin is warm and dry. Neurological: Mental Status: He is alert and oriented to person, place, and time. Psychiatric: Attention and Perception: Attention normal. Mood and Affect: Mood normal. Speech: Speech normal. Behavior: Behavior normal. Behavior is cooperative. Pain Management Adjuvants: 0700 --> 0700 06/12/2020 06/13/2020 Scheduled APAP 1300 mg 1950 mg Lidocaine patches refused refused gabapentin 300mg 300mg PRN hydromorphone 1mg 0 methocarbamol 0 0 oxycodone 10mg 5 mg Assessment: 1. Acute RLE postsurgical pain Pain Management Plan: RTOR 06/14 ? Acetaminophen 650 mg po q6h scheduled ATC. ? Gabapentin 300 mg po nightly. ? Lidocaine patches x 2. Cut and place as needed. ? Hydromorphone 0.25 mg - 0.5 mg IVP q4h prn moderate to severe breakthrough pain. Please utilize oral medications first. ? Oxycodone 5 - 10 mg po q4h prn moderate to severe breakthrough pain. ? Methocarbamol 1000 mg IV TID PRN. ? Patient currently receiving opioids for pain management necessitating a bowel regimen. Recommend initiating scheduled Sennakot-S 8.6/50mg, 1 tablet PO BID. Would also recommend Milk of Magnesia 400mg/5ml, administer 30mL by mouth daily PRN. ? Will follow. Plan discussed with patient who appears to understand and agrees. PAGING: The Acute Pain Service providers are available by pager. Please reference [employer] and/or [facility] [employer] for Pain Management Provider RECREATIONAL AIDE and direct all questions to the provider listed. * Ave Paul OT - 06/14/2020 8:25 AM EST Occupational Therapy Hold OT orders received, chart reviewed. Plans for repeat I&D today, hold OT. Ave Paul OTR/L * Diogo Gaines MD - 06/14/2020 6:18 AM EST Department of Orthopedic Surgery Resident Progress Note SUBJECTIVE No new pain in the leg. Understands plans to proceed with repeat I&D today OBJECTIVE Physical VITALS: BP 99/61 Pulse 98 Temp 98.8 F (37.1 C) (Temporal) Resp 18 Ht 5' 8 (1.727 m) Wt (!) 325 lb (147.4 kg) SpO2 95% BMI 49.42 kg/m RLE W[place] C/D/I with good seal +EHL/DF/PF SILT s/s/p/dp/t Data CBC: Lab Results Component Value Date WBC 13.8 06/14/2020 RBC 4.36 06/14/2020 HGB 12.4 06/14/2020 HCT 38.5 06/14/2020 MCV 88.4 06/14/2020 MCH 28.4 06/14/2020 MCHC 32.2 06/14/2020 RDW 14.1 06/14/2020 PLT 365 06/14/2020 MPV 7.7 06/14/2020 BMP: Lab Results Component Value Date NA 136 06/14/2020 K 4.4 06/14/2020 CL 103 06/14/2020 CO2 27 06/14/2020 BUN 15 06/14/2020 CREATININE 0.93 06/14/2020 CALCIUM 8.4 06/14/2020 GLUCOSE 85 06/14/2020 Current Inpatient Medications Current Facility-Administered Medications: lidocaine 1 % injection 5 mL, 5 mL, Intradermal, Once sodium chloride flush 0.9 % injection 10 mL, 10 mL, Intravenous, 2 times per day sodium chloride flush 0.9 % injection 10 mL, 10 mL, Intravenous, PRN 0.9 % sodium chloride infusion, , Intravenous, Continuous gabapentin (NEURONTIN) capsule 300 mg, 300 mg, Oral, Nightly piperacillin-tazobactam (ZOSYN) 3.375 g in dextrose 50 mL IVPB extended infusion (premix), 3.375 g,Intravenous, Q8H linezolid (ZYVOX) IVPB 600 mg, 600 mg, Intravenous, Q12H melatonin tablet 3 mg, 3 mg, Oral, Nightly PRN [COMPLETED] Saline lock IV, , , Continuous AND sodium chloride flush 0.9 % injection 3 mL, 3 mL, Intravenous, Q8H sodium chloride flush 0.9 % injection 10 mL, 10 mL, Intravenous, 2 times per day sodium chloride flush 0.9 % injection 10 mL, 10 mL, Intravenous, PRN polyethylene glycol (GLYCOLAX) packet 17 g, 17 g, Oral, Daily PRN bisacodyl (DULCOLAX) EC tablet 5 mg, 5 mg, Oral, Daily oxyCODONE (ROXICODONE) immediate release tablet 5 mg, 5 mg, Oral, Q4H PRN OR oxyCODONE (ROXICODONE) immediate release tablet 10 mg, 10 mg, Oral, Q4H PRN acetaminophen (TYLENOL) tablet 650 mg, 650 mg, Oral, Q6H ondansetron (ZOFRAN-ODT) disintegrating tablet 4 mg, 4 mg, Oral, Q8H PRN OR ondansetron (ZOFRAN) injection 4 mg, 4 mg, Intravenous, Q6H PRN lidocaine 4 % external patch 2 patch, 2 patch, Transdermal, Daily HYDROmorphone (DILAUDID) injection 0.25 mg, 0.25 mg, Intravenous, Q4H PRN OR HYDROmorphone (DILAUDID) injection 0.5 mg, 0.5 mg, Intravenous, Q4H PRN methocarbamol (ROBAXIN) injection 1,000 mg, 1,000 mg, Intravenous, TID PRN ASSESSMENT AND PLAN 49 yo M s/p I&D and removal of hardware RLE on 06/12/20 -Plan for repeat I&D on 06/14 (today) -All hardware removed from the tibia -ID consult -Medical management per medicine. -NWB RLE in -Keep WV in place. No change -NPO today Tea Mckeon RCP - 06/13/2020 10:47 PM EST [facility] Respiratory Care Department Progress Note Patient was seen in attempts to fulfill CPAP/BiPAP/AutoPAP order. Patient refused PAP therapy/studyat this time. Patient was educated on medical need and reasoning for physician order to ensure patient was making an informed medical decision. All of the patient's questions were answered at this time and patient was informed that if the patient changes their mind regarding wearing PAP to hit their call light or inform their nurse to contact Respiratory. A second, consecutive night of refusing PAP therapy/study results in order completion in the EMR. If future CPAP/BiPAP/AutoPAP therapy or study is indicated please place another order in the EMR and the assigned Respiratory Therapist will reattempt to fulfill orders. Comment or reasoning for refusal: pt does not want to wear pap tonight Thank you for involving Respiratory in the care of this patient, * Remy Parr, DO - 06/13/2020 4:48 PM EST [facility] - Infectious Diseases Attending Progress Note Subjective: Following for R tibial fracture and abscess s/p hardware removal. Reviewed interim history and available chart/notes/labs and studies. Patient more alert today. Stated that his R knee never felt quite right post-op. More surgery anticipate. Cultures so far negative. Objective: Vitals: BP 99/61 Pulse 98 Temp 98.8 F (37.1 C) (Temporal) Resp 18 Ht 5' 8 (1.727 m) Wt (!) 325 lb (147.4 kg) SpO2 95% BMI 49.42 kg/m Intake/Output Summary (Last 24 hours) at 06/13/2020 1648 Last data filed at 06/13/2020 0604 Gross per 24 hour Intake Output 2075 ml Net -2075 ml Physical Exam Constitutional: General: He is not in acute distress. Appearance: Normal appearance. He is well-developed. He is obese. He is not ill- appearing or diaphoretic. HENT: Head: Normocephalic and atraumatic. Right Ear: Ear canal and external ear normal. Left Ear: Ear canal and external ear normal. Nose: Nose normal. Mouth/Throat: Mouth: Mucous membranes are moist. Pharynx: Oropharynx is clear. No oropharyngeal exudate. Eyes: General: No scleral icterus. Right eye: No discharge. Left eye: No discharge. Conjunctiva/sclera: Conjunctivae normal. Pupils: Pupils are equal, round, and reactive to light. Neck: Musculoskeletal: Normal range of motion and neck supple. No neck rigidity or muscular tenderness. Thyroid: No thyromegaly. Trachea: Trachea normal. No tracheal deviation. Cardiovascular: Rate and Rhythm: Normal rate and regular rhythm. Heart sounds: No murmur. Pulmonary: Effort: Pulmonary effort is normal. No respiratory distress. Breath sounds: Normal breath sounds. No wheezing or rales. Abdominal: General: Abdomen is flat and protuberant. Bowel sounds are normal. There is no distension. Palpations: Abdomen is soft. There is no hepatomegaly or splenomegaly. Tenderness: There is no abdominal tenderness. Hernia: No hernia is present. Musculoskeletal: General: Swelling and tenderness present. No deformity (R knee post-op with wound vac). Right lower leg: Edema present. Left lower leg: Edema present. Skin: General: Skin is warm. Findings: No erythema or rash. Neurological: Mental Status: He is lethargic. Labs: Component Value Date/Time NA 134 (L) 06/13/2020 045 K 4.6 06/13/2020451 CL 101 06/13/2020451 CO2 26 06/13/2020451 BUN 17 06/13/2020 0452 CREATININE 0.90 06/13/2020 0452 GLUCOSE 138 (H) 06/13/2020 0452 CALCIUM 8.6 06/13/2020451 PROCAL <0.10 05/10/2019 0204 Component Value Date/Time WBC 17.7 (H) 06/13/2020 0452 HGB 12.7 (L) 06/13/2020 0452 HCT 39.6 (L) 06/13/2020 0452 PLT 360 06/13/2020 0452 GRANULOCYTES 70.3 06/11/2020 1306 LYMPHOPCT 18.2 (L) 06/11/2020 1306 MONOPCT 1 06/11/2020 1703 LABEOS 0.3 (L) 06/11/2020 1306 BASOPCT 0.4 06/11/2020 1306 NEUTROABS 8.4 (H) 06/11/2020 1306 Micro: Blood cultures: Lab Results Component Value Date BC No growth at 1 day. 06/12/2020 BC No growth at 1 day. 06/12/2020 All cultures so far negative Reviewed all relevant labs and microbiology data. Lines: PIV Radiography/Echo/Other: Reviewed Antimicrobials, Start/End Dates: Linezolid Piperacillin-tazobactam Impression: 1. 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 S/P I&D and hardware removal 06-12-2020 3. Prior R tibial fracture 2019 required external fixator then ORIF Plan: 1. Suspect fastidious or anaerobe will leave current Rx for now and await cultures 2. PICC 06-14-2020 3. Surgery per orthopedics Pager: [phone] * Stephanie Conte - 06/13/2020 12:01 PM EST Nutrition rescreen completed. Chart reviewed. Patient to be monitored and followed by the diet tattoo technician. Dietitian available upon request. Stephanie Conte, DT * Peter Tariq, PT - 06/13/2020 11:24 AM EST Physical Therapy Pt reports fatigue as he was awoken several times last night. Notes RLE still has block active to a significant degree--just has been able to DF/PF over the pastfew hours. Pt fully aware of NWB RLE and no ROM (knee immobilizer on). Pt notes he has been repositioning self in bed, but does not feel quite ready for OOB. Pt is scheduled for I&D R knee 06/14. At baseline, pt lives with 91 y.o. gentleman. One story home, 3 entry steps. Roommate cooks, pt does laundry. Sometimes, roommate needs assistance with meds, but otherwise is functionally indep. 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 Will continue to follow and encourage mobility as soon as pt willing to participate. * Esdras Campo MD - 06/13/2020 6:00 AM EST Department of Orthopedic Surgery Resident Progress Note SUBJECTIVE No new pain in the leg. Foot is numb from preop block. Does have feeling of something stuck in his throat. OBJECTIVE Physical VITALS: BP (!) 146/117 Pulse 83 Temp 98.3 F (36.8 C) (Temporal) Resp 18 Ht 5' 8 (1.727 m) Wt (!) 325 lb (147.4 kg) SpO2 99% BMI 49.42 kg/m RLE W[place] C/D/I with good seal No motor or sensation in foot due to block Data CBC: Lab Results Component Value Date WBC 10.5 06/12/2020 RBC 4.63 06/12/2020 HGB 13.3 06/12/2020 HCT 40.9 06/12/2020 MCV 88.4 06/12/2020 MCH 28.7 06/12/2020 MCHC 32.5 06/12/2020 RDW 14.0 06/12/2020 PLT 312 06/12/2020 MPV 7.4 06/12/2020 BMP: Lab Results Component Value Date NA 135 06/12/2020 K 4.4 06/12/2020 CL 102 06/12/2020 CO2 30 06/12/2020 BUN 13 06/12/2020 CREATININE 1.07 06/12/2020 CALCIUM 8.6 06/12/2020 GLUCOSE 107 06/12/2020 Current Inpatient Medications Current Facility-Administered Medications: 0.9 % sodium chloride infusion, , Intravenous, Continuous gabapentin (NEURONTIN) capsule 300 mg, 300 mg, Oral, Nightly influenza quadrivalent split vaccine (FLUZONE;FLUARIX;FLULAVAL;AFLURIA) injection 0.5 mL, 0.5 mL, Intramuscular, Once pneumococcal polyvalent (PNEUMOVAX 23) inj 0.5 mL, 0.5 mL, Intramuscular, Once HYDROmorphone (DILAUDID) injection 0.25 mg, 0.25 mg, Intravenous, Q5 Min PRN HYDROmorphone (DILAUDID) injection 0.5 mg, 0.5 mg, Intravenous, Q5 Min PRN HYDROmorphone (DILAUDID) injection 0.25 mg, 0.25 mg, Intravenous, Q5 Min PRN HYDROmorphone (DILAUDID) injection 0.5 mg, 0.5 mg, Intravenous, Q5 Min PRN labetalol (NORMODYNE;TRANDATE) injection 5 mg, 5 mg, Intravenous, Q10 Min PRN hydrALAZINE (APRESOLINE) injection 5 mg, 5 mg, Intravenous, Q10 Min PRN meperidine (DEMEROL) injection 12.5 mg, 12.5 mg, Intravenous, Q5 Min PRN piperacillin-tazobactam (ZOSYN) 3.375 g in dextrose 50 mL IVPB extended infusion (premix), 3.375 g,Intravenous, Q8H linezolid (ZYVOX) IVPB 600 mg, 600 mg, Intravenous, Q12H melatonin tablet 3 mg, 3 mg, Oral, Nightly PRN [COMPLETED] Saline lock IV, , , Continuous AND sodium chloride flush 0.9 % injection 3 mL, 3 mL, Intravenous, Q8H sodium chloride flush 0.9 % injection 10 mL, 10 mL, Intravenous, 2 times per day sodium chloride flush 0.9 % injection 10 mL, 10 mL, Intravenous, PRN polyethylene glycol (GLYCOLAX) packet 17 g, 17 g, Oral, Daily PRN bisacodyl (DULCOLAX) EC tablet 5 mg, 5 mg, Oral, Daily oxyCODONE (ROXICODONE) immediate release tablet 5 mg, 5 mg, Oral, Q4H PRN OR oxyCODONE (ROXICODONE) immediate release tablet 10 mg, 10 mg, Oral, Q4H PRN acetaminophen (TYLENOL) tablet 650 mg, 650 mg, Oral, Q6H ondansetron (ZOFRAN-ODT) disintegrating tablet 4 mg, 4 mg, Oral, Q8H PRN OR ondansetron (ZOFRAN) injection 4 mg, 4 mg, Intravenous, Q6H PRN lidocaine 4 % external patch 2 patch, 2 patch, Transdermal, Daily HYDROmorphone (DILAUDID) injection 0.25 mg, 0.25 mg, Intravenous, Q4H PRN OR HYDROmorphone (DILAUDID) injection 0.5 mg, 0.5 mg, Intravenous, Q4H PRN methocarbamol (ROBAXIN) injection 1,000 mg, 1,000 mg, Intravenous, TID PRN ASSESSMENT AND PLAN 49 yo M s/p I&D and removal of hardware RLE on 06/12/20 -Plan for repeat I&D on 06/14 -All hardware removed from the tibia -ID consult -Medical management per medicine. Would appreciate look into patient's glomus sensation -NWB RLE in KI -Keep WV in place. No change * Melany Villalobos RN - 06/12/2020 6:50 PM EST Pt unable to void since surgery. Scanned bladder, 500 mL noted. Notified . * Katherin Gross RN - 06/12/2020 12:45 PM EST Per patient no family to update upon returning to room. * Jorge Richardson RN - 06/12/2020 11:49 AM EST Vikas COLUNGA at bedside performing RLE popliteal block for pt with 10/10 pain desaturating with prn dilaudid doses on 6L NC. Pt tolerated procedure well, VSS. * Maria A Benavides PT - 06/12/2020 7:41 AM EST Physical Therapy PT evaluation held. Per ortho note, plan for OR today for R knee I&D and possible hardware removal. * Sathish Reveles MD - 06/12/2020 7:40 AM EST Med Team Progress Note Guillermo Siddiqi : 1970(49 y.o.) Date: June 12, 2020 Med Team: B Attending: Dr. Sarah Bui Chief Complaint: R septic knee arthritis Subjective: - No acute events overnight. - Currently, Mr. Siddiqi is resting in bed. A&Ox3. Endorses R knee pain which is stable. Otherwise ROS is negative as below. Review of Systems Constitutional: Negative for chills and fever. HENT: Negative for congestion. Respiratory: Negative for cough and shortness of breath. Cardiovascular: Negative for chest pain and palpitations. Gastrointestinal: Negative for abdominal pain, constipation, diarrhea, nausea and vomiting. Genitourinary: Negative for difficulty urinating and dysuria. Musculoskeletal: Positive for arthralgias. Neurological: Negative for weakness and numbness. Scheduled Meds: sodium chloride flush 3 mL Intravenous Q8H sodium chloride flush 10 mL Intravenous 2 times per day bisacodyl 5 mg Oral Daily acetaminophen 650 mg Oral Q6H lidocaine 2 patch Transdermal Daily Continuous Infusions: sodium chloride 100 mL/hr at 06/12/20 0617 PRN meds used in last 24hrs: Oxycodone 10mg x1 for pain Objective: BP (!) 96/46 Pulse 88 Temp 98.7 F (37.1 C) (Temporal) Resp 18 Ht 5' 8 (1.727 m) Wt (!) 325 lb (147.4 kg) SpO2 100% BMI 49.42 kg/m Physical Exam Constitutional: General: He is not in acute distress. HENT: Head: Normocephalic and atraumatic. Mouth/Throat: Mouth: Mucous membranes are moist. Pharynx: No oropharyngeal exudate or posterior oropharyngeal erythema. Eyes: Extraocular Movements: Extraocular movements intact. Pupils: Pupils are equal, round, and reactive to light. Cardiovascular: Rate and Rhythm: Normal rate and regular rhythm. Heart sounds: No murmur. No friction rub. No gallop. Pulmonary: Effort: Pulmonary effort is normal. Breath sounds: Normal breath sounds. No wheezing, rhonchi or rales. Abdominal: General: Abdomen is flat. There is no distension. Tenderness: There is no abdominal tenderness. There is no guarding. Musculoskeletal: Comments: R knee: no obvious deformity or swelling. Reduced ROM. Skin: General: Skin is warm and dry. Capillary Refill: Capillary refill takes less than 2 seconds. Neurological: General: No focal deficit present. Mental Status: He is alert and oriented to person, place, and time. [facility] within last 24 hours Lab Results Component Value Date/Time WBC 10.5 06/12/2020 05:04 AM Hemoglobin 13.3 06/12/2020 05:04 AM Hemoglobin 14.4 06/11/2020 01:06 PM Hematocrit 40.9 06/12/2020 05:04 AM Platelets 312 06/12/2020 05:04 AM MCV 88.4 06/12/2020 05:04 AM Lab Results Component Value Date/Time Sodium 135 06/12/2020 05:04 AM Potassium 4.4 06/12/2020 05:04 AM Chloride 102 06/12/2020 05:04 AM CO2 30 06/12/2020 05:04 AM BUN 13 06/12/2020 05:04 AM CREATININE 1.07 06/12/2020 05:04 AM CREATININE 0.96 06/11/2020 01:06 PM Glucose 107 (H) 06/12/2020 05:04 AM Calcium 8.6 06/12/2020 05:04 AM Lab Results Component Value Date/Time INR 1.1 06/11/2020 01:[address] lower extremity 06/11/20 Impression: 1. Incomplete healing of the prior tibial plateau fracture, with only limited areas of cortical bridging along the posterior aspect of the proximal tibia. The fracture remains largely unhealed/lucent involving the anterior, medial, and lateral cortices. 2. Moderate to large joint effusion. Assessment and Plan: R Septic knee arthritis -R tibial plateau fracture s/p ORIF in 2019, now with broken harware and likely septic joint -Synovial fluid aspirate w/ >160 WBCs -CT shows incomplete healing and large joint effusion -Blood cultures drawn -ID following appreciate recs Plan -Plan for OR today for R knee I&D and possible hardware removal -f/u synovial fluid culture -f/u blood culture -Atbx per ID -Continue tylenol 650mg Q6h + hydromorphone 0.25-0.5 Q4h PRN for pain. Anxiety / Depression -patient previously prescribed amitriptyline, however patient does not take this medication. -per patient, no current concerns for anxiety or depression Tobacco abuse -smokes 1 ppd at home -per Ortho no nicotine patch due to impaired healing. -Patient okay with holding off Obesity / SUSIE -does not use CPAP at home -Scheduled for outpatient sleep study -continue to monitor, can add CPAP overnight if needed. - Goals of Care: FULL CODE - DVT Prophylaxis: SCDs - GI Prophylaxis: Not Indicated - Diet: General Associated attestation - Sarah Bui MD - 06/12/2020 6:24 PM EST Patient evaluated overnight by admitting residents. I saw and examined the patient 12/9/20 for the first time. See my notes on consult note. Pager: [phone] * Esdras Campo MD - 06/12/2020 6:05 AM EST Department of Orthopedic Surgery Resident Progress Note SUBJECTIVE Pt reports increasing pain in the right leg. Also endorses night sweats OBJECTIVE Physical VITALS: BP 107/89 Pulse 92 Temp 98.5 F (36.9 C) (Temporal) Resp 18 Ht 5' 8 (1.727 m) Wt (!) 325 lb (147.4 kg) SpO2 98% BMI 49.42 kg/m RLE Palpable medial thigh fluctuance with posterior medial induration and erythema Pain with ROM of the knee Incisions C/D/I Motor + DF/PF/EHL SILT S/S/DP/SP/T Palpable DP Data CBC: Lab Results Component Value Date WBC 10.5 06/12/2020 RBC 4.63 06/12/2020 HGB 13.3 06/12/2020 HCT 40.9 06/12/2020 MCV 88.4 06/12/2020 MCH 28.7 06/12/2020 MCHC 32.5 06/12/2020 RDW 14.0 06/12/2020 PLT 312 06/12/2020 MPV 7.4 06/12/2020 BMP: Lab Results Component Value Date NA 133 06/11/2020 K 4.3 06/11/2020 CL 98 06/11/2020 CO2 29 06/11/2020 BUN 9 06/11/2020 CREATININE 0.96 06/11/2020 CALCIUM 9.3 06/11/2020 GLUCOSE 141 06/11/2020 Current Inpatient Medications Current Facility-Administered Medications: 0.9 % sodium chloride infusion, , Intravenous, Continuous [COMPLETED] Saline lock IV, , , Continuous AND sodium chloride flush 0.9 % injection 3 mL, 3 mL, Intravenous, Q8H sodium chloride flush 0.9 % injection 10 mL, 10 mL, Intravenous, 2 times per day sodium chloride flush 0.9 % injection 10 mL, 10 mL, Intravenous, PRN polyethylene glycol (GLYCOLAX) packet 17 g, 17 g, Oral, Daily PRN bisacodyl (DULCOLAX) EC tablet 5 mg, 5 mg, Oral, Daily oxyCODONE (ROXICODONE) immediate release tablet 5 mg, 5 mg, Oral, Q4H PRN OR oxyCODONE (ROXICODONE) immediate release tablet 10 mg, 10 mg, Oral, Q4H PRN acetaminophen (TYLENOL) tablet 650 mg, 650 mg, Oral, Q6H ondansetron (ZOFRAN-ODT) disintegrating tablet 4 mg, 4 mg, Oral, Q8H PRN OR ondansetron (ZOFRAN) injection 4 mg, 4 mg, Intravenous, Q6H PRN lidocaine 4 % external patch 2 patch, 2 patch, Transdermal, Daily HYDROmorphone (DILAUDID) injection 0.25 mg, 0.25 mg, Intravenous, Q4H PRN OR HYDROmorphone (DILAUDID) injection 0.5 mg, 0.5 mg, Intravenous, Q4H PRN methocarbamol (ROBAXIN) injection 1,000 mg, 1,000 mg, Intravenous, TID PRN ASSESSMENT AND PLAN 49 yo M with infected right knee, medial thigh abscess, and likely infected non-union -Plan for surgery today -NPO for surgery -NWB RLE -Hold Abx for OR cultures -Culture from the knee aspirate is still pending documented in this encounter Assessments Diagnosis Infected hardware in right leg, initial encounter (HCC)- Primary Pyogenic arthritis of right knee joint (HCC) Pyogenic arthritis, lower leg Abscess of right thigh Cellulitis and abscess of leg, except foot Advance Directives Documents on File Type Date Recorded Patient Boat Rigger Expl anation ACP-Advance Directive ACP-Power of Shop Girl Latest Code Status on File Code Status Date Activated Date Inactivated Comments Full Code 06/11/2020 6:04 PM Full Code 05/08/2019 10:15 PM 05/17/2019 4:57 PM Documents on File Type Date Recorded Patient Boat Rigger Expl anation Advance Directives and Living Will Power of Shop Girl Latest Code Status on File Code Status Date Activated Date Inactivated Comments Full Code 05/08/2019 10:15 PM 05/17/2019 4:57 PM Latest Code Status on File Code Status Date Activated Date Inactivated Comments Full Code 06/11/2020 6:04 PM 06/18/2020 4:25 PM Latest Code Status on File Code Status Date Activated Date Inactivated Comments Full Code 12/19/2020 5:49 PM Latest Code Status on File Code Status Date Activated Date Inactivated Comments Full Code 12/19/2020 5:49 PM Latest Code Status on File Code Status Date Activated Date Inactivated Comments Full Code 12/19/2020 5:49 PM Latest Code Status on File Code Status Date Activated Date Inactivated Comments Full Code 12/19/2020 5:49 PM Summary Purpose Family History No Family History Records FoundNo Family History Records FoundNo Family History Records FoundNo Family History Records FoundNo Family History Records Found Reason for Referral Specialty Diagnoses / Procedures Referred By Contac t Referred To Contact Diagnoses S/P total knee arthroplasty, right Procedures XR KNEE RIGHT WITH BILATERAL STANDING 1 VIEW Cecille Cuevas PA-C [address] [facility] [address] [place] [address] Referral ID Status Reason Start Date Expiration Date V isits Requested Visits Authorized [id number] New Request 12/03/2021 12/28/2022 1 1 Specialty Diagnoses / Procedures Referred By Contac t Referred To Contact Diagnoses S/P knee surgery Procedures XR KNEE RIGHT WITH BILATERAL STANDING 1 VIEW Brittny So DO [address] [place] [address] Referral ID Status Reason Start Date Expiration Date V isits Requested Visits Authorized [id number] New Request 05/05/2022 05/30/2023 1 1 Specialty Diagnoses / Procedures Referred By Contac t Referred To Contact Diagnoses Intractable neuropathic pain of right knee Procedures [facility] Lolis Grissom MD [address] [place] [address] Referral ID Status Reason Start Date Expiration Date V isits Requested Visits Authorized [id number] New Request 07/22/2022 08/16/2023 1 1 Specialty Diagnoses / Procedures Referred By Contac t Referred To Contact Diagnoses S/P total knee arthroplasty, right Intractable neuropathic pain of right knee Procedures [facility] Lolis Grissom MD [address] [place] [address] Referral ID Status Reason Start Date Expiration Date V isits Requested Visits Authorized [id number] New Request 09/30/2022 10/25/2023 1 1 Additional Source Comments Reason for Visit (unrecogniz ed section and content) Reason Comments Pain Pt c/o swelling and pain in R knee. States he has lost ~65lbs which has helped alleviate knee pain. Pt takes THC for pain. Reason Comments Follow-up Pt presents 6 weeks s/p R TKA 10/22/21. Denies increase in pain and swelling. Compliant with PT. C/o medial knee pain and soreness after walking for extended periods of time. Specialty Diagnoses / Procedures Referred By Yasmin t Referred To Contact Diagnoses S/P total knee arthroplasty, right Procedures XR KNEE RIGHT WITH BILATERAL STANDING 1 VIEW Cecille Cuevas PA-C [address] [place] [address] Referral ID Status Reason Start Date Expiration Date V isits Requested Visits Authorized [id number] New Request 12/03/2021 12/28/2022 1 1 Reason Comments Follow-up 11 weeks and 1 day s /p R TKA 10/22/21. C/o knee popping when he goes to sit down and with knee flexion beyond 90 degrees. States he is improving otherwise. Reason Comments Follow-up 3 months s/p R TKA . Denies worsening symptoms; says overall no change in pain levels. Reason Comments Pain New Patient Specialty Diagnoses / Procedures Referred By Yasmin t Referred To Contact Multispecialty Diagnoses S/P total knee arthroplasty, right Infection and inflammatory reaction due to internal fixation device of right tibia, initial encounter Brittny So DO [address] [place] [address] Referral ID Status Reason Start Date Expiration Date V isits Requested Visits Authorized [id number] New Request 01/29/2022 02/23/2023 1 1 Specialty Diagnoses / Procedures Referred By Yasmin t Referred To Contact Diagnoses S/P knee surgery Procedures XR KNEE RIGHT WITH BILATERAL STANDING 1 VIEW Brittny So DO [address] [place] [address] Referral ID Status Reason Start Date Expiration Date V isits Requested Visits Authorized [id number] New Request 05/05/2022 05/30/2023 1 1 Reason Comments Surgical Follow-up Pt presents for fu o n rt knee 6m14d s/p right total knee complex (s/p TALITA/stimulan beads, tibial cement estelle) katelyn, DOS 10/22/21, feels the same if not worse than before the sx, still maintaining regular exercise, had PT right after sx w/ some relief and return of ROM, no injections since post op, using medical marijuana for pn, Specialty Diagnoses / Procedures Referred By Yasmin t Referred To Contact Diagnoses Intractable neuropathic pain of right knee Procedures [facility] Lolis Grissom MD [address] [place] [address] Referral ID Status Reason Start Date Expiration Date V isits Requested Visits Authorized [id number] New Request 07/22/2022 08/16/2023 1 1 Reason Comments Pain Other Right genicular nerv e injection Specialty Diagnoses / Procedures Referred By Yasmin t Referred To Contact Diagnoses Intractable neuropathic pain of right knee Charla Iverson, [employer] [address] [address] Referral ID Status Reason Start Date Expiration Date Visits Requested Visits Authorized [id number] Authorized - 06/12/2022 07/07/2023 2 2 Reason Comments Pain Nerve Injection Right genicular nerv e block Specialty Diagnoses / Procedures Referred By Contcesar t Referred To Contact Multispecialty Diagnoses Chronic pain of right knee Lolis Grissom MD [address] [place] [address] [facility] [address] [place] [address] Referral ID Status Reason Start Date Expiration Date Visits Re quested Visits Authorized [id number] Closed 08/25/2022 09/19/2023 1 1 Reason Comments Other Specialty Diagnoses / Procedures Referred By Contac t Referred To Contact Multispecialty Diagnoses Chronic pain of right knee Lolis Grissom MD [address] [place] [address] Lolis Grissom MD [address] [place] [address] Referral ID Status Reason Start Date Expiration Date Visits Requested Visits Authorized [id number] Authorized - 10/25/2022 11/19/2023 1 1 Reason Comments Pain Right Knee pain Reason Comments New Patient Evaluation Sleep Apnea Specialty Diagnoses / Procedures Referred By Contac t Referred To Contact Diagnoses SUSIE (obstructive sleep apnea) Procedures CONSULT TO SLEEP MEDICINE - ADULT OFFICE/OUTPATIENT [facility] 60-74 MINUTES Aiden Schmitz MD [address] [place] [address] Referral ID Status Reason Start Date Expiration Date Visits Requested Visits Authorized [id number] Pending Review PCP Requested Referral 03/31/2023 03/30/2024 1 1 Ordered Prescriptions (unrec ognized section and content) Care Teams (unrecognized sec tion and content) Retail [employer] 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 Relationship Specialty Start Date End Date Cecilio Palmer MD [address] [place] [id number] PCP - General Internal Medicine 07/24/20 Retail [employer] 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 DATE CREATED AUTHOR AUTHOR'S ORGANIZ ATION 12/31/2022 [facility] DATE CREATED AUTHOR AUTHOR'S ORGANIZ ATION 01/19/2023 [facility] DATE CREATED AUTHOR AUTHOR'S ORGANIZ ATION 05/05/2023 [facility] Source Comments (unrecognize d section and content) In the event this informatio n is protected by the Federal Confidentiality of Alcohol and Drug Abuse Patient Records regulations: The Federal rules restrict any use of the information to criminally investigate or prosecute any alcohol or drug abuse patient.[facility] the event this information is protected by the Federal Confidentiality of Alcohol and Drug Abuse Patient Records regulations: The Federal rules restrict any use of the information to criminally investigate or prosecute any alcohol or drug abuse patient.[facility] the event this information is protected by the Federal Confidentiality of Alcohol and Drug Abuse Patient Records regulations: The Federal rules restrict any use of the information to criminally investigate or prosecute any alcohol or drug abuse patient.[facility] FOR RECORDS PERTAINING TO PATIENTS WHO ARE OR HAVE BEEN ENROLLED IN A CHEMICAL DEPENDENCY/SUBSTANCEABUSE PROGRAM, SOME INFORMATION MAY BE OMITTED. This clinical summary was aggregated from multiple sources. Caution should be exercised in using it in the provision of clinical care. This summary normalizes information from multiple sources, and as a consequence, information in this document may materially change the coding, format and clinical context of patient data. In addition, data may be omitted in some cases. CLINICAL DECISIONS SHOULD BE BASED ON THE PRIMARY CLINICAL RECORDS. [facility] provides no warranty or guarantee of the accuracy or completeness of information in this document.
[2023-07-01 16:47] LABS: Amphetamine Urine VISTA NEGATIVE (<1000 ng/mL); Barbiturate Urine VISTA NEGATIVE (< 200 ng/mL); Benzodiazepine Urine VISTA NEGATIVE (< 200 ng/mL); Cocaine Urine VISTA NEGATIVE (< 300 ng/mL); Ecstacy Urine VISTA NEGATIVE (< 500 ng/mL); Methadone Urine VISTA NEGATIVE (< 300 ng/mL); PCP Urine VISTA NEGATIVE (< 25 ng/mL); THC Urine VISTA POSITIVE (< 50 ng/mL); Vista UDS pH Range 4
== END | disposition home or self-care (01) ==
LOC: LAB 14:54
PROVIDERS: PCP Family Medicine; Referring Provider Anesthesiology; Visit Provider Anesthesiology
DX: F11.20 Opioid dependence, uncomplicated (principal)
CPT/HCPCS: 80307

== ENCOUNTER → 2023-07-16 | Outpatient (CLI) | payer MEDICAID, SELFPAY ==
[2023-07-16 18:04] LABS: ALB/GLOB Ratio 1.2 RATIO (0.9-2.4); AST(SGOT) 11 U/L (15-37); Alanine Aminotransfer ALT/SGPT 29 U/L (16-61); Albumin, Serum 3.8 g/dL (3.2-5.0); Alkaline Phosphatase 65 U/L (45-117); Anion Gap 7 (5-15); BUN 16 mg/dL (7-18); BUN/Creat Ratio 16.1 RATIO (10-20); Calcium,Total 9.3 mg/dL (8.5-10.1); Chloride 110 mmol/L (98-107); Creatinine, Serum 0.99 mg/dL (0.70-1.30); EST Glomerular Filtration Rate 85 mL/min (>60); Est Glom Filt Rate - Afr Amer 102 mL/min (>60); Globulin 3.3 g/dL (2.2-4.2); Glucose 101 mg/dL (74-106); Potassium 3.8 mmol/L (3.5-5.1); Protein, Total 7.1 g/dL (6.4-8.2); Sodium Level 142 mmol/L (136-145)
[2023-07-27 12:08] LABS: Testosterone, % Free 4.06 % (1.50-4.20); Testosterone, Free 25.94 ng/dL (5.00-21.00); Testosterone, Total 639 ng/dL (264-916)
== END | disposition home or self-care (01) ==
PROVIDERS: PCP Family Medicine; Referring Provider Family Medicine; Visit Provider Family Medicine
DX: E66.01 Morbid (severe) obesity due to excess calories (principal)
CPT/HCPCS: 80053; 84402; 84403

== ENCOUNTER 2023-10-31 04:56 | Emergency (ER) | payer MEDICAID, SELFPAY ==
[2023-10-31 04:57] VITALS: BP 135/93; PULSE 89; RESP 18; TEMP 36.4; O2SAT 97; BMI 46.7
--- NOTE | 2023-10-31 05:16 | EX.ED.DYSGE1 ---
HPI History of Present Illness Chief Complaint: Other, Pain/Inj Informant: patient Narrative Narrative: Patient is a 53-year-old male with past medical history of chronic left shoulder pain. He states he sees a specialist and will receive shoulder injections every 4 to 6 months. He states his last injection was in June or July and has been doing well. However in the last 4 to 5 days he has noticed that the pain is returning and he states there is no excessive activity or recent trauma. He states he is going out of town secondary to his daughter's wedding and cannot get into see a specialist until afterwards get the injection and with concern that the pain will keep him from enjoying them ceremony he comes in for evaluation [facility] Medical History (Updated 10/31/23 @ 05:[address] 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 Cellulitis of right lower leg IBS (irritable bowel syndrome) Insomnia Left shoulder pain Leg fracture, right Marijuana use Nasal septal deviation SUSIE (obstructive sleep apnea) Osteomyelitis Psoriasis Right shoulder pain Tobacco abuse Home Medications medical marijuana PO QHS PRN pain 07/28/21 [History Last Taken Unknown] cyclobenzaprine 5 mg tablet mg PO PRN 06/24/23 [History Last Taken Unknown] Allergy/AdvReac Type Severity Reaction Status Date / Time ketamine AdvReac Severe mental Verified 10/31/23 05:03 status change--aggession Family History Father CVA (cerebral vascular accident) Congestive heart failure Surgical History (Updated 06/18/23 @ 12:[address] Onofre Conner DO) History of colonoscopy History of open reduction and internal fixation (ORIF) procedure (2019) Social History Smoking Status: Former smoker quit date: 09/02/21 how long ago did patient quit smoking: yr and half ago. second hand exposure: No alcohol intake: current alcohol intake frequency: a few times a month substance use type: marijuana ROS ROS ED Constitutional Constitutional ED: Denies chills or fever(s) ENT ENT ED: Denies sore throat Cardiovascular Cardiovascular: Denies chest pain Respiratory/Chest Respiratory/Chest: Denies cough or dyspnea Gastrointestinal Gastrointestinal: Denies abdominal pain, diarrhea, nausea or vomiting Genitourinary Genitourinary ED: Denies dysuria Musculoskeletal Musculoskeletal: Reports other Details: Positive left shoulder pain Integumentary Denies abscess or Abrasions Neurologic Neurologic: Denies headache(s) Hematologic/Lymphatic Hematologic/Lymphatic: Denies easy bleeding or easy bruising EXAM Physical Exam Const Vital Signs: 10/31/23 04:57 10/31/23 05:01 Temperature 97.6 F L Temperature Source Temporal Pulse Rate 89 Respiratory Rate 18 Respiratory Effort Normal Respiratory Pattern Normal Blood Pressure 135/93 H Blood Pressure Mean 107 Pulse Ox 97 Oxygen Delivery Method Room Air Positive well nourished, well developed and obese General Appearance ED: well developed; Negative for pallor Nutritional Appearance: obese HEENT HEENT Narrative: Normocephalic atraumatic Eyes PERRL and EOMs intact bilaterally General Eye ED: Negative for pale conjunctiva or scleral icterus Neck supple Neck Narrative: No bony deformity or step-off of the cervical spine no midline pain on palpation Resp normal respiratory effort and clear to auscultation bilaterally Cardio regular rate and regular rhythm Extremity Extremity Narrative: Left upper extremity is neurovascularly intact; AIN/PIN are intact and normal Active range of motion is slight decrease secondary to pain There is no obvious bony deformity or joint effusion. Negative sulcus sign. Compartments are still soft and compressible going against compartment syndrome. There is mild diffuse pain on palpation of the left shoulder Neuro oriented x3, CN's II-XII intact bilaterally and no sensory deficits noted Sensorium / Orientation: alert Psych mental status grossly normal Skin Skin Narrative: Patient has chronic dermatitis changes across his face and scalp without secondary changes to suggest infection General Skin Exam: Negative for jaundice or pallor MDM MDM MDM Narrative Medical decision making narrative: Patient arrived to the ER with stable vitals and denied any recent trauma or excessive activity leading to worsening shoulder pain. On exam there is no signs to suggest underlying trauma such as fracture or dislocation. There is no overlying erythema or warmth to suggest gout cellulitis or abscess. Compartments are soft going against compartment syndrome. I informed the patient that the ER does not have the capability to perform fluoroscopic injection. We discussed possible IM injections and/or adding oral medication for symptom control. Patient states that he has had these treatments in the past without any symptom improvement and that the only thing that works for him is the fluoroscopic joint injection. Therefore as we cannot provide the treatment he desires and his exam does not suggest infection trauma or neurovascular compromise there is no need for further evaluation or workup and the patient is otherwise safe for discharge History & Record Review Discussion w/independent historian: Patient Discharge Plan Triage Chief Complaint: Other, Pain/Inj ED Provider: Rudy Malik Dx/Rx/DC Orders Clinical Impression: Left shoulder pain, SUSIE (obstructive sleep apnea), Morbid obesity Instructions: ED Shoulder Impingement Syndrome, ED Shoulder Pain, Uncertain Cause Prescriptions: No Action medical marijuana PO QHS PRN (Reason: pain) cyclobenzaprine 5 mg tablet PO PRN Primary Care Provider: Emelyn Mercer Referrals: Marissa Camacho DO [Med Staff - Automotive Power [employer] Engineer] - Activity Restrictions/Additional Instructions: Please continue all of your home medications as previously directed by your family doctor. Follow-up with your specialist for repeat shoulder injection and return to the ER should you have any further concerns Disposition Disposition: Home, Self Care
== END 2023-10-31 05:23 | disposition home or self-care (01) ==
PROVIDERS: Emergency Provider Emergency Medicine; PCP Family Medicine; Visit Provider Emergency Medicine
DX: M25.512 Pain in left shoulder (principal); E66.01 Morbid (severe) obesity due to excess calories; F12.90 Cannabis use, unspecified, uncomplicated; G47.33 Obstructive sleep apnea (adult) (pediatric); G89.29 Other chronic pain; Z87.891 Personal history of nicotine dependence
CPT/HCPCS: 99282

== ENCOUNTER 2023-11-14 14:46 | Emergency (ER) | payer MEDICAID, SELFPAY ==
[2023-11-14 14:47] VITALS: BP 111/93; PULSE 87; RESP 18; TEMP 36.3; O2SAT 100; BMI 46.0
--- NOTE | 2023-11-14 16:09 | EDS_ITS ---
HPI History of Present Illness Chief Complaint: Foreign Body Informant: patient Narrative Narrative: Patient states several hours ago he was given himself an enema and he lost the tip of the tube which is several inches long of his rectum. He states he is not constipated, he does enemas like this on average twice a week just to stay regular. He states since this happened he has had some loose bowel movements but has not passed the foreign body. He states it feels uncomfortable, but he has no pain. He had a trace amount of blood that he passed with one of the bowel movement. Denies any abdominal pain. 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 Cellulitis of right lower leg IBS (irritable bowel syndrome) Insomnia Left shoulder pain Leg fracture, right Marijuana use Nasal septal deviation SUSIE (obstructive sleep apnea) Osteomyelitis Psoriasis Right shoulder pain Tobacco abuse Home Medications medical marijuana PO QHS PRN pain 07/28/21 [History Last Taken Unknown] cyclobenzaprine 5 mg tablet mg PO PRN 06/24/23 [History Last Taken Unknown] Allergy/AdvReac Type Severity Reaction Status Date / Time ketamine AdvReac Severe mental Verified 11/14/23 14:47 status change--aggession Family History Father CVA (cerebral vascular accident) Congestive heart failure Surgical History (Updated 06/18/23 @ 12:[address] Onofre Conner, DO) History of colonoscopy History of open reduction and internal fixation (ORIF) procedure (2019) Social History Smoking Status: Former smoker quit date: 09/02/21 how long ago did patient quit smoking: yr and half ago. second hand exposure: No alcohol intake: current alcohol intake frequency: a few times a month substance use type: marijuana ROS ROS ED Constitutional Constitutional ED: Denies chills or fever(s) Gastrointestinal Gastrointestinal: Reports as per HPI, hematochezia and other Details: no anal pain ; Denies abdominal pain, melena, nausea or vomiting Genitourinary Genitourinary ED: Denies dysuria or hematuria Musculoskeletal Musculoskeletal: Denies back pain or neck pain EXAM Physical Exam Const Vital Signs: 11/14/23 14:47 Temperature 97.3 F L Temperature Source Temporal Pulse Rate 87 Respiratory Rate 18 Blood Pressure 111/93 H Blood Pressure Mean 99 Pulse Ox 100 Oxygen Delivery Method Room Air Positive well nourished, well developed and obese General Appearance ED: well developed and NAD Nutritional Appearance: obese Resp normal respiratory effort GI normal to inspection, nondistended, normoactive bowel sounds and non-tender Narrative: Rectal: Anus normal-appearing and nontender, no fissure or blood present. No external hemorrhoids. Digital rectal exam there is no blood or melena, there is no palpable foreign body, no tenderness. Neuro oriented x3, CN's II-XII intact bilaterally and no sensory deficits noted Motor Exam: strength 5/5 throughout Psych mental status grossly normal MDM MDM MDM Narrative Medical decision making narrative: KUB obtained, there is no radiographic evidence of the foreign body on my interpretation and radiology was in agreement. Were not able to see the shadow of the plastic foreign body. I discussed with Dr. Johnson with surgery. He recommended a soapsuds enema to see if we can flush it out, and then to contact him if it does not work. This was ordered, but before it was able to be done, the patient became very inpatient, he states he could not wait any longer, he needed to eat and he has not had anything yet, I tried to explain to him that the ER was very busy, there were high acuity and other issues in the ER taking patient care away from patients like him which I apologize for, but we only have so many nurses and they were occupied for a lot of the time, which is why they had not attended to him yet. He said he understood, but needed to leave and would come back if he was not able to pass it or had pain, and eloped and refused to wait for discharge papers. Radiography Diagnostic Testing: Clinical Impression(s) from Imaging Studies Abdomen X-Ray 11/14/23 16:30 IMPRESSION: There are no radiodense foreign bodies noted. Electronically Signed: Atif Gaitan MD at 16:48 EDT , Discharge Plan Triage Chief Complaint: Foreign Body ED Provider: Reece Chavez Dx/Rx/DC Orders Clinical Impression: Foreign body anus/rectum Prescriptions: No Action medical marijuana PO QHS PRN (Reason: pain) cyclobenzaprine 5 mg tablet PO PRN Primary Care Provider: Emelyn Mercer Referrals: Emelyn Mercer MD [Primary Care Provider] - Disposition Disposition: Elopement
--- NOTE | 2023-11-14 16:30 | RAD_ITS ---
EXAM: XR ABDOMEN, 2 VIEWS CLINICAL INDICATION: rectal plastic FB TECHNIQUE: Frontal view of the abdomen/pelvis with upright view of the abdomen. COMPARISON: No relevant prior studies available. FINDINGS: LOWER THORAX: No acute pathology. INTRAPERITONEAL SPACE: No free air. GASTROINTESTINAL TRACT: Unremarkable. Non-obstructive. No bowel or stomach distention. ORGANS: Unremarkable as visualized. No organomegaly. No abnormal calcifications. BONES/JOINTS: Degenerative changes in the lumbar spine. SOFT TISSUES: There are no radiodense foreign bodies noted. RAD/Abd Inc Decub and/or Erect IMPRESSION: There are no radiodense foreign bodies noted. Electronically Signed: Atif Gaitan MD at 16:48 EDT Reading Location ID and State: [facility] / [place] , Service support ,
--- NOTE | 2023-11-14 19:53 | ED.RN ---
Nursing staff went in to assess pt and he had eloped.
== END 2023-11-14 19:56 | disposition left against medical advice (07) ==
PROVIDERS: Emergency Provider Emergency Medicine; PCP Family Medicine; Visit Provider Emergency Medicine
DX: T18.5XXA Foreign body in anus and rectum, initial encounter (principal); Z87.891 Personal history of nicotine dependence; W44.B9XA Other plastic object entering into or through a natural orifice, initial encounter
CPT/HCPCS: 74019; 99282

== ENCOUNTER → 2023-11-16 | Outpatient (CLI) | payer MEDICAID, SELFPAY ==
[2023-11-16 19:35] LABS: PSA,Total- Diagnostic 1.15 ng/mL (0.0-4.0)
== END | disposition home or self-care (01) ==
LOC: MTLAB 16:41
PROVIDERS: PCP Family Medicine; Referring Provider Family Medicine; Visit Provider Family Medicine
DX: R79.89 Other specified abnormal findings of blood chemistry (principal)
CPT/HCPCS: 36415; 84153; 84403

== ENCOUNTER → 2024-02-10 | Outpatient (CLI) | payer MEDICAID, SELFPAY ==
--- NOTE | 2024-02-10 15:20 | RAD_ITS ---
STUDY: X-RAY - LUMBAR SPINE REASON FOR EXAM: Male, 53 years old. LOW BACK INJURY TECHNIQUE: 5 view(s) of the lumbar spine were obtained. COMPARISON: None FINDINGS: Normal lumbar lordosis. Mild dextroscoliosis centered at L3. There is a normal alignment of the vertebrae. Normal vertebral bodies and endplates. Focal disc space narrowing and osteophyte formation at L2/L3 consistent with degenerative disc disease. There is multilevel facet hypertrophy. The soft tissue structures are unremarkable. RAD/L/S Spine Min 4 Views IMPRESSION: Mild dextroscoliosis with degenerative disc disease. MRI may be useful. Electronically Signed: Pito Saldana MD at 10:56 EDT ,
== END | disposition home or self-care (01) ==
PROVIDERS: PCP Family Medicine; Referring Provider Family Medicine; Visit Provider Family Medicine
DX: G47.00 Insomnia, unspecified (principal); S39.92XA Unspecified injury of lower back, initial encounter
CPT/HCPCS: 72110

== ENCOUNTER → 2024-02-16 | Outpatient (CLI) | payer MEDICAID, SELFPAY | END | disposition home or self-care (01) | LOC: MTLAB 09:08 | PROVIDERS: PCP Family Medicine; Referring Provider Family Medicine; Visit Provider Family Medicine | DX: R79.89 Other specified abnormal findings of blood chemistry (principal) | CPT/HCPCS: 36415; 84403 ==

== ENCOUNTER → 2024-03-24 | Outpatient (CLI) | payer MEDICAID, SELFPAY ==
[2024-03-24 17:46] LABS: Absolute Lymphocyte Count 3.22 X10^3/uL (0.83-4.51); Absolute Neutrophil Count 4.8 X10^3/uL (2.0-7.7); Basophil# 0.03 X10^3/uL; Basophil% 0.3 % (0-1); Eosinophil# 0.07 X10^3/uL; Eosinophils% 0.8 % (0-5); Hemoglobin 16.9 g/dL (13.0-16.5); Lymphocyte # 3.22 X10^3/ul (0.83-4.51); Lymphocyte % 35.3 % (19-41); Mean Corp Hgb Conc 32.5 g/dL (32-36); Mean Corpuscular Hgb 28.9 pg (27.0-32.0); Monocyte# 0.97 X10^3/uL; Monocyte% 10.6 % (0-10); NRBC Flagged by Analyzer 0 % (0-5); Neutrophil % 52.8 % (47-70); Platelet Count 239 K/mm3 (150-450); RBC Distribution Width CV 13.2 % (11.6-14.6); RBC Distribution Width SD 43.3 fl (35.1-43.9); Red Blood Count 5.84 M/mm3 (4.6-6.2); White Blood Count 9.1 K/mm3 (4.4-11.0)
[2024-03-24 18:02] LABS: Erythrocyte Sedimentation Rate 8 mm/hr (0-20)
== END | disposition home or self-care (01) ==
LOC: MFPLAB 15:05
PROVIDERS: PCP Family Medicine; Visit Provider Family Medicine
DX: M79.606 Pain in leg, unspecified (principal)
CPT/HCPCS: 36415; 85025; 85652

== ENCOUNTER 2024-05-17 08:33 | Day surgery (SDC) | payer MEDICAID, SELFPAY ==
[2024-05-17] VITALS (10 sets, daily range): BP systolic 114–145; BP diastolic 83–101; PULSE 80–94; RESP 16; TEMP 36.1–36.6; O2SAT 96–99; BMI 42.7
--- NOTE | 2024-05-17 08:41 | EKG12_ITS ---
Test Reason : PREOP Blood Pressure : */* mmHG Vent. Rate : 81 BPM Atrial Rate : 81 BPM P-R Int : 158 ms QRS Dur : 92 ms QT Int : 364 ms P-R-T Axes : 57 54 42 degrees QTcB Int : 422 ms Normal sinus rhythm with sinus arrhythmia Normal ECG When compared with ECG of 06-Mar-2019 09:03, No significant change was found Confirmed by ESTEPHANIA TOLLIVER, ROGELIO ([id number]), communications editor CARLINE MEJIA ([id number]) on 05/17/2024 2:14:55 PM Referred By: Marcus Gooden Confirmed By: ROGELIO BEST MD
--- NOTE | 2024-05-17 08:46 | HP.PCM_ITS ---
HPI - General HPI Narrative AVE ERIC, is a 53 M who presents for left shoulder arthroscopy, subacromial decompression, decompression of the cyst and removal loose body and biceps tenodesis. no changes to h and p. shoulder marked. having some neck pain and hand numbness last evening- warned the patient that is more likely from the neck and unlikely to resolve with shoulder surgery. he undestood. rab post op instructions and narcotic counselling. ok to proceed. MR#: [id number] Acct: [id number] Name: AVE ERIC Rep #: [id number] : 1970 Provider: Dr. Marcus Gooden MD Age/Sex: 53/M Location: [facility] [place] Status: Signed Intake Vital Signs 12/12/2413:10 Height 5 ft 9 in Weight: 311 lb 8 oz BMI 46.0 Intake Visit Reasons: left shoulder Chief Complaint: left shoulder Allergies ketamine Adverse Reaction (Severe, Verified 04/04/24 08:37) mental status change--aggession Medications ?Medication ?Instructions ?Recorded ?Confirmed ?Type medical marijuana PO QHS PRN pain 07/28/21 04/04/24 History semaglutide (weight loss) 0.25 0.25 mg subcut QWEEK 12/13/23 04/04/24 History mg/0.5 mL subcutaneous pen injector testosterone cypionate 200 mg/mL 200 mg IM QWEEK 12/13/23 04/04/24 History intramuscular oil tramadol 50 mg tablet 50 mg PO TID PRN 12/13/23 04/04/24 History trazodone 50 mg tablet 50 mg PO DAILY 12/13/23 04/04/24 History PFSH Medical History 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 Right shoulder pain Left shoulder pain Marijuana use Tobacco abuse Leg fracture, right Insomnia Cellulitis of right lower leg Nasal septal deviation Osteomyelitis IBS (irritable bowel syndrome) Anxiety and depression Psoriasis SUSIE (obstructive sleep apnea) Surgical History History of open reduction and internal fixation (ORIF) procedure (2019) History of colonoscopy Family History Father CVA (cerebral vascular accident) Congestive heart failure Social History Smoking Status: Former smoker quit date: 09/02/21 how long ago did patient quit smoking: yr and half ago. second hand exposure: No alcohol intake: current alcohol intake frequency: a few times a month substance use type: marijuana HPI left shoulder Details: This documentation accurately reflects the service provided and the decisions made by me, Dr. Marcus Gooden MD 04/04/24 0834. Part of today?s visit was documented by [ ], acting as scribe. AVE ERIC is a 53 year old M here today for FU L shoulder pain, to discuss surgical option. Ortho Exam General General: Yes no acute distress Neurologic: Yes alert and Yes oriented x3 Psychologic: Yes reasonable and appropriate Left Shoulder Skin/Wound: Yes CDI, No ecchymosis, No erythema and No swelling Testing: Yes Hawkin's, Yes Neer's, Yes Speed's, No TTP Biceps, No TTP AC Joint, Yes AROM-External Rotation at side 0-60, Yes empty can, Yes Rapidan and Yes belly press normal SHOULDER: normal motor and sens to axillary N, MRU and AIN/PIN. Hand warm well perfused normal radial pulse strength fe 4+ and er 5/5 active FE 150, passive 160. er 40. Coding Level of Care Code Off vis,est,level 4 Diagnoses Left shoulder pain M25.512 Assessment and Plan Assessment and Plan (1) Left shoulder pain: Status: Acute Plan: 52 year old M here today for L shoulder pain. MRI showing a SLAP tear paralabral cyst rotator cuff tendinosis impingement syndrome small amount of arthritis although on the x-rays there is no evidence of glenohumeral joint space narrowing as well as potentially small loose body. Surgical option for this would be left shoulder arthroscopy, subacromial decompression, decompression of the cyst and removal loose body and biceps tenodesis. Pros and cons risks and benefits were discussed with the patient including but not limited to infection, pain, stiffness, bleeding, damage to surrounding structures, neurovascular injury, recurrence or retear, failure or wear of hardware or fixation, instability, fracture, deep vein thrombosis and pulmonary embolism, anesthetic risks, , patient dissatisfaction, need for further surgery and other risks. Patient understood and wished to proceed with surgery, and signed the informed consent documentation. Increase in the risks of surgery including infection and other risks would be SUSIE - no cpap, psoriasis (severe) vaping marijuana use. [facility] Medical History No natural teeth History of revision of total replacement of right knee joint Uses wheelchair Walker as ambulation aid Ambulates with cane Arthritis Cardiology follow-up encounter History of echocardiogram History of stress test 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 Right shoulder pain Left shoulder pain Marijuana use Tobacco abuse Leg fracture, right Insomnia Cellulitis of right lower leg Nasal septal deviation Osteomyelitis IBS (irritable bowel syndrome) Anxiety and depression Psoriasis SUSIE (obstructive sleep apnea) Home Medications ?Medication ?Instructions ?Recorded ?Last Taken ?Type medical marijuana PO QHS PRN pain 07/28/21 Unknown History semaglutide (weight loss) 0.25 0.25 mg subcut MO 12/13/23 05/10/24 History mg/0.5 mL subcutaneous pen injector Allergy/AdvReac Type Severity Reaction Status Date / Time ketamine AdvReac Severe mental Verified 05/17/24 08:59 status change--aggession Family History Father CVA (cerebral vascular accident) Congestive heart failure Surgical History History of open reduction and internal fixation (ORIF) procedure (2019) History of colonoscopy Social History Smoking Status: Former smoker quit date: 09/02/21 how long ago did patient quit smoking: yr and half ago. second hand exposure: No alcohol intake: current alcohol intake frequency: a few times a month substance use type: marijuana Vital Signs Vital Signs Vital Signs: Weight Weight: 311 lb Results Lab / Micro Data 05/17/24 09:11
[2024-05-17] MEDS: Lactated Ringers 1,000 ML 15 ML IV (09:18)
--- NOTE | 2024-05-17 09:19 | PCM.PRE.AN2 ---
ASA Classification* ASA Classification ASA Classification: 3 Assessment & Plan Anesthesia* Anesthesia Assessment Anesthesia Assessment: Discussed sedation and/or anesthesia options, risks, benefits, and alternatives with patient/parents/legal guardian/POA. Questions invited. The patient/parents/legal guardian/POA seems to understand and agrees to proceed with anesthesia plan. Reviewed the physical assessment, medical history, allergy history and patient home medications list prior to surgery/procedure/anesthetic and documented any changes. Performed airway and anesthesia risk assessments. Anesthesia Type Anesthesia Type: General Anesthesia Focused Assessment* Temperature: 97.9 F Pulse Rate: 80 Blood Pressure: 114/87 Respiratory Rate: 16 Pulse Ox: 99 Airway Assessment Mouth opens: >3 cm Mallampati Score: II Focused Labs Anesthesia Preop lab: CBC WBC 9.1 K/mm3 (4.4-11.0) 03/24/24 15:05 RBC 5.84 M/mm3 (4.6-6.2) 03/24/24 15:05 Hgb 16.9 g/dL (13.0-16.5) H 03/24/24 15:05 Hct 52.0 % (40-54) 03/24/24 15:05 Plt Count 239 K/mm3 (150-450) 03/24/24 15:05 CHEMISTRY Potassium 3.8 mmol/L (3.5-5.1) 07/16/23 17:00 Sodium 142 mmol/L (136-145) 07/16/23 17:00 BUN 16 mg/dL (7-18) 07/16/23 17:00 Creatinine 0.99 mg/dL (0.70-1.30) 07/16/23 17:00 Glucose 101 mg/dL (74-106) 07/16/23 17:00 TSH 2.16 uIU/mL (0.358-3.74) 04/06/22 14:14 COAG PT 13.0 SECONDS (11.7-14.9) 11/25/20 10:28 Pre-Assessment Diagnosis/Proposed Procedure Planned Operative Procedure(s): (L) Left shoulder Arthroscopy, subacromial decompression, decompression of cyst, removal of loose body, biceps tenodesis Anesthesia History 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 When Was Last Pacemaker Check QUESTION #4 FULL TEXT: You/Your Family Experience fever (hyperthermia) with Anesthesia Last Oral Intake Last Oral intake: Last Oral Intake NPO since 00:00 05/17/24 09:14 Meds taken in AM with sips of water? Meds patient instructed to take am of surgery PONV PONV - research chemical engineer: PONV - research chemical engineer Female No 05/03/24 09:11 HX of Motion Sickness No 05/03/24 09:11 HX of N/V After Surgery No 05/03/24 09:11 Non-Smoker Yes 05/03/24 09:11 Duration of Surgery greater Yes 05/03/24 09:11 than 60 minutes Number of Risk Factors 2 05/03/24 09:11 PONV Score Moderate Risk 05/03/24 09:11 Height & Weight Height & Weight: Anesthesia: Height & Weight Height 5 ft 9 in 05/17/24 09:14 Weight: 131.088 kg 05/17/24 09:14 Body Mass Index (BMI) 42.7 05/17/24 09:14 Respiratory Assessment Respiratory Assessment - research chemical engineer: Respiratory Tract Infection Hx - research chemical engineer Hx Respiratory Tract Infection No 05/03/24 09:11 STOP Sleep Apnea STOP Sleep Apnea - research chemical engineer: STOP Sleep Apnea - research chemical engineer Hx Hypertension No 05/03/24 09:11 Hx Sleep Apnea Yes 05/03/24 09:11 CPAP No 05/03/24 09:11 BIPAP No 05/03/24 09:11 Do you snore loudly (louder than talking or can be heard Do you often feel tired/ fatigued/ sleepy during daytime? Has anyone observed you stop breathing during sleep? STOP Results Positive 05/03/24 09:11 QUESTION #5 FULL TEXT : Do you snore loudly (louder than talking or can be heard through closed doors)? Tobacco Use History Tobacco Use History - research chemical engineer: Tobacco Use History - research chemical engineer Tobacco Use Cigarettes 12/01/23 15:24 Smoking Status Former smoker 05/03/24 09:11 Hx Tobacco Use Yes 05/03/24 09:11 Years Smoking Packs Smoked per Day Smoking Cessation Date was Yes - quit smoking within 15 05/03/24 09:11 within the last 15 years years Hx Smoking Cessation Date 07/05/21 05/03/24 09:11 Hx Smoking Cessation Counseling Hematologic Medial History Hematologic Hx - research chemical engineer: Hematologic Medical Hx - human resource analyst Hx of Blood Transfusion No 05/03/24 09:11 Hx of Transfusion in last 3 No 05/03/24 09:11 Months Date of Last Transfusion (if within last 3 months) Ever experience any problems No 05/03/24 09:11 with transfusion(s)? Specify any problems Hx of Preganancy in last 3 N/A 05/03/24 09:11 Months Nurse Filling Out Transfusion NBUCHER 05/03/24 09:11 & Questions: Date: 05/03/24 05/03/24 09:11 Time: 09:12 05/03/24 09:11 Patient unable to answer at this time (ie. confused, unrespo /Reproduction History /Reproductive History - research chemical engineer: /Reproductive Hx- research chemical engineer Hx Now No 05/03/24 09:11 Gestational Age (in weeks): EDC: Hx Hx Para Hx Section SAB No 05/03/24 09:11 Active Medications Active Medications: Current Medications Generic Name Dose Route Start Last Admin Trade Name Freq PRN Reason Stop Dose Admin Cefazolin Sodium 3 gm/ N/A 30 mls @ 600 mls/hr 05/17/24 10:45 IV 05/17/24 10:47 PREOP ONE Lactated Ringer's 1,000 mls @ 15 mls/hr 05/17/24 08:45 05/17/24 09:18 IV 05/22/24 22:04 15 mls/hr .Q48H ALEJANDRA Administration Protocol PFSH Medical History No natural teeth History of revision of total replacement of right knee joint Uses wheelchair Walker as ambulation aid Ambulates with cane Arthritis Cardiology follow-up encounter History of echocardiogram History of stress test 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 Right shoulder pain Left shoulder pain Marijuana use Tobacco abuse Leg fracture, right Insomnia Cellulitis of right lower leg Nasal septal deviation Osteomyelitis IBS (irritable bowel syndrome) Anxiety and depression Psoriasis SUSIE (obstructive sleep apnea) Home Medications ?Medication ?Instructions ?Recorded ?Last Taken ?Type medical marijuana PO QHS PRN pain 07/28/21 Unknown History semaglutide (weight loss) 0.25 0.25 mg subcut MO 12/13/23 05/10/24 History mg/0.5 mL subcutaneous pen injector Allergy/AdvReac Type Severity Reaction Status Date / Time ketamine AdvReac Severe mental Verified 05/17/24 08:59 status change--aggession Family History Father CVA (cerebral vascular accident) Congestive heart failure Surgical History History of open reduction and internal fixation (ORIF) procedure (2019) History of colonoscopy Social History Smoking Status: Former smoker quit date: 09/02/21 how long ago did patient quit smoking: yr and half ago. second hand exposure: No alcohol intake: current alcohol intake frequency: a few times a month substance use type: marijuana Review of Systems (Anesthesia) ROS Narrative System reviewed and no additional complaints, except as documented.
[2024-05-17 09:31] LABS: Anion Gap 3 (5-15); BUN 11 mg/dL (7-18); BUN/Creat Ratio 11.1 RATIO (10-20); Calcium,Total 8.3 mg/dL (8.5-10.1); Chloride 114 mmol/L (98-107); Creatinine, Serum 0.99 mg/dL (0.70-1.30); EST Glomerular Filtration Rate 85 mL/min (>60); Est Glom Filt Rate - Afr Amer 103 mL/min (>60); Estimated Creatinine Clearance 118.44 ml/min; Glucose 95 mg/dL (74-106); Potassium 3.9 mmol/L (3.5-5.1); Sodium Level 143 mmol/L (136-145)
[2024-05-17] MEDS: Cefazolin 3 GM in Syringe 1 EACH IV (10:10)
--- NOTE | 2024-05-17 10:45 | TESH_PTH ---
PATIENT: AVE ERIC LOC: [facility] [place] U#:[id number] AGE/SX: 53/M ROOM: RE05/17/[address]: Dr. Marcus Gooden MD : 1970 BED: DIS: 05/17/2024 SPEC #: [id number] RECD: 05/17/24 13:34 STATUS: ALEX REAndre #: [id number] RISA: 05/17/24 10:[address]: Marcus Gooden DEPT: SURGICAL PATHOLOGY RECD BY: Corrina Valadez ENTERED: 05/18/24 09:43 SP TYPE: TENDON OTHR DR: Emelyn Mercer MD Tissues: Tendon and tendon sheath, NOS Procedures: Surgery Specimen Level III HEADER OPERATION: Left shoulder arthroplasty, subacromial decompression PRE-OP DIAGNOSIS: Left shoulder pain TISSUE SUBMITTED: Left bicep tendon MICROSCOPIC DIAGNOSIS Left bicep tendon, resection: A piece of dense fibroconnective tissue with reactive changes. 05/19/2024 MICROSCOPIC DESCRIPTION Slides are reviewed. GROSS DESCRIPTION Received in fixative is one container labeled with the patient's name and designated Left bicep tendon. The specimen consists of a piece of reyes indurated tissue measuring 5.1 x 0.5 x 0.3cm. The entire specimen is submitted in one cassette. HAYLEE. 05/18/2024 TC:5 CPT:22393
[2024-05-17] MEDS: Epinephrine (1 mg/ml) 1 MG/ML VIAL (10:55)
--- NOTE | 2024-05-17 11:44 | PCM.OPRPT ---
Problems Associated Problem List Diagnoses (1) Left shoulder pain: (2) Impingement of left shoulder: (3) Superior labrum [id number]-dzmhzjrgh (SLAP) tear of left shoulder: (4) Paralabral cyst of left shoulder: Operative Report (Standard) Operative Information Surgery/Procedure Performed: Left shoulder arthroscopy debridement decompression paralabral cyst subacromial decompression biceps tenodesis Surgeon: Marcus Gooden Date of Procedure: 05/17/24 Procedure Start Time: 10:38 Procedure Stop Time: 11:45 Pre-Operative Diagnosis: Left shoulder impingement syndrome SLAP tear loose body Post-Operative Diagnosis: Same Select all DRAINS/GRAFTS/IMPLANTS that apply: None Type of Anesthesia: Local MAC Estimated Blood Loss: 50 Specimen collected: Yes Description of specimen(s) removed: Long head of biceps tendon Description of surgery: Patient brought to the operating room theater. Placed supine on the table. General anesthesia induced. 3 g IV Ancef administered prior to the start of the procedure. Patient transferred left side up lateral decubitus beanbag positioner axillary roll placed all bony prominences padded SCDs on the legs. Upper extremity prepped and draped in the usual sterile fashion with chlorhexidine-based prep solution allowing over 3 minutes drying time prior to draping. 10 pounds of inline traction with the arm in 45 degrees of abduction. Preoperative timeout performed to confirm the site patient and the surgery. Began by inserting the arthroscope into the intra-articular portion of the shoulder did a full diagnostic arthroscopy. Cartilage on the glenoid and humeral head had minor grade 1 changes. Subscapularis appeared normal as did the undersurface of the rest of the rotator cuff tendons. There is an obvious SLAP tear instability of the biceps and fraying of the superior labrum. I performed inside out spinal needle localization to perform an anterior portal through the rotator interval. I placed a cannula. I examined the subscapularis I examined deep to the subscapularis and the recess as well as placing the arthroscope anteriorly but cannot find any loose obvious loose bodies or calcified material adherant to the subscapularis. Debrided the rotator interval and the labrum. I then turned my attention the biceps. I performed an intra-articular biceps long head tenotomy. I took arthroscopy pictures throughout the case saved onto the system. I then placed the arthroscope into the subacromial space. This was quite tight I did a bursectomy. The rotator cuff tendon has some minor superficial fraying but no full-thickness tears. I remove quite a bit of inflammatory bursa. I did a subacromial decompression for 4 mm down to flat margins. I took pictures and saved them onto the system throughout. Arthroscope was withdrawn. I also established a lateral based portal for working in the subacromial space. I then turned my attention to the biceps tenodesis portion of the procedure. I made a small 2 inch incision centered over the proximal anterior medial aspect of the humerus and carried the dissection down through skin and subcutaneous tissue achieved meticulous hemostasis. I incised the fascia in line with skin incision. Identified the long head the biceps deliver this through the incision. I placed an Allis clamp on the biceps. I shorten the biceps. I placed the Arthrex tension tight luggage tag locking loop suture around just proximal to the musculotendinous junction. I then passed the free end just distal to that from superficial to deep locking the tendon. I then identified the biceps groove just distal to the insertion of the pectoralis major. I drilled a unicortical hole and irrigated the bone dust. I then passed the button flipped the button and delivered the tendon to the bone for the repair solid repair. Using knotless technique cut the suture short thoroughly irrigated the wounds. Subcutaneous tissue closed with 2-0 Vicryl sutures and skin with 3-0 Monocryl. 20 cc of quarter percent bupivacaine instilled in and around the soft tissue sites as the patient was unable to receive a block preoperatively. Skin cleaned with wet dry dressing followed application of Steri-Strips Adaptic 4 x 4 gauze ABD dressing cloth tape and a sling for the upper extremity. Patient woken up from the general anesthetic transferred off the operating table taken to postanesthetic care unit in stable condition. All sponge needle management counts were correct no complications plan to the patient discharge home day surgery criteria follow-up in the office in 2 weeks time. [id number], [id number]? Surgical Findings: as above, slap tear, bursitis, no loose body found Supervisor Cell Operation attractions associate: Yes Food Adviser: darby gao Tasks completed by criminal legal assistant: Other (positioning, sling, dressing) Additional financial administrative assistant?: No Complications Complications: No Admit VTE Documentation VTE Present on Admission: No VTE Mechan Device Prophylaxis: SCD's VTE Pharm Prophylaxis ordered?: No Reason prophylaxis not ordered: Treatment Not Indicated Procedures Musculoskeletal 20xxx-29xxx: Other Procedure See Report
[2024-05-17] MEDS: Bupivacaine 0.25% 30 ML Vial (11:47)
--- NOTE | 2024-05-17 11:56 | EX.PCM.DISCH ---
Discharge Instructions Diet Discharge Diet: No restrictions Activity Ice area for (Minutes): 10 Lifting Restrictions: pendulums only 2 weeks (4x/day) Dressing / Incision Call your doctor if your incision/area has: Continuous Slow Oozing, Sudden Increased Bleeding, Increased Pain/ Swelling, Increased Redness, Foul Smelling Discharge and Swelling at the incision site Call your doctor if you observe: Fever of 101 or Higher, Coldness, Increased Pain and Numbness or Tingling Remove Dressing in: leave until fall off Cleanse incision/area with: Do not get Incision Wet Follow Up Care Please Follow Up With: Marcus Gooden MD Test Results: Test results from this visit will be discussed in further detail at your follow-up appointment, if applicable. Discharge Plan Admission Attending Provider: Marcus Gooden Primary Care Provider: Emelyn Mercer Instructions Print Language: [place] Discharge Orders/Prescriptions Prescriptions: New oxycodone-acetaminophen [Percocet] 5-325 mg tablet 1 tab PO Q6H MDD 6 PRN (Reason: pain) 5 Days Qty: 20 0RF No Action medical marijuana PO QHS PRN (Reason: pain) semaglutide (weight loss) 0.25 mg/0.5 mL pen injector 0.25 mg subcut MO Rx Instructions: administer weeks 1 through 4 of therapy Referrals / Follow Up: Melany Kapoor MD [Med Staff - Supervisor Research Kennel] - Disposition Disposition (needs filled in before D/C Order can be placed): Home, Self Care
--- NOTE | 2024-05-17 12:02 | PCM.POST.ANE ---
Anesthesia: Postop Eval I Current Vital Signs Temperature: 97.4 F Pulse Rate: 90 Blood Pressure: 140/100 Respiratory Rate: 16 Pulse Ox: 98 Oxygen Delivery Method: Room Air Assessment Airway patent: Yes Spontaneous unlabored respirations: Yes Mental status: Awake and Calm nausea: No Vomiting: No Anesthesia Complication: No Fluid Hydration Crystalloid volume administer (ml): 1,000 Total IV fluid infused: 1,000 Progress Note Anesthesia document: Postop Eval 1 completed: Yes
[2024-05-17] MEDS: HYDROcodone Bitartrate/Apap 5/325 Tablet PO (12:57)
--- NOTE | 2024-05-17 14:36 | POSTOPAN2_ITS ---
Anesthesia Postop Eval I Sum Postop Eval Completion status Anesthesia document: Postop Eval 1 completed: Yes Anesthesia Postop Eval I Summary Anesthesia Postop Eval I Summary: Anesthesia Postop Eval I: Assessment Summary Airway patent Yes 05/17/24 12:03 [email or web address] Spontaneous unlabored Yes 05/17/24 12:03 [email or web address] respirations Mental status Awake,Calm 05/17/24 12:03 [email or web address] nausea No 05/17/24 12:03 TOY [email or web address] Vomiting No 05/17/24 12:03 TOY [email or web address] Anesthesia Postop Eval I: Fluid Summary Crystalloid volume administer 1,000 05/17/24 12:03 TOY [email or web address] (ml) Colloids volume administered ( ml) Blood Product volume administered (ml) Total IV fluid infused 1,000 05/17/24 12:03 [email or web address] Anesthesia Postop Eval I: Summary Notes Anesthesia Complication No 05/17/24 12:03 TOY [email or web address] Anesthesia Complication Comment: Post-operative progress note Anesthesia: Postop Eval II Evaluation Mental status: Awake Pain Level: 0 nausea: No Vomiting: No
--- NOTE | 2024-05-17 14:36 | PCM.POSTANE2 ---
Anesthesia Postop Eval I Sum Postop Eval Completion status Anesthesia document: Postop Eval 1 completed: Yes Anesthesia Postop Eval I Summary Anesthesia Postop Eval I Summary: Anesthesia Postop Eval I: Assessment Summary Airway patent Yes 05/17/24 12:03 SUBSTANCE ABUSE SERVICES DIRECTOR.[email or web address] Spontaneous unlabored Yes 05/17/24 12:03 SUBSTANCE ABUSE SERVICES DIRECTOR.[email or web address] respirations Mental status Awake,Calm 05/17/24 12:03 SUBSTANCE ABUSE SERVICES DIRECTOR.[email or web address] nausea No 05/17/24 12:03 SUBSTANCE ABUSE SERVICES DIRECTOR.[email or web address] Vomiting No 05/17/24 12:03 SUBSTANCE ABUSE SERVICES DIRECTOR.[email or web address] Anesthesia Postop Eval I: Fluid Summary Crystalloid volume administer 1,000 05/17/24 12:03 SUBSTANCE ABUSE SERVICES DIRECTOR.[email or web address] (ml) Colloids volume administered ( ml) Blood Product volume administered (ml) Total IV fluid infused 1,000 05/17/24 12:03 SUBSTANCE ABUSE SERVICES DIRECTOR.[email or web address] Anesthesia Postop Eval I: Summary Notes Anesthesia Complication No 05/17/24 12:03 SUBSTANCE ABUSE SERVICES DIRECTOR.[email or web address] Anesthesia Complication Comment: Post-operative progress note Anesthesia: Postop Eval II Evaluation Mental status: Awake Pain Level: 0 nausea: No Vomiting: No
== END 2024-05-17 13:39 | disposition home or self-care (01) ==
LOC: SDC 08:42 → AC 08:42
PROVIDERS: Anesthesiology; PCP Family Medicine; Referring Provider Orthopaedic Surgery Sports Medicine; Visit Provider Orthopaedic Surgery Sports Medicine
PROC: (CPT 29805; principal; 2024-05-17 10:25)
DX: S43.432A Superior glenoid labrum lesion of left shoulder, initial encounter (principal); M75.42 Impingement syndrome of left shoulder; G47.33 Obstructive sleep apnea (adult) (pediatric); Z87.891 Personal history of nicotine dependence; X58.XXXA Exposure to other specified factors, initial encounter
CPT/HCPCS: 29826; 23430; 29822; 01630; 80048; 88304; 93005; C1713; J7120; J2405

== ENCOUNTER 2024-07-03 16:41 | Emergency (ER) | payer MEDICAID, SELFPAY ==
[2024-07-03 16:42] VITALS: BP 119/91; PULSE 97; RESP 18; TEMP 36.6; O2SAT 10; BMI 35.7
== END 2024-07-03 17:25 | disposition left against medical advice (07) ==
LOC: ED 18:07
PROVIDERS: PCP Family Medicine
DX: Z53.21 Procedure and treatment not carried out due to patient leaving prior to being seen by health care provider (principal)